=== PATIENT | female | born 1950 | race Two or more races ===

== ENCOUNTER 2021-09-10 22:10 | Inpatient (IN) | payer OTHER, SELFPAY ==
--- NOTE | ~2021-09-10 | US_ITS ---
EXAMINATION: ULTRASOUND EXTREMITY NONVASCULAR CLINICAL INFORMATION: Left upper extremity palpable lesion. COMPARISON: None TECHNIQUE: Limited ultrasound imaging through the antecubital fossa was performed. FINDINGS: Limited ultrasound imaging through antecubital fossa there is isoechoic lesion within the intramuscular compartment surrounding by capsule suggestive of intramuscular lipoma. It has similar appearance to the subcutaneous fatty tissue. US/US extremity nonvascular IMPRESSION: Findings suggestive of isoechoic fatty lesion/lipoma within the intramuscular compartment.
[2021-09-10 22:43] VITALS: PULSE 130; RESP 17; O2SAT 97; BMI 24.3
--- NOTE | 2021-09-11 00:42 | PC.NURSE ---
This RN calling pt into the main ED. Pt refusing to leave WR. Daughter with pt explains that she was recently discharged from [facility] on 09/04 due to mental health reasons but has been declining at home. Per daughter, pt has been refusing her medications for 1 week now, pt has also not been sleeping. Per daughter, pt has become very aggressive with her daughters . Daughter does not feel safe caring for pt @ home and is concerned for pts well being. MD evaluating pt in the WR. Pt ambulating into room 17.
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
--- NOTE | 2021-09-11 01:51 | PC.NURSE ---
pt refusing to allow this EDT to draw blood work at this time.
--- NOTE | 2021-09-11 01:55 | PC.NURSE ---
Pt moved into room 10 to be monitored by sitter.
[2021-09-11 03:33] LABS: Appearance Urine HAZY; Color Urine YELLOW; Glucose Urine UA NEG (NEG); Leukocyte Esterase Urine 2+ (NEG); Nitrite Urine NEG (NEG); Specific Gravity - Urine 1.015 (1.005-1.025); UACC Culture Trigger YES; Urine Blood TRACE (NEG); Urine Ketones NEG (NEG); Urine Protein NEG (NEG-TRACE)
[2021-09-11 03:39] LABS: Bacteria Urine 1+ /LPF; Hyaline Casts Urine 0-2 /LPF; Mucus Urine 1+ /LPF; RBC Urine 0-2 /HPF (0); Squamous Epithelial Cell Urine 2+ /LPF; WBC Urine 30-49 /HPF (0-4)
[2021-09-11 03:48] LABS: Amphetamine Screen Urine Not Detected (Not Detect); Barbiturates, Urine Not Detected (Not Detect); Benzodiazepines Screen Urine Not Detected (Not Detect); COVID-19 Test Negative (Negative); Cannabinoid Screen Urine Not Detected (Not Detect); Cocaine Screen Urine Not Detected (Not Detect); Fentanyl, urine Not Detected (Not Detect); Opiate Screen Urine Not Detected (Not Detect); Phencyclidine Screen Urine Not Detected (Not Detect)
[2021-09-11 04:00] VITALS: RESP 15; O2SAT 97
--- NOTE | 2021-09-11 04:06 | PC.NURSE ---
Patient refusing to have vital signs taken. She also has refused to have blood draws taken as well, provider and charge nurse aware.
--- NOTE | 2021-09-11 04:07 | PC.NURSE ---
Patient was recently hospitalized at [facility] [place] Psych bed from July of this year until 09/04/2021. Plan to get medical records from that hospitalization. Patient is refusing vitals and blood draws
--- NOTE | 2021-09-11 05:00 | PC.NURSE ---
PATIENT CONTINUE TO REFUSED LABS ,RN AND MD AWARE .
--- NOTE | 2021-09-11 06:00 | PC.NURSE ---
RN AND MD AWARE PATIENT REFUSED VITALS SIGNS ,LAB DRAW AND TO SUPER[employer] INTO HOSPITAL ATTIRE .
[2021-09-11 06:04] VITALS: RESP 16
--- NOTE | 2021-09-11 08:00 | PC.NURSE ---
pt continues to refuse to allow staff to complete vitals on her, RR 20. NAD. pt wanted breakfast and is currently sitting up to eat. continues to refuse lab values
--- NOTE | 2021-09-11 08:53 | PHA.MEDREC ---
Pharmacy Consult ? Medication Reconciliation Pharmacy has completed the medication reconciliation. confirmed list of meds from claim history with pt's daughter
[2021-09-11 10:30] LABS: Ethanol < 10 mg/dL
[2021-09-11 10:35] LABS: Acetaminophen LAB < 1 mcg/mL (<30); Alanine Aminotransferase 11 U/L (0-31); Albumin Level 3.6 g/dL (3.5-5.0); Alkaline Phosphatase 131 U/L (39-117); Anion Gap 13 (12-20); Aspartate Amino Transferase 11 U/L (5-31); Bilirubin Total 0.6 mg/dL (0.0-1.0); Blood Urea Nitrogen 13 mg/dL (9-16); Calcium 9.7 mg/dL (8.4-10.2); Carbon Dioxide 24 mmol/L (22-29); Chloride 105 mmol/L (96-108); Estimated Glomerular Filt Rate > 60; Glucose Random 153 mg/dL (60-115); Lipase 21 U/L (8-78); Potassium 3.9 mmol/L (3.3-5.1); Sodium 138 mmol/L (135-145); Total Protein 7.2 g/dL (6.5-8.0)
[2021-09-11 10:37] LABS: Influenza A Negative (Negative); Influenza B2 Negative (Negative)
[2021-09-11 11:04] VITALS: BP 184/85; PULSE 101; RESP 18; O2SAT 97
--- NOTE | 2021-09-11 11:23 | PC.NURSE ---
pt reports everyone in her family is a doctor, including her. she allowed t/w to do vitals on her but when informed her BP was elevated she stated No, my BP is good, its 73 and 80 and 83 . 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 pt refused all her medications, stated she does not need them and does not take medications .
[2021-09-11 18:37] VITALS: RESP 20
--- NOTE | 2021-09-11 18:38 | PC.NURSE ---
entered pts room, she said get out . asked if pt had pain, she said no now get out
[2021-09-11 19:40] VITALS: PULSE 96; TEMP 37.1; O2SAT 96
[2021-09-11] MEDS: Doxepin HCl 25 MG CAPSULE 50 MG PO (21:00)
[2021-09-11] MEDS: OLANZapine 10 MG TABLET 20 MG PO (21:00)
--- NOTE | 2021-09-11 23:05 | PC.NURSE ---
pt given water, resting in bed
[2021-09-12] VITALS (7 sets, daily range): BP systolic 141–175; BP diastolic 62–75; PULSE 80–108; RESP 14–18; TEMP 36.3–37.1; O2SAT 95–98
--- NOTE | 2021-09-12 01:02 | PC.NURSE ---
pt requesting pain medication, this RN brought medication in to pt and pt began screaming I dont want it , pt reassured, althought continued to scream i dont want it
--- NOTE | 2021-09-12 08:30 | PC.NURSE ---
Patient refused her 9:00 am medications screaming I don't' want them . This telegraphic typewriter mechanic explained to the patient that her morning medications are for blood pressure and to treat active urinary tract infection-patient continued to refuse her meds.
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
--- NOTE | 2021-09-12 23:27 | PC.ADMIT ---
Pt. admitted to S1 from [facility] ED on 09/12/2021 at 2158 with a diagnosis of schizophrenia. She came to the ED due to medication noncompliance. Pt. was transported to the unit by wheelchair. Pt. signed a CV in the ED. Pt. was able to correctly report her date of . When asked her name, pt. reported she goes by Shelley Andersen. Pt. reported she is near home and was able to state that she is at [facility] when looking at the white board in the ER. Pt. is unaware of time, date and situation. Speech is clear but disorganized, confused and delusional at times. Pt. is being treated for a UTI with cefuroxime axetil 250mg BID. Pt. refused HS medications. Pt. presented with an angry, agitated mood and affect. She became more angry when she was told she could not have her cell phone. Pt. refused medications. Speech is clear but disorganized, confused and delusional at times. Pt. refuses to put name band on. Pt. refused to sign legals. Pt. refused to complete admission assessment and safety tool. Medications verified with [facility]. Pt. ambulates independently without DME. Gait is steady. Pt. offered no c/o SI, HI, AH and VH. She did not report pain. Pt. is in her room resting quietly.
--- NOTE | 2021-09-13 04:31 | PC.NURSE ---
Transfer orders included order for medication restraint and order to physically hold pt for medication restraint. TO from Dr. Enrique to discontinue orders.
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
[2021-09-14 06:00] VITALS: BP 146/70; PULSE 97; RESP 17; TEMP 36.7; O2SAT 96
[2021-09-14 07:00] VITALS: BMI 25.5
--- NOTE | 2021-09-14 08:25 | P.PNPSI_ITS ---
Subjective Subjective Date of Service: 09/14/21 Reason For Visit: Psychosis Subjective Notes: Conditional Voluntary Interim History: The nursing staff reported the patient has been very social in the evening, delusional, nonsensical. She also refused all her medications. She slept very late. On interview the patient was tangential reported that she was doing fine but she looks internally preoccupied and responding to internal stimuli, she stated that she only will take the little white pill Mental Status Exam Mental Status Exam Patient Appearance: Appropriate Patient Orientation: Person and Situation Level of Consciousness: Awake Patient Behavior: Guarded, Passive and Suspicious Mood Description: Suspicious Affect Description: Blunted Patient Cognition Impaired: Yes Ability to Follow Directions: Good Speech Pattern: Monotone Hallucinations: Auditory Delusions: Paranoid Ideation and Grandiose Thought Process: Racing, Illogical and Evasive Judgement: Poor Diagnostics Vital Signs (24Hr): Vital Signs - 24 hr 09/14/21 06:00 Temperature 98.0 F Pulse Rate 97 Respiratory Rate 17 Blood Pressure 146/70 H Pulse Oximetry 96 BMI result Body Mass Index 24.3 Labs Results: 09/11/21 10:13 09/11/21 10:13 Medications Medications Current Medications Acetaminophen (Acetaminophen 325 Mg Tablet) 650 mg PO Q6H PRN PRN Reason: Headache/Pain Mild Scale (1-3) Al Hydroxide/Mg Hydroxide (Magnesium Hydrox/Alum Hydrox 30 Ml Oral.Susp) 30 ml PO Q6H PRN PRN Reason: Heartburn/Nausea Amlodipine Besylate (Amlodipine Besylate 10 Mg Tablet) 10 mg PO DAILY [facility]; Protocol Last Admin: 09/13/21 07:51 Dose: Not Given Documented by: Cefuroxime Axetil (Cefuroxime Axetil 250 Mg Tablet) 250 mg PO BID [facility] Stop: 09/15/21 21:01 Last Admin: 09/13/21 22:13 Dose: Not Given Documented by: Divalproex Sodium (Divalproex Sodium Er 500 Mg Tab.Er.24h) 500 mg PO BID [facility] Last Admin: 09/13/21 22:13 Dose: Not Given Documented by: Doxepin HCl (Doxepin Hcl 25 Mg Capsule) 50 mg PO BEDTIME [facility] Last Admin: 09/13/21 22:13 Dose: Not Given Documented by: Famotidine (Famotidine 20 Mg Tablet) 20 mg PO BID PRN PRN Reason: heartburn Hydroxyzine HCl (Hydroxyzine Hcl 25 Mg Tablet) 25 mg PO BEDTIME PRN PRN Reason: Anxiety Lisinopril (Lisinopril 40 Mg Tablet) 40 mg PO DAILY [facility]; Protocol Last Admin: 09/13/21 07:53 Dose: Not Given Documented by: Lorazepam (Lorazepam 1 Mg Tablet) 2 mg PO BID PRN PRN Reason: anxiety Magnesium Hydroxide (Milk Of Magnesia 30 Ml Oral.Susp) 30 ml PO DAILY PRN PRN Reason: Constipation Olanzapine (Olanzapine 10 Mg Tablet) 20 mg PO BEDTIME [facility] Last Admin: 09/13/21 22:13 Dose: Not Given Documented by: Trazodone HCl (Trazodone Hcl 50 Mg Tablet) 50 mg PO BEDTIME PRN PRN Reason: Insomnia Allergies Allergies Allergy/AdvReac Type Severity Reaction Status Date / Time aspirin Allergy Unknown Verified 09/12/21 23:15 Assessment & Plan Assessment & Plan (1) Schizophrenia: Status: Acute Code(s): F20.9 - Schizophrenia, unspecified Plan the patient is an elderly [place] female with a long history of schizophrenia admitted for exacerbation of psychotic symptoms in the context of noncompliance. Plan 1. Gather collateral information. 2. Continue medications as medication reconciliation. 3. Family meeting with the social services analyst. I spent __20____ minutes with the patient and/or on the patient floor today, greater than?50% of which was spent counseling/coordinating care. Reason for contiued inpatient stay Substantial Risk for: inability to function, rapid decompensation and med/psych decompensation
[2021-09-14 17:21] LABS: Appearance Urine HAZY; Color Urine YELLOW; Glucose Urine UA NEG (NEG); Leukocyte Esterase Urine TRACE (NEG); Nitrite Urine NEG (NEG); PH 5.5 (5.0-8.0); Specific Gravity - Urine >= 1.030 (1.005-1.025); Urine Blood NEG (NEG); Urine Ketones NEG (NEG); Urine Protein NEG (NEG-TRACE)
[2021-09-14 17:44] LABS: Bacteria Urine TRACE /LPF; Mucus Urine 2+ /LPF; Renal Epithelial Cells Urine TRACE /LPF; Squamous Epithelial Cell Urine 2+ /LPF
[2021-09-14 17:45] LABS: Amorphous Sediment Urine TRACE /LPF
[2021-09-14 18:00] VITALS: BP 160/77; PULSE 102; RESP 16; TEMP 36.7; O2SAT 97
[2021-09-15 06:00] VITALS: BP 177/77; PULSE 92; TEMP 36.2; O2SAT 99
--- NOTE | 2021-09-15 12:11 | P.PNPSI_ITS ---
Subjective Subjective Date of Service: 09/15/21 Reason For Visit: Psychosis Subjective Notes: Conditional Voluntary Interim History: The nursing staff reported the patient has refused all her medications including her antibiotic. The administrator social welfare reported that her daughter came and brought the healthcare proxy and we will affirm aid in court. Today we have a family meeting at 14:00. On interview the patient looks confused, disoriented and delusional. Mental Status Exam Mental Status Exam Patient Appearance: Well Grooomed Patient Orientation: Person and Situation Level of Consciousness: Awake Patient Behavior: Cooperative Mood Description: Withdrawn Affect Description: Calm Patient Cognition Impaired: Yes Ability to Follow Directions: Good Speech Pattern: Clear Hallucinations: Auditory Delusions: Paranoid Ideation and Grandiose Thought Process: Racing and Distracted Thought Content: positive for [place], positive for Poverty of Content and positive for Thought Blocking Judgement: Fair Diagnostics Vital Signs (24Hr): Vital Signs - 24 hr 09/14/21 18:00 09/15/21 06:00 Temperature 98.1 F 97.1 F Pulse Rate 102 H 92 Respiratory Rate 16 Blood Pressure 160/77 H 177/77 H Pulse Oximetry 97 99 BMI result Body Mass Index 25.5 Labs Results: 09/11/21 10:13 09/11/21 10:13 Labs: Laboratory Results - last 48 hr 09/14/21 17:10 Urine Color YELLOW Urine Appearance HAZY Urine pH 5.5 Ur Specific [place] >= 1.030 H Urine Protein NEG Urine Glucose (UA) NEG Urine Ketones NEG Urine Blood NEG Urine Nitrite NEG Ur Leukocyte Esterase TRACE H Urine RBC 1-4 Urine WBC 1-4 Ur Squamous Epith Cells 2+ Ur Renal Epithelial Cell TRACE Amorphous Sediment TRACE Urine Bacteria TRACE Urine Mucus 2+ Medications Medications Current Medications Acetaminophen (Acetaminophen 325 Mg Tablet) 650 mg PO Q6H PRN PRN Reason: Headache/Pain Mild Scale (1-3) Al Hydroxide/Mg Hydroxide (Magnesium Hydrox/Alum Hydrox 30 Ml Oral.Susp) 30 ml PO Q6H PRN PRN Reason: Heartburn/Nausea Amlodipine Besylate (Amlodipine Besylate 10 Mg Tablet) 10 mg PO DAILY [facility]; Protocol Last Admin: 09/15/21 10:22 Dose: Not Given Documented by: Cefuroxime Axetil (Cefuroxime Axetil 250 Mg Tablet) 250 mg PO BID [facility] Stop: 09/15/21 21:01 Last Admin: 09/15/21 10:22 Dose: Not Given Documented by: Divalproex Sodium (Divalproex Sodium Er 500 Mg Tab.Er.24h) 500 mg PO BID [facility] Last Admin: 09/15/21 10:23 Dose: Not Given Documented by: Doxepin HCl (Doxepin Hcl 25 Mg Capsule) 50 mg PO BEDTIME [facility] Last Admin: 09/14/21 23:01 Dose: Not Given Documented by: Famotidine (Famotidine 20 Mg Tablet) 20 mg PO BID PRN PRN Reason: heartburn Hydroxyzine HCl (Hydroxyzine Hcl 25 Mg Tablet) 25 mg PO BEDTIME PRN PRN Reason: Anxiety Lisinopril (Lisinopril 40 Mg Tablet) 40 mg PO DAILY [facility]; Protocol Last Admin: 09/15/21 10:23 Dose: Not Given Documented by: Lorazepam (Lorazepam 1 Mg Tablet) 2 mg PO BID PRN PRN Reason: anxiety Magnesium Hydroxide (Milk Of Magnesia 30 Ml Oral.Susp) 30 ml PO DAILY PRN PRN Reason: Constipation Olanzapine (Olanzapine 10 Mg Tablet) 20 mg PO BEDTIME [facility] Last Admin: 09/14/21 23:01 Dose: Not Given Documented by: Trazodone HCl (Trazodone Hcl 50 Mg Tablet) 50 mg PO BEDTIME PRN PRN Reason: Insomnia Allergies Allergies Allergy/AdvReac Type Severity Reaction Status Date / Time aspirin Allergy Unknown Verified 09/12/21 23:15 Assessment & Plan Assessment & Plan (1) Schizophrenia: Status: Acute Code(s): F20.9 - Schizophrenia, unspecified Plan the patient is an elderly Ecuadorean female with a long history of schizophrenia admitted for exacerbation of psychotic symptoms in the context of noncompliance. Plan 1. Gather collateral information. 2. Continue medications as medication reconciliation. 3. Family meeting with the administrator social welfare. I spent ___20___ minutes with the patient and/or on the patient floor today, greater than?50% of which was spent counseling/coordinating care. Reason for contiued inpatient stay Substantial Risk for: inability to function, rapid decompensation and med/psych decompensation
[2021-09-15 18:00] VITALS: BP 162/82; PULSE 108; RESP 18; TEMP 36.4; O2SAT 97
[2021-09-16 06:00] VITALS: BP 190/102; PULSE 94; TEMP 36; O2SAT 95
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
[2021-09-16 18:00] VITALS: PULSE 88; RESP 16; TEMP 36.5; O2SAT 96
--- NOTE | 2021-09-17 12:18 | P.PNPSI_ITS ---
Subjective Subjective Date of Service: 09/17/21 Reason For Visit: Psychosis Subjective Notes: Conditional Voluntary Interim History: Patient with overly detailed explanation of something that happened why she was brought to the hospital has not been taking any medication psychiatric nor for hypertension and has not responded to any Education regarding her condition and elevated blood pressure Mental Status Exam Mental Status Exam Patient Appearance: Well Grooomed Patient Orientation: Person and Situation Level of Consciousness: Awake Patient Behavior: Cooperative Mood Description: Withdrawn Affect Description: Calm Patient Cognition Impaired: Yes Ability to Follow Directions: Good Speech Pattern: Clear Hallucinations: Auditory Delusions: Paranoid Ideation and Grandiose Thought Process: Racing and Distracted Thought Content: positive for [place], positive for Poverty of Content and positive for Thought Blocking Judgement: Fair Diagnostics Vital Signs (24Hr): Vital Signs - 24 hr 09/16/21 18:00 Temperature 97.7 F Pulse Rate 88 Respiratory Rate 16 Pulse Oximetry 96 BMI result Body Mass Index 25.5 Labs Results: 09/11/21 10:13 09/11/21 10:13 Medications Medications Current Medications Acetaminophen (Acetaminophen 325 Mg Tablet) 650 mg PO Q6H PRN PRN Reason: Headache/Pain Mild Scale (1-3) Al Hydroxide/Mg Hydroxide (Magnesium Hydrox/Alum Hydrox 30 Ml Oral.Susp) 30 ml PO Q6H PRN PRN Reason: Heartburn/Nausea Amlodipine Besylate (Amlodipine Besylate 10 Mg Tablet) 10 mg PO DAILY [facility]; Protocol Last Admin: 09/17/21 08:22 Dose: Not Given Documented by: Divalproex Sodium (Divalproex Sodium Er 500 Mg Tab.Er.24h) 500 mg PO BID [facility] Last Admin: 09/17/21 08:22 Dose: Not Given Documented by: Doxepin HCl (Doxepin Hcl 25 Mg Capsule) 50 mg PO BEDTIME [facility] Last Admin: 09/16/21 20:32 Dose: Not Given Documented by: Famotidine (Famotidine 20 Mg Tablet) 20 mg PO BID PRN PRN Reason: heartburn Hydroxyzine HCl (Hydroxyzine Hcl 25 Mg Tablet) 25 mg PO BEDTIME PRN PRN Reason: Anxiety Lisinopril (Lisinopril 40 Mg Tablet) 40 mg PO DAILY [facility]; Protocol Last Admin: 09/17/21 08:22 Dose: Not Given Documented by: Magnesium Hydroxide (Milk Of Magnesia 30 Ml Oral.Susp) 30 ml PO DAILY PRN PRN Reason: Constipation Olanzapine (Olanzapine 10 Mg Tablet) 20 mg PO BEDTIME [facility] Last Admin: 09/16/21 20:32 Dose: Not Given Documented by: Trazodone HCl (Trazodone Hcl 50 Mg Tablet) 50 mg PO BEDTIME PRN PRN Reason: Insomnia Allergies Allergies Allergy/AdvReac Type Severity Reaction Status Date / Time aspirin Allergy Unknown Verified 09/12/21 23:15 Assessment & Plan Assessment & Plan (1) Schizophrenia: Status: Acute Code(s): F20.9 - Schizophrenia, unspecified Plan the patient is an elderly Tajik female with a long history of schizoph stefan admitted for exacerbation of psychotic symptoms in the context of noncompliance. Plan 1. Gather collateral information. 2. Continue medications as medication reconciliation. 3. Family meeting with the oncology social work. 09/16/2021 Gather additional information encourage treatment compliance 09/17/2021 Patient seen case reviewed with staff. Patient somewhat hyper intensive. Has overlap for reasons for why she will not take medication either for her psychiatric condition or her medical condition difficulty taking in information if has healthcare proxy will need to be invoked monitor blood pressure get psychiatric records from a recent hospitalization was likely will need involuntary treatment plan would benefit from [place] I I spent minutes with the patient and/or on the patient floor today, greater than?50% of which was spent counseling/coordinating care. Reason for contiued inpatient stay Substantial Risk for: inability to function, rapid decompensation and med/psych decompensation
[2021-09-17 14:58] VITALS: BP 148/71
[2021-09-17 18:00] VITALS: RESP 16
[2021-09-18 06:00] VITALS: BP 195/95; PULSE 88; TEMP 36.3; O2SAT 97
--- NOTE | 2021-09-18 14:51 | HO.PSYCHPN ---
Subjective Subjective Date of Service: 09/18/21 Reason For Visit: Psychosis Subjective Notes: Conditional Voluntary (HCP invoked) Interim History: The nursing staff reported the patient has refused all her medications. She was seen on the unit responding to internal stimuli, psychotic but easily redirectable. Today we had a family meeting with her daughter and explained her legal circumstances and since she is the healthcare proxy, we invoked that and she signed her into the hospital. On interview the patient was grossly disorganized, delusional and is stating that that was not her name but she agreed that she is going to take the medications. Mental Status Exam Mental Status Exam Patient Appearance: Appropriate Patient Orientation: Person Level of Consciousness: Appropriate Patient Behavior: Guarded and Suspicious Mood Description: Calm Affect Description: Labile Patient Cognition Impaired: Yes Ability to Follow Directions: Fair Speech Pattern: Impoverished and Rambling Hallucinations: Auditory Delusions: Paranoid Ideation and Grandiose Thought Process: Illogical Thought Content: positive for [place], positive for Poverty of Content, positive for [place] and positive for Tangential Judgement: Poor Diagnostics Vital Signs (24Hr): Vital Signs - 24 hr 09/17/21 14:58 09/17/21 18:00 09/18/21 06:00 Temperature 97.3 F Pulse Rate 88 Respiratory Rate 16 Blood Pressure 148/71 H 195/95 H Pulse Oximetry 97 BMI result Body Mass Index 25.5 Labs Results: 09/11/21 10:13 09/11/21 10:13 Medications Medications Current Medications Acetaminophen (Acetaminophen 325 Mg Tablet) 650 mg PO Q6H PRN PRN Reason: Headache/Pain Mild Scale (1-3) Al Hydroxide/Mg Hydroxide (Magnesium Hydrox/Alum Hydrox 30 Ml Oral.Susp) 30 ml PO Q6H PRN PRN Reason: Heartburn/Nausea Amlodipine Besylate (Amlodipine Besylate 10 Mg Tablet) 10 mg PO DAILY [facility]; Protocol Last Admin: 09/18/21 08:52 Dose: Not Given Documented by: Divalproex Sodium (Divalproex Sodium Er 500 Mg Tab.Er.24h) 500 mg PO BID [facility] Last Admin: 09/18/21 08:52 Dose: Not Given Documented by: Doxepin HCl (Doxepin Hcl 25 Mg Capsule) 50 mg PO BEDTIME [facility] Last Admin: 09/17/21 22:12 Dose: Not Given Documented by: Famotidine (Famotidine 20 Mg Tablet) 20 mg PO BID PRN PRN Reason: heartburn Hydroxyzine HCl (Hydroxyzine Hcl 25 Mg Tablet) 25 mg PO BEDTIME PRN PRN Reason: Anxiety Lisinopril (Lisinopril 40 Mg Tablet) 40 mg PO DAILY [facility]; Protocol Last Admin: 09/18/21 08:53 Dose: Not Given Documented by: Magnesium Hydroxide (Milk Of Magnesia 30 Ml Oral.Susp) 30 ml PO DAILY PRN PRN Reason: Constipation Olanzapine (Olanzapine 10 Mg Tablet) 20 mg PO BEDTIME [facility] Last Admin: 09/17/21 22:12 Dose: Not Given Documented by: Trazodone HCl (Trazodone Hcl 50 Mg Tablet) 50 mg PO BEDTIME PRN PRN Reason: Insomnia Allergies Allergies Allergy/AdvReac Type Severity Reaction Status Date / Time aspirin Allergy Unknown Verified 09/12/21 23:15 Assessment & Plan Assessment & Plan (1) Schizophrenia: Status: Acute Code(s): F20.9 - Schizophrenia, unspecified Plan the patient is an elderly Tongan female with a long history of schizophrenia admitted for exacerbation of psychotic symptoms in the context of noncompliance. Plan 1. Gather collateral information. 2. Continue medications as medication reconciliation. 3.As per family meeting, we will affirmed healthcare proxy. I spent ___20___ minutes with the patient and/or on the patient floor today, greater than?50% of which was spent counseling/coordinating care. Reason for contiued inpatient stay Substantial Risk for: inability to function, rapid decompensation and med/psych decompensation
[2021-09-18 19:55] VITALS: BP 189/86; PULSE 102; RESP 19; TEMP 36.5; O2SAT 97
[2021-09-18] MEDS: lisinopriL 40 MG TABLET PO (20:12)
[2021-09-18] MEDS: amLODIPine Besylate 10 MG TABLET PO (20:13)
--- NOTE | 2021-09-18 22:31 | PC.NURSE ---
BP 189/86, HR 97 at HS. Pt. willing to take BP meds only. notified and reported pt. could take =the amlodipine and lisinopril that she refused in the morning. Pt. refused psych medications.
[2021-09-19 06:00] VITALS: BP 118/58; PULSE 67; RESP 16; TEMP 36.2; O2SAT 96
--- NOTE | 2021-09-19 15:09 | HO.PSYCHPN ---
Subjective Subjective Date of Service: 09/19/21 Reason For Visit: Psychosis Subjective Notes: Conditional Voluntary Interim History: the nursing staff reported that the patient only took last night her blood pressure medications. Yesterday we had a family meeting and her daughter reported that on the last hospitalizations she was referred to [facility] and other ancillary services. We invoke the healthcare proxy and her daughter gave adult recession to contact only other facilities. On interview the patient was delusional, confused, stating that her name we signed helical and not leave the a and she refused to take medications. Mental Status Exam Mental Status Exam Patient Appearance: Appropriate Patient Orientation: Person and Situation Level of Consciousness: Awake Patient Behavior: Guarded and Suspicious Mood Description: Withdrawn Affect Description: Constricted Patient Cognition Impaired: Yes Ability to Follow Directions: Fair Speech Pattern: Clear Hallucinations: Auditory Delusions: Paranoid Ideation and Grandiose Perceptual Disturbances: Hallucinations Thought Process: Illogical and Distracted Thought Content: positive for [place] and positive for Tangential Judgement: Fair Diagnostics Vital Signs (24Hr): Vital Signs - 24 hr 09/18/21 19:55 09/19/21 06:00 Temperature 97.7 F 97.1 F Pulse Rate 102 H 67 Respiratory Rate 19 16 Blood Pressure 189/86 H 118/58 L Pulse Oximetry 97 96 BMI result Body Mass Index 25.5 Labs Results: 09/11/21 10:13 09/11/21 10:13 Medications Medications Current Medications Acetaminophen (Acetaminophen 325 Mg Tablet) 650 mg PO Q6H PRN PRN Reason: Headache/Pain Mild Scale (1-3) Al Hydroxide/Mg Hydroxide (Magnesium Hydrox/Alum Hydrox 30 Ml Oral.Susp) 30 ml PO Q6H PRN PRN Reason: Heartburn/Nausea Amlodipine Besylate (Amlodipine Besylate 10 Mg Tablet) 10 mg PO DAILY [facility]; Protocol Last Admin: 09/19/21 08:58 Dose: Not Given Documented by: Divalproex Sodium (Divalproex Sodium Er 500 Mg Tab.Er.24h) 500 mg PO BID [facility] Last Admin: 09/19/21 08:59 Dose: Not Given Documented by: Doxepin HCl (Doxepin Hcl 25 Mg Capsule) 50 mg PO BEDTIME [facility] Last Admin: 09/18/21 20:13 Dose: Not Given Documented by: Famotidine (Famotidine 20 Mg Tablet) 20 mg PO BID PRN PRN Reason: heartburn Hydroxyzine HCl (Hydroxyzine Hcl 25 Mg Tablet) 25 mg PO BEDTIME PRN PRN Reason: Anxiety Lisinopril (Lisinopril 40 Mg Tablet) 40 mg PO DAILY [facility]; Protocol Last Admin: 09/19/21 08:59 Dose: Not Given Documented by: Magnesium Hydroxide (Milk Of Magnesia 30 Ml Oral.Susp) 30 ml PO DAILY PRN PRN Reason: Constipation Olanzapine (Olanzapine 10 Mg Tablet) 20 mg PO BEDTIME [facility] Last Admin: 09/18/21 20:13 Dose: Not Given Documented by: Trazodone HCl (Trazodone Hcl 50 Mg Tablet) 50 mg PO BEDTIME PRN PRN Reason: Insomnia Allergies Allergies Allergy/AdvReac Type Severity Reaction Status Date / Time aspirin Allergy Unknown Verified 09/12/21 23:15 Assessment & Plan Assessment & Plan (1) Schizophrenia: Status: Acute Code(s): F20.9 - Schizophrenia, unspecified Plan the patient is an elderly Grenadian female with a long history of schizophrenia admitted for exacerbation of psychotic symptoms in the context of noncompliance. Plan 1. Gather collateral information. 2. Continue medications as medication reconciliation. 3.As per family meeting, we will affirmed healthcare proxy. I spent __20____ minutes with the patient and/or on the patient floor today, greater than?50% of which was spent counseling/coordinating care. Reason for contiued inpatient stay Substantial Risk for: inability to function, rapid decompensation and med/psych decompensation
[2021-09-19] MEDS: lisinopriL 40 MG TABLET PO (15:17)
[2021-09-19 15:21] VITALS: BP 143/68; PULSE 93; RESP 16; TEMP 36.1; O2SAT 98
[2021-09-19 22:39] VITALS: BP 167/78; PULSE 104; RESP 18; TEMP 36.8; O2SAT 97
[2021-09-20 08:00] VITALS: BP 127/59; PULSE 78; RESP 17; TEMP 36.4; O2SAT 96
[2021-09-20] MEDS: lisinopriL 40 MG TABLET PO (09:13)
--- NOTE | 2021-09-20 15:42 | HO.PSYCHPN ---
Subjective Subjective Date of Service: 09/20/21 Reason For Visit: Psychosis Subjective Notes: Conditional Voluntary Interim History: the nursing staff reported the patient had been delusional, self dialogue in and isolative at times. She has refused all her medications. On interview the patient remains delusional with disorganized thought process. Mental Status Exam Mental Status Exam Patient Appearance: Well Grooomed Patient Orientation: Person and Situation Level of Consciousness: Awake Patient Behavior: Guarded Mood Description: Withdrawn Affect Description: Constricted Patient Cognition Impaired: Yes Ability to Follow Directions: Good Speech Pattern: Clear Hallucinations: Auditory Delusions: Paranoid Ideation and Grandiose Thought Process: Linear Thought Content: positive for [place] and positive for Poverty of Content Judgement: Fair Diagnostics Vital Signs (24Hr): Vital Signs - 24 hr 09/19/21 22:39 09/20/21 08:00 Temperature 98.2 F 97.5 F Pulse Rate 104 H 78 Respiratory Rate 18 17 Blood Pressure 167/78 H 127/59 L Pulse Oximetry 97 96 BMI result Body Mass Index 25.5 Labs Results: 09/11/21 10:13 09/11/21 10:13 Medications Medications Current Medications Acetaminophen (Acetaminophen 325 Mg Tablet) 650 mg PO Q6H PRN PRN Reason: Headache/Pain Mild Scale (1-3) Al Hydroxide/Mg Hydroxide (Magnesium Hydrox/Alum Hydrox 30 Ml Oral.Susp) 30 ml PO Q6H PRN PRN Reason: Heartburn/Nausea Amlodipine Besylate (Amlodipine Besylate 10 Mg Tablet) 10 mg PO DAILY [facility]; Protocol Last Admin: 09/20/21 09:14 Dose: Not Given Documented by: Divalproex Sodium (Divalproex Sodium Er 500 Mg Tab.Er.24h) 500 mg PO BID [facility] Last Admin: 09/20/21 09:14 Dose: Not Given Documented by: Doxepin HCl (Doxepin Hcl 25 Mg Capsule) 50 mg PO BEDTIME [facility] Last Admin: 09/19/21 20:57 Dose: Not Given Documented by: Famotidine (Famotidine 20 Mg Tablet) 20 mg PO BID PRN PRN Reason: heartburn Hydroxyzine HCl (Hydroxyzine Hcl 25 Mg Tablet) 25 mg PO BEDTIME PRN PRN Reason: Anxiety Lisinopril (Lisinopril 40 Mg Tablet) 40 mg PO DAILY [facility]; Protocol Last Admin: 09/20/21 09:13 Dose: 40 mg Documented by: Magnesium Hydroxide (Milk Of Magnesia 30 Ml Oral.Susp) 30 ml PO DAILY PRN PRN Reason: Constipation Olanzapine (Olanzapine 10 Mg Tablet) 20 mg PO BEDTIME [facility] Last Admin: 09/19/21 20:58 Dose: Not Given Documented by: Trazodone HCl (Trazodone Hcl 50 Mg Tablet) 50 mg PO BEDTIME PRN PRN Reason: Insomnia Allergies Allergies Allergy/AdvReac Type Severity Reaction Status Date / Time aspirin Allergy Unknown Verified 09/12/21 23:15 Assessment & Plan Assessment & Plan (1) Schizophrenia: Status: Acute Code(s): F20.9 - Schizophrenia, unspecified Plan the patient is an elderly [place] Islander female with a long history of schizophrenia admitted for exacerbation of psychotic symptoms in the context of noncompliance. Plan 1. Gather collateral information. 2. Continue medications as medication reconciliation. 3. As per family meeting, we will affirmed healthcare proxy. I spent ___20___ minutes with the patient and/or on the patient floor today, greater than?50% of which was spent counseling/coordinating care. Reason for contiued inpatient stay Substantial Risk for: inability to function, rapid decompensation and med/psych decompensation
[2021-09-21 07:00] VITALS: BMI 25.1
[2021-09-21 07:20] VITALS: BP 156/74; PULSE 116; RESP 16; TEMP 36.3; O2SAT 95
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
--- NOTE | 2021-09-21 15:31 | HO.PSYCHPN ---
Subjective Subjective Date of Service: 09/21/21 Reason For Visit: Psychosis Subjective Notes: Conditional Voluntary Interim History: the nursing staff reports the patient has been noncompliant with medications she stated that she had diarrhea. Today, her daughter called us and stated that the 's patient has yesterday. Her I explained to the patient's daughter that she should informed that to the patient and will be prepared if she gets agitated. On interview the patient reports the incoherent statements, disorganized and psychotic Mental Status Exam Mental Status Exam Patient Appearance: Well Grooomed Patient Orientation: Person and Situation Level of Consciousness: Restless Patient Behavior: Guarded and Suspicious Mood Description: Blunted Affect Description: Constricted Patient Cognition Impaired: Yes Ability to Follow Directions: Fair Speech Pattern: Clear Hallucinations: Auditory Delusions: Paranoid Ideation and Grandiose Thought Process: Illogical and Evasive Thought Content: positive for Perseveration and positive for Poverty of Content Judgement: Poor Diagnostics Vital Signs (24Hr): Vital Signs - 24 hr 09/21/21 07:20 Temperature 97.3 F Pulse Rate 116 H Respiratory Rate 16 Blood Pressure 156/74 H Pulse Oximetry 95 BMI result Body Mass Index 25.1 Labs Results: 09/11/21 10:13 09/11/21 10:13 Medications Medications Current Medications Acetaminophen (Acetaminophen 325 Mg Tablet) 650 mg PO Q6H PRN PRN Reason: Headache/Pain Mild Scale (1-3) Al Hydroxide/Mg Hydroxide (Magnesium Hydrox/Alum Hydrox 30 Ml Oral.Susp) 30 ml PO Q6H PRN PRN Reason: Heartburn/Nausea Amlodipine Besylate (Amlodipine Besylate 10 Mg Tablet) 10 mg PO DAILY [facility]; Protocol Last Admin: 09/21/21 08:54 Dose: Not Given Documented by: Divalproex Sodium (Divalproex Sodium Er 500 Mg Tab.Er.24h) 500 mg PO BID [facility] Last Admin: 09/21/21 08:54 Dose: Not Given Documented by: Doxepin HCl (Doxepin Hcl 25 Mg Capsule) 50 mg PO BEDTIME [facility] Last Admin: 09/20/21 20:36 Dose: Not Given Documented by: Famotidine (Famotidine 20 Mg Tablet) 20 mg PO BID PRN PRN Reason: heartburn Hydroxyzine HCl (Hydroxyzine Hcl 25 Mg Tablet) 25 mg PO BEDTIME PRN PRN Reason: Anxiety Lisinopril (Lisinopril 40 Mg Tablet) 40 mg PO DAILY [facility]; Protocol Last Admin: 09/21/21 08:54 Dose: Not Given Documented by: Loperamide HCl (Loperamide Hcl 2 Mg Capsule) 2 mg PO Q6H PRN PRN Reason: Diarrhea Magnesium Hydroxide (Milk Of Magnesia 30 Ml Oral.Susp) 30 ml PO DAILY PRN PRN Reason: Constipation Olanzapine (Olanzapine 10 Mg Tablet) 20 mg PO BEDTIME [facility] Last Admin: 09/20/21 20:35 Dose: Not Given Documented by: Trazodone HCl (Trazodone Hcl 50 Mg Tablet) 50 mg PO BEDTIME PRN PRN Reason: Insomnia Allergies Allergies Allergy/AdvReac Type Severity Reaction Status Date / Time aspirin Allergy Unknown Verified 09/12/21 23:15 Assessment & Plan Assessment & Plan (1) Schizophrenia: Status: Acute Code(s): F20.9 - Schizophrenia, unspecified Plan the patient is an elderly Maldivian female with a long history of schizophrenia admitted for exacerbation of psychotic symptoms in the context of noncompliance. Plan 1. Gather collateral information. 2. Continue medications as medication reconciliation. 3. As per family meeting, we will affirmed healthcare proxy. I spent __20____ minutes with the patient and/or on the patient floor today, greater than?50% of which was spent counseling/coordinating care. Reason for contiued inpatient stay Substantial Risk for: inability to function, rapid decompensation and med/psych decompensation
[2021-09-21 18:00] VITALS: RESP 18
[2021-09-22 06:00] VITALS: BP 146/75; PULSE 94; RESP 18; TEMP 36.3; O2SAT 99
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
[2021-09-22 22:05] VITALS: BP 155/71; PULSE 86; RESP 20; TEMP 36.4; O2SAT 97
[2021-09-23 06:00] VITALS: BP 139/64; PULSE 92; RESP 17; TEMP 36.7; O2SAT 98
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
[2021-09-23 18:00] VITALS: PULSE 85; RESP 17; TEMP 36.4; O2SAT 98
[2021-09-24 06:00] VITALS: BP 139/65; PULSE 99; RESP 17; TEMP 36.9; O2SAT 99
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
--- NOTE | 2021-09-24 15:57 | PC.NURSE ---
Pt reports she is very upset this afternoon. Pt stated I ask Kelsea for a shower this morning, but she said no . Kelsea (COPY CENTER OPERATOR) stated that she offered the pt a shower numerous times this morning, pt refused. Pt continues to demand a shower at this time, unable to provide a shower as we do not have the staff to safely provide at this time. The pt has had numerous yelling outbursts today, when pt was told no for something, the pt stated The Dr said I can have anything I want, you are going to get fired .
--- NOTE | 2021-09-24 22:29 | PC.NURSE ---
Pt refused all meds and VS.
[2021-09-25 07:50] VITALS: BP 140/72; PULSE 73; RESP 16; TEMP 36.8; O2SAT 96
--- NOTE | 2021-09-25 15:23 | HO.PSYCHPN ---
Subjective Subjective Date of Service: 09/25/21 Reason For Visit: Psychosis Subjective Notes: Conditional Voluntary Interim History: The nursing staff reports the patient has refused vital signs and medications since admission. She is redirectable but she is very disorganized and psychotic. On interview, the patient reports that she is doing fine and she is planning to get and moved to [place]. Mental Status Exam Mental Status Exam Patient Appearance: Appropriate Patient Orientation: Person Level of Consciousness: Restless and Inappropriate Patient Behavior: Guarded and Talkative Mood Description: Labile Affect Description: Withdrawn Patient Cognition Impaired: Yes Ability to Follow Directions: Fair Speech Pattern: Impoverished and Monotone Hallucinations: Auditory Delusions: Paranoid Ideation and Grandiose Thought Process: Illogical Thought Content: positive for Disorganized Judgement: Poor Diagnostics Vital Signs (24Hr): Vital Signs - 24 hr 09/25/21 07:50 Temperature 98.2 F Pulse Rate 73 Respiratory Rate 16 Blood Pressure 140/72 H Pulse Oximetry 96 BMI result Body Mass Index 25.1 Labs Results: 09/11/21 10:13 09/11/21 10:13 Medications Medications Current Medications Acetaminophen (Acetaminophen 325 Mg Tablet) 650 mg PO Q6H PRN PRN Reason: Headache/Pain Mild Scale (1-3) Al Hydroxide/Mg Hydroxide (Magnesium Hydrox/Alum Hydrox 30 Ml Oral.Susp) 30 ml PO Q6H PRN PRN Reason: Heartburn/Nausea Amlodipine Besylate (Amlodipine Besylate 10 Mg Tablet) 10 mg PO DAILY [facility]; Protocol Last Admin: 09/25/21 11:06 Dose: Not Given Documented by: Divalproex Sodium (Divalproex Sodium Er 500 Mg Tab.Er.24h) 500 mg PO BID [facility] Last Admin: 09/25/21 11:06 Dose: Not Given Documented by: Doxepin HCl (Doxepin Hcl 25 Mg Capsule) 50 mg PO BEDTIME [facility] Last Admin: 09/24/21 22:28 Dose: Not Given Documented by: Famotidine (Famotidine 20 Mg Tablet) 20 mg PO BID PRN PRN Reason: heartburn Hydroxyzine HCl (Hydroxyzine Hcl 25 Mg Tablet) 25 mg PO BEDTIME PRN PRN Reason: Anxiety Lisinopril (Lisinopril 40 Mg Tablet) 40 mg PO DAILY [facility]; Protocol Last Admin: 09/25/21 11:06 Dose: Not Given Documented by: Loperamide HCl (Loperamide Hcl 2 Mg Capsule) 2 mg PO Q6H PRN PRN Reason: Diarrhea Magnesium Hydroxide (Milk Of Magnesia 30 Ml Oral.Susp) 30 ml PO DAILY PRN PRN Reason: Constipation Olanzapine (Olanzapine 10 Mg Tablet) 20 mg PO BEDTIME [facility] Last Admin: 09/24/21 22:28 Dose: Not Given Documented by: Trazodone HCl (Trazodone Hcl 50 Mg Tablet) 50 mg PO BEDTIME PRN PRN Reason: Insomnia Allergies Allergies Allergy/AdvReac Type Severity Reaction Status Date / Time aspirin Allergy Unknown Verified 09/12/21 23:15 Assessment & Plan Assessment & Plan (1) Schizophrenia: Status: Acute Code(s): F20.9 - Schizophrenia, unspecified Plan the patient is an elderly [place] female with a long history of schizophrenia admitted for exacerbation of psychotic symptoms in the context of noncompliance. Plan 1. Gather collateral information. 2. Continue medications as medication reconciliation. 3. As per family meeting, we will affirmed healthcare proxy. I spent __20____ minutes with the patient and/or on the patient floor today, greater than?50% of which was spent counseling/coordinating care. Reason for contiued inpatient stay Substantial Risk for: inability to function, rapid decompensation and med/psych decompensation
[2021-09-26 06:00] VITALS: BP 143/87; PULSE 95; RESP 16; TEMP 36.6; O2SAT 97
--- NOTE | 2021-09-26 08:26 | HO.PSYCHPN ---
Subjective Subjective Date of Service: 09/26/21 Reason For Visit: Psychosis Subjective Notes: Conditional Voluntary Interim History: The nursing staff reported the patient has been isolative, self talking to herself and she has refused all her medications. She has been irritable and angry at times. She slept for 8 hours. On interview, the patient was disorganized, but redirectable. Mental Status Exam Mental Status Exam Patient Appearance: Appropriate Patient Orientation: Person and Situation Level of Consciousness: Awake Patient Behavior: Guarded and Suspicious Mood Description: Suspicious Affect Description: Labile Patient Cognition Impaired: Yes Ability to Follow Directions: Fair Speech Pattern: Clear Hallucinations: Auditory Delusions: Paranoid Ideation and Grandiose Thought Process: Distracted and Evasive Thought Content: positive for [place] and positive for Poverty of Content Judgement: Fair Diagnostics Vital Signs (24Hr): BMI result Body Mass Index 25.1 Labs Results: 09/11/21 10:13 09/11/21 10:13 Medications Medications Current Medications Acetaminophen (Acetaminophen 325 Mg Tablet) 650 mg PO Q6H PRN PRN Reason: Headache/Pain Mild Scale (1-3) Al Hydroxide/Mg Hydroxide (Magnesium Hydrox/Alum Hydrox 30 Ml Oral.Susp) 30 ml PO Q6H PRN PRN Reason: Heartburn/Nausea Amlodipine Besylate (Amlodipine Besylate 10 Mg Tablet) 10 mg PO DAILY [facility]; Protocol Last Admin: 09/25/21 11:06 Dose: Not Given Documented by: Divalproex Sodium (Divalproex Sodium Er 500 Mg Tab.Er.24h) 500 mg PO BID [facility] Last Admin: 09/25/21 20:25 Dose: Not Given Documented by: Doxepin HCl (Doxepin Hcl 25 Mg Capsule) 50 mg PO BEDTIME [facility] Last Admin: 09/25/21 20:25 Dose: Not Given Documented by: Famotidine (Famotidine 20 Mg Tablet) 20 mg PO BID PRN PRN Reason: heartburn Hydroxyzine HCl (Hydroxyzine Hcl 25 Mg Tablet) 25 mg PO BEDTIME PRN PRN Reason: Anxiety Lisinopril (Lisinopril 40 Mg Tablet) 40 mg PO DAILY [facility]; Protocol Last Admin: 09/25/21 11:06 Dose: Not Given Documented by: Loperamide HCl (Loperamide Hcl 2 Mg Capsule) 2 mg PO Q6H PRN PRN Reason: Diarrhea Magnesium Hydroxide (Milk Of Magnesia 30 Ml Oral.Susp) 30 ml PO DAILY PRN PRN Reason: Constipation Olanzapine (Olanzapine 10 Mg Tablet) 20 mg PO BEDTIME [facility] Last Admin: 09/25/21 20:25 Dose: Not Given Documented by: Trazodone HCl (Trazodone Hcl 50 Mg Tablet) 50 mg PO BEDTIME PRN PRN Reason: Insomnia Allergies Allergies Allergy/AdvReac Type Severity Reaction Status Date / Time aspirin Allergy Unknown Verified 09/12/21 23:15 Assessment & Plan Assessment & Plan (1) Schizophrenia: Status: Acute Code(s): F20.9 - Schizophrenia, unspecified Plan the patient is an elderly Bulgarian female with a long history of schizophrenia admitted for exacerbation of psychotic symptoms in the context of noncompliance. Plan 1. Gather collateral information. 2. Continue medications as medication reconciliation. 3. As per family meeting, we will affirmed healthcare proxy. I spent ___20___ minutes with the patient and/or on the patient floor today, greater than?50% of which was spent counseling/coordinating care. Reason for contiued inpatient stay Substantial Risk for: inability to function, rapid decompensation and med/psych decompensation
[2021-09-26] MEDS: Loperamide HCl 2 MG CAPSULE PO (12:07)
[2021-09-26 21:40] VITALS: BP 150/80; RESP 18; TEMP 36.1
[2021-09-27 07:25] VITALS: BP 136/72; PULSE 90; RESP 16; TEMP 36.1; O2SAT 98
--- NOTE | 2021-09-27 11:43 | HO.PSYCHPN ---
Subjective Subjective Date of Service: 09/27/21 Reason For Visit: Psychosis Subjective Notes: Conditional Voluntary Interim History: The nursing staff reported the patient has refused all her medications since she states that the medications are a headache diff. she was seen responding to internal stimuli talking to herself and isolative but no evidence of agitation or anger. On interview the patient looks psychotic, stating that she wants to be discharged. Mental Status Exam Mental Status Exam Patient Appearance: Appropriate Patient Orientation: Person and Situation Level of Consciousness: Awake Patient Behavior: Guarded, Talkative, Posturing and Suspicious Mood Description: Suspicious and Withdrawn Affect Description: Labile Ability to Follow Directions: Good Speech Pattern: Pressured Hallucinations: Auditory Delusions: Paranoid Ideation and Grandiose Thought Process: Distracted and Evasive Judgement: Fair Diagnostics Vital Signs (24Hr): Vital Signs - 24 hr 09/26/21 21:40 09/27/21 07:25 Temperature 96.9 F 97.0 F Pulse Rate 90 Respiratory Rate 18 16 Blood Pressure 150/80 H 136/72 Pulse Oximetry 98 BMI result Body Mass Index 25.1 Labs Results: 09/11/21 10:13 09/11/21 10:13 Medications Medications Current Medications Acetaminophen (Acetaminophen 325 Mg Tablet) 650 mg PO Q6H PRN PRN Reason: Headache/Pain Mild Scale (1-3) Al Hydroxide/Mg Hydroxide (Magnesium Hydrox/Alum Hydrox 30 Ml Oral.Susp) 30 ml PO Q6H PRN PRN Reason: Heartburn/Nausea Amlodipine Besylate (Amlodipine Besylate 10 Mg Tablet) 10 mg PO DAILY [facility]; Protocol Last Admin: 09/27/21 11:03 Dose: Not Given Documented by: Divalproex Sodium (Divalproex Sodium Er 500 Mg Tab.Er.24h) 500 mg PO BID [facility] Last Admin: 09/27/21 11:03 Dose: Not Given Documented by: Doxepin HCl (Doxepin Hcl 25 Mg Capsule) 50 mg PO BEDTIME [facility] Last Admin: 09/26/21 21:15 Dose: Not Given Documented by: Famotidine (Famotidine 20 Mg Tablet) 20 mg PO BID PRN PRN Reason: heartburn Hydroxyzine HCl (Hydroxyzine Hcl 25 Mg Tablet) 25 mg PO BEDTIME PRN PRN Reason: Anxiety Lisinopril (Lisinopril 40 Mg Tablet) 40 mg PO DAILY [facility]; Protocol Last Admin: 09/27/21 11:03 Dose: Not Given Documented by: Loperamide HCl (Loperamide Hcl 2 Mg Capsule) 2 mg PO Q6H PRN PRN Reason: Diarrhea Last Admin: 09/26/21 12:07 Dose: 2 mg Documented by: Magnesium Hydroxide (Milk Of Magnesia 30 Ml Oral.Susp) 30 ml PO DAILY PRN PRN Reason: Constipation Olanzapine (Olanzapine 10 Mg Tablet) 20 mg PO BEDTIME [facility] Last Admin: 09/26/21 21:16 Dose: Not Given Documented by: Trazodone HCl (Trazodone Hcl 50 Mg Tablet) 50 mg PO BEDTIME PRN PRN Reason: Insomnia Allergies Allergies Allergy/AdvReac Type Severity Reaction Status Date / Time aspirin Allergy Unknown Verified 09/12/21 23:15 Assessment & Plan Assessment & Plan (1) Schizophrenia: Status: Acute Code(s): F20.9 - Schizophrenia, unspecified Plan the patient is an elderly [place] female with a long history of schizophrenia admitted for exacerbation of psychotic symptoms in the context of noncompliance. Plan 1. Gather collateral information. 2. Continue medications as medication reconciliation. 3. As per family meeting, we will affirmed healthcare proxy. We will have a hearing on Saturday I spent ___20___ minutes with the patient and/or on the patient floor today, greater than?50% of which was spent counseling/coordinating care. Reason for contiued inpatient stay Substantial Risk for: inability to function, rapid decompensation and med/psych decompensation
[2021-09-27 18:00] VITALS: BP 187/78; PULSE 78; RESP 17; TEMP 36.6
[2021-09-27] MEDS: amLODIPine Besylate 10 MG TABLET PO (21:08)
[2021-09-27] MEDS: lisinopriL 40 MG TABLET PO (21:08)
[2021-09-28 06:00] VITALS: BP 131/62; PULSE 85; RESP 14; TEMP 37; O2SAT 95
[2021-09-28 07:00] VITALS: BMI 25.0
--- NOTE | 2021-09-28 08:13 | P.PNPSI_ITS ---
Subjective Subjective Date of Service: 09/28/21 Reason For Visit: Psychosis Subjective Notes: Conditional Voluntary Interim History: The nursing staff reported the patient has been noncompliant with her antipsychotics, she took only a few medications for her blood pressure. She was seen in the unit mcke[place] and irritable but easily redirectable. On interview the patient wants to be discharged but she is confused, grossly psychotic. Mental Status Exam Mental Status Exam Patient Appearance: Unkempt Patient Orientation: Person and Situation Level of Consciousness: Restless Patient Behavior: Guarded, Suspicious and Belligerent Mood Description: Withdrawn Affect Description: Labile Ability to Follow Directions: Good Speech Pattern: Clear Hallucinations: Auditory Delusions: Paranoid Ideation and Grandiose Thought Process: Illogical Thought Content: positive for Poverty of Content, positive for Tangential and positive for Disorganized Judgement: Fair Diagnostics Vital Signs (24Hr): Vital Signs - 24 hr 09/27/21 18:00 Temperature 97.9 F Pulse Rate 78 Respiratory Rate 17 Blood Pressure 187/78 H BMI result Body Mass Index 25.1 Labs Results: 09/11/21 10:13 09/11/21 10:13 Medications Medications Current Medications Acetaminophen (Acetaminophen 325 Mg Tablet) 650 mg PO Q6H PRN PRN Reason: Headache/Pain Mild Scale (1-3) Al Hydroxide/Mg Hydroxide (Magnesium Hydrox/Alum Hydrox 30 Ml Oral.Susp) 30 ml PO Q6H PRN PRN Reason: Heartburn/Nausea Amlodipine Besylate (Amlodipine Besylate 10 Mg Tablet) 10 mg PO DAILY [facility]; Protocol Last Admin: 09/27/21 21:08 Dose: 10 mg Documented by: Divalproex Sodium (Divalproex Sodium Er 500 Mg Tab.Er.24h) 500 mg PO BID [facility] Last Admin: 09/27/21 20:29 Dose: Not Given Documented by: Doxepin HCl (Doxepin Hcl 25 Mg Capsule) 50 mg PO BEDTIME [facility] Last Admin: 09/27/21 20:30 Dose: Not Given Documented by: Famotidine (Famotidine 20 Mg Tablet) 20 mg PO BID PRN PRN Reason: heartburn Hydroxyzine HCl (Hydroxyzine Hcl 25 Mg Tablet) 25 mg PO BEDTIME PRN PRN Reason: Anxiety Lisinopril (Lisinopril 40 Mg Tablet) 40 mg PO DAILY [facility]; Protocol Last Admin: 09/27/21 21:08 Dose: 40 mg Documented by: Loperamide HCl (Loperamide Hcl 2 Mg Capsule) 2 mg PO Q6H PRN PRN Reason: Diarrhea Last Admin: 09/26/21 12:07 Dose: 2 mg Documented by: Magnesium Hydroxide (Milk Of Magnesia 30 Ml Oral.Susp) 30 ml PO DAILY PRN PRN Reason: Constipation Olanzapine (Olanzapine 10 Mg Tablet) 20 mg PO BEDTIME [facility] Last Admin: 09/27/21 20:30 Dose: Not Given Documented by: Trazodone HCl (Trazodone Hcl 50 Mg Tablet) 50 mg PO BEDTIME PRN PRN Reason: Insomnia Allergies Allergies Allergy/AdvReac Type Severity Reaction Status Date / Time aspirin Allergy Unknown Verified 09/12/21 23:15 Assessment & Plan Assessment & Plan (1) Schizophrenia: Status: Acute Code(s): F20.9 - Schizophrenia, unspecified Plan the patient is an elderly [place] female with a long history of schizophrenia admitted for exacerbation of psychotic symptoms in the context of noncompliance. Plan 1. Gather collateral information. 2. Continue medications as medication reconciliation. 3. As per family meeting, we will affirmed healthcare proxy. We will have a hearing on Saturday I spent __20____ minutes with the patient and/or on the patient floor today, greater than?50% of which was spent counseling/coordinating care. Reason for contiued inpatient stay Substantial Risk for: inability to function, rapid decompensation and med/psych decompensation
[2021-09-28 18:00] VITALS: BP 173/77; PULSE 80; RESP 17; TEMP 36.2; O2SAT 98
[2021-09-29 06:00] VITALS: BP 138/68; PULSE 85; RESP 17; TEMP 36.4
[2021-09-29] MEDS: amLODIPine Besylate 10 MG TABLET PO (08:18)
[2021-09-29] MEDS: lisinopriL 40 MG TABLET PO (08:18)
--- NOTE | 2021-09-29 14:44 | HO.PSYCHPN ---
Subjective Subjective Date of Service: 09/29/21 Reason For Visit: Psychosis Subjective Notes: Conditional Voluntary Interim History: the nursing staff reported the patient has been delusional, not taking medications only his blood pressure meds. Today she is going to have her fill margin of healthy healthcare proxy 330. On interview the patient is delusional and able to provide a clear statement. Mental Status Exam Mental Status Exam Patient Appearance: Well Grooomed Patient Orientation: Person and Situation Level of Consciousness: Awake Patient Behavior: Guarded, Talkative and Suspicious Mood Description: Suspicious and Hostile Affect Description: Labile Patient Cognition Impaired: Yes Ability to Follow Directions: Fair Speech Pattern: Impoverished and Difficulty Finding Words Hallucinations: Auditory Delusions: Paranoid Ideation and Grandiose Thought Process: Illogical Thought Content: positive for Poverty of Content and positive for Loose Associations Judgement: Fair Diagnostics Vital Signs (24Hr): Vital Signs - 24 hr 09/28/21 18:00 09/29/21 06:00 Temperature 97.1 F 97.6 F Pulse Rate 80 85 Respiratory Rate 17 17 Blood Pressure 173/77 H 138/68 Pulse Oximetry 98 BMI result Body Mass Index 25.0 Labs Results: 09/11/21 10:13 09/11/21 10:13 Medications Medications Current Medications Acetaminophen (Acetaminophen 325 Mg Tablet) 650 mg PO Q6H PRN PRN Reason: Headache/Pain Mild Scale (1-3) Al Hydroxide/Mg Hydroxide (Magnesium Hydrox/Alum Hydrox 30 Ml Oral.Susp) 30 ml PO Q6H PRN PRN Reason: Heartburn/Nausea Amlodipine Besylate (Amlodipine Besylate 10 Mg Tablet) 10 mg PO DAILY [facility]; Protocol Last Admin: 09/29/21 08:18 Dose: 10 mg Documented by: Divalproex Sodium (Divalproex Sodium Er 500 Mg Tab.Er.24h) 500 mg PO BID [facility] Last Admin: 09/29/21 08:20 Dose: Not Given Documented by: Doxepin HCl (Doxepin Hcl 25 Mg Capsule) 50 mg PO BEDTIME [facility] Last Admin: 09/28/21 21:02 Dose: Not Given Documented by: Famotidine (Famotidine 20 Mg Tablet) 20 mg PO BID PRN PRN Reason: heartburn Hydroxyzine HCl (Hydroxyzine Hcl 25 Mg Tablet) 25 mg PO BEDTIME PRN PRN Reason: Anxiety Lisinopril (Lisinopril 40 Mg Tablet) 40 mg PO DAILY [facility]; Protocol Last Admin: 09/29/21 08:18 Dose: 40 mg Documented by: Loperamide HCl (Loperamide Hcl 2 Mg Capsule) 2 mg PO Q6H PRN PRN Reason: Diarrhea Last Admin: 09/26/21 12:07 Dose: 2 mg Documented by: Magnesium Hydroxide (Milk Of Magnesia 30 Ml Oral.Susp) 30 ml PO DAILY PRN PRN Reason: Constipation Olanzapine (Olanzapine 10 Mg Tablet) 20 mg PO BEDTIME [facility] Last Admin: 09/28/21 21:02 Dose: Not Given Documented by: Trazodone HCl (Trazodone Hcl 50 Mg Tablet) 50 mg PO BEDTIME PRN PRN Reason: Insomnia Allergies Allergies Allergy/AdvReac Type Severity Reaction Status Date / Time aspirin Allergy Unknown Verified 09/12/21 23:15 Assessment & Plan Assessment & Plan (1) Schizophrenia: Status: Acute Code(s): F20.9 - Schizophrenia, unspecified Plan the patient is an elderly [place] female with a long history of schizophrenia admitted for exacerbation of psychotic symptoms in the context of noncompliance. Plan 1. Gather collateral information. 2. Continue medications as medication reconciliation. 3. As per family meeting, we will affirmed healthcare proxy. We will have a hearing on Saturday I spent ___20___ minutes with the patient and/or on the patient floor today, greater than?50% of which was spent counseling/coordinating care. Reason for contiued inpatient stay Substantial Risk for: inability to function, rapid decompensation and med/psych decompensation
[2021-09-29 18:00] VITALS: BP 158/65; PULSE 72; RESP 20; TEMP 36.8; O2SAT 99
[2021-09-30] MEDS: traZODone HCL 50 MG TABLET PO (01:38)
[2021-09-30 06:00] VITALS: BP 141/69; PULSE 112; RESP 18; TEMP 36.6; O2SAT 95
--- NOTE | 2021-09-30 22:03 | HO.PSYCHPN ---
Subjective Subjective Date of Service: 09/30/21 Reason For Visit: Psychosis Interim History: the nursing staff reported the patient has been delusional, not taking medications only his blood pressure meds. 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 She denies SI. Denies HI. Review of Systems Review of Systems Yes Unobtainable due to mental status Mental Status Exam Mental Status Exam Narrative: Patient Appearance:?Appropriate Patient Orientation:?Person and Situation Level of Consciousness:?Awake Patient Behavior:?Guarded and Suspicious Mood Description:?Withdrawn Affect Description:?Constricted Patient Cognition Impaired:?Yes Ability to Follow Directions:?Good Speech Pattern:?Appropriate Hallucinations:?Auditory Delusions:?Paranoid Ideation. Grandiose Thought Process:?Distracted and Evasive Judgement:?Fair Patient Appearance: Well Grooomed Patient Orientation: Person and Situation Level of Consciousness: Awake Patient Behavior: Guarded, Talkative and Suspicious Mood Description: Suspicious and Hostile Affect Description: Labile Patient Cognition Impaired: Yes Ability to Follow Directions: Fair Speech Pattern: Impoverished and Difficulty Finding Words Diagnostics Vital Signs (24Hr): Vital Signs - 24 hr 09/30/21 06:00 Temperature 97.9 F Pulse Rate 112 H Respiratory Rate 18 Blood Pressure 141/69 H Pulse Oximetry 95 BMI result Body Mass Index 25.0 Labs Results: 09/11/21 10:13 09/11/21 10:13 Medications Medications Current Medications Acetaminophen (Acetaminophen 325 Mg Tablet) 650 mg PO Q6H PRN PRN Reason: Headache/Pain Mild Scale (1-3) Al Hydroxide/Mg Hydroxide (Magnesium Hydrox/Alum Hydrox 30 Ml Oral.Susp) 30 ml PO Q6H PRN PRN Reason: Heartburn/Nausea Amlodipine Besylate (Amlodipine Besylate 10 Mg Tablet) 10 mg PO DAILY [facility]; Protocol Last Admin: 09/30/21 10:09 Dose: Not Given Documented by: Divalproex Sodium (Divalproex Sodium Er 500 Mg Tab.Er.24h) 500 mg PO BID [facility] Last Admin: 09/30/21 21:09 Dose: Not Given Documented by: Doxepin HCl (Doxepin Hcl 25 Mg Capsule) 50 mg PO BEDTIME [facility] Last Admin: 09/30/21 21:09 Dose: Not Given Documented by: Famotidine (Famotidine 20 Mg Tablet) 20 mg PO BID PRN PRN Reason: heartburn Hydroxyzine HCl (Hydroxyzine Hcl 25 Mg Tablet) 25 mg PO BEDTIME PRN PRN Reason: Anxiety Lisinopril (Lisinopril 40 Mg Tablet) 40 mg PO DAILY [facility]; Protocol Last Admin: 09/30/21 10:09 Dose: Not Given Documented by: Loperamide HCl (Loperamide Hcl 2 Mg Capsule) 2 mg PO Q6H PRN PRN Reason: Diarrhea Last Admin: 09/26/21 12:07 Dose: 2 mg Documented by: Magnesium Hydroxide (Milk Of Magnesia 30 Ml Oral.Susp) 30 ml PO DAILY PRN PRN Reason: Constipation Olanzapine (Olanzapine 10 Mg Tablet) 20 mg PO BEDTIME [facility] Last Admin: 09/30/21 21:09 Dose: Not Given Documented by: Trazodone HCl (Trazodone Hcl 50 Mg Tablet) 50 mg PO BEDTIME PRN PRN Reason: Insomnia Last Admin: 09/30/21 01:38 Dose: 50 mg Documented by: Allergies Allergies Allergy/AdvReac Type Severity Reaction Status Date / Time aspirin Allergy Unknown Verified 09/12/21 23:15 Assessment & Plan Assessment & Plan (1) Schizophrenia: Status: Acute Code(s): F20.9 - Schizophrenia, unspecified Plan the patient is an elderly Mac[place] female with a long history of schizophrenia admitted for exacerbation of psychotic symptoms in the context of noncompliance. Plan 1. Gather collateral information. 2. Continue medications as medication reconciliation. 3. As per family meeting, we will affirmed healthcare proxy. We will have a hearing on Saturday 09/30 Continue treatment plan I spent minutes with the patient and/or on the patient floor today, greater than?50% of which was spent counseling/coordinating care. Reason for contiued inpatient stay Substantial Risk for: inability to function and rapid decompensation
[2021-10-01 09:17] VITALS: BP 135/60; PULSE 76; RESP 16; TEMP 36.7; O2SAT 96
--- NOTE | 2021-10-01 17:35 | P.PNPSI_ITS ---
Subjective Subjective Date of Service: 10/01/21 Reason For Visit: Psychosis Interim History: Patient continues to refuse medications and making delusional statements. She was watching a movie on TV. She started pointing at the actors and actresses and saying this is my son, this is my mom, this is my mom... 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 She was frustrated with limited diet choices. Switched to low sodium from cardiac diet. She denies SI. Denies HI. Review of Systems Review of Systems Yes Unobtainable due to mental status Mental Status Exam Mental Status Exam Narrative: Patient Appearance:?Appropriate Patient Orientation:?Person and Situation Level of Consciousness:?Awake Patient Behavior:?Guarded and Suspicious Mood Description:?Withdrawn Affect Description:?Constricted Patient Cognition Impaired:?Yes Ability to Follow Directions:?Good Speech Pattern:?Appropriate Hallucinations:?Auditory Delusions:?Paranoid Ideation. Grandiose Thought Process:?Distracted and Evasive Judgement:?Fair Patient Appearance: Well Grooomed Patient Orientation: Person and Situation Level of Consciousness: Awake Patient Behavior: Guarded, Talkative and Suspicious Mood Description: Suspicious and Hostile Affect Description: Labile Patient Cognition Impaired: Yes Ability to Follow Directions: Fair Speech Pattern: Impoverished and Difficulty Finding Words Diagnostics Vital Signs (24Hr): Vital Signs - 24 hr 10/01/21 09:17 Temperature 98.0 F Pulse Rate 76 Respiratory Rate 16 Blood Pressure 135/60 Pulse Oximetry 96 BMI result Body Mass Index 25.0 Labs Results: 09/11/21 10:13 09/11/21 10:13 Medications Medications Current Medications Acetaminophen (Acetaminophen 325 Mg Tablet) 650 mg PO Q6H PRN PRN Reason: Headache/Pain Mild Scale (1-3) Al Hydroxide/Mg Hydroxide (Magnesium Hydrox/Alum Hydrox 30 Ml Oral.Susp) 30 ml PO Q6H PRN PRN Reason: Heartburn/Nausea Amlodipine Besylate (Amlodipine Besylate 10 Mg Tablet) 10 mg PO DAILY [facility]; Protocol Last Admin: 10/01/21 09:24 Dose: Not Given Documented by: Divalproex Sodium (Divalproex Sodium Er 500 Mg Tab.Er.24h) 500 mg PO BID [facility] Last Admin: 10/01/21 09:24 Dose: Not Given Documented by: Doxepin HCl (Doxepin Hcl 25 Mg Capsule) 50 mg PO BEDTIME [facility] Last Admin: 09/30/21 21:09 Dose: Not Given Documented by: Famotidine (Famotidine 20 Mg Tablet) 20 mg PO BID PRN PRN Reason: heartburn Hydroxyzine HCl (Hydroxyzine Hcl 25 Mg Tablet) 25 mg PO BEDTIME PRN PRN Reason: Anxiety Lisinopril (Lisinopril 40 Mg Tablet) 40 mg PO DAILY [facility]; Protocol Last Admin: 10/01/21 09:25 Dose: Not Given Documented by: Loperamide HCl (Loperamide Hcl 2 Mg Capsule) 2 mg PO Q6H PRN PRN Reason: Diarrhea Last Admin: 09/26/21 12:07 Dose: 2 mg Documented by: Magnesium Hydroxide (Milk Of Magnesia 30 Ml Oral.Susp) 30 ml PO DAILY PRN PRN Reason: Constipation Olanzapine (Olanzapine 10 Mg Tablet) 20 mg PO BEDTIME [facility] Last Admin: 09/30/21 21:09 Dose: Not Given Documented by: Trazodone HCl (Trazodone Hcl 50 Mg Tablet) 50 mg PO BEDTIME PRN PRN Reason: Insomnia Last Admin: 09/30/21 01:38 Dose: 50 mg Documented by: Allergies Allergies Allergy/AdvReac Type Severity Reaction Status Date / Time aspirin Allergy Unknown Verified 09/12/21 23:15 Assessment & Plan Assessment & Plan (1) Schizophrenia: Status: Acute Code(s): F20.9 - Schizophrenia, unspecified Plan the patient is an elderly [place] female with a long history of schizophrenia admitted for exacerbation of psychotic symptoms in the context of noncompliance. Plan 1. Gather collateral information. 2. Continue medications as medication reconciliation. 3. As per family meeting, we will affirmed healthcare proxy. We will have a hearing on Saturday 09/30 Continue treatment plan 10/01 Continue treatment plan I spent minutes with the patient and/or on the patient floor today, greater than?50% of which was spent counseling/coordinating care. Reason for contiued inpatient stay Substantial Risk for: inability to function and rapid decompensation
[2021-10-01 19:36] VITALS: BP 179/77; PULSE 77; TEMP 36.6; O2SAT 98
--- NOTE | 2021-10-02 13:47 | P.PNPSI_ITS ---
Subjective Subjective Date of Service: 10/02/21 Reason For Visit: Psychosis Subjective Notes: Conditional Voluntary Interim History: The nursing staff reported that the patient remains delusionsal, disorganized, responding to internal stimuli. She has refused all her medications. On interview, she denies new sympotoms. Her affirmation of HCP was done on Saturday and we couldn't get the court papers. Mental Status Exam Mental Status Exam Patient Appearance: Disheveled and Inappropriate Patient Orientation: Person Level of Consciousness: Disoriented and Inappropriate Patient Behavior: Posturing Mood Description: Withdrawn and Apprehensive Affect Description: Labile Patient Cognition Impaired: Yes Ability to Follow Directions: Poor Speech Pattern: Clear and Pressured Hallucinations: Auditory Delusions: Paranoid Ideation, Grandiose and Bizarre Thought Process: Incoherent and Illogical Thought Content: positive for Racing and positive for [place] Judgement: Poor Diagnostics Vital Signs (24Hr): Vital Signs - 24 hr 10/01/21 19:36 Temperature 97.9 F Pulse Rate 77 Blood Pressure 179/77 H Pulse Oximetry 98 BMI result Body Mass Index 25.0 Labs Results: 09/11/21 10:13 09/11/21 10:13 Medications Medications Current Medications Acetaminophen (Acetaminophen 325 Mg Tablet) 650 mg PO Q6H PRN PRN Reason: Headache/Pain Mild Scale (1-3) Al Hydroxide/Mg Hydroxide (Magnesium Hydrox/Alum Hydrox 30 Ml Oral.Susp) 30 ml PO Q6H PRN PRN Reason: Heartburn/Nausea Amlodipine Besylate (Amlodipine Besylate 10 Mg Tablet) 10 mg PO DAILY [facility]; Protocol Last Admin: 10/02/21 10:05 Dose: Not Given Documented by: Divalproex Sodium (Divalproex Sodium Er 500 Mg Tab.Er.24h) 500 mg PO BID [facility] Last Admin: 10/02/21 10:05 Dose: Not Given Documented by: Doxepin HCl (Doxepin Hcl 25 Mg Capsule) 50 mg PO BEDTIME [facility] Last Admin: 10/01/21 21:06 Dose: Not Given Documented by: Famotidine (Famotidine 20 Mg Tablet) 20 mg PO BID PRN PRN Reason: heartburn Hydroxyzine HCl (Hydroxyzine Hcl 25 Mg Tablet) 25 mg PO BEDTIME PRN PRN Reason: Anxiety Lisinopril (Lisinopril 40 Mg Tablet) 40 mg PO DAILY [facility]; Protocol Last Admin: 10/02/21 10:05 Dose: Not Given Documented by: Loperamide HCl (Loperamide Hcl 2 Mg Capsule) 2 mg PO Q6H PRN PRN Reason: Diarrhea Last Admin: 09/26/21 12:07 Dose: 2 mg Documented by: Magnesium Hydroxide (Milk Of Magnesia 30 Ml Oral.Susp) 30 ml PO DAILY PRN PRN Reason: Constipation Olanzapine (Olanzapine 10 Mg Tablet) 20 mg PO BEDTIME [facility] Last Admin: 10/01/21 21:06 Dose: Not Given Documented by: Trazodone HCl (Trazodone Hcl 50 Mg Tablet) 50 mg PO BEDTIME PRN PRN Reason: Insomnia Last Admin: 09/30/21 01:38 Dose: 50 mg Documented by: Allergies Allergies Allergy/AdvReac Type Severity Reaction Status Date / Time aspirin Allergy Unknown Verified 09/12/21 23:15 Assessment & Plan Assessment & Plan (1) Schizophrenia: Status: Acute Code(s): F20.9 - Schizophrenia, unspecified Plan the patient is an elderly Iranian female with a long history of schizophrenia admitted for exacerbation of psychotic symptoms in the context of noncompliance. Plan 1. Gather collateral information. 2. Continue medications as medication reconciliation. 3. As per family meeting, we will affirmed healthcare proxy. As soon as we get the court papers, we will start [facility] IM I spent ___20___ minutes with the patient and/or on the patient floor today, greater than?50% of which was spent counseling/coordinating care. Reason for contiued inpatient stay Substantial Risk for: inability to function, rapid decompensation and med/psych decompensation
[2021-10-02 18:00] VITALS: RESP 16
[2021-10-03] MEDS: Loperamide HCl 2 MG CAPSULE PO (05:24)
[2021-10-03 06:00] VITALS: BP 170/77; PULSE 84; RESP 16; TEMP 36.2; O2SAT 97
--- NOTE | 2021-10-03 15:07 | HO.PSYCHPN ---
Subjective Subjective Date of Service: 10/03/21 Reason For Visit: Psychosis Interim History: the nursing staff reported the patient remains noncompliant with treatment, isolative grossly psychotic. On interview the patient was still psychotic confused. Mental Status Exam Mental Status Exam Patient Appearance: Well Grooomed Patient Orientation: Person and Situation Level of Consciousness: Awake Patient Behavior: Guarded and Suspicious Mood Description: Suspicious and Withdrawn Affect Description: Labile Patient Cognition Impaired: Yes Ability to Follow Directions: Good Speech Pattern: Rapid Hallucinations: Auditory Delusions: Paranoid Ideation Thought Process: Illogical Thought Content: positive for [place] and positive for Poverty of Content Judgement: Fair Diagnostics Vital Signs (24Hr): Vital Signs - 24 hr 10/02/21 18:00 10/03/21 06:00 Temperature 97.2 F Pulse Rate 84 Respiratory Rate 16 16 Blood Pressure 170/77 H Pulse Oximetry 97 BMI result Body Mass Index 25.0 Labs Results: 09/11/21 10:13 09/11/21 10:13 Medications Medications Current Medications Acetaminophen (Acetaminophen 325 Mg Tablet) 650 mg PO Q6H PRN PRN Reason: Headache/Pain Mild Scale (1-3) Al Hydroxide/Mg Hydroxide (Magnesium Hydrox/Alum Hydrox 30 Ml Oral.Susp) 30 ml PO Q6H PRN PRN Reason: Heartburn/Nausea Amlodipine Besylate (Amlodipine Besylate 10 Mg Tablet) 10 mg PO DAILY [facility]; Protocol Last Admin: 10/03/21 08:53 Dose: Not Given Documented by: Divalproex Sodium (Divalproex Sodium Er 500 Mg Tab.Er.24h) 500 mg PO BID [facility] Last Admin: 10/03/21 08:53 Dose: Not Given Documented by: Doxepin HCl (Doxepin Hcl 25 Mg Capsule) 50 mg PO BEDTIME [facility] Last Admin: 10/02/21 21:02 Dose: Not Given Documented by: Famotidine (Famotidine 20 Mg Tablet) 20 mg PO BID PRN PRN Reason: heartburn Hydroxyzine HCl (Hydroxyzine Hcl 25 Mg Tablet) 25 mg PO BEDTIME PRN PRN Reason: Anxiety Lisinopril (Lisinopril 40 Mg Tablet) 40 mg PO DAILY [facility]; Protocol Last Admin: 10/03/21 08:53 Dose: Not Given Documented by: Loperamide HCl (Loperamide Hcl 2 Mg Capsule) 2 mg PO Q6H PRN PRN Reason: Diarrhea Last Admin: 10/03/21 05:24 Dose: 2 mg Documented by: Magnesium Hydroxide (Milk Of Magnesia 30 Ml Oral.Susp) 30 ml PO DAILY PRN PRN Reason: Constipation Olanzapine (Olanzapine 10 Mg Tablet) 20 mg PO BEDTIME [facility] Last Admin: 10/02/21 21:02 Dose: Not Given Documented by: Trazodone HCl (Trazodone Hcl 50 Mg Tablet) 50 mg PO BEDTIME PRN PRN Reason: Insomnia Last Admin: 09/30/21 01:38 Dose: 50 mg Documented by: Allergies Allergies Allergy/AdvReac Type Severity Reaction Status Date / Time aspirin Allergy Unknown Verified 09/12/21 23:15 Assessment & Plan Assessment & Plan (1) Schizophrenia: Status: Acute Code(s): F20.9 - Schizophrenia, unspecified Plan the patient is an elderly Citizen Of [place] female with a long history of schizophrenia admitted for exacerbation of psychotic symptoms in the context of noncompliance. Plan 1. Gather collateral information. 2. Continue medications as medication reconciliation. 3. As per family meeting, we will affirmed healthcare proxy. As soon as we get the court papers, we will start Invegta Sustenna IM I spent ___20___ minutes with the patient and/or on the patient floor today, greater than?50% of which was spent counseling/coordinating care. Reason for contiued inpatient stay Substantial Risk for: inability to function, rapid decompensation and med/psych decompensation
[2021-10-03 19:04] VITALS: BP 177/73; PULSE 80; RESP 18; TEMP 36.3; O2SAT 98
[2021-10-04] MEDS: Paliperidone Palmitate 234 MG/1.5 ML SYRINGE IM (10:38)
--- NOTE | 2021-10-04 11:09 | PC.NURSE ---
Received Invega Sustena 234mg IM in right gluteus max at 1038 with security present, but not needed. Pt pulled pants down independently for administration site. Refused deltoid placement. Stated that it was fornication. Stated injections were for addicts. Stated, You are going to regret this, you're going to burn in hell. This medicine is habit forming. Stated she was not going to go into eternal life and observed crossing self. Stated, It is a taboo to give a shot to someone who believes in God. Stated she received injection in [facility] when she was young and her father told her not to get injections, because it was for addicts.
--- NOTE | 2021-10-04 13:45 | P.PNPSI_ITS ---
Subjective Subjective Date of Service: 10/04/21 Reason For Visit: Psychosis Subjective Notes: Conditional Voluntary Interim History: the nursing staff reported the patient has been isolative, responding to internal stimuli, noncompliant with medications. Today we had a copy of the admission of the healthcare proxy so we will start Invega Sustenna 234 mg IM today Mental Status Exam Mental Status Exam Patient Appearance: Appropriate Patient Orientation: Person Level of Consciousness: Awake Patient Behavior: Guarded and Passive Mood Description: Suspicious Affect Description: Labile Patient Cognition Impaired: Yes Ability to Follow Directions: Good Speech Pattern: Clear Hallucinations: Auditory Delusions: Paranoid Ideation Thought Process: Illogical Thought Content: positive for [place], positive for [place] and positive for Thought Blocking Judgement: Fair Diagnostics Vital Signs (24Hr): Vital Signs - 24 hr 10/03/21 19:04 Temperature 97.3 F Pulse Rate 80 Respiratory Rate 18 Blood Pressure 177/73 H Pulse Oximetry 98 BMI result Body Mass Index 25.0 Labs Results: 09/11/21 10:13 09/11/21 10:13 Medications Medications Current Medications Acetaminophen (Acetaminophen 325 Mg Tablet) 650 mg PO Q6H PRN PRN Reason: Headache/Pain Mild Scale (1-3) Al Hydroxide/Mg Hydroxide (Magnesium Hydrox/Alum Hydrox 30 Ml Oral.Susp) 30 ml PO Q6H PRN PRN Reason: Heartburn/Nausea Amlodipine Besylate (Amlodipine Besylate 10 Mg Tablet) 10 mg PO DAILY [facility]; Protocol Last Admin: 10/04/21 09:16 Dose: Not Given Documented by: Divalproex Sodium (Divalproex Sodium Er 500 Mg Tab.Er.24h) 500 mg PO BID [facility] Last Admin: 10/04/21 09:17 Dose: Not Given Documented by: Doxepin HCl (Doxepin Hcl 25 Mg Capsule) 50 mg PO BEDTIME [facility] Last Admin: 10/03/21 20:39 Dose: Not Given Documented by: Famotidine (Famotidine 20 Mg Tablet) 20 mg PO BID PRN PRN Reason: heartburn Hydroxyzine HCl (Hydroxyzine Hcl 25 Mg Tablet) 25 mg PO BEDTIME PRN PRN Reason: Anxiety Lisinopril (Lisinopril 40 Mg Tablet) 40 mg PO DAILY [facility]; Protocol Last Admin: 10/04/21 09:17 Dose: Not Given Documented by: Loperamide HCl (Loperamide Hcl 2 Mg Capsule) 2 mg PO Q6H PRN PRN Reason: Diarrhea Last Admin: 10/03/21 05:24 Dose: 2 mg Documented by: Magnesium Hydroxide (Milk Of Magnesia 30 Ml Oral.Susp) 30 ml PO DAILY PRN PRN Reason: Constipation Olanzapine (Olanzapine 10 Mg Tablet) 20 mg PO BEDTIME [facility] Last Admin: 10/03/21 20:39 Dose: Not Given Documented by: Trazodone HCl (Trazodone Hcl 50 Mg Tablet) 50 mg PO BEDTIME PRN PRN Reason: Insomnia Last Admin: 09/30/21 01:38 Dose: 50 mg Documented by: Allergies Allergies Allergy/AdvReac Type Severity Reaction Status Date / Time aspirin Allergy Unknown Verified 09/12/21 23:15 Assessment & Plan Assessment & Plan (1) Schizophrenia: Status: Acute Code(s): F20.9 - Schizophrenia, unspecified Plan the patient is an elderly [place] female with a long history of schizophrenia admitted for exacerbation of psychotic symptoms in the context of noncompliance. Plan 1. Gather collateral information. 2. Continue medications as medication reconciliation. 3. As per family meeting, we will affirmed healthcare proxy. As soon as we get the court papers, we will start Invegta Susttangela IM I spent ___20___ minutes with the patient and/or on the patient floor today, greater than?50% of which was spent counseling/coordinating care. Reason for contiued inpatient stay Substantial Risk for: inability to function, rapid decompensation and med/psych decompensation
[2021-10-04 18:00] VITALS: BP 136/62; PULSE 93; RESP 17; TEMP 36.4; O2SAT 97
[2021-10-05 07:00] VITALS: BMI 25.4
[2021-10-05 07:54] VITALS: BP 146/80; PULSE 91; RESP 14; TEMP 36.3; O2SAT 99
--- NOTE | 2021-10-05 14:55 | HO.PSYCHPN ---
Subjective Subjective Date of Service: 10/05/21 Reason For Visit: Psychosis Subjective Notes: Conditional Voluntary Interim History: the nursing staff reported that yesterday she had her injection. Today she was is inhibited sexually inappropriate but easily redirected. On interview, the patient reported that staff has been stealing in her property and she was paranoid Mental Status Exam Mental Status Exam Patient Appearance: Inappropriate Patient Orientation: Person Level of Consciousness: Awake Patient Behavior: Guarded and Suspicious Mood Description: Calm Affect Description: Constricted Patient Cognition Impaired: Yes Ability to Follow Directions: Good Speech Pattern: Clear Hallucinations: Auditory Delusions: Paranoid Ideation and Grandiose Thought Process: Illogical Thought Content: positive for [place] and positive for Poverty of Content Judgement: Fair Diagnostics Vital Signs (24Hr): Vital Signs - 24 hr 10/04/21 18:00 10/05/21 07:54 Temperature 97.6 F 97.4 F Pulse Rate 93 91 Respiratory Rate 17 14 Blood Pressure 136/62 146/80 H Pulse Oximetry 97 99 BMI result Body Mass Index 25.4 Labs Results: 09/11/21 10:13 09/11/21 10:13 Medications Medications Current Medications Acetaminophen (Acetaminophen 325 Mg Tablet) 650 mg PO Q6H PRN PRN Reason: Headache/Pain Mild Scale (1-3) Al Hydroxide/Mg Hydroxide (Magnesium Hydrox/Alum Hydrox 30 Ml Oral.Susp) 30 ml PO Q6H PRN PRN Reason: Heartburn/Nausea Amlodipine Besylate (Amlodipine Besylate 10 Mg Tablet) 10 mg PO DAILY [facility]; Protocol Last Admin: 10/05/21 09:27 Dose: Not Given Documented by: Divalproex Sodium (Divalproex Sodium Er 500 Mg Tab.Er.24h) 500 mg PO BID [facility] Last Admin: 10/05/21 09:27 Dose: Not Given Documented by: Doxepin HCl (Doxepin Hcl 25 Mg Capsule) 50 mg PO BEDTIME [facility] Last Admin: 10/04/21 21:31 Dose: Not Given Documented by: Famotidine (Famotidine 20 Mg Tablet) 20 mg PO BID PRN PRN Reason: heartburn Hydroxyzine HCl (Hydroxyzine Hcl 25 Mg Tablet) 25 mg PO BEDTIME PRN PRN Reason: Anxiety Lisinopril (Lisinopril 40 Mg Tablet) 40 mg PO DAILY [facility]; Protocol Last Admin: 10/05/21 09:27 Dose: Not Given Documented by: Loperamide HCl (Loperamide Hcl 2 Mg Capsule) 2 mg PO Q6H PRN PRN Reason: Diarrhea Last Admin: 10/03/21 05:24 Dose: 2 mg Documented by: Magnesium Hydroxide (Milk Of Magnesia 30 Ml Oral.Susp) 30 ml PO DAILY PRN PRN Reason: Constipation Olanzapine (Olanzapine 10 Mg Tablet) 20 mg PO BEDTIME [facility] Last Admin: 10/04/21 21:31 Dose: Not Given Documented by: Trazodone HCl (Trazodone Hcl 50 Mg Tablet) 50 mg PO BEDTIME PRN PRN Reason: Insomnia Last Admin: 09/30/21 01:38 Dose: 50 mg Documented by: Allergies Allergies Allergy/AdvReac Type Severity Reaction Status Date / Time aspirin Allergy Unknown Verified 09/12/21 23:15 Assessment & Plan Assessment & Plan (1) Schizophrenia: Status: Acute Code(s): F20.9 - Schizophrenia, unspecified Plan the patient is an elderly [place] Citizen female with a long history of schizophrenia admitted for exacerbation of psychotic symptoms in the context of noncompliance. Plan 1. Gather collateral information. 2. Continue medications as medication reconciliation. 3. healthcare proxy was a firm by court. 4. Invega sustained a 2nd dose for next week I spent __20____ minutes with the patient and/or on the patient floor today, greater than?50% of which was spent counseling/coordinating care. Reason for contiued inpatient stay Substantial Risk for: inability to function, rapid decompensation and med/psych decompensation
[2021-10-05 18:00] VITALS: BP 161/70; PULSE 93; RESP 17; TEMP 36.3; O2SAT 99
--- NOTE | 2021-10-06 12:40 | P.PNPSI_ITS ---
Subjective Subjective Date of Service: 10/06/21 Reason For Visit: Psychosis Subjective Notes: Conditional Voluntary Interim History: The patient has been grossly psychotic, screaming and accusing of being stolen. She has refused her medications. She received her Invega Sustenna yesterday and we are waiting for next week to get her 2nd shot. On interview the patient remains elusive, grossly disorganized. Mental Status Exam Mental Status Exam Patient Appearance: Well Grooomed Patient Orientation: Person Level of Consciousness: Awake Patient Behavior: Cooperative Mood Description: Constricted Affect Description: Calm Patient Cognition Impaired: Yes Ability to Follow Directions: Good Speech Pattern: Clear Hallucinations: Auditory Delusions: Paranoid Ideation and Grandiose Thought Process: Illogical Thought Content: positive for Poverty of Content and positive for Loose Associat ions Judgement: Poor Diagnostics Vital Signs (24Hr): Vital Signs - 24 hr 10/05/21 18:00 Temperature 97.3 F Pulse Rate 93 Respiratory Rate 17 Blood Pressure 161/70 H Pulse Oximetry 99 BMI result Body Mass Index 25.4 Labs Results: 09/11/21 10:13 09/11/21 10:13 Medications Medications Current Medications Acetaminophen (Acetaminophen 325 Mg Tablet) 650 mg PO Q6H PRN PRN Reason: Headache/Pain Mild Scale (1-3) Al Hydroxide/Mg Hydroxide (Magnesium Hydrox/Alum Hydrox 30 Ml Oral.Susp) 30 ml PO Q6H PRN PRN Reason: Heartburn/Nausea Amlodipine Besylate (Amlodipine Besylate 10 Mg Tablet) 10 mg PO DAILY [facility]; Protocol Last Admin: 10/06/21 10:24 Dose: Not Given Documented by: Divalproex Sodium (Divalproex Sodium Er 500 Mg Tab.Er.24h) 500 mg PO BID [facility] Last Admin: 10/06/21 10:24 Dose: Not Given Documented by: Doxepin HCl (Doxepin Hcl 25 Mg Capsule) 50 mg PO BEDTIME [facility] Last Admin: 10/05/21 21:24 Dose: Not Given Documented by: Famotidine (Famotidine 20 Mg Tablet) 20 mg PO BID PRN PRN Reason: heartburn Hydroxyzine HCl (Hydroxyzine Hcl 25 Mg Tablet) 25 mg PO BEDTIME PRN PRN Reason: Anxiety Lisinopril (Lisinopril 40 Mg Tablet) 40 mg PO DAILY [facility]; Protocol Last Admin: 10/06/21 10:24 Dose: Not Given Documented by: Loperamide HCl (Loperamide Hcl 2 Mg Capsule) 2 mg PO Q6H PRN PRN Reason: Diarrhea Last Admin: 10/03/21 05:24 Dose: 2 mg Documented by: Magnesium Hydroxide (Milk Of Magnesia 30 Ml Oral.Susp) 30 ml PO DAILY PRN PRN Reason: Constipation Olanzapine (Olanzapine 10 Mg Tablet) 20 mg PO BEDTIME [facility] Last Admin: 10/05/21 21:24 Dose: Not Given Documented by: Trazodone HCl (Trazodone Hcl 50 Mg Tablet) 50 mg PO BEDTIME PRN PRN Reason: Insomnia Last Admin: 09/30/21 01:38 Dose: 50 mg Documented by: Allergies Allergies Allergy/AdvReac Type Severity Reaction Status Date / Time aspirin Allergy Unknown Verified 09/12/21 23:15 Assessment & Plan Assessment & Plan (1) Schizophrenia: Status: Acute Code(s): F20.9 - Schizophrenia, unspecified Plan the patient is an elderly Citizen Of [place] female with a long history of sc hizophrenia admitted for exacerbation of psychotic symptoms in the context of noncompliance. Plan 1. Gather collateral information. 2. Continue medications as medication reconciliation. 3. healthcare proxy was a firm by court. 4. Invega sustained a 2nd dose for next week I spent ___20___ minutes with the patient and/or on the patient floor today, greater than?50% of which was spent counseling/coordinating care. Reason for contiued inpatient stay Substantial Risk for: inability to function, rapid decompensation and med/psych decompensation
[2021-10-06] MEDS: Loperamide HCl 2 MG CAPSULE PO (22:04)
[2021-10-06 23:06] LABS: CDiff Gene PCR NEGATIVE (Negative)
--- NOTE | 2021-10-07 11:53 | HO.PSYCHPN ---
Subjective Subjective Date of Service: 10/07/21 Reason For Visit: Psychosis Interim History: pt seen in her room, lying in bed under covers but apparently without any clothing on. she seems to be tangential, in response to MD's introducing himself her pointing to her cabinet and saying that the things there are hers. c/o diarrhea yesterday, states she wants to go to her home in [place], lists off the names of her doctors in [place] declines medication to help with diarrhea. per staff, refusing medications. napped yesterday. had diarrhea x3 last night. calling imodium heroin and declining to take it. Mental Status Exam Mental Status Exam Patient Appearance: Well Grooomed Patient Orientation: Person Level of Consciousness: Awake Patient Behavior: Cooperative Mood Description: Constricted Affect Description: Calm Patient Cognition Impaired: Yes Ability to Follow Directions: Good Speech Pattern: Clear Hallucinations: Auditory Delusions: Paranoid Ideation and Grandiose Thought Process: Illogical Thought Content: positive for Poverty of Content and positive for Loose Associations Judgement: Poor Diagnostics Vital Signs (24Hr): BMI result Body Mass Index 25.4 Labs Results: 09/11/21 10:13 09/11/21 10:13 Labs: Laboratory Results - last 48 hr 10/06/21 21:15 C. difficile Tox B Gene NEGATIVE Medications Medications Current Medications Acetaminophen (Acetaminophen 325 Mg Tablet) 650 mg PO Q6H PRN PRN Reason: Headache/Pain Mild Scale (1-3) Al Hydroxide/Mg Hydroxide (Magnesium Hydrox/Alum Hydrox 30 Ml Oral.Susp) 30 ml PO Q6H PRN PRN Reason: Heartburn/Nausea Amlodipine Besylate (Amlodipine Besylate 10 Mg Tablet) 10 mg PO DAILY [facility]; Protocol Last Admin: 10/07/21 08:49 Dose: Not Given Documented by: Divalproex Sodium (Divalproex Sodium Er 500 Mg Tab.Er.24h) 500 mg PO BID [facility] Last Admin: 10/07/21 08:49 Dose: Not Given Documented by: Doxepin HCl (Doxepin Hcl 25 Mg Capsule) 50 mg PO BEDTIME [facility] Last Admin: 10/06/21 21:03 Dose: Not Given Documented by: Famotidine (Famotidine 20 Mg Tablet) 20 mg PO BID PRN PRN Reason: heartburn Hydroxyzine HCl (Hydroxyzine Hcl 25 Mg Tablet) 25 mg PO BEDTIME PRN PRN Reason: Anxiety Lisinopril (Lisinopril 40 Mg Tablet) 40 mg PO DAILY [facility]; Protocol Last Admin: 10/07/21 08:49 Dose: Not Given Documented by: Loperamide HCl (Loperamide Hcl 2 Mg Capsule) 2 mg PO Q4H PRN PRN Reason: Diarrhea Last Admin: 10/06/21 22:04 Dose: 2 mg Documented by: Magnesium Hydroxide (Milk Of Magnesia 30 Ml Oral.Susp) 30 ml PO DAILY PRN PRN Reason: Constipation Olanzapine (Olanzapine 10 Mg Tablet) 20 mg PO BEDTIME [facility] Last Admin: 10/06/21 21:03 Dose: Not Given Documented by: Trazodone HCl (Trazodone Hcl 50 Mg Tablet) 50 mg PO BEDTIME PRN PRN Reason: Insomnia Last Admin: 09/30/21 01:38 Dose: 50 mg Documented by: Allergies Allergies Allergy/AdvReac Type Severity Reaction Status Date / Time aspirin Allergy Unknown Verified 09/12/21 23:15 Assessment & Plan Assessment & Plan (1) Schizophrenia: Status: Acute Code(s): F20.9 - Schizophrenia, unspecified Plan the patient is an elderly Citizen Of [place] female with a long history of schizophrenia admitted for exacerbation of psychotic symptoms in the context of noncompliance. Plan 1. Gather collateral information. 2. Continue medications as medication reconciliation. 3. healthcare proxy was a firm by court. 4. Invega sustenna 2nd dose for next week I spent __15____ minutes with the patient and/or on the patient floor today, greater than?50% of which was spent counseling/coordinating care. Reason for contiued inpatient stay Substantial Risk for: inability to function and rapid decompensation
[2021-10-07] MEDS: Loperamide HCl 2 MG CAPSULE PO (23:35)
[2021-10-08 06:00] VITALS: BP 163/84; PULSE 87; RESP 17; TEMP 36.7; O2SAT 98
--- NOTE | 2021-10-08 11:10 | P.PNPSI_ITS ---
Subjective Subjective Date of Service: 10/08/21 Reason For Visit: Psychosis Interim History: found watching mass late morning. pt c/o some diarrhea and being helped by imodium. requesting her bed be done and a shower; referred to staff for those concerns. no other complaints or requests. per staff, refusing VS and meds. slept well. withdrawn. Mental Status Exam Mental Status Exam Patient Appearance: Well Grooomed Patient Orientation: Person Level of Consciousness: Awake Patient Behavior: Cooperative Mood Description: Constricted Affect Description: Calm Patient Cognition Impaired: Yes Ability to Follow Directions: Good Speech Pattern: Clear Thought Process: Goal Oriented Thought Content: positive for Poverty of Content and positive for Loose As sociations Judgement: Poor Diagnostics Vital Signs (24Hr): Vital Signs - 24 hr 10/08/21 06:00 Temperature 98.0 F Pulse Rate 87 Respiratory Rate 17 Blood Pressure 163/84 H Pulse Oximetry 98 BMI result Body Mass Index 25.4 Labs Results: 09/11/21 10:13 09/11/21 10:13 Labs: Laboratory Results - last 48 hr 10/06/21 21:15 C. difficile Tox B Gene NEGATIVE Medications Medications Current Medications Acetaminophen (Acetaminophen 325 Mg Tablet) 650 mg PO Q6H PRN PRN Reason: Headache/Pain Mild Scale (1-3) Al Hydroxide/Mg Hydroxide (Magnesium Hydrox/Alum Hydrox 30 Ml Oral.Susp) 30 ml PO Q6H PRN PRN Reason: Heartburn/Nausea Amlodipine Besylate (Amlodipine Besylate 10 Mg Tablet) 10 mg PO DAILY [facility]; Protocol Last Admin: 10/08/21 09:03 Dose: Not Given Documented by: Divalproex Sodium (Divalproex Sodium Er 500 Mg Tab.Er.24h) 500 mg PO BID [facility] Last Admin: 10/08/21 09:03 Dose: Not Given Documented by: Doxepin HCl (Doxepin Hcl 25 Mg Capsule) 50 mg PO BEDTIME [facility] Last Admin: 10/07/21 21:36 Dose: Not Given Documented by: Famotidine (Famotidine 20 Mg Tablet) 20 mg PO BID PRN PRN Reason: heartburn Hydroxyzine HCl (Hydroxyzine Hcl 25 Mg Tablet) 25 mg PO BEDTIME PRN PRN Reason: Anxiety Lisinopril (Lisinopril 40 Mg Tablet) 40 mg PO DAILY [facility]; Protocol Last Admin: 10/08/21 09:03 Dose: Not Given Documented by: Loperamide HCl (Loperamide Hcl 2 Mg Capsule) 2 mg PO Q4H PRN PRN Reason: Diarrhea Last Admin: 10/07/21 23:35 Dose: 2 mg Documented by: Magnesium Hydroxide (Milk Of Magnesia 30 Ml Oral.Susp) 30 ml PO DAILY PRN PRN Reason: Constipation Olanzapine (Olanzapine 10 Mg Tablet) 20 mg PO BEDTIME [facility] Last Admin: 10/07/21 21:36 Dose: Not Given Documented by: Trazodone HCl (Trazodone Hcl 50 Mg Tablet) 50 mg PO BEDTIME PRN PRN Reason: Insomnia Last Admin: 09/30/21 01:38 Dose: 50 mg Documented by: Allergies Allergies Allergy/AdvReac Type Severity Reaction Status Date / Time aspirin Allergy Unknown Verified 09/12/21 23:15 Assessment & Plan Assessment & Plan (1) Schizophrenia: Status: Acute Code(s): F20.9 - Schizophrenia, unspecified Plan the patient is an elderly [place] female with a long history of schizophrenia admitted for exacerbation of psychotic symptoms in the context of noncompliance. Plan 1. Gather collateral information. 2. Continue medications as medication reconciliation. 3. healthcare proxy was a firm by court. 4. Invega sustenna 2nd dose for next week I spent ___15___ minutes with the patient and/or on the patient floor today, greater than?50% of which was spent counseling/coordinating care. Reason for contiued inpatient stay Substantial Risk for: inability to function and rapid decompensation
[2021-10-08 18:00] VITALS: BP 168/77; PULSE 93; RESP 18; TEMP 36; O2SAT 97
[2021-10-09 06:00] VITALS: BP 179/83; PULSE 100; RESP 20; TEMP 36.3; O2SAT 96
--- NOTE | 2021-10-09 12:27 | HO.PSYCHPN ---
Subjective Subjective Date of Service: 10/09/21 Reason For Visit: Psychosis Subjective Notes: Conditional Voluntary Interim History: The nursing staff reported the patient has refused all her medications stating that other addictive trucks. She was confused and delusional and apparently she was very upset since yesterday her daughter brought her a dress but the belt needed to be removed and she was very angry with that. The patient remains grossly psychotic, we will start the 2nd dose of Invega Sustenna today with 234 mg IM Mental Status Exam Mental Status Exam Patient Appearance: Disheveled and Inappropriate Patient Orientation: Person Level of Consciousness: Awake Patient Behavior: Guarded and Suspicious Mood Description: Withdrawn and Apprehensive Affect Description: Labile Patient Cognition Impaired: Yes Ability to Follow Directions: Good Speech Pattern: Impoverished, Monotone and Rambling Hallucinations: Auditory Delusions: Paranoid Ideation and Grandiose Thought Process: Illogical, Distracted and Slowed Thinking Thought Content: positive for Poverty of Content and positive for Loose Associations Judgement: Fair Diagnostics Vital Signs (24Hr): Vital Signs - 24 hr 10/08/21 18:00 Temperature 96.8 F Pulse Rate 93 Respiratory Rate 18 Blood Pressure 168/77 H Pulse Oximetry 97 BMI result Body Mass Index 25.4 Labs Results: 09/11/21 10:13 09/11/21 10:13 Medications Medications Current Medications Acetaminophen (Acetaminophen 325 Mg Tablet) 650 mg PO Q6H PRN PRN Reason: Headache/Pain Mild Scale (1-3) Al Hydroxide/Mg Hydroxide (Magnesium Hydrox/Alum Hydrox 30 Ml Oral.Susp) 30 ml PO Q6H PRN PRN Reason: Heartburn/Nausea Amlodipine Besylate (Amlodipine Besylate 10 Mg Tablet) 10 mg PO DAILY [facility]; Protocol Last Admin: 10/09/21 08:28 Dose: Not Given Documented by: Divalproex Sodium (Divalproex Sodium Er 500 Mg Tab.Er.24h) 500 mg PO BID [facility] Last Admin: 10/09/21 08:28 Dose: Not Given Documented by: Doxepin HCl (Doxepin Hcl 25 Mg Capsule) 50 mg PO BEDTIME [facility] Last Admin: 10/08/21 20:28 Dose: Not Given Documented by: Famotidine (Famotidine 20 Mg Tablet) 20 mg PO BID PRN PRN Reason: heartburn Hydroxyzine HCl (Hydroxyzine Hcl 25 Mg Tablet) 25 mg PO BEDTIME PRN PRN Reason: Anxiety Lisinopril (Lisinopril 40 Mg Tablet) 40 mg PO DAILY [facility]; Protocol Last Admin: 10/09/21 08:29 Dose: Not Given Documented by: Loperamide HCl (Loperamide Hcl 2 Mg Capsule) 2 mg PO Q4H PRN PRN Reason: Diarrhea Last Admin: 10/07/21 23:35 Dose: 2 mg Documented by: Magnesium Hydroxide (Milk Of Magnesia 30 Ml Oral.Susp) 30 ml PO DAILY PRN PRN Reason: Constipation Olanzapine (Olanzapine 10 Mg Tablet) 20 mg PO BEDTIME [facility] Last Admin: 10/08/21 20:28 Dose: Not Given Documented by: Trazodone HCl (Trazodone Hcl 50 Mg Tablet) 50 mg PO BEDTIME PRN PRN Reason: Insomnia Last Admin: 09/30/21 01:38 Dose: 50 mg Documented by: Allergies Allergies Allergy/AdvReac Type Severity Reaction Status Date / Time aspirin Allergy Unknown Verified 09/12/21 23:15 Assessment & Plan Assessment & Plan (1) Schizophrenia: Status: Acute Code(s): F20.9 - Schizophrenia, unspecified Plan the patient is an elderly Congolese female with a long history of schizophrenia admitted for exacerbation of psychotic symptoms in the context of noncompliance. Plan 1. Invega Sustenna 234 mg IM today. 2. Encourage compliance I spent ___20___ minutes with the patient and/or on the patient floor today, greater than?50% of which was spent counseling/coordinating care. Reason for contiued inpatient stay Substantial Risk for: inability to function, rapid decompensation and med/psych decompensation
--- NOTE | 2021-10-09 12:40 | HE.PHANOTE ---
Contacted Dr. العلي regarding second dose of Invega Sustenna, suggested 156mg IM per guidelines but prescriber requested a second dose of 234mg.
[2021-10-09] MEDS: Paliperidone Palmitate 234 MG/1.5 ML SYRINGE IM (14:18)
[2021-10-10 06:00] VITALS: BP 137/64; PULSE 100; RESP 16; TEMP 36.1; O2SAT 98
[2021-10-10] MEDS: Divalproex Sodium ER 500 MG TAB.ER.24H PO (08:34)
[2021-10-10] MEDS: amLODIPine Besylate 10 MG TABLET PO (08:35)
[2021-10-10] MEDS: lisinopriL 40 MG TABLET PO (08:35)
--- NOTE | 2021-10-10 13:56 | HO.PSYCHPN ---
Subjective Subjective Date of Service: 10/10/21 Reason For Visit: Psychosis Subjective Notes: Conditional Voluntary Interim History: The nursing staff reported that the patient has been compliant with medications for the 1st time since her admission. She received IM Invega Sustenna yesterday 2nd dose and now she is more pleasant and cooperative confused but less intrusive. On interview, the patient denies new symptoms she was pleasant and cooperative Review of Systems Review of Systems Yes all other systems are reviewed and are negative Mental Status Exam Mental Status Exam Patient Appearance: Appropriate Patient Orientation: Person Level of Consciousness: Awake and Disoriented Patient Behavior: Guarded and Cooperative Mood Description: Withdrawn Affect Description: Constricted Patient Cognition Impaired: Yes Ability to Follow Directions: Good Speech Pattern: Impoverished Hallucinations: Auditory Delusions: Paranoid Ideation Thought Process: Distracted Thought Content: positive for [place] Judgement: Fair Diagnostics Vital Signs (24Hr): Vital Signs - 24 hr 10/10/21 06:00 Temperature 97.0 F Pulse Rate 100 Respiratory Rate 16 Blood Pressure 137/64 Pulse Oximetry 98 BMI result Body Mass Index 25.4 Labs Results: 09/11/21 10:13 09/11/21 10:13 Medications Medications Current Medications Acetaminophen (Acetaminophen 325 Mg Tablet) 650 mg PO Q6H PRN PRN Reason: Headache/Pain Mild Scale (1-3) Al Hydroxide/Mg Hydroxide (Magnesium Hydrox/Alum Hydrox 30 Ml Oral.Susp) 30 ml PO Q6H PRN PRN Reason: Heartburn/Nausea Amlodipine Besylate (Amlodipine Besylate 10 Mg Tablet) 10 mg PO DAILY [facility]; Protocol Last Admin: 10/10/21 08:35 Dose: 10 mg Documented by: Divalproex Sodium (Divalproex Sodium Er 500 Mg Tab.Er.24h) 500 mg PO BID [facility] Last Admin: 10/10/21 08:34 Dose: 500 mg Documented by: Doxepin HCl (Doxepin Hcl 25 Mg Capsule) 50 mg PO BEDTIME [facility] Last Admin: 10/09/21 20:47 Dose: Not Given Documented by: Famotidine (Famotidine 20 Mg Tablet) 20 mg PO BID PRN PRN Reason: heartburn Hydroxyzine HCl (Hydroxyzine Hcl 25 Mg Tablet) 25 mg PO BEDTIME PRN PRN Reason: Anxiety Lisinopril (Lisinopril 40 Mg Tablet) 40 mg PO DAILY [facility]; Protocol Last Admin: 10/10/21 08:35 Dose: 40 mg Documented by: Loperamide HCl (Loperamide Hcl 2 Mg Capsule) 2 mg PO Q4H PRN PRN Reason: Diarrhea Last Admin: 10/07/21 23:35 Dose: 2 mg Documented by: Magnesium Hydroxide (Milk Of Magnesia 30 Ml Oral.Susp) 30 ml PO DAILY PRN PRN Reason: Constipation Trazodone HCl (Trazodone Hcl 50 Mg Tablet) 50 mg PO BEDTIME PRN PRN Reason: Insomnia Last Admin: 09/30/21 01:38 Dose: 50 mg Documented by: Allergies Allergies Allergy/AdvReac Type Severity Reaction Status Date / Time aspirin Allergy Unknown Verified 09/12/21 23:15 Assessment & Plan Assessment & Plan (1) Schizophrenia: Status: Acute Code(s): F20.9 - Schizophrenia, unspecified Plan the patient is an elderly [place]awian female with a long history of schizophrenia admitted for exacerbation of psychotic symptoms in the context of noncompliance. Plan 1. Invega Sustenna 234 mg IM yesterday. We will discontinue Zyprexa 20 mg at bedtime. 2. Encourage compliance I spent __20____ minutes with the patient and/or on the patient floor today, greater than?50% of which was spent counseling/coordinating care. Reason for contiued inpatient stay Substantial Risk for: inability to function, rapid decompensation and med/psych decompensation
[2021-10-11 07:20] VITALS: BP 117/59; PULSE 67; RESP 17; TEMP 36.4; O2SAT 97
[2021-10-11] MEDS: lisinopriL 40 MG TABLET PO (09:03)
[2021-10-11] MEDS: Loperamide HCl 2 MG CAPSULE PO (09:03)
[2021-10-11] MEDS: Divalproex Sodium ER 500 MG TAB.ER.24H PO (09:04)
[2021-10-11] MEDS: amLODIPine Besylate 10 MG TABLET PO (09:04)
--- NOTE | 2021-10-11 15:24 | HO.PSYCHPN ---
Subjective Subjective Date of Service: 10/11/21 Reason For Visit: Psychosis Subjective Notes: Conditional Voluntary Interim History: the nursing staff reported the patient slept all night and she has been compliant with her medications in the morning. She looked less internally preoccupied. Today we had a family meeting with her daughter and the patient become very angry and a little home we explained her that she cannot go back to her home in [place]. Her family cannot take care of her and we will need to work on placement. Mental Status Exam Mental Status Exam Patient Appearance: Well Grooomed Patient Orientation: Person and Situation Level of Consciousness: Awake Patient Behavior: Guarded Mood Description: Fearful and Hostile Affect Description: Labile Patient Cognition Impaired: Yes Ability to Follow Directions: Good Speech Pattern: Clear Hallucinations: Auditory Delusions: Paranoid Ideation and Grandiose Thought Process: Racing, Illogical and Evasive Thought Content: positive for [place], positive for Perseveration, positive for Poverty of Content, positive for Loose Associations and positive for Tangential Judgement: Fair Diagnostics Vital Signs (24Hr): Vital Signs - 24 hr 10/11/21 07:20 Temperature 97.5 F Pulse Rate 67 Respiratory Rate 17 Blood Pressure 117/59 L Pulse Oximetry 97 BMI result Body Mass Index 25.4 Labs Results: 09/11/21 10:13 09/11/21 10:13 Medications Medications Current Medications Acetaminophen (Acetaminophen 325 Mg Tablet) 650 mg PO Q6H PRN PRN Reason: Headache/Pain Mild Scale (1-3) Al Hydroxide/Mg Hydroxide (Magnesium Hydrox/Alum Hydrox 30 Ml Oral.Susp) 30 ml PO Q6H PRN PRN Reason: Heartburn/Nausea Amlodipine Besylate (Amlodipine Besylate 10 Mg Tablet) 10 mg PO DAILY [facility]; Protocol Last Admin: 10/11/21 09:04 Dose: 10 mg Documented by: Divalproex Sodium (Divalproex Sodium Er 500 Mg Tab.Er.24h) 500 mg PO BID [facility] Last Admin: 10/11/21 09:04 Dose: 500 mg Documented by: Doxepin HCl (Doxepin Hcl 25 Mg Capsule) 50 mg PO BEDTIME [facility] Last Admin: 10/10/21 22:57 Dose: Not Given Documented by: Famotidine (Famotidine 20 Mg Tablet) 20 mg PO BID PRN PRN Reason: heartburn Hydroxyzine HCl (Hydroxyzine Hcl 25 Mg Tablet) 25 mg PO BEDTIME PRN PRN Reason: Anxiety Lisinopril (Lisinopril 40 Mg Tablet) 40 mg PO DAILY [facility]; Protocol Last Admin: 10/11/21 09:03 Dose: 40 mg Documented by: Loperamide HCl (Loperamide Hcl 2 Mg Capsule) 2 mg PO Q4H PRN PRN Reason: Diarrhea Last Admin: 10/11/21 09:03 Dose: 2 mg Documented by: Magnesium Hydroxide (Milk Of Magnesia 30 Ml Oral.Susp) 30 ml PO DAILY PRN PRN Reason: Constipation Trazodone HCl (Trazodone Hcl 50 Mg Tablet) 50 mg PO BEDTIME PRN PRN Reason: Insomnia Last Admin: 09/30/21 01:38 Dose: 50 mg Documented by: Allergies Allergies Allergy/AdvReac Type Severity Reaction Status Date / Time aspirin Allergy Unknown Verified 09/12/21 23:15 Assessment & Plan Assessment & Plan (1) Schizophrenia: Status: Acute Code(s): F20.9 - Schizophrenia, unspecified Plan the patient is an elderly [place]ian female with a long history of schizophrenia admitted for exacerbation of psychotic symptoms in the context of noncompliance. Plan 1. Invega Sustenna 234 mg IM Last Saturday. We will discontinue Zyprexa 20 mg at bedtime. 2. Encourage compliance I spent ___20___ minutes with the patient and/or on the patient floor today, greater than?50% of which was spent counseling/coordinating care. Reason for contiued inpatient stay Substantial Risk for: inability to function, rapid decompensation and med/psych decompensation
[2021-10-11 19:53] VITALS: BP 134/93; PULSE 90; RESP 18; TEMP 36.4; O2SAT 98
[2021-10-11] MEDS: Acetaminophen 325 MG TABLET 650 MG PO (23:07)
[2021-10-12 07:00] VITALS: BMI 25.4
[2021-10-12 08:00] VITALS: BP 131/62; PULSE 75; RESP 17; TEMP 36.2; O2SAT 99
[2021-10-12] MEDS: amLODIPine Besylate 10 MG TABLET PO (11:35)
[2021-10-12] MEDS: Divalproex Sodium ER 500 MG TAB.ER.24H PO (11:36)
[2021-10-12] MEDS: lisinopriL 40 MG TABLET PO (11:36)
--- NOTE | 2021-10-12 16:22 | P.PNPSI_ITS ---
Subjective Subjective Date of Service: 10/12/21 Reason For Visit: Psychosis Subjective Notes: Conditional Voluntary Interim History: The nursing staff reported the patient was agitated yesterday after the family meeting but she did not need any p.r.n.. She has been compliant with some medications. On interview the patient looks pleasantly confused and still psychotic Mental Status Exam Mental Status Exam Patient Appearance: Well Grooomed Patient Orientation: Person and Situation Level of Consciousness: Awake Patient Behavior: Cooperative Mood Description: Withdrawn Affect Description: Constricted Patient Cognition Impaired: Yes Ability to Follow Directions: Good Speech Pattern: Clear Hallucinations: Auditory Delusions: Paranoid Ideation and Grandiose Thought Process: Distracted and Evasive Thought Content: positive for [place] and positive for Poverty of Content Judgement: Fair Diagnostics Vital Signs (24Hr): Vital Signs - 24 hr 10/11/21 19:53 10/12/21 08:00 Temperature 97.6 F 97.1 F Pulse Rate 90 75 Respiratory Rate 18 17 Blood Pressure 134/93 H 131/62 Pulse Oximetry 98 99 BMI result Body Mass Index 25.4 Labs Results: 09/11/21 10:13 09/11/21 10:13 Medications Medications Current Medications Acetaminophen (Acetaminophen 325 Mg Tablet) 650 mg PO Q6H PRN PRN Reason: Headache/Pain Mild Scale (1-3) Last Admin: 10/11/21 23:07 Dose: 650 mg Documented by: Al Hydroxide/Mg Hydroxide (Magnesium Hydrox/Alum Hydrox 30 Ml Oral.Susp) 30 ml PO Q6H PRN PRN Reason: Heartburn/Nausea Amlodipine Besylate (Amlodipine Besylate 10 Mg Tablet) 10 mg PO DAILY [facility]; Protocol Last Admin: 10/12/21 11:35 Dose: 10 mg Documented by: Divalproex Sodium (Divalproex Sodium Er 500 Mg Tab.Er.24h) 500 mg PO BID [facility] Last Admin: 10/12/21 11:36 Dose: 500 mg Documented by: Doxepin HCl (Doxepin Hcl 25 Mg Capsule) 50 mg PO BEDTIME [facility] Last Admin: 10/11/21 21:27 Dose: Not Given Documented by: Famotidine (Famotidine 20 Mg Tablet) 20 mg PO BID PRN PRN Reason: heartburn Hydroxyzine HCl (Hydroxyzine Hcl 25 Mg Tablet) 25 mg PO BEDTIME PRN PRN Reason: Anxiety Lisinopril (Lisinopril 40 Mg Tablet) 40 mg PO DAILY [facility]; Protocol Last Admin: 10/12/21 11:36 Dose: 40 mg Documented by: Loperamide HCl (Loperamide Hcl 2 Mg Capsule) 2 mg PO Q4H PRN PRN Reason: Diarrhea Last Admin: 10/11/21 09:03 Dose: 2 mg Documented by: Magnesium Hydroxide (Milk Of Magnesia 30 Ml Oral.Susp) 30 ml PO DAILY PRN PRN Reason: Constipation Trazodone HCl (Trazodone Hcl 50 Mg Tablet) 50 mg PO BEDTIME PRN PRN Reason: Insomnia Last Admin: 09/30/21 01:38 Dose: 50 mg Documented by: Allergies Allergies Allergy/AdvReac Type Severity Reaction Status Date / Time aspirin Allergy Unknown Verified 09/12/21 23:15 Assessment & Plan Assessment & Plan (1) Schizophrenia: Status: Acute Code(s): F20.9 - Schizophrenia, unspecified Plan the patient is an elderly [place] female with a long history of schizophrenia admitted for exacerbation of psychotic symptoms in the context of noncompliance. Plan 1. Invega Sustenna 234 mg IM Last Saturday. We will discontinue Zyprexa 20 mg at bedtime. 2. Encourage compliance I spent __20____ minutes with the patient and/or on the patient floor today, greater than?50% of which was spent counseling/coordinating care. Reason for contiued inpatient stay Substantial Risk for: inability to function, rapid decompensation and med/psych decompensation
[2021-10-12 20:02] VITALS: BP 112/55; PULSE 82; RESP 16; TEMP 36.6; O2SAT 100
[2021-10-12] MEDS: traZODone HCL 50 MG TABLET PO (20:50)
[2021-10-13 08:00] VITALS: BP 138/61; PULSE 91; RESP 17; TEMP 36.5; O2SAT 100
--- NOTE | 2021-10-13 16:22 | HO.PSYCHPN ---
Subjective Subjective Date of Service: 10/13/21 Reason For Visit: Psychosis Subjective Notes: Conditional Voluntary Interim History: the nursing staff reported the patient has been agitated at times but easily redirectable. She remains delusional talking to herself and confused. On interview the patient reported that I should contact his orders daughter so she can go to live with her. The patient is not aware that showed daughter's cannot take care of her and place her and her family. Mental Status Exam Mental Status Exam Patient Appearance: Well Grooomed Patient Orientation: Person and Situation Level of Consciousness: Awake Patient Behavior: Cooperative Mood Description: Withdrawn Affect Description: Labile Patient Cognition Impaired: Yes Ability to Follow Directions: Good Speech Pattern: Clear and Rapid Hallucinations: Auditory Delusions: Paranoid Ideation Thought Process: Distracted and Evasive Thought Content: positive for [place] and positive for Poverty of Content Judgement: Fair Diagnostics Vital Signs (24Hr): Vital Signs - 24 hr 10/12/21 20:02 10/13/21 08:00 Temperature 97.9 F 97.7 F Pulse Rate 82 91 Respiratory Rate 16 17 Blood Pressure 112/55 L 138/61 Pulse Oximetry 100 100 BMI result Body Mass Index 25.4 Labs Results: 09/11/21 10:13 09/11/21 10:13 Medications Medications Current Medications Acetaminophen (Acetaminophen 325 Mg Tablet) 650 mg PO Q6H PRN PRN Reason: Headache/Pain Mild Scale (1-3) Last Admin: 10/11/21 23:07 Dose: 650 mg Documented by: Al Hydroxide/Mg Hydroxide (Magnesium Hydrox/Alum Hydrox 30 Ml Oral.Susp) 30 ml PO Q6H PRN PRN Reason: Heartburn/Nausea Amlodipine Besylate (Amlodipine Besylate 10 Mg Tablet) 10 mg PO DAILY [facility]; Protocol Last Admin: 10/13/21 08:07 Dose: Not Given Documented by: Divalproex Sodium (Divalproex Sodium Er 500 Mg Tab.Er.24h) 500 mg PO BID [facility] Last Admin: 10/13/21 08:07 Dose: Not Given Documented by: Doxepin HCl (Doxepin Hcl 25 Mg Capsule) 50 mg PO BEDTIME [facility] Last Admin: 10/12/21 22:26 Dose: Not Given Documented by: Famotidine (Famotidine 20 Mg Tablet) 20 mg PO BID PRN PRN Reason: heartburn Hydroxyzine HCl (Hydroxyzine Hcl 25 Mg Tablet) 25 mg PO BEDTIME PRN PRN Reason: Anxiety Lisinopril (Lisinopril 40 Mg Tablet) 40 mg PO DAILY [facility]; Protocol Last Admin: 10/13/21 08:07 Dose: Not Given Documented by: Loperamide HCl (Loperamide Hcl 2 Mg Capsule) 2 mg PO Q4H PRN PRN Reason: Diarrhea Last Admin: 10/11/21 09:03 Dose: 2 mg Documented by: Magnesium Hydroxide (Milk Of Magnesia 30 Ml Oral.Susp) 30 ml PO DAILY PRN PRN Reason: Constipation Trazodone HCl (Trazodone Hcl 50 Mg Tablet) 50 mg PO BEDTIME PRN PRN Reason: Insomnia Last Admin: 10/12/21 20:50 Dose: 50 mg Documented by: Allergies Allergies Allergy/AdvReac Type Severity Reaction Status Date / Time aspirin Allergy Unknown Verified 09/12/21 23:15 Assessment & Plan Assessment & Plan (1) Schizophrenia: Status: Acute Code(s): F20.9 - Schizophrenia, unspecified Plan the patient is an elderly [place]ian female with a long history of schizophrenia admitted for exacerbation of psychotic symptoms in the context of noncompliance. Plan 1. Invega Sustenna 234 mg IM Last Saturday. We will discontinue Zyprexa 20 mg at bedtime. 2. Encourage compliance I spent ___20___ minutes with the patient and/or on the patient floor today, greater than?50% of which was spent counseling/coordinating care. Reason for contiued inpatient stay Substantial Risk for: inability to function, rapid decompensation and med/psych decompensation
[2021-10-14 06:00] VITALS: BP 144/71; PULSE 77; RESP 16; TEMP 36.3; O2SAT 97
[2021-10-14] MEDS: amLODIPine Besylate 10 MG TABLET PO (08:43)
[2021-10-14] MEDS: lisinopriL 40 MG TABLET PO (08:44)
[2021-10-14] MEDS: Divalproex Sodium ER 500 MG TAB.ER.24H PO (08:44)
--- NOTE | 2021-10-14 14:59 | P.PNPSI_ITS ---
Subjective Subjective Date of Service: 10/14/21 Reason For Visit: Psychosis Subjective Notes: Conditional Voluntary Interim History: partial medication adherent- Recently switched to Invega Sustenna. Overall no acute management issues. Disposition planning challenging. Patient reports that her daughter denies that the patient is her mother. Reports other people have stolen her children. 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 Denied depression, sleep disturbance physical concerns or medication concerns. Side effects from medications: No Attending Groups: Intermittent Review of Systems Acute medical concerns: No Review of Systems Review of Systems Unremarkable Mental Status Exam Mental Status Exam Narrative: pleasant. Engaged. Tangential. Difficulty with recent time lines and events. Grandiose and delusional. No SI or HI or agitation. Insight and judgment limited Diagnostics Vital Signs (24Hr): Vital Signs - 24 hr 10/14/21 06:00 Temperature 97.3 F Pulse Rate 77 Respiratory Rate 16 Blood Pressure 144/71 H Pulse Oximetry 97 BMI result Body Mass Index 25.4 Labs Results: 09/11/21 10:13 09/11/21 10:13 Medications Medications Current Medications Acetaminophen (Acetaminophen 325 Mg Tablet) 650 mg PO Q6H PRN PRN Reason: Headache/Pain Mild Scale (1-3) Last Admin: 10/11/21 23:07 Dose: 650 mg Documented by: Al Hydroxide/Mg Hydroxide (Magnesium Hydrox/Alum Hydrox 30 Ml Oral.Susp) 30 ml PO Q6H PRN PRN Reason: Heartburn/Nausea Amlodipine Besylate (Amlodipine Besylate 10 Mg Tablet) 10 mg PO DAILY [facility]; Protocol Last Admin: 10/14/21 08:43 Dose: 10 mg Documented by: Divalproex Sodium (Divalproex Sodium Er 500 Mg Tab.Er.24h) 500 mg PO BID [facility] Last Admin: 10/14/21 08:44 Dose: 500 mg Documented by: Doxepin HCl (Doxepin Hcl 25 Mg Capsule) 50 mg PO BEDTIME [facility] Last Admin: 10/13/21 22:06 Dose: Not Given Documented by: Famotidine (Famotidine 20 Mg Tablet) 20 mg PO BID PRN PRN Reason: heartburn Hydroxyzine HCl (Hydroxyzine Hcl 25 Mg Tablet) 25 mg PO BEDTIME PRN PRN Reason: Anxiety Lisinopril (Lisinopril 40 Mg Tablet) 40 mg PO DAILY [facility]; Protocol Last Admin: 10/14/21 08:44 Dose: 40 mg Documented by: Loperamide HCl (Loperamide Hcl 2 Mg Capsule) 2 mg PO Q4H PRN PRN Reason: Diarrhea Last Admin: 10/11/21 09:03 Dose: 2 mg Documented by: Magnesium Hydroxide (Milk Of Magnesia 30 Ml Oral.Susp) 30 ml PO DAILY PRN PRN Reason: Constipation Trazodone HCl (Trazodone Hcl 50 Mg Tablet) 50 mg PO BEDTIME PRN PRN Reason: Insomnia Last Admin: 10/12/21 20:50 Dose: 50 mg Documented by: Allergies Allergies Allergy/AdvReac Type Severity Reaction Status Date / Time aspirin Allergy Unknown Verified 09/12/21 23:15 Assessment & Plan Assessment & Plan (1) Schizophrenia: Status: Acute Code(s): F20.9 - Schizophrenia, unspecified Plan the patient is an elderly [place] female with a long history of schizophrenia admitted for exacerbation of psychotic symptoms in the context of noncompliance. Plan 1. Invega Sustenna 234 mg IM Last Saturday. We will discontinue Zyprexa 20 mg at bedtime. 2. Encourage compliance 10/14/2021: No changes to team's primary treatment plan. I spent minutes with the patient and/or on the patient floor today, greater than?50% of which was spent counseling/coordinating care. Reason for contiued inpatient stay Substantial Risk for: rapid decompensation
[2021-10-14 18:00] VITALS: BP 137/63; PULSE 84; RESP 18; TEMP 36.6; O2SAT 97
[2021-10-15] MEDS: Loperamide HCl 2 MG CAPSULE PO (09:30)
--- NOTE | 2021-10-15 14:46 | HO.PSYCHPN ---
Subjective Subjective Date of Service: 10/15/21 Reason For Visit: Psychosis Interim History: Overall no acute management issues. Disposition planning challenging. Ongoing delusions- less intense around babies, degress/jobs. Denied depression, sleep disturbance physical concerns or medication concerns. Medication Compliance: Intermittent Side effects from medications: No Attending Groups: Intermittent Review of Systems Acute medical concerns: No Review of Systems Review of Systems Unremarkable Mental Status Exam Mental Status Exam Narrative: pleasant. Engaged. Tangential. Difficulty with recent time lines and events. Grandiose and delusional. No SI or HI or agitation. Insight and judgment limited Diagnostics Vital Signs (24Hr): Vital Signs - 24 hr 10/14/21 18:00 Temperature 97.9 F Pulse Rate 84 Respiratory Rate 18 Blood Pressure 137/63 Pulse Oximetry 97 BMI result Body Mass Index 25.4 Labs Results: 09/11/21 10:13 09/11/21 10:13 Medications Medications Current Medications Acetaminophen (Acetaminophen 325 Mg Tablet) 650 mg PO Q6H PRN PRN Reason: Headache/Pain Mild Scale (1-3) Last Admin: 10/11/21 23:07 Dose: 650 mg Documented by: Al Hydroxide/Mg Hydroxide (Magnesium Hydrox/Alum Hydrox 30 Ml Oral.Susp) 30 ml PO Q6H PRN PRN Reason: Heartburn/Nausea Amlodipine Besylate (Amlodipine Besylate 10 Mg Tablet) 10 mg PO DAILY [facility]; Protocol Last Admin: 10/15/21 09:31 Dose: Not Given Documented by: Divalproex Sodium (Divalproex Sodium Er 500 Mg Tab.Er.24h) 500 mg PO BID [facility] Last Admin: 10/15/21 09:31 Dose: Not Given Documented by: Doxepin HCl (Doxepin Hcl 25 Mg Capsule) 50 mg PO BEDTIME [facility] Last Admin: 10/14/21 20:38 Dose: Not Given Documented by: Famotidine (Famotidine 20 Mg Tablet) 20 mg PO BID PRN PRN Reason: heartburn Hydroxyzine HCl (Hydroxyzine Hcl 25 Mg Tablet) 25 mg PO BEDTIME PRN PRN Reason: Anxiety Lisinopril (Lisinopril 40 Mg Tablet) 40 mg PO DAILY [facility]; Protocol Last Admin: 10/15/21 09:32 Dose: Not Given Documented by: Loperamide HCl (Loperamide Hcl 2 Mg Capsule) 2 mg PO Q4H PRN PRN Reason: Diarrhea Last Admin: 10/15/21 09:30 Dose: 2 mg Documented by: Magnesium Hydroxide (Milk Of Magnesia 30 Ml Oral.Susp) 30 ml PO DAILY PRN PRN Reason: Constipation Trazodone HCl (Trazodone Hcl 50 Mg Tablet) 50 mg PO BEDTIME PRN PRN Reason: Insomnia Last Admin: 10/12/21 20:50 Dose: 50 mg Documented by: Allergies Allergies Allergy/AdvReac Type Severity Reaction Status Date / Time aspirin Allergy Unknown Verified 09/12/21 23:15 Assessment & Plan Assessment & Plan (1) Schizophrenia: Status: Acute Code(s): F20.9 - Schizophrenia, unspecified Plan the patient is an elderly [place] female with a long history of schizophrenia admitted for exacerbation of psychotic symptoms in the context of noncompliance. Plan 1. Invega Sustenna 234 mg IM Last Saturday. We will discontinue Zyprexa 20 mg at bedtime. 2. Encourage compliance 10/15/2021: No changes to team's primary treatment plan. I spent minutes with the patient and/or on the patient floor today, greater than?50% of which was spent counseling/coordinating care. Reason for contiued inpatient stay Substantial Risk for: rapid decompensation
[2021-10-15 18:00] VITALS: RESP 16
[2021-10-16 08:00] VITALS: BP 152/82; PULSE 100; RESP 16; TEMP 35.7; O2SAT 97
[2021-10-16] MEDS: Acetaminophen 325 MG TABLET 650 MG PO (21:44)
--- NOTE | 2021-10-16 23:20 | HO.PSYCHPN ---
Subjective Subjective Date of Service: 10/16/21 Reason For Visit: Psychosis Subjective Notes: Conditional Voluntary Interim History: pt intermittantly delusional difficulty with d/c planning Diagnostics Vital Signs (24Hr): Vital Signs - 24 hr 10/16/21 08:00 Temperature 96.3 F L Pulse Rate 100 Respiratory Rate 16 Blood Pressure 152/82 H Pulse Oximetry 97 BMI result Body Mass Index 25.4 Labs Results: 09/11/21 10:13 09/11/21 10:13 Medications Medications Current Medications Acetaminophen (Acetaminophen 325 Mg Tablet) 650 mg PO Q6H PRN PRN Reason: Headache/Pain Mild Scale (1-3) Last Admin: 10/16/21 21:44 Dose: 650 mg Documented by: Al Hydroxide/Mg Hydroxide (Magnesium Hydrox/Alum Hydrox 30 Ml Oral.Susp) 30 ml PO Q6H PRN PRN Reason: Heartburn/Nausea Amlodipine Besylate (Amlodipine Besylate 10 Mg Tablet) 10 mg PO DAILY [facility]; Protocol Last Admin: 10/16/21 08:27 Dose: Not Given Documented by: Divalproex Sodium (Divalproex Sodium Er 500 Mg Tab.Er.24h) 500 mg PO BID [facility] Last Admin: 10/16/21 22:20 Dose: Not Given Documented by: Doxepin HCl (Doxepin Hcl 25 Mg Capsule) 50 mg PO BEDTIME [facility] Last Admin: 10/16/21 22:20 Dose: Not Given Documented by: Famotidine (Famotidine 20 Mg Tablet) 20 mg PO BID PRN PRN Reason: heartburn Hydroxyzine HCl (Hydroxyzine Hcl 25 Mg Tablet) 25 mg PO BEDTIME PRN PRN Reason: Anxiety Lisinopril (Lisinopril 40 Mg Tablet) 40 mg PO DAILY [facility]; Protocol Last Admin: 10/16/21 08:27 Dose: Not Given Documented by: Loperamide HCl (Loperamide Hcl 2 Mg Capsule) 2 mg PO Q4H PRN PRN Reason: Diarrhea Last Admin: 10/15/21 09:30 Dose: 2 mg Documented by: Magnesium Hydroxide (Milk Of Magnesia 30 Ml Oral.Susp) 30 ml PO DAILY PRN PRN Reason: Constipation Trazodone HCl (Trazodone Hcl 50 Mg Tablet) 50 mg PO BEDTIME PRN PRN Reason: Insomnia Last Admin: 10/12/21 20:50 Dose: 50 mg Documented by: Allergies Allergies Allergy/AdvReac Type Severity Reaction Status Date / Time aspirin Allergy Unknown Verified 09/12/21 23:15 Assessment & Plan Assessment & Plan (1) Schizophrenia: Status: Acute Code(s): F20.9 - Schizophrenia, unspecified Plan the patient is an elderly Micronesian female with a long history of schizophrenia admitted for exacerbation of psychotic symptoms in the context of noncompliance. Plan 1. Invega Sustenna 234 mg IM Last Saturday. We will discontinue Zyprexa 20 mg at bedtime. 2. Encourage compliance 10/15/2021: No changes to team's primary treatment plan. 10/16/21 Continue plan of care viridiana I spent minutes with the patient and/or on the patient floor today, greater than?50% of which was spent counseling/coordinating care. Reason for contiued inpatient stay Substantial Risk for: rapid decompensation and med/psych decompensation
--- NOTE | 2021-10-17 14:51 | PC.NURSE ---
Pt participated in [facility] screen (bengali version) on this date, score 16/30, indicating cognition is below normal limits. Nurse and SW aware of results
--- NOTE | 2021-10-17 17:14 | HO.PSYCHPN ---
Subjective Subjective Date of Service: 10/17/21 Reason For Visit: Psychosis Subjective Notes: Conditional Voluntary Interim History: the nursing staff reported the patient has been isolative in her room, she has refused medications. She was seen self dialogue in. Later in the afternoon, she was loud and stated that they were giving her tracking stent of medications. On interview she looks agitated and I explained her that she cannot be discharged to her daughter's because they do not want her back. She is waiting for placement Mental Status Exam Mental Status Exam Patient Appearance: Appropriate Patient Orientation: Person and Situation Level of Consciousness: Awake Patient Behavior: Cooperative Mood Description: Withdrawn Affect Description: Labile Patient Cognition Impaired: Yes Ability to Follow Directions: Fair Speech Pattern: Impoverished Hallucinations: Auditory Delusions: Paranoid Ideation and Grandiose Thought Process: Evasive Thought Content: positive for Persever[place] and positive for Poverty of Content Diagnostics Vital Signs (24Hr): BMI result Body Mass Index 25.4 Labs Results: 09/11/21 10:13 09/11/21 10:13 Medications Medications Current Medications Acetaminophen (Acetaminophen 325 Mg Tablet) 650 mg PO Q6H PRN PRN Reason: Headache/Pain Mild Scale (1-3) Last Admin: 10/16/21 21:44 Dose: 650 mg Documented by: Al Hydroxide/Mg Hydroxide (Magnesium Hydrox/Alum Hydrox 30 Ml Oral.Susp) 30 ml PO Q6H PRN PRN Reason: Heartburn/Nausea Amlodipine Besylate (Amlodipine Besylate 10 Mg Tablet) 10 mg PO DAILY [facility]; Protocol Last Admin: 10/17/21 10:20 Dose: Not Given Documented by: Divalproex Sodium (Divalproex Sodium Er 500 Mg Tab.Er.24h) 500 mg PO BID [facility] Last Admin: 10/17/21 10:21 Dose: Not Given Documented by: Doxepin HCl (Doxepin Hcl 25 Mg Capsule) 50 mg PO BEDTIME [facility] Last Admin: 10/16/21 22:20 Dose: Not Given Documented by: Famotidine (Famotidine 20 Mg Tablet) 20 mg PO BID PRN PRN Reason: heartburn Hydroxyzine HCl (Hydroxyzine Hcl 25 Mg Tablet) 25 mg PO BEDTIME PRN PRN Reason: Anxiety Lisinopril (Lisinopril 40 Mg Tablet) 40 mg PO DAILY [facility]; Protocol Last Admin: 10/17/21 10:21 Dose: Not Given Documented by: Loperamide HCl (Loperamide Hcl 2 Mg Capsule) 2 mg PO Q4H PRN PRN Reason: Diarrhea Last Admin: 10/15/21 09:30 Dose: 2 mg Documented by: Magnesium Hydroxide (Milk Of Magnesia 30 Ml Oral.Susp) 30 ml PO DAILY PRN PRN Reason: Constipation Trazodone HCl (Trazodone Hcl 50 Mg Tablet) 50 mg PO BEDTIME PRN PRN Reason: Insomnia Last Admin: 10/12/21 20:50 Dose: 50 mg Documented by: Allergies Allergies Allergy/AdvReac Type Severity Reaction Status Date / Time aspirin Allergy Unknown Verified 09/12/21 23:15 Assessment & Plan Assessment & Plan (1) Schizophrenia: Status: Acute Code(s): F20.9 - Schizophrenia, unspecified Plan the patient is an elderly Yemeni female with a long history of schizophrenia admitted for exacerbation of psychotic symptoms in the context of noncompliance. Plan 1. Invega Sustenna 234 mg IM Last Saturday. We will discontinue Zyprexa 20 mg at bedtime. 2. Encourage compliance I spent ___20___ minutes with the patient and/or on the patient floor today, greater than?50% of which was spent counseling/coordinating care. Reason for contiued inpatient stay Substantial Risk for: inability to function, rapid decompensation and med/psych decompensation
[2021-10-17 18:00] VITALS: BP 112/57; PULSE 87; RESP 19; TEMP 36.8; O2SAT 96
[2021-10-18 06:00] VITALS: BP 172/74; PULSE 93; RESP 17; TEMP 36; O2SAT 98
--- NOTE | 2021-10-18 15:30 | P.PNPSI_ITS ---
Subjective Subjective Date of Service: 10/18/21 Reason For Visit: Psychosis Subjective Notes: Conditional Voluntary Interim History: the nursing staff reported the patient refused medications in the morning and she was angry but later she was more cooperative. She remains isolative at times and she is internally preoccupied, self dialogue in and psychotic. On interview the patient is repetitive but easily redirectable. Mental Status Exam Mental Status Exam Patient Appearance: Appropriate Patient Orientation: Person and Situation Level of Consciousness: Awake Patient Behavior: Guarded and Suspicious Mood Description: Withdrawn Affect Description: Labile Patient Cognition Impaired: Yes Ability to Follow Directions: Good Speech Pattern: Appropriate Hallucinations: Auditory Delusions: Paranoid Ideation Thought Process: Illogical and Distracted Thought Content: positive for [place], positive for Circumstantial and positive for Poverty of Content Judgement: Poor Diagnostics Vital Signs (24Hr): Vital Signs - 24 hr 10/17/21 18:00 10/18/21 06:00 Temperature 98.3 F 96.8 F Pulse Rate 87 93 Respiratory Rate 19 17 Blood Pressure 112/57 L 172/74 H Pulse Oximetry 96 98 BMI result Body Mass Index 25.4 Labs Results: 09/11/21 10:13 09/11/21 10:13 Medications Medications Current Medications Acetaminophen (Acetaminophen 325 Mg Tablet) 650 mg PO Q6H PRN PRN Reason: Headache/Pain Mild Scale (1-3) Last Admin: 10/16/21 21:44 Dose: 650 mg Documented by: Al Hydroxide/Mg Hydroxide (Magnesium Hydrox/Alum Hydrox 30 Ml Oral.Susp) 30 ml PO Q6H PRN PRN Reason: Heartburn/Nausea Amlodipine Besylate (Amlodipine Besylate 10 Mg Tablet) 10 mg PO DAILY [facility]; Protocol Last Admin: 10/18/21 10:01 Dose: Not Given Documented by: Divalproex Sodium (Divalproex Sodium Er 500 Mg Tab.Er.24h) 500 mg PO BID [facility] Last Admin: 10/18/21 10:01 Dose: Not Given Documented by: Doxepin HCl (Doxepin Hcl 25 Mg Capsule) 50 mg PO BEDTIME [facility] Last Admin: 10/17/21 20:41 Dose: Not Given Documented by: Famotidine (Famotidine 20 Mg Tablet) 20 mg PO BID PRN PRN Reason: heartburn Hydroxyzine HCl (Hydroxyzine Hcl 25 Mg Tablet) 25 mg PO BEDTIME PRN PRN Reason: Anxiety Lisinopril (Lisinopril 40 Mg Tablet) 40 mg PO DAILY [facility]; Protocol Last Admin: 10/18/21 10:01 Dose: Not Given Documented by: Loperamide HCl (Loperamide Hcl 2 Mg Capsule) 2 mg PO Q4H PRN PRN Reason: Diarrhea Last Admin: 10/15/21 09:30 Dose: 2 mg Documented by: Magnesium Hydroxide (Milk Of Magnesia 30 Ml Oral.Susp) 30 ml PO DAILY PRN PRN Reason: Constipation Trazodone HCl (Trazodone Hcl 50 Mg Tablet) 50 mg PO BEDTIME PRN PRN Reason: Insomnia Last Admin: 10/12/21 20:50 Dose: 50 mg Documented by: Allergies Allergies Allergy/AdvReac Type Severity Reaction Status Date / Time aspirin Allergy Unknown Verified 09/12/21 23:15 Assessment & Plan Assessment & Plan (1) Schizophrenia: Status: Acute Code(s): F20.9 - Schizophrenia, unspecified Plan the patient is an elderly [place]i female with a long history of schizophrenia admitted for exacerbation of psychotic symptoms in the context of noncompliance. Plan 1. Invega Sustenna 234 mg IM monthly 2. Encourage compliance I spent ____20__ minutes with the patient and/or on the patient floor today, g reater than?50% of which was spent counseling/coordinating care. Reason for contiued inpatient stay Substantial Risk for: inability to function, rapid decompensation and med/psych decompensation
[2021-10-19 07:00] VITALS: BMI 26.3
[2021-10-19 07:15] VITALS: BP 177/85; PULSE 87; RESP 16; TEMP 36.3; O2SAT 97
--- NOTE | 2021-10-19 16:35 | HO.PSYCHPN ---
Subjective Subjective Date of Service: 10/19/21 Reason For Visit: Psychosis Subjective Notes: Conditional Voluntary Interim History: The nursing staff reported that the patient refused all her mediations. We reviewed her medications and she has refused consistently Depakote and Doxepin. On interview, she was pleasant and delusional but easily redirectable. Mental Status Exam Mental Status Exam Patient Appearance: Appropriate Patient Orientation: Person and Situation Level of Consciousness: Awake Patient Behavior: Guarded and Suspicious Mood Description: Withdrawn Affect Description: Constricted and Labile Patient Cognition Impaired: Yes Ability to Follow Directions: Fair Speech Pattern: Clear Hallucinations: Auditory Delusions: Paranoid Ideation and Grandiose Thought Process: Evasive Judgement: Fair Diagnostics Vital Signs (24Hr): Vital Signs - 24 hr 10/19/21 07:15 Temperature 97.4 F Pulse Rate 87 Respiratory Rate 16 Blood Pressure 177/85 H Pulse Oximetry 97 BMI result Body Mass Index 25.4 Labs Results: 09/11/21 10:13 09/11/21 10:13 Medications Medications Current Medications Acetaminophen (Acetaminophen 325 Mg Tablet) 650 mg PO Q6H PRN PRN Reason: Headache/Pain Mild Scale (1-3) Last Admin: 10/16/21 21:44 Dose: 650 mg Documented by: Al Hydroxide/Mg Hydroxide (Magnesium Hydrox/Alum Hydrox 30 Ml Oral.Susp) 30 ml PO Q6H PRN PRN Reason: Heartburn/Nausea Amlodipine Besylate (Amlodipine Besylate 10 Mg Tablet) 10 mg PO DAILY [facility]; Protocol Last Admin: 10/19/21 09:09 Dose: Not Given Documented by: Divalproex Sodium (Divalproex Sodium Er 500 Mg Tab.Er.24h) 500 mg PO BID [facility] Last Admin: 10/19/21 09:09 Dose: Not Given Documented by: Doxepin HCl (Doxepin Hcl 25 Mg Capsule) 50 mg PO BEDTIME [facility] Last Admin: 10/18/21 20:05 Dose: Not Given Documented by: Famotidine (Famotidine 20 Mg Tablet) 20 mg PO BID PRN PRN Reason: heartburn Hydroxyzine HCl (Hydroxyzine Hcl 25 Mg Tablet) 25 mg PO BEDTIME PRN PRN Reason: Anxiety Lisinopril (Lisinopril 40 Mg Tablet) 40 mg PO DAILY [facility]; Protocol Last Admin: 10/19/21 09:09 Dose: Not Given Documented by: Loperamide HCl (Loperamide Hcl 2 Mg Capsule) 2 mg PO Q4H PRN PRN Reason: Diarrhea Last Admin: 10/15/21 09:30 Dose: 2 mg Documented by: Magnesium Hydroxide (Milk Of Magnesia 30 Ml Oral.Susp) 30 ml PO DAILY PRN PRN Reason: Constipation Trazodone HCl (Trazodone Hcl 50 Mg Tablet) 50 mg PO BEDTIME PRN PRN Reason: Insomnia Last Admin: 10/12/21 20:50 Dose: 50 mg Documented by: Allergies Allergies Allergy/AdvReac Type Severity Reaction Status Date / Time aspirin Allergy Unknown Verified 09/12/21 23:15 Assessment & Plan Assessment & Plan (1) Schizophrenia: Status: Acute Code(s): F20.9 - Schizophrenia, unspecified Plan the patient is an elderly Spanish female with a long history of schizophrenia admitted for exacerbation of psychotic symptoms in the context of noncompliance. Plan 1. Invega Sustenna 234 mg IM monthly 2. Encourage compliance. 3. Family meeting tomorrow. I spent ___20___ minutes with the patient and/or on the patient floor today, greater than?50% of which was spent counseling/coordinating care. Reason for contiued inpatient stay Substantial Risk for: inability to function, rapid decompensation and med/psych decompensation
[2021-10-20 06:00] VITALS: BP 177/74; PULSE 91; RESP 18; TEMP 35.7; O2SAT 98
--- NOTE | 2021-10-20 15:51 | HO.PSYCHPN ---
Subjective Subjective Date of Service: 10/20/21 Reason For Visit: Psychosis Subjective Notes: Conditional Voluntary Interim History: The nursing staff reported the patient has been noncompliant with treatment, even though she is pleasant and cooperative. She is current on her [place] . Yesterday the patient was angry after the family meeting sings her daughters refused to take her back home. On interview the patient is pleasantly psychotic Mental Status Exam Mental Status Exam Patient Appearance: Appropriate Patient Orientation: Person and Situation Level of Consciousness: Awake Patient Behavior: Cooperative Mood Description: Withdrawn Affect Description: Labile Patient Cognition Impaired: Yes Ability to Follow Directions: Fair Speech Pattern: Clear Hallucinations: Auditory Delusions: Paranoid Ideation Thought Process: Distracted Thought Content: positive for [place], positive for Poverty of Content and positive for Loose Associations Judgement: Poor Diagnostics Vital Signs (24Hr): Vital Signs - 24 hr 10/20/21 06:00 Temperature 96.3 F L Pulse Rate 91 Respiratory Rate 18 Blood Pressure 177/74 H Pulse Oximetry 98 BMI result Body Mass Index 26.3 Labs Results: 09/11/21 10:13 09/11/21 10:13 Medications Medications Current Medications Acetaminophen (Acetaminophen 325 Mg Tablet) 650 mg PO Q6H PRN PRN Reason: Headache/Pain Mild Scale (1-3) Last Admin: 10/16/21 21:44 Dose: 650 mg Documented by: Al Hydroxide/Mg Hydroxide (Magnesium Hydrox/Alum Hydrox 30 Ml Oral.Susp) 30 ml PO Q6H PRN PRN Reason: Heartburn/Nausea Amlodipine Besylate (Amlodipine Besylate 10 Mg Tablet) 10 mg PO DAILY [facility]; Protocol Last Admin: 10/20/21 14:15 Dose: Not Given Documented by: Famotidine (Famotidine 20 Mg Tablet) 20 mg PO BID PRN PRN Reason: heartburn Hydroxyzine HCl (Hydroxyzine Hcl 25 Mg Tablet) 25 mg PO BEDTIME PRN PRN Reason: Anxiety Lisinopril (Lisinopril 40 Mg Tablet) 40 mg PO DAILY [facility]; Protocol Last Admin: 10/20/21 14:16 Dose: Not Given Documented by: Loperamide HCl (Loperamide Hcl 2 Mg Capsule) 2 mg PO Q4H PRN PRN Reason: Diarrhea Last Admin: 10/15/21 09:30 Dose: 2 mg Documented by: Magnesium Hydroxide (Milk Of Magnesia 30 Ml Oral.Susp) 30 ml PO DAILY PRN PRN Reason: Constipation Trazodone HCl (Trazodone Hcl 50 Mg Tablet) 50 mg PO BEDTIME PRN PRN Reason: Insomnia Last Admin: 10/12/21 20:50 Dose: 50 mg Documented by: Allergies Allergies Allergy/AdvReac Type Severity Reaction Status Date / Time aspirin Allergy Unknown Verified 09/12/21 23:15 Assessment & Plan Assessment & Plan (1) Schizophrenia: Status: Acute Code(s): F20.9 - Schizophrenia, unspecified Plan the patient is an elderly [place]vian female with a long history of schizophrenia admitted for exacerbation of psychotic symptoms in the context of noncompliance. Plan 1. Invega Sustenna 234 mg IM monthly 2. Encourage compliance. 3. Family meeting tomorrow. I spent ___20___ minutes with the patient and/or on the patient floor today, greater than?50% of which was spent counseling/coordinating care. Reason for contiued inpatient stay Substantial Risk for: inability to function, rapid decompensation and med/psych decompensation
[2021-10-21 06:00] VITALS: BP 170/77; PULSE 96; RESP 17; TEMP 36.7; O2SAT 98
--- NOTE | 2021-10-21 08:29 | HO.PSYCHPN ---
Subjective Subjective Date of Service: 10/21/21 Reason For Visit: Psychosis Subjective Notes: Conditional Voluntary Interim History: The nursing staff reported the patient refused vital signs today in the morning, she has refused also her medications. She was awake up to 02:00 o'clock in the morning. On interview, the patient remains psychotic but easily redirectable. She showed me her work on art therapy and gave one of her drawings as a gift. Mental Status Exam Mental Status Exam Patient Appearance: Appropriate Patient Orientation: Person and Situation Level of Consciousness: Awake Patient Behavior: Cooperative and Suspicious Mood Description: Suspicious and Withdrawn Affect Description: Labile Patient Cognition Impaired: Yes Ability to Follow Directions: Good Speech Pattern: Clear Hallucinations: Auditory Delusions: Paranoid Ideation and Grandiose Thought Process: Illogical Thought Content: positive for [place], positive for Poverty of Content and positive for Loose Associations Judgement: Fair Diagnostics Vital Signs (24Hr): BMI result Body Mass Index 26.3 Labs Results: 09/11/21 10:13 09/11/21 10:13 Medications Medications Current Medications Acetaminophen (Acetaminophen 325 Mg Tablet) 650 mg PO Q6H PRN PRN Reason: Headache/Pain Mild Scale (1-3) Last Admin: 10/16/21 21:44 Dose: 650 mg Documented by: Al Hydroxide/Mg Hydroxide (Magnesium Hydrox/Alum Hydrox 30 Ml Oral.Susp) 30 ml PO Q6H PRN PRN Reason: Heartburn/Nausea Amlodipine Besylate (Amlodipine Besylate 10 Mg Tablet) 10 mg PO DAILY [facility]; Protocol Last Admin: 10/20/21 14:15 Dose: Not Given Documented by: Famotidine (Famotidine 20 Mg Tablet) 20 mg PO BID PRN PRN Reason: heartburn Hydroxyzine HCl (Hydroxyzine Hcl 25 Mg Tablet) 25 mg PO BEDTIME PRN PRN Reason: Anxiety Lisinopril (Lisinopril 40 Mg Tablet) 40 mg PO DAILY [facility]; Protocol Last Admin: 10/20/21 14:16 Dose: Not Given Documented by: Loperamide HCl (Loperamide Hcl 2 Mg Capsule) 2 mg PO Q4H PRN PRN Reason: Diarrhea Last Admin: 10/15/21 09:30 Dose: 2 mg Documented by: Magnesium Hydroxide (Milk Of Magnesia 30 Ml Oral.Susp) 30 ml PO DAILY PRN PRN Reason: Constipation Trazodone HCl (Trazodone Hcl 50 Mg Tablet) 50 mg PO BEDTIME PRN PRN Reason: Insomnia Last Admin: 10/12/21 20:50 Dose: 50 mg Documented by: Allergies Allergies Allergy/AdvReac Type Severity Reaction Status Date / Time aspirin Allergy Unknown Verified 09/12/21 23:15 Assessment & Plan Assessment & Plan (1) Schizophrenia: Status: Acute Code(s): F20.9 - Schizophrenia, unspecified Plan the patient is an elderly Martiniquais female with a long history of schizophrenia admitted for exacerbation of psychotic symptoms in the context of noncompliance. Plan 1. Invega Sustenna 234 mg IM monthly 2. Encourage compliance. I spent __20____ minutes with the patient and/or on the patient floor today, greater than?50% of which was spent counseling/coordinating care. Reason for contiued inpatient stay Substantial Risk for: inability to function, rapid decompensation and med/psych decompensation
[2021-10-21 19:31] VITALS: BP 160/68; PULSE 89; RESP 16; TEMP 36.6; O2SAT 96
[2021-10-22 06:00] VITALS: BP 156/70; PULSE 82; RESP 17; TEMP 36.2; O2SAT 95
--- NOTE | 2021-10-22 10:39 | P.PNPSI_ITS ---
Subjective Subjective Date of Service: 10/22/21 Reason For Visit: Psychosis Subjective Notes: Conditional Voluntary Interim History: The patient allowed to have vital signs today she was up all night long. On interview the patient was a usual, pleasantly psychotic but redirectable. Mental Status Exam Mental Status Exam Patient Appearance: Well Grooomed Patient Orientation: Person and Situation Level of Consciousness: Awake Patient Behavior: Guarded Mood Description: Constricted Affect Description: Labile Patient Cognition Impaired: Yes Ability to Follow Directions: Good Speech Pattern: Clear Hallucinations: Auditory Delusions: Paranoid Ideation Thought Process: Distracted Thought Content: positive for Circumstantial Judgement: Fair Diagnostics Vital Signs (24Hr): Vital Signs - 24 hr 10/21/21 19:31 10/22/21 06:00 Temperature 97.9 F 97.1 F Pulse Rate 89 82 Respiratory Rate 16 17 Blood Pressure 160/68 H 156/70 H Pulse Oximetry 96 95 BMI result Body Mass Index 26.3 Labs Results: 09/11/21 10:13 09/11/21 10:13 Medications Medications Current Medications Acetaminophen (Acetaminophen 325 Mg Tablet) 650 mg PO Q6H PRN PRN Reason: Headache/Pain Mild Scale (1-3) Last Admin: 10/16/21 21:44 Dose: 650 mg Documented by: Al Hydroxide/Mg Hydroxide (Magnesium Hydrox/Alum Hydrox 30 Ml Oral.Susp) 30 ml PO Q6H PRN PRN Reason: Heartburn/Nausea Amlodipine Besylate (Amlodipine Besylate 10 Mg Tablet) 10 mg PO DAILY [facility]; Protocol Last Admin: 10/22/21 09:09 Dose: Not Given Documented by: Famotidine (Famotidine 20 Mg Tablet) 20 mg PO BID PRN PRN Reason: heartburn Hydroxyzine HCl (Hydroxyzine Hcl 25 Mg Tablet) 25 mg PO BEDTIME PRN PRN Reason: Anxiety Lisinopril (Lisinopril 40 Mg Tablet) 40 mg PO DAILY [facility]; Protocol Last Admin: 10/22/21 09:09 Dose: Not Given Documented by: Loperamide HCl (Loperamide Hcl 2 Mg Capsule) 2 mg PO Q4H PRN PRN Reason: Diarrhea Last Admin: 10/15/21 09:30 Dose: 2 mg Documented by: Magnesium Hydroxide (Milk Of Magnesia 30 Ml Oral.Susp) 30 ml PO DAILY PRN PRN Reason: Constipation Trazodone HCl (Trazodone Hcl 50 Mg Tablet) 50 mg PO BEDTIME PRN PRN Reason: Insomnia Last Admin: 10/12/21 20:50 Dose: 50 mg Documented by: Allergies Allergies Allergy/AdvReac Type Severity Reaction Status Date / Time aspirin Allergy Unknown Verified 09/12/21 23:15 Assessment & Plan Assessment & Plan (1) Schizophrenia: Status: Acute Code(s): F20.9 - Schizophrenia, unspecified Plan the patient is an elderly [place] female with a long history of schizophrenia admitted for exacerbation of psychotic symptoms in the context of noncompliance. Plan 1. Invega Sustenna 234 mg IM monthly 2. Encourage compliance. I spent __20____ minutes with the patient and/or on the patient floor today, greater than?50% of which was spent counseling/coordinating care. Reason for contiued inpatient stay Substantial Risk for: inability to function, rapid decompensation and med/psych decompensation
[2021-10-22 19:32] VITALS: BP 188/83; PULSE 82; RESP 16; TEMP 36.1; O2SAT 99
--- NOTE | 2021-10-23 08:18 | HO.PSYCHPN ---
Subjective Subjective Date of Service: 10/23/21 Reason For Visit: Psychosis Subjective Notes: Conditional Voluntary Interim History: The nursing staff reported the patient has been refusing medications last night at 23:00 she woke up very agitated and angry. She was delusional stating that her daughter him to meet her and brought some staff for her. At this moment the unit is on lock-down due to COVID so her daughter could not have come. She was redirected but she refused to take any meds. On interview the patient looked delusional as usual but redirectable in the morning. She was perseverative regarding been a [employer]. Mental Status Exam Mental Status Exam Patient Appearance: Well Grooomed Patient Orientation: Person and Situation Level of Consciousness: Awake Patient Behavior: Guarded Mood Description: Withdrawn Affect Description: Labile Patient Cognition Impaired: Yes Ability to Follow Directions: Fair Speech Pattern: Clear Hallucinations: Auditory Delusions: Paranoid Ideation and Grandiose Perceptual Disturbances: Hallucinations Thought Process: Racing and Illogical Thought Content: positive for [place] Judgement: Poor Diagnostics Vital Signs (24Hr): Vital Signs - 24 hr 10/22/21 19:32 Temperature 97.0 F Pulse Rate 82 Respiratory Rate 16 Blood Pressure 188/83 H Pulse Oximetry 99 BMI result Body Mass Index 26.3 Labs Results: 09/11/21 10:13 09/11/21 10:13 Medications Medications Current Medications Acetaminophen (Acetaminophen 325 Mg Tablet) 650 mg PO Q6H PRN PRN Reason: Headache/Pain Mild Scale (1-3) Last Admin: 10/16/21 21:44 Dose: 650 mg Documented by: Al Hydroxide/Mg Hydroxide (Magnesium Hydrox/Alum Hydrox 30 Ml Oral.Susp) 30 ml PO Q6H PRN PRN Reason: Heartburn/Nausea Amlodipine Besylate (Amlodipine Besylate 10 Mg Tablet) 10 mg PO DAILY [facility]SES; Protocol Last Admin: 10/22/21 09:09 Dose: Not Given Documented by: Famotidine (Famotidine 20 Mg Tablet) 20 mg PO BID PRN PRN Reason: heartburn Hydroxyzine HCl (Hydroxyzine Hcl 25 Mg Tablet) 25 mg PO BEDTIME PRN PRN Reason: Anxiety Lisinopril (Lisinopril 40 Mg Tablet) 40 mg PO DAILY [facility]; Protocol Last Admin: 10/22/21 09:09 Dose: Not Given Documented by: Loperamide HCl (Loperamide Hcl 2 Mg Capsule) 2 mg PO Q4H PRN PRN Reason: Diarrhea Last Admin: 10/15/21 09:30 Dose: 2 mg Documented by: Magnesium Hydroxide (Milk Of Magnesia 30 Ml Oral.Susp) 30 ml PO DAILY PRN PRN Reason: Constipation Trazodone HCl (Trazodone Hcl 50 Mg Tablet) 50 mg PO BEDTIME PRN PRN Reason: Insomnia Last Admin: 10/12/21 20:50 Dose: 50 mg Documented by: Allergies Allergies Allergy/AdvReac Type Severity Reaction Status Date / Time aspirin Allergy Unknown Verified 09/12/21 23:15 Assessment & Plan Assessment & Plan (1) Schizophrenia: Status: Acute Code(s): F20.9 - Schizophrenia, unspecified Plan the patient is an elderly Citizen Of [place] female with a long history of schizophrenia admitted for exacerbation of psychotic symptoms in the context of noncompliance. Plan 1. Invega Sustenna 234 mg IM monthly 2. Encourage compliance. I spent ___20___ minutes with the patient and/or on the patient floor today, greater than?50% of which was spent counseling/coordinating care. Reason for contiued inpatient stay Substantial Risk for: inability to function, rapid decompensation and med/psych decompensation
[2021-10-23 08:20] VITALS: BP 178/81; PULSE 88; RESP 16; TEMP 36.8; O2SAT 98
[2021-10-24 11:04] LABS: COVID-19 Test Positive (Negative); IDNOW Serial# 08D9AD1C
[2021-10-24 12:33] VITALS: BP 170/79; PULSE 98; RESP 18; TEMP 36.6; O2SAT 97
--- NOTE | 2021-10-24 15:40 | HO.PSYCHPN ---
Subjective Subjective Date of Service: 10/24/21 Reason For Visit: Psychosis Subjective Notes: Conditional Voluntary Interim History: The nursing staff reported the patient has been religiously preoccupied. She tested positive to covered with some mild upper respiratory symptoms. On interview the patient is delusional but easily redirectable. Her last Invega Sustenna was on October 09. Mental Status Exam Mental Status Exam Patient Appearance: Well Grooomed Patient Orientation: Person and Situation Level of Consciousness: Awake Patient Behavior: Guarded Mood Description: Withdrawn Affect Description: Labile Patient Cognition Impaired: Yes Ability to Follow Directions: Fair Speech Pattern: Rapid Hallucinations: Auditory Delusions: Paranoid Ideation Judgement: Fair Diagnostics Vital Signs (24Hr): Vital Signs - 24 hr 10/24/21 12:33 Temperature 97.8 F Pulse Rate 98 Respiratory Rate 18 Blood Pressure 170/79 H Pulse Oximetry 97 BMI result Body Mass Index 26.3 Labs Results: 09/11/21 10:13 09/11/21 10:13 Labs: Laboratory Results - last 48 hr 10/24/21 10:35 COVID-19 ([facility]) Positive A COVID-19 Clin Com See Note Medications Medications Current Medications Acetaminophen (Acetaminophen 325 Mg Tablet) 650 mg PO Q6H PRN PRN Reason: Headache/Pain Mild Scale (1-3) Last Admin: 10/16/21 21:44 Dose: 650 mg Documented by: Al Hydroxide/Mg Hydroxide (Magnesium Hydrox/Alum Hydrox 30 Ml Oral.Susp) 30 ml PO Q6H PRN PRN Reason: Heartburn/Nausea Amlodipine Besylate (Amlodipine Besylate 10 Mg Tablet) 10 mg PO DAILY [facility]; Protocol Last Admin: 10/24/21 11:04 Dose: Not Given Documented by: Famotidine (Famotidine 20 Mg Tablet) 20 mg PO BID PRN PRN Reason: heartburn Hydroxyzine HCl (Hydroxyzine Hcl 25 Mg Tablet) 25 mg PO BEDTIME PRN PRN Reason: Anxiety Lisinopril (Lisinopril 40 Mg Tablet) 40 mg PO DAILY [facility]; Protocol Last Admin: 10/24/21 11:04 Dose: Not Given Documented by: Loperamide HCl (Loperamide Hcl 2 Mg Capsule) 2 mg PO Q4H PRN PRN Reason: Diarrhea Last Admin: 10/15/21 09:30 Dose: 2 mg Documented by: Magnesium Hydroxide (Milk Of Magnesia 30 Ml Oral.Susp) 30 ml PO DAILY PRN PRN Reason: Constipation Trazodone HCl (Trazodone Hcl 50 Mg Tablet) 50 mg PO BEDTIME PRN PRN Reason: Insomnia Last Admin: 10/12/21 20:50 Dose: 50 mg Documented by: Allergies Allergies Allergy/AdvReac Type Severity Reaction Status Date / Time aspirin Allergy Unknown Verified 09/12/21 23:15 Assessment & Plan Assessment & Plan (1) Schizophrenia: Status: Acute Code(s): F20.9 - Schizophrenia, unspecified Plan the patient is an elderly [place] female with a long history of schizophrenia admitted for exacerbation of psychotic symptoms in the context of noncompliance. Plan 1. Invega Sustenna 234 mg IM monthly 2. Encourage compliance. 3. COVID-19 protocol I spent __20____ minutes with the patient and/or on the patient floor today, greater than?50% of which was spent counseling/coordinating care. Reason for contiued inpatient stay Substantial Risk for: inability to function, rapid decompensation and med/psych decompensation
[2021-10-25] MEDS: Throat Lozenge, Medicated LOZENGE 1 LOZENGE MUCOUS MEM ×5 (02:28→22:51)
[2021-10-25] MEDS: Acetaminophen 325 MG TABLET 650 MG PO ×3 (05:12→22:51)
--- NOTE | 2021-10-25 12:16 | PC.NURSE ---
Pt seen this date for individual OT tx in compliance with CDC COVID guidelines as pt is COVID + at this time. Upon approach pt found to be extremely agitated, angry, and irritable. Pt offered various pre-printed activities however pt takes them out of this writers hand and rips papers to shreds. Pt promptly dismisses this proposal writer from her room stating GET OUT! , YOU'RE GOING BLIND AND YOU LL NEVER SEE AGAIN! . Pt returns to bed following behavioral outburst. Will attempt re-approach pt later this day.
--- NOTE | 2021-10-25 13:41 | P.PNPSI_ITS ---
Subjective Subjective Date of Service: 10/25/21 Reason For Visit: Psychosis Subjective Notes: Conditional Voluntary Interim History: The nursing staff reports the patient has been delusional, she does not believe that she has COVID. The licensed social worker referred her to several facilities but so far with to not have an answer yet. On interview the patient was in her bed, resting, stating that she does not have COVID because she believes in God and she was religiously preoccupied, baseline Mental Status Exam Mental Status Exam Patient Appearance: Appropriate Patient Orientation: Person and Situation Level of Consciousness: Appropriate Patient Behavior: Suspicious Mood Description: Withdrawn Affect Description: Labile Patient Cognition Impaired: Yes Ability to Follow Directions: Fair Speech Pattern: Clear and Cofabulation Hallucinations: Auditory Delusions: Paranoid Ideation Thought Process: Distracted Thought Content: positive for Poverty of Content and positive for Loose Ass ociations Judgement: Fair Diagnostics Vital Signs (24Hr): BMI result Body Mass Index 26.3 Labs Results: 09/11/21 10:13 09/11/21 10:13 Labs: Laboratory Results - last 48 hr 10/24/21 10:35 COVID-19 ([facility]) Positive A COVID-19 Clin Com See Note Medications Medications Current Medications Acetaminophen (Acetaminophen 325 Mg Tablet) 650 mg PO Q6H PRN PRN Reason: Headache/Pain Mild Scale (1-3) Last Admin: 10/25/21 05:12 Dose: 650 mg Documented by: Al Hydroxide/Mg Hydroxide (Magnesium Hydrox/Alum Hydrox 30 Ml Oral.Susp) 30 ml PO Q6H PRN PRN Reason: Heartburn/Nausea Amlodipine Besylate (Amlodipine Besylate 10 Mg Tablet) 10 mg PO DAILY [facility]; Protocol Last Admin: 10/25/21 09:30 Dose: Not Given Documented by: Benzocaine (Throat Lozenge, Medicated Lozenge) 1 lozenge MUCOUS MEM Q2H PRN PRN Reason: Sore Throat Last Admin: 10/25/21 09:27 Dose: 1 lozenge Documented by: Famotidine (Famotidine 20 Mg Tablet) 20 mg PO BID PRN PRN Reason: heartburn Hydroxyzine HCl (Hydroxyzine Hcl 25 Mg Tablet) 25 mg PO BEDTIME PRN PRN Reason: Anxiety Lisinopril (Lisinopril 40 Mg Tablet) 40 mg PO DAILY [facility]; Protocol Last Admin: 10/25/21 09:31 Dose: Not Given Documented by: Loperamide HCl (Loperamide Hcl 2 Mg Capsule) 2 mg PO Q4H PRN PRN Reason: Diarrhea Last Admin: 10/15/21 09:30 Dose: 2 mg Documented by: Magnesium Hydroxide (Milk Of Magnesia 30 Ml Oral.Susp) 30 ml PO DAILY PRN PRN Reason: Constipation Trazodone HCl (Trazodone Hcl 50 Mg Tablet) 50 mg PO BEDTIME PRN PRN Reason: Insomnia Last Admin: 10/12/21 20:50 Dose: 50 mg Documented by: Allergies Allergies Allergy/AdvReac Type Severity Reaction Status Date / Time aspirin Allergy Unknown Verified 09/12/21 23:15 Assessment & Plan Assessment & Plan (1) Schizophrenia: Status: Acute Code(s): F20.9 - Schizophrenia, unspecified Plan the patient is an elderly [place] female with a long history of schizophrenia admitted for exacerbation of psychotic symptoms in the context of noncompliance. Plan 1. Invega Sustenna 234 mg IM monthly 2. Encourage compliance. 3. COVID-19 protocol I spent __20____ minutes with the patient and/or on the patient floor today, greater than?50% of which was spent counseling/coordinating care. Reason for contiued inpatient stay Substantial Risk for: inability to function, rapid decompensation and med/psych decompensation
[2021-10-25 16:00] VITALS: BP 177/73; PULSE 104; RESP 16; TEMP 39.4; O2SAT 95
[2021-10-25 18:49] VITALS: BP 146/67; PULSE 89; RESP 16; TEMP 37.6; O2SAT 94
[2021-10-25 21:38] VITALS: BP 164/74; PULSE 101; RESP 16; TEMP 36; O2SAT 96
[2021-10-26] MEDS: Acetaminophen 325 MG TABLET 650 MG PO ×2 (08:14→21:07)
[2021-10-26] MEDS: Throat Lozenge, Medicated LOZENGE 1 LOZENGE MUCOUS MEM ×2 (08:14→21:08)
[2021-10-26 09:00] VITALS: BP 137/64; PULSE 97; RESP 17; TEMP 37; O2SAT 97
[2021-10-26 13:00] VITALS: PULSE 96; RESP 18; TEMP 36.2; O2SAT 97
--- NOTE | 2021-10-26 18:09 | HO.PSYCHPN ---
Subjective Subjective Date of Service: 10/26/21 Reason For Visit: Psychosis Interim History: Patient seen and discussed with team. Afebrile, Covid positive. Appetite low. Patient evaluated today and upon interview she reports Im well but I still have to take the medicine. Denies that meds are helping. Pt denies that she has covid, says I was well two days ago, then I took a shower with hot and cold water and that gave me a cold. Slept a little bit yesterday. Mood is good. Misses her daughters. Pt says she hasnt seen her SW in 2 weeks and hasn't seen her doctor in 2 days despite seeing them daily, says she wants her track laying machine operator.? Says he feels safe. Mental Status Exam Mental Status Exam Narrative: Patient Appearance:?Appropriate Patient Orientation:?Person and Situation Level of Consciousness:?Appropriate Patient Behavior:?Suspicious Mood Description:?Withdrawn Affect Description:?Labile Patient Cognition Impaired:?Yes Ability to Follow Directions:?Fair Speech Pattern:?Clear and Cofabulation Hallucinations:?Auditory Delusions:?Paranoid Ideation Thought Process:?Distracted Thought Content:?positive for Poverty of Content and positive for Loose Associations Judgment:?Fair Diagnostics Vital Signs (24Hr): Vital Signs - 24 hr 10/25/21 18:49 10/25/21 21:38 10/26/21 09:00 Temperature 99.7 F 96.8 F 98.6 F Pulse Rate 89 101 H 97 Respiratory Rate 16 16 17 Blood Pressure 146/67 H 164/74 H 137/64 Pulse Oximetry 94 96 97 10/26/21 13:00 Temperature 97.2 F Pulse Rate 96 Respiratory Rate 18 Blood Pressure Pulse Oximetry 97 BMI result Body Mass Index 26.3 Labs Results: 09/11/21 10:13 09/11/21 10:13 Medications Medications Current Medications Acetaminophen (Acetaminophen 325 Mg Tablet) 650 mg PO Q6H PRN PRN Reason: Headache/Pain Mild Scale (1-3) Last Admin: 10/26/21 08:14 Dose: 650 mg Documented by: Al Hydroxide/Mg Hydroxide (Magnesium Hydrox/Alum Hydrox 30 Ml Oral.Susp) 30 ml PO Q6H PRN PRN Reason: Heartburn/Nausea Amlodipine Besylate (Amlodipine Besylate 10 Mg Tablet) 10 mg PO DAILY [facility]SES; Protocol Last Admin: 10/26/21 10:14 Dose: Not Given Documented by: Benzocaine (Throat Lozenge, Medicated Lozenge) 1 lozenge MUCOUS MEM Q2H PRN PRN Reason: Sore Throat Last Admin: 10/26/21 08:14 Dose: 1 lozenge Documented by: Famotidine (Famotidine 20 Mg Tablet) 20 mg PO BID PRN PRN Reason: heartburn Hydroxyzine HCl (Hydroxyzine Hcl 25 Mg Tablet) 25 mg PO BEDTIME PRN PRN Reason: Anxiety Lisinopril (Lisinopril 40 Mg Tablet) 40 mg PO DAILY [facility]; Protocol Last Admin: 10/26/21 10:14 Dose: Not Given Documented by: Loperamide HCl (Loperamide Hcl 2 Mg Capsule) 2 mg PO Q4H PRN PRN Reason: Diarrhea Last Admin: 10/15/21 09:30 Dose: 2 mg Documented by: Magnesium Hydroxide (Milk Of Magnesia 30 Ml Oral.Susp) 30 ml PO DAILY PRN PRN Reason: Constipation Trazodone HCl (Trazodone Hcl 50 Mg Tablet) 50 mg PO BEDTIME PRN PRN Reason: Insomnia Last Admin: 10/12/21 20:50 Dose: 50 mg Documented by: Allergies Allergies Allergy/AdvReac Type Severity Reaction Status Date / Time aspirin Allergy Unknown Verified 09/12/21 23:15 Assessment & Plan Assessment & Plan (1) Schizophrenia: Status: Acute Code(s): F20.9 - Schizophrenia, unspecified Plan the patient is an elderly [place] female with a long history of schizophrenia admitted for exacerbation of psychotic symptoms in the context of noncompliance. Plan 1. Invega Sustenna 234 mg IM monthly 2. Encourage compliance. 3. COVID-19 protocol I spent minutes with the patient and/or on the patient floor today, greater than?50% of which was spent counseling/coordinating care. Patient educated on: other Reason for contiued inpatient stay Substantial Risk for: inability to function, rapid decompensation and med/psych decompensation
[2021-10-26 21:00] VITALS: BP 160/67; PULSE 100; RESP 17; TEMP 37.5; O2SAT 97
[2021-10-27] MEDS: Throat Lozenge, Medicated LOZENGE 1 LOZENGE MUCOUS MEM (08:11)
[2021-10-27] MEDS: Acetaminophen 325 MG TABLET 650 MG PO (08:12)
[2021-10-27 09:00] VITALS: BP 136/62; PULSE 96; RESP 17; TEMP 36.6; O2SAT 98
--- NOTE | 2021-10-27 10:25 | HO.PSYCHPN ---
Subjective Subjective Date of Service: 10/27/21 Reason For Visit: Psychosis Subjective Notes: Conditional Voluntary Interim History: the nursing staff reported the patient has mild cough with symptoms such as cough and congestive. She has refused her medications as usual. Yesterday she refused her supper but she remains inappropriate with sexual content. On interview the patient remains delusional but easily redirectable. Mental Status Exam Mental Status Exam Patient Appearance: Well Grooomed Patient Orientation: Person and Situation Level of Consciousness: Awake Patient Behavior: Appropriate Mood Description: Withdrawn Affect Description: Labile Patient Cognition Impaired: Yes Ability to Follow Directions: Good Speech Pattern: Clear Hallucinations: Auditory Delusions: Paranoid Ideation Thought Process: Illogical Thought Content: positive for [place] and positive for Poverty of Content Judgement: Fair Diagnostics Vital Signs (24Hr): Vital Signs - 24 hr 10/26/21 13:00 10/26/21 21:00 10/27/21 09:00 Temperature 97.2 F 99.5 F 97.9 F Pulse Rate 96 100 96 Respiratory Rate 18 17 17 Blood Pressure 160/67 H 136/62 Pulse Oximetry 97 97 98 BMI result Body Mass Index 26.3 Labs Results: 09/11/21 10:13 09/11/21 10:13 Medications Medications Current Medications Acetaminophen (Acetaminophen 325 Mg Tablet) 650 mg PO Q6H PRN PRN Reason: Headache/Pain Mild Scale (1-3) Last Admin: 10/27/21 08:12 Dose: 650 mg Documented by: Al Hydroxide/Mg Hydroxide (Magnesium Hydrox/Alum Hydrox 30 Ml Oral.Susp) 30 ml PO Q6H PRN PRN Reason: Heartburn/Nausea Amlodipine Besylate (Amlodipine Besylate 10 Mg Tablet) 10 mg PO DAILY [facility]; Protocol Last Admin: 10/27/21 08:14 Dose: Not Given Documented by: Benzocaine (Throat Lozenge, Medicated Lozenge) 1 lozenge MUCOUS MEM Q2H PRN PRN Reason: Sore Throat Last Admin: 10/27/21 08:11 Dose: 1 lozenge Documented by: Famotidine (Famotidine 20 Mg Tablet) 20 mg PO BID PRN PRN Reason: heartburn Hydroxyzine HCl (Hydroxyzine Hcl 25 Mg Tablet) 25 mg PO BEDTIME PRN PRN Reason: Anxiety Lisinopril (Lisinopril 40 Mg Tablet) 40 mg PO DAILY [facility]; Protocol Last Admin: 10/27/21 08:15 Dose: Not Given Documented by: Loperamide HCl (Loperamide Hcl 2 Mg Capsule) 2 mg PO Q4H PRN PRN Reason: Diarrhea Last Admin: 10/15/21 09:30 Dose: 2 mg Documented by: Magnesium Hydroxide (Milk Of Magnesia 30 Ml Oral.Susp) 30 ml PO DAILY PRN PRN Reason: Constipation Trazodone HCl (Trazodone Hcl 50 Mg Tablet) 50 mg PO BEDTIME PRN PRN Reason: Insomnia Last Admin: 10/12/21 20:50 Dose: 50 mg Documented by: Allergies Allergies Allergy/AdvReac Type Severity Reaction Status Date / Time aspirin Allergy Unknown Verified 09/12/21 23:15 Assessment & Plan Assessment & Plan (1) Schizophrenia: Status: Acute Code(s): F20.9 - Schizophrenia, unspecified Plan the patient is an elderly [place]ag[place] female with a long history of schizophrenia admitted for exacerbation of psychotic symptoms in the context of noncompliance. Plan 1. Invega Sustenna 234 mg IM monthly 2. Encourage compliance. 3. COVID-19 protocol I spent __20____ minutes with the patient and/or on the patient floor today, greater than?50% of which was spent counseling/coordinating care. Reason for contiued inpatient stay Substantial Risk for: inability to function, rapid decompensation and med/psych decompensation
[2021-10-27 13:31] VITALS: BP 175/81; PULSE 89; RESP 16; TEMP 35.9; O2SAT 97
[2021-10-27 17:00] VITALS: BP 159/70; PULSE 91; RESP 16; TEMP 36.7; O2SAT 98
--- NOTE | 2021-10-28 11:02 | HO.PSYCHPN ---
Subjective Subjective Date of Service: 10/28/21 Reason For Visit: Psychosis Subjective Notes: Conditional Voluntary Healthcare Proxy: No Guardianship: No Medical Problems Affecting Mental Status: Yes (COVID positive) Interim History: Patient was seen and discussed in rounds today. She continues to refuse her medications. Stating that she has no problems. She has been labile. Her blood pressure is somewhat elevated but she refuses medications. Mostly eating adequately and sleeping adequately. No changes were made Review of Systems Review of Systems Cough Yes all other systems are reviewed and are negative Mental Status Exam Mental Status Exam Patient Appearance: Well Grooomed Patient Orientation: Person and Situation Level of Consciousness: Awake Patient Behavior: Appropriate Mood Description: Withdrawn Affect Description: Labile Patient Cognition Impaired: Yes Ability to Follow Directions: Good Speech Pattern: Clear Hallucinations: Auditory Delusions: Paranoid Ideation Thought Process: Illogical Thought Content: positive for [place] and positive for Poverty of Content Judgement: Fair Diagnostics Vital Signs (24Hr): Vital Signs - 24 hr 10/27/21 13:31 10/27/21 17:00 Temperature 96.6 F L 98.1 F Pulse Rate 89 91 Respiratory Rate 16 16 Blood Pressure 175/81 H 159/70 H Pulse Oximetry 97 98 BMI result Body Mass Index 26.3 Labs Results: 09/11/21 10:13 09/11/21 10:13 Medications Medications Current Medications Acetaminophen (Acetaminophen 325 Mg Tablet) 650 mg PO Q6H PRN PRN Reason: Headache/Pain Mild Scale (1-3) Last Admin: 10/27/21 08:12 Dose: 650 mg Documented by: Al Hydroxide/Mg Hydroxide (Magnesium Hydrox/Alum Hydrox 30 Ml Oral.Susp) 30 ml PO Q6H PRN PRN Reason: Heartburn/Nausea Amlodipine Besylate (Amlodipine Besylate 10 Mg Tablet) 10 mg PO DAILY [facility]; Protocol Last Admin: 10/28/21 09:39 Dose: Not Given Documented by: Benzocaine (Throat Lozenge, Medicated Lozenge) 1 lozenge MUCOUS MEM Q2H PRN PRN Reason: Sore Throat Last Admin: 10/27/21 08:11 Dose: 1 lozenge Documented by: Famotidine (Famotidine 20 Mg Tablet) 20 mg PO BID PRN PRN Reason: heartburn Guaifenesin (Guaifenesin 200 Mg/10 Ml 10 Ml Liquid) 10 ml PO Q4H PRN PRN Reason: Cough Hydroxyzine HCl (Hydroxyzine Hcl 25 Mg Tablet) 25 mg PO BEDTIME PRN PRN Reason: Anxiety Lisinopril (Lisinopril 40 Mg Tablet) 40 mg PO DAILY [facility]; Protocol Last Admin: 10/28/21 09:41 Dose: Not Given Documented by: Loperamide HCl (Loperamide Hcl 2 Mg Capsule) 2 mg PO Q4H PRN PRN Reason: Diarrhea Last Admin: 10/15/21 09:30 Dose: 2 mg Documented by: Magnesium Hydroxide (Milk Of Magnesia 30 Ml Oral.Susp) 30 ml PO DAILY PRN PRN Reason: Constipation Trazodone HCl (Trazodone Hcl 50 Mg Tablet) 50 mg PO BEDTIME PRN PRN Reason: Insomnia Last Admin: 10/12/21 20:50 Dose: 50 mg Documented by: Allergies Allergies Allergy/AdvReac Type Severity Reaction Status Date / Time aspirin Allergy Unknown Verified 09/12/21 23:15 Assessment & Plan Assessment & Plan (1) Schizophrenia: Status: Acute Code(s): F20.9 - Schizophrenia, unspecified Plan the patient is an elderly [place]i female with a long history of schizophrenia admitted for exacerbation of psychotic symptoms in the context of noncompliance. Plan 1. Invega Sustenna 234 mg IM monthly 2. Encourage compliance. 3. COVID-19 protocol 10/28: Continue current regimen and plans I spent minutes with the patient and/or on the patient floor today, greater than?50% of which was spent counseling/coordinating care. Reason for contiued inpatient stay Substantial Risk for: inability to function
[2021-10-29] MEDS: Throat Lozenge, Medicated LOZENGE 1 LOZENGE MUCOUS MEM (06:48)
[2021-10-29 09:00] VITALS: BP 147/78; PULSE 81; RESP 17; TEMP 36.5; O2SAT 18
--- NOTE | 2021-10-29 09:05 | P.PNPSI_ITS ---
Subjective Subjective Date of Service: 10/29/21 Reason For Visit: Psychosis Subjective Notes: Conditional Voluntary Interim History: Patient was seen and discussed in rounds today. Records and plans were reviewed. She continues to be noncompliant with her medications. She is redirectable. At times she is sexually preoccupied and makes comments of that nature. No complaints. Eating and sleeping adequately. side effects. No changes were made Review of Systems Review of Systems Yes all other systems are reviewed and are negative Mental Status Exam Mental Status Exam Patient Appearance: Well Grooomed Patient Orientation: Person and Situation Level of Consciousness: Awake Patient Behavior: Appropriate Mood Description: Withdrawn Affect Description: Labile Patient Cognition Impaired: Yes Ability to Follow Directions: Good Speech Pattern: Clear Hallucinations: Auditory Delusions: Paranoid Ideation Thought Process: Illogical Thought Content: positive for [place] and positive for Poverty of Content Judgement: Fair Diagnostics Vital Signs (24Hr): BMI result Body Mass Index 26.3 Labs Results: 09/11/21 10:13 09/11/21 10:13 Medications Medications Current Medications Acetaminophen (Acetaminophen 325 Mg Tablet) 650 mg PO Q6H PRN PRN Reason: Headache/Pain Mild Scale (1-3) Last Admin: 10/27/21 08:12 Dose: 650 mg Documented by: Al Hydroxide/Mg Hydroxide (Magnesium Hydrox/Alum Hydrox 30 Ml Oral.Susp) 30 ml PO Q6H PRN PRN Reason: Heartburn/Nausea Amlodipine Besylate (Amlodipine Besylate 10 Mg Tablet) 10 mg PO DAILY [facility]; Protocol Last Admin: 10/28/21 09:39 Dose: Not Given Documented by: Benzocaine (Throat Lozenge, Medicated Lozenge) 1 lozenge MUCOUS MEM Q2H PRN PRN Reason: Sore Throat Last Admin: 10/29/21 06:48 Dose: 1 lozenge Documented by: Famotidine (Famotidine 20 Mg Tablet) 20 mg PO BID PRN PRN Reason: heartburn Guaifenesin (Guaifenesin 200 Mg/10 Ml 10 Ml Liquid) 10 ml PO Q4H PRN PRN Reason: Cough Hydroxyzine HCl (Hydroxyzine Hcl 25 Mg Tablet) 25 mg PO BEDTIME PRN PRN Reason: Anxiety Lisinopril (Lisinopril 40 Mg Tablet) 40 mg PO DAILY [facility]; Protocol Last Admin: 10/28/21 09:41 Dose: Not Given Documented by: Loperamide HCl (Loperamide Hcl 2 Mg Capsule) 2 mg PO Q4H PRN PRN Reason: Diarrhea Last Admin: 10/15/21 09:30 Dose: 2 mg Documented by: Magnesium Hydroxide (Milk Of Magnesia 30 Ml Oral.Susp) 30 ml PO DAILY PRN PRN Reason: Constipation Trazodone HCl (Trazodone Hcl 50 Mg Tablet) 50 mg PO BEDTIME PRN PRN Reason: Insomnia Last Admin: 10/12/21 20:50 Dose: 50 mg Documented by: Allergies Allergies Allergy/AdvReac Type Severity Reaction Status Date / Time aspirin Allergy Unknown Verified 09/12/21 23:15 Assessment & Plan Assessment & Plan (1) Schizophrenia: Status: Acute Code(s): F20.9 - Schizophrenia, unspecified Plan the patient is an elderly [place] female with a long history of schizophrenia admitted for exacerbation of psychotic symptoms in the context of noncompliance. Plan 1. Invega Sustenna 234 mg IM monthly 2. Encourage compliance. 3. COVID-19 protocol 6/4: Continue current regimen and plans 6/5: Continue current plans and regimen and encouraged to be medication compliant I spent minutes with the patient and/or on the patient floor today, greater than?50% of which was spent counseling/coordinating care. Reason for contiued inpatient stay Substantial Risk for: inability to function
[2021-10-29 17:00] VITALS: PULSE 84; RESP 16; TEMP 37.1; O2SAT 97
[2021-10-29 21:00] VITALS: RESP 18
[2021-10-30 01:52] VITALS: PULSE 93; RESP 16; O2SAT 98
[2021-10-30 09:00] VITALS: BP 156/70; PULSE 89; RESP 17; TEMP 36.5; O2SAT 96
--- NOTE | 2021-10-30 11:05 | PC.NURSE ---
Pt participates in sensory group activities incorporating, visual, olfactory, and auditory senses as well as heavy work (sweeping the porch; wiping down chairs; pushing/pulling chairs with assist; and gardening task) with focus on improving proprioceptive stimulation, self regulation, communication, socialization, decreasing depression/anxiety, and promoting appropriate interaction among peer group. Pt sustained witnessed fall with no apparent injury noted wile reaching to far out of [place], nursing notified and assessment completed, VS WNLs pts nurse monitoring closely.
[2021-10-30 13:00] VITALS: BP 181/77; PULSE 94; RESP 16; TEMP 36.8; O2SAT 99
--- NOTE | 2021-10-30 13:26 | P.PNPSI_ITS ---
Subjective Subjective Date of Service: 10/30/21 Reason For Visit: Psychosis Subjective Notes: Conditional Voluntary Interim History: The nursing staff reported the patient has been isolative, she has been refusing medications. Her vital signs have been stable, no evidence of active COVID at this moment. On interview the patient is confused, delusional but easily redirectable. She wants to go back to [place] but she is not aware [place] Mental Status Exam Mental Status Exam Patient Appearance: Well Grooomed Patient Orientation: Person Level of Consciousness: Restless Patient Behavior: Guarded and Suspicious Mood Description: Withdrawn Affect Description: Labile Patient Cognition Impaired: Yes Ability to Follow Directions: Fair Speech Pattern: Clear Hallucinations: Auditory Delusions: Paranoid Ideation and Grandiose Thought Process: Illogical Thought Content: positive for [place] and positive for Poverty of Content Judgement: Poor Diagnostics Vital Signs (24Hr): Vital Signs - 24 hr 10/29/21 17:00 10/29/21 21:00 10/30/21 01:52 Temperature 98.8 F Pulse Rate 84 93 Respiratory Rate 16 18 16 Pulse Oximetry 97 98 BMI result Body Mass Index 26.3 Labs Results: 09/11/21 10:13 09/11/21 10:13 Medications Medications Current Medications Acetaminophen (Acetaminophen 325 Mg Tablet) 650 mg PO Q6H PRN PRN Reason: Headache/Pain Mild Scale (1-3) Last Admin: 10/27/21 08:12 Dose: 650 mg Documented by: Al Hydroxide/Mg Hydroxide (Magnesium Hydrox/Alum Hydrox 30 Ml Oral.Susp) 30 ml PO Q6H PRN PRN Reason: Heartburn/Nausea Amlodipine Besylate (Amlodipine Besylate 10 Mg Tablet) 10 mg PO DAILY [facility]; Protocol Last Admin: 10/30/21 08:13 Dose: Not Given Documented by: Benzocaine (Throat Lozenge, Medicated Lozenge) 1 lozenge MUCOUS MEM Q2H PRN PRN Reason: Sore Throat Last Admin: 10/29/21 06:48 Dose: 1 lozenge Documented by: Famotidine (Famotidine 20 Mg Tablet) 20 mg PO BID PRN PRN Reason: heartburn Guaifenesin (Guaifenesin 200 Mg/10 Ml 10 Ml Liquid) 10 ml PO Q4H PRN PRN Reason: Cough Hydroxyzine HCl (Hydroxyzine Hcl 25 Mg Tablet) 25 mg PO BEDTIME PRN PRN Reason: Anxiety Lisinopril (Lisinopril 40 Mg Tablet) 40 mg PO DAILY [facility]; Protocol Last Admin: 10/30/21 08:13 Dose: Not Given Documented by: Loperamide HCl (Loperamide Hcl 2 Mg Capsule) 2 mg PO Q4H PRN PRN Reason: Diarrhea Last Admin: 10/15/21 09:30 Dose: 2 mg Documented by: Magnesium Hydroxide (Milk Of Magnesia 30 Ml Oral.Susp) 30 ml PO DAILY PRN PRN Reason: Constipation Trazodone HCl (Trazodone Hcl 50 Mg Tablet) 50 mg PO BEDTIME PRN PRN Reason: Insomnia Last Admin: 10/12/21 20:50 Dose: 50 mg Documented by: Allergies Allergies Allergy/AdvReac Type Severity Reaction Status Date / Time aspirin Allergy Unknown Verified 09/12/21 23:15 Assessment & Plan Assessment & Plan (1) Schizophrenia: Status: Acute Code(s): F20.9 - Schizophrenia, unspecified Plan the patient is an elderly [place] female with a long history of schizophrenia admitted for exacerbation of psychotic symptoms in the context of noncompliance. Plan 1. Invega Sustenna 234 mg IM monthly 2. Encourage compliance. 3. COVID-19 protocol 4. Invega Sustenna 156 mg for next Saturday after she comes out of COVID protocol I spent ___20___ minutes with the patient and/or on the patient floor today, greater than?50% of which was spent counseling/coordinating care. Reason for contiued inpatient stay Substantial Risk for: inability to function, rapid decompensation and med/psych decompensation
[2021-10-30 21:00] VITALS: RESP 16
[2021-10-31 09:00] VITALS: BP 173/74; PULSE 86; RESP 17; TEMP 36.8; O2SAT 96
--- NOTE | 2021-10-31 15:42 | P.PNPSI_ITS ---
Subjective Subjective Date of Service: 10/31/21 Reason For Visit: Psychosis Subjective Notes: Conditional Voluntary Interim History: The nursing staff reported the patient was irritable and she refused vital signs yesterday. She fell on the patio but there were no injuries. She was very attention seeking sings another patient had her birthday. On interview the patient remains the delusive but easily redirectable. Mental Status Exam Mental Status Exam Patient Appearance: Appropriate Patient Orientation: Person Level of Consciousness: Awake Patient Behavior: Cooperative Mood Description: Labile Affect Description: Constricted Patient Cognition Impaired: Yes Ability to Follow Directions: Fair Speech Pattern: Clear Memory Description: Intact Hallucinations: Auditory Delusions: Paranoid Ideation and Grandiose Thought Process: Illogical Thought Content: positive for [place] and positive for Loose Associations Judgement: Poor Diagnostics Vital Signs (24Hr): Vital Signs - 24 hr 10/30/21 21:00 10/31/21 09:00 Temperature 98.2 F Pulse Rate 86 Respiratory Rate 16 17 Blood Pressure 173/74 H Pulse Oximetry 96 BMI result Body Mass Index 26.3 Labs Results: 09/11/21 10:13 09/11/21 10:13 Medications Medications Current Medications Acetaminophen (Acetaminophen 325 Mg Tablet) 650 mg PO Q6H PRN PRN Reason: Headache/Pain Mild Scale (1-3) Last Admin: 10/27/21 08:12 Dose: 650 mg Documented by: Al Hydroxide/Mg Hydroxide (Magnesium Hydrox/Alum Hydrox 30 Ml Oral.Susp) 30 ml PO Q6H PRN PRN Reason: Heartburn/Nausea Amlodipine Besylate (Amlodipine Besylate 10 Mg Tablet) 10 mg PO DAILY [facility]; Protocol Last Admin: 10/31/21 08:36 Dose: Not Given Documented by: Benzocaine (Throat Lozenge, Medicated Lozenge) 1 lozenge MUCOUS MEM Q2H PRN PRN Reason: Sore Throat Last Admin: 10/29/21 06:48 Dose: 1 lozenge Documented by: Famotidine (Famotidine 20 Mg Tablet) 20 mg PO BID PRN PRN Reason: heartburn Guaifenesin (Guaifenesin 200 Mg/10 Ml 10 Ml Liquid) 10 ml PO Q4H PRN PRN Reason: Cough Hydroxyzine HCl (Hydroxyzine Hcl 25 Mg Tablet) 25 mg PO BEDTIME PRN PRN Reason: Anxiety Lisinopril (Lisinopril 40 Mg Tablet) 40 mg PO DAILY [facility]; Protocol Last Admin: 10/31/21 08:36 Dose: Not Given Documented by: Loperamide HCl (Loperamide Hcl 2 Mg Capsule) 2 mg PO Q4H PRN PRN Reason: Diarrhea Last Admin: 10/15/21 09:30 Dose: 2 mg Documented by: Magnesium Hydroxide (Milk Of Magnesia 30 Ml Oral.Susp) 30 ml PO DAILY PRN PRN Reason: Constipation Trazodone HCl (Trazodone Hcl 50 Mg Tablet) 50 mg PO BEDTIME PRN PRN Reason: Insomnia Last Admin: 10/12/21 20:50 Dose: 50 mg Documented by: Allergies Allergies Allergy/AdvReac Type Severity Reaction Status Date / Time aspirin Allergy Unknown Verified 09/12/21 23:15 Assessment & Plan Assessment & Plan (1) Schizophrenia: Status: Acute Code(s): F20.9 - Schizophrenia, unspecified Plan the patient is an elderly [place] female with a long history of schi zophrenia admitted for exacerbation of psychotic symptoms in the context of noncompliance. Plan 1. Invega Sustenna 234 mg IM monthly 2. Encourage compliance. 3. COVID-19 protocol 4. Invega Sustenna 156 mg for next Saturday after she comes out of COVID protocol I spent _20 minutes with the patient and/or on the patient floor today, greater than?50% of which was spent counseling/coordinating care. Reason for contiued inpatient stay Substantial Risk for: inability to function, rapid decompensation and med/psych decompensation
--- NOTE | 2021-11-01 13:54 | HO.PSYCHPN ---
Subjective Subjective Date of Service: 11/01/21 Reason For Visit: Psychosis Subjective Notes: Conditional Voluntary Interim History: The nursing staff reported the patient has refused her medications as usual. He stated that she is and she became is delusional as usual. The social studies teacher reported that they have applied to several [place] [facility] [place] facilities but so far she has been rejected. On interview the patient denies new symptoms, delusional, disorganized at times Mental Status Exam Mental Status Exam Patient Appearance: Appropriate Patient Orientation: Person and Situation Level of Consciousness: Awake Patient Behavior: Guarded Mood Description: Withdrawn Affect Description: Labile Patient Cognition Impaired: Yes Ability to Follow Directions: Good Speech Pattern: Clear Hallucinations: Auditory Delusions: Paranoid Ideation and Grandiose Thought Process: Illogical Thought Content: positive for [place] and positive for Poverty of Content Judgement: Fair Diagnostics Vital Signs (24Hr): BMI result Body Mass Index 26.3 Labs Results: 09/11/21 10:13 09/11/21 10:13 Medications Medications Current Medications Acetaminophen (Acetaminophen 325 Mg Tablet) 650 mg PO Q6H PRN PRN Reason: Headache/Pain Mild Scale (1-3) Last Admin: 10/27/21 08:12 Dose: 650 mg Al Hydroxide/Mg Hydroxide (Magnesium Hydrox/Alum Hydrox 30 Ml Oral.Susp) 30 ml PO Q6H PRN PRN Reason: Heartburn/Nausea Amlodipine Besylate (Amlodipine Besylate 10 Mg Tablet) 10 mg PO DAILY [facility]; Protocol Last Admin: 11/01/21 08:16 Dose: Not Given Benzocaine (Throat Lozenge, Medicated Lozenge) 1 lozenge MUCOUS MEM Q2H PRN PRN Reason: Sore Throat Last Admin: 10/29/21 06:48 Dose: 1 lozenge Famotidine (Famotidine 20 Mg Tablet) 20 mg PO BID PRN PRN Reason: heartburn Guaifenesin (Guaifenesin 200 Mg/10 Ml 10 Ml Liquid) 10 ml PO Q4H PRN PRN Reason: Cough Hydroxyzine HCl (Hydroxyzine Hcl 25 Mg Tablet) 25 mg PO BEDTIME PRN PRN Reason: Anxiety Lisinopril (Lisinopril 40 Mg Tablet) 40 mg PO DAILY [facility]; Protocol Last Admin: 11/01/21 08:16 Dose: Not Given Loperamide HCl (Loperamide Hcl 2 Mg Capsule) 2 mg PO Q4H PRN PRN Reason: Diarrhea Last Admin: 10/15/21 09:30 Dose: 2 mg Magnesium Hydroxide (Milk Of Magnesia 30 Ml Oral.Susp) 30 ml PO DAILY PRN PRN Reason: Constipation Paliperidone Palmitate (Paliperidone Palmitate 156 Mg/Ml Syringe) 156 mg IM ONCE ONE Stop: 11/01/21 15:45 Trazodone HCl (Trazodone Hcl 50 Mg Tablet) 50 mg PO BEDTIME PRN PRN Reason: Insomnia Last Admin: 10/12/21 20:50 Dose: 50 mg Allergies Allergies Allergy/AdvReac Type Severity Reaction Status Date / Time aspirin Allergy Unknown Verified 09/12/21 23:15 Assessment & Plan Assessment & Plan (1) Schizophrenia: Status: Acute Code(s): F20.9 - Schizophrenia, unspecified Plan the patient is an elderly [place] female with a long history of schizophrenia admitted for exacerbation of psychotic symptoms in the context of noncompliance. Plan 1. Invega Sustenna 234 mg IM monthly 2. Encourage compliance. 3. COVID-19 protocol 4. Invega Sustenna 156 mg for next Saturday after she comes out of COVID protocol I spent __20____ minutes with the patient and/or on the patient floor today, greater than?50% of which was spent counseling/coordinating care. Reason for contiued inpatient stay Substantial Risk for: inability to function, rapid decompensation and med/psych decompensation
[2021-11-01] MEDS: Paliperidone Palmitate 156 MG/ML SYRINGE IM (15:37)
--- NOTE | 2021-11-01 17:25 | PC.NURSE ---
Isolative to room until 1330, refused all meds, vs, meals, fluids offered. Agitated towards staff, telling everyone to leave her room. Stating that staff had stolen her underwear for their families. Visible in community area at 1330, requested grape juice, irritability continued. Sat in community area briefly and returned to room. Pt approached at 1430 to inform of Invega Sustena ordered for today. Pt stated, You will go to hell if you give me that injection. Ask the last person who gave it to me. If you give an addictive medication you will go to hell. Pt informed Invega Sustenna would be given today and it would be appreciated if she were not resistive. Pt approached at 1537 by this keno writer alone with injection and pt rolled up the sleeve of her shirt and stated, You can give it here and you are going to hell. Invega Sustenna 156 mg IM administered in right deltoid without pt resistance. Pt up for supper and ate 90% supper and all fluids. Approached confidential secretary after supper and requested dress that is being held in belonging closet due to unsafe straps. Informed by confidential secretary that she could not have it due to straps and pt requested to see it. Informed she could see it when staff able to retrieve it. Approached confidential secretary again to have dress and again informed she could not have but could see when staff able. Pt approached desk again and informed confidential secretary she was going to of cancer and walked away. No longer wants to see dress at present time. Requests to see dress were made within minutes of prior request, not allowing for availability of staff at time of request. Pt not receptive to information provided by staff.
[2021-11-02 08:28] VITALS: BP 172/74; PULSE 88; RESP 16; TEMP 36.8; O2SAT 97
--- NOTE | 2021-11-02 15:16 | HO.PSYCHPN ---
Subjective Subjective Date of Service: 11/02/21 Reason For Visit: Psychosis Subjective Notes: Conditional Voluntary Interim History: the nursing staff reported the patient was uncooperative, she refused to have vital signs but she was not watching TV anti tree o'clock in the morning. She was incontinent in the morning. Yesterday she received Invega Sustenna and she reports some over-sedation. On interview the patient was angry since she received her injection and she stated that she does not want to have it. Mental Status Exam Mental Status Exam Patient Appearance: Appropriate Patient Orientation: Person and Situation Level of Consciousness: Awake Patient Behavior: Guarded and Suspicious Mood Description: Suspicious and Withdrawn Affect Description: Constricted Patient Cognition Impaired: No Ability to Follow Directions: Good Speech Pattern: Clear Hallucinations: None Delusions: Paranoid Ideation and Grandiose Thought Process: Distracted and Evasive Thought Content: positive for [place] and positive for Poverty of Content Judgement: Fair Diagnostics Vital Signs (24Hr): Vital Signs - 24 hr 11/02/21 08:28 Temperature 98.3 F Pulse Rate 88 Respiratory Rate 16 Blood Pressure 172/74 H Pulse Oximetry 97 Oxygen Delivery Method Room Air BMI result Body Mass Index 26.3 Labs Results: 09/11/21 10:13 09/11/21 10:13 Medications Medications Current Medications Acetaminophen (Acetaminophen 325 Mg Tablet) 650 mg PO Q6H PRN PRN Reason: Headache/Pain Mild Scale (1-3) Last Admin: 10/27/21 08:12 Dose: 650 mg Al Hydroxide/Mg Hydroxide (Magnesium Hydrox/Alum Hydrox 30 Ml Oral.Susp) 30 ml PO Q6H PRN PRN Reason: Heartburn/Nausea Amlodipine Besylate (Amlodipine Besylate 10 Mg Tablet) 10 mg PO DAILY [facility]; Protocol Last Admin: 11/02/21 08:41 Dose: Not Given Benzocaine (Throat Lozenge, Medicated Lozenge) 1 lozenge MUCOUS MEM Q2H PRN PRN Reason: Sore Throat Last Admin: 10/29/21 06:48 Dose: 1 lozenge Famotidine (Famotidine 20 Mg Tablet) 20 mg PO BID PRN PRN Reason: heartburn Guaifenesin (Guaifenesin 200 Mg/10 Ml 10 Ml Liquid) 10 ml PO Q4H PRN PRN Reason: Cough Hydroxyzine HCl (Hydroxyzine Hcl 25 Mg Tablet) 25 mg PO BEDTIME PRN PRN Reason: Anxiety Lisinopril (Lisinopril 40 Mg Tablet) 40 mg PO DAILY [facility]; Protocol Last Admin: 11/02/21 08:41 Dose: Not Given Loperamide HCl (Loperamide Hcl 2 Mg Capsule) 2 mg PO Q4H PRN PRN Reason: Diarrhea Last Admin: 10/15/21 09:30 Dose: 2 mg Magnesium Hydroxide (Milk Of Magnesia 30 Ml Oral.Susp) 30 ml PO DAILY PRN PRN Reason: Constipation Trazodone HCl (Trazodone Hcl 50 Mg Tablet) 50 mg PO BEDTIME PRN PRN Reason: Insomnia Last Admin: 10/12/21 20:50 Dose: 50 mg Allergies Allergies Allergy/AdvReac Type Severity Reaction Status Date / Time aspirin Allergy Unknown Verified 09/12/21 23:15 Assessment & Plan Assessment & Plan (1) Schizophrenia: Status: Acute Code(s): F20.9 - Schizophrenia, unspecified Plan the patient is an elderly Indian female with a long history of schizophrenia admitted for exacerbation of psychotic symptoms in the context of noncompliance. Plan 1. Invega Sustenna 156 mg IM monthly 2. Encourage compliance. 3. COVID-19 protocol I spent __20____ minutes with the patient and/or on the patient floor today, greater than?50% of which was spent counseling/coordinating care. Reason for contiued inpatient stay Substantial Risk for: inability to function, rapid decompensation and med/psych decompensation
--- NOTE | 2021-11-03 11:44 | HO.PSYCHPN ---
Subjective Subjective Date of Service: 11/03/21 Reason For Visit: Psychosis Subjective Notes: Conditional Voluntary Interim History: The nursing staff reported that as usual, she refused her medications and vital signs. He she refused to come out of 2 meals sings she was angry. She recently got her Invega Sustenna and she was very mad about it. On interview she was delusional at baseline but easily redirectable. Mental Status Exam Mental Status Exam Patient Appearance: Well Grooomed Patient Orientation: Person and Situation Level of Consciousness: Awake Patient Behavior: Guarded Mood Description: Withdrawn Affect Description: Labile Patient Cognition Impaired: Yes Ability to Follow Directions: Good Speech Pattern: Clear Hallucinations: Auditory Delusions: Paranoid Ideation and Grandiose Thought Process: Distracted Thought Content: positive for [place] and positive for Poverty of Content Judgement: Fair Diagnostics Vital Signs (24Hr): BMI result Body Mass Index 26.3 Labs Results: 09/11/21 10:13 09/11/21 10:13 Medications Medications Current Medications Acetaminophen (Acetaminophen 325 Mg Tablet) 650 mg PO Q6H PRN PRN Reason: Headache/Pain Mild Scale (1-3) Last Admin: 10/27/21 08:12 Dose: 650 mg Al Hydroxide/Mg Hydroxide (Magnesium Hydrox/Alum Hydrox 30 Ml Oral.Susp) 30 ml PO Q6H PRN PRN Reason: Heartburn/Nausea Amlodipine Besylate (Amlodipine Besylate 10 Mg Tablet) 10 mg PO DAILY [facility]; Protocol Last Admin: 11/03/21 07:59 Dose: Not Given Benzocaine (Throat Lozenge, Medicated Lozenge) 1 lozenge MUCOUS MEM Q2H PRN PRN Reason: Sore Throat Last Admin: 10/29/21 06:48 Dose: 1 lozenge Famotidine (Famotidine 20 Mg Tablet) 20 mg PO BID PRN PRN Reason: heartburn Guaifenesin (Guaifenesin 200 Mg/10 Ml 10 Ml Liquid) 10 ml PO Q4H PRN PRN Reason: Cough Hydroxyzine HCl (Hydroxyzine Hcl 25 Mg Tablet) 25 mg PO BEDTIME PRN PRN Reason: Anxiety Lisinopril (Lisinopril 40 Mg Tablet) 40 mg PO DAILY [facility]; Protocol Last Admin: 11/03/21 07:59 Dose: Not Given Loperamide HCl (Loperamide Hcl 2 Mg Capsule) 2 mg PO Q4H PRN PRN Reason: Diarrhea Last Admin: 10/15/21 09:30 Dose: 2 mg Magnesium Hydroxide (Milk Of Magnesia 30 Ml Oral.Susp) 30 ml PO DAILY PRN PRN Reason: Constipation Trazodone HCl (Trazodone Hcl 50 Mg Tablet) 50 mg PO BEDTIME PRN PRN Reason: Insomnia Last Admin: 10/12/21 20:50 Dose: 50 mg Allergies Allergies Allergy/AdvReac Type Severity Reaction Status Date / Time aspirin Allergy Unknown Verified 09/12/21 23:15 Assessment & Plan Assessment & Plan (1) Schizophrenia: Status: Acute Code(s): F20.9 - Schizophrenia, unspecified Plan the patient is an elderly Salvadorean female with a long history of schizophrenia admitted for exacerbation of psychotic symptoms in the context of noncompliance. Plan 1. Invega Sustenna 156 mg IM monthly 2. Encourage compliance. 3. COVID-19 protocol I spent __20____ minutes with the patient and/or on the patient floor today, greater than?50% of which was spent counseling/coordinating care. Reason for contiued inpatient stay Substantial Risk for: inability to function, rapid decompensation and med/psych decompensation
[2021-11-04 06:00] VITALS: BP 159/70; PULSE 95; RESP 17; TEMP 36.8; O2SAT 97
--- NOTE | 2021-11-04 10:17 | HO.PSYCHPN ---
Subjective Subjective Date of Service: 11/04/21 Reason For Visit: Psychosis Interim History: Pt reports that she was brought here without any cause. She reports my panties were missing and my sister called the police. Pt reports she thinks staff here are also trying to hurt her. She denies SI/HI. She asks that she is discharge today and states she has urgent things to do in [place]. No behavioral concerns. not taking medications. Medication Compliance: Intermittent Side effects from medications: No Review of Systems Review of Systems Cough Yes all other systems are reviewed and are negative and Unobtainable due to mental status Mental Status Exam Mental Status Exam Narrative: Patient Appearance:?Appropriate Patient Orientation:?Person and Situation Level of Consciousness:?Appropriate Patient Behavior:?Suspicious Mood Description:?Withdrawn Affect Description:?Labile Patient Cognition Impaired:?Yes Ability to Follow Directions:?Fair Speech Pattern:?Clear and Cofabulation Hallucinations:?Auditory Delusions:?Paranoid Ideation Thought Process:?Distracted Thought Content:?positive for Poverty of Content and positive for Loose Associations Judgment:?Fair Patient Appearance: Well Grooomed Patient Orientation: Person and Situation Level of Consciousness: Awake Patient Behavior: Guarded Mood Description: Withdrawn Affect Description: Labile Patient Cognition Impaired: Yes Ability to Follow Directions: Good Speech Pattern: Clear Memory Description: Intact Diagnostics Vital Signs (24Hr): BMI result Body Mass Index 26.3 Labs Results: 09/11/21 10:13 09/11/21 10:13 Medications Medications Current Medications Acetaminophen (Acetaminophen 325 Mg Tablet) 650 mg PO Q6H PRN PRN Reason: Headache/Pain Mild Scale (1-3) Last Admin: 10/27/21 08:12 Dose: 650 mg Al Hydroxide/Mg Hydroxide (Magnesium Hydrox/Alum Hydrox 30 Ml Oral.Susp) 30 ml PO Q6H PRN PRN Reason: Heartburn/Nausea Amlodipine Besylate (Amlodipine Besylate 10 Mg Tablet) 10 mg PO DAILY [facility]; Protocol Last Admin: 11/05/21 12:34 Dose: Not Given Benzocaine (Throat Lozenge, Medicated Lozenge) 1 lozenge MUCOUS MEM Q2H PRN PRN Reason: Sore Throat Last Admin: 10/29/21 06:48 Dose: 1 lozenge Famotidine (Famotidine 20 Mg Tablet) 20 mg PO BID PRN PRN Reason: heartburn Guaifenesin (Guaifenesin 200 Mg/10 Ml 10 Ml Liquid) 10 ml PO Q4H PRN PRN Reason: Cough Hydroxyzine HCl (Hydroxyzine Hcl 25 Mg Tablet) 25 mg PO BEDTIME PRN PRN Reason: Anxiety Lisinopril (Lisinopril 40 Mg Tablet) 40 mg PO DAILY [facility]; Protocol Last Admin: 11/05/21 12:34 Dose: Not Given Loperamide HCl (Loperamide Hcl 2 Mg Capsule) 2 mg PO Q4H PRN PRN Reason: Diarrhea Last Admin: 10/15/21 09:30 Dose: 2 mg Magnesium Hydroxide (Milk Of Magnesia 30 Ml Oral.Susp) 30 ml PO DAILY PRN PRN Reason: Constipation Trazodone HCl (Trazodone Hcl 50 Mg Tablet) 50 mg PO BEDTIME PRN PRN Reason: Insomnia Last Admin: 10/12/21 20:50 Dose: 50 mg Allergies Allergies Allergy/AdvReac Type Severity Reaction Status Date / Time aspirin Allergy Unknown Verified 09/12/21 23:15 Assessment & Plan Assessment & Plan (1) Schizophrenia: Status: Acute Code(s): F20.9 - Schizophrenia, unspecified Plan the patient is an elderly [place]ralt[place] female with a long history of schizophrenia admitted for exacerbation of psychotic symptoms in the context of noncompliance. Plan 1. Invega Sustenna 156 mg IM monthly 2. Encourage compliance. 3. COVID-19 protocol 11/04 continue current medications I spent minutes with the patient and/or on the patient floor today, greater than?50% of which was spent counseling/coordinating care. Reason for contiued inpatient stay Substantial Risk for: inability to function
[2021-11-04 19:35] VITALS: BP 133/78; PULSE 94; RESP 17; TEMP 38.1; O2SAT 97
[2021-11-05 06:00] VITALS: BP 158/72; PULSE 17; RESP 17; TEMP 36.6; O2SAT 95
--- NOTE | 2021-11-05 10:19 | HO.PSYCHPN ---
Subjective Subjective Date of Service: 11/05/21 Reason For Visit: Psychosis Subjective Notes: Conditional Voluntary Interim History: Pt verys suspicious and guarded towards this health underwriter. She states I am not talking to you today, leave alone! Pt visible in unit, paranoid towards some staff. No behavioral concerns. Medication Compliance: Intermittent Review of Systems Review of Systems Cough Yes all other systems are reviewed and are negative and Unobtainable due to mental status Mental Status Exam Mental Status Exam Narrative: Patient Appearance:?Appropriate Patient Orientation:?Person and Situation Level of Consciousness:?Appropriate Patient Behavior:?Suspicious Mood Description:?Withdrawn Affect Description:?Labile Patient Cognition Impaired:?Yes Ability to Follow Directions:?Fair Speech Pattern:?Clear and Cofabulation Hallucinations:?Auditory Delusions:?Paranoid Ideation Thought Process:?Distracted Thought Content:?positive for Poverty of Content and positive for Loose Associations Judgment:?Fair Patient Appearance: Well Grooomed Patient Orientation: Person and Situation Level of Consciousness: Awake Patient Behavior: Guarded Mood Description: Withdrawn Affect Description: Labile Patient Cognition Impaired: Yes Ability to Follow Directions: Good Speech Pattern: Clear Memory Description: Intact Diagnostics Vital Signs (24Hr): BMI result Body Mass Index 26.3 Labs Results: 09/11/21 10:13 09/11/21 10:13 Medications Medications Current Medications Acetaminophen (Acetaminophen 325 Mg Tablet) 650 mg PO Q6H PRN PRN Reason: Headache/Pain Mild Scale (1-3) Last Admin: 10/27/21 08:12 Dose: 650 mg Al Hydroxide/Mg Hydroxide (Magnesium Hydrox/Alum Hydrox 30 Ml Oral.Susp) 30 ml PO Q6H PRN PRN Reason: Heartburn/Nausea Amlodipine Besylate (Amlodipine Besylate 10 Mg Tablet) 10 mg PO DAILY [facility]; Protocol Last Admin: 11/05/21 12:34 Dose: Not Given Benzocaine (Throat Lozenge, Medicated Lozenge) 1 lozenge MUCOUS MEM Q2H PRN PRN Reason: Sore Throat Last Admin: 10/29/21 06:48 Dose: 1 lozenge Famotidine (Famotidine 20 Mg Tablet) 20 mg PO BID PRN PRN Reason: heartburn Guaifenesin (Guaifenesin 200 Mg/10 Ml 10 Ml Liquid) 10 ml PO Q4H PRN PRN Reason: Cough Hydroxyzine HCl (Hydroxyzine Hcl 25 Mg Tablet) 25 mg PO BEDTIME PRN PRN Reason: Anxiety Lisinopril (Lisinopril 40 Mg Tablet) 40 mg PO DAILY [facility]; Protocol Last Admin: 11/05/21 12:34 Dose: Not Given Loperamide HCl (Loperamide Hcl 2 Mg Capsule) 2 mg PO Q4H PRN PRN Reason: Diarrhea Last Admin: 10/15/21 09:30 Dose: 2 mg Magnesium Hydroxide (Milk Of Magnesia 30 Ml Oral.Susp) 30 ml PO DAILY PRN PRN Reason: Constipation Trazodone HCl (Trazodone Hcl 50 Mg Tablet) 50 mg PO BEDTIME PRN PRN Reason: Insomnia Last Admin: 10/12/21 20:50 Dose: 50 mg Allergies Allergies Allergy/AdvReac Type Severity Reaction Status Date / Time aspirin Allergy Unknown Verified 09/12/21 23:15 Assessment & Plan Assessment & Plan (1) Schizophrenia: Status: Acute Code(s): F20.9 - Schizophrenia, unspecified Plan the patient is an elderly [place]raini female with a long history of schizophrenia admitted for exacerbation of psychotic symptoms in the context of noncompliance. Plan 1. Invega Sustenna 156 mg IM monthly 2. Encourage compliance. 3. COVID-19 protocol 11/04 continue current medications 11/05 continue current medications I spent ___25___ minutes with the patient and/or on the patient floor today, greater than?50% of which was spent counseling/coordinating care. Reason for contiued inpatient stay Substantial Risk for: inability to function
[2021-11-06] MEDS: Acetaminophen 325 MG TABLET 650 MG PO (06:47)
[2021-11-06 08:00] VITALS: BP 135/64; PULSE 95; RESP 17; TEMP 36.3; O2SAT 96
--- NOTE | 2021-11-06 15:00 | HO.PSYCHPN ---
Subjective Subjective Date of Service: 11/06/21 Reason For Visit: Psychosis Interim History: the nursing staff reported the patient has been uncooperative on her vital signs and she refused her medication as usual. On interview the patient denies new symptoms she looks confused and psychotic but redirectable Mental Status Exam Mental Status Exam Patient Appearance: Well Grooomed Patient Orientation: Person and Situation Level of Consciousness: Awake Patient Behavior: Guarded and Passive Mood Description: Withdrawn Affect Description: Constricted and Labile Patient Cognition Impaired: Yes Ability to Follow Directions: Good Speech Pattern: Clear Hallucinations: Auditory Delusions: Paranoid Ideation Thought Process: Illogical Thought Content: positive for [employer] and positive for Poverty of Content Judgement: Fair Diagnostics Vital Signs (24Hr): Vital Signs - 24 hr 11/06/21 08:00 Temperature 97.3 F Pulse Rate 95 Respiratory Rate 17 Blood Pressure 135/64 Pulse Oximetry 96 Oxygen Delivery Method Room Air BMI result Body Mass Index 26.3 Labs Results: 09/11/21 10:13 09/11/21 10:13 Medications Medications Current Medications Acetaminophen (Acetaminophen 325 Mg Tablet) 650 mg PO Q6H PRN PRN Reason: Headache/Pain Mild Scale (1-3) Last Admin: 11/06/21 06:47 Dose: 650 mg Al Hydroxide/Mg Hydroxide (Magnesium Hydrox/Alum Hydrox 30 Ml Oral.Susp) 30 ml PO Q6H PRN PRN Reason: Heartburn/Nausea Amlodipine Besylate (Amlodipine Besylate 10 Mg Tablet) 10 mg PO DAILY [facility]; Protocol Last Admin: 11/06/21 08:36 Dose: Not Given Benzocaine (Throat Lozenge, Medicated Lozenge) 1 lozenge MUCOUS MEM Q2H PRN PRN Reason: Sore Throat Last Admin: 10/29/21 06:48 Dose: 1 lozenge Famotidine (Famotidine 20 Mg Tablet) 20 mg PO BID PRN PRN Reason: heartburn Guaifenesin (Guaifenesin 200 Mg/10 Ml 10 Ml Liquid) 10 ml PO Q4H PRN PRN Reason: Cough Hydroxyzine HCl (Hydroxyzine Hcl 25 Mg Tablet) 25 mg PO BEDTIME PRN PRN Reason: Anxiety Lisinopril (Lisinopril 40 Mg Tablet) 40 mg PO DAILY [facility]; Protocol Last Admin: 11/06/21 08:36 Dose: Not Given Loperamide HCl (Loperamide Hcl 2 Mg Capsule) 2 mg PO Q4H PRN PRN Reason: Diarrhea Last Admin: 10/15/21 09:30 Dose: 2 mg Magnesium Hydroxide (Milk Of Magnesia 30 Ml Oral.Susp) 30 ml PO DAILY PRN PRN Reason: Constipation Trazodone HCl (Trazodone Hcl 50 Mg Tablet) 50 mg PO BEDTIME PRN PRN Reason: Insomnia Last Admin: 10/12/21 20:50 Dose: 50 mg Allergies Allergies Allergy/AdvReac Type Severity Reaction Status Date / Time aspirin Allergy Unknown Verified 09/12/21 23:15 Assessment & Plan Assessment & Plan (1) Schizophrenia: Status: Acute Code(s): F20.9 - Schizophrenia, unspecified Plan the patient is an elderly Croatian female with a long history of schizophrenia admitted for exacerbation of psychotic symptoms in the context of noncompliance. Plan 1. Invega Sustenna 156 mg IM monthly 2. Encourage compliance. 3. COVID-19 protocol I spent ___20___ minutes with the patient and/or on the patient floor today, greater than?50% of which was spent counseling/coordinating care. Reason for contiued inpatient stay Substantial Risk for: inability to function, rapid decompensation and med/psych decompensation
--- NOTE | 2021-11-07 16:02 | HO.PSYCHPN ---
Subjective Subjective Date of Service: 11/07/21 Reason For Visit: Psychosis Subjective Notes: Conditional Voluntary Interim History: the nursing staff reports no changes in her mental status, she continues to refuse vitals and his and medications. On interview, the patient is disorganized and delusional but easily redirectable. Mental Status Exam Mental Status Exam Patient Appearance: Disheveled Patient Orientation: Person Level of Consciousness: Disoriented and Restless Patient Behavior: Guarded Mood Description: Withdrawn Affect Description: Labile Patient Cognition Impaired: Yes Ability to Follow Directions: Fair Speech Pattern: Clear Hallucinations: Auditory Delusions: Paranoid Ideation Thought Process: Distracted Thought Content: positive for Poverty of Content Judgement: Poor Diagnostics Vital Signs (24Hr): BMI result Body Mass Index 26.3 Labs Results: 09/11/21 10:13 09/11/21 10:13 Medications Medications Current Medications Acetaminophen (Acetaminophen 325 Mg Tablet) 650 mg PO Q6H PRN PRN Reason: Headache/Pain Mild Scale (1-3) Last Admin: 11/06/21 06:47 Dose: 650 mg Al Hydroxide/Mg Hydroxide (Magnesium Hydrox/Alum Hydrox 30 Ml Oral.Susp) 30 ml PO Q6H PRN PRN Reason: Heartburn/Nausea Amlodipine Besylate (Amlodipine Besylate 10 Mg Tablet) 10 mg PO DAILY [facility]; Protocol Last Admin: 11/07/21 08:33 Dose: Not Given Benzocaine (Throat Lozenge, Medicated Lozenge) 1 lozenge MUCOUS MEM Q2H PRN PRN Reason: Sore Throat Last Admin: 10/29/21 06:48 Dose: 1 lozenge Famotidine (Famotidine 20 Mg Tablet) 20 mg PO BID PRN PRN Reason: heartburn Guaifenesin (Guaifenesin 200 Mg/10 Ml 10 Ml Liquid) 10 ml PO Q4H PRN PRN Reason: Cough Hydroxyzine HCl (Hydroxyzine Hcl 25 Mg Tablet) 25 mg PO BEDTIME PRN PRN Reason: Anxiety Lisinopril (Lisinopril 40 Mg Tablet) 40 mg PO DAILY [facility]; Protocol Last Admin: 11/07/21 08:33 Dose: Not Given Loperamide HCl (Loperamide Hcl 2 Mg Capsule) 2 mg PO Q4H PRN PRN Reason: Diarrhea Last Admin: 10/15/21 09:30 Dose: 2 mg Magnesium Hydroxide (Milk Of Magnesia 30 Ml Oral.Susp) 30 ml PO DAILY PRN PRN Reason: Constipation Trazodone HCl (Trazodone Hcl 50 Mg Tablet) 50 mg PO BEDTIME PRN PRN Reason: Insomnia Last Admin: 10/12/21 20:50 Dose: 50 mg Allergies Allergies Allergy/AdvReac Type Severity Reaction Status Date / Time aspirin Allergy Unknown Verified 09/12/21 23:15 Assessment & Plan Assessment & Plan (1) Schizophrenia: Status: Acute Code(s): F20.9 - Schizophrenia, unspecified Plan the patient is an elderly Greek female with a long history of schizophrenia admitted for exacerbation of psychotic symptoms in the context of noncompliance. Plan 1. Invega Sustenna 156 mg IM monthly 2. Encourage compliance. 3. COVID-19 protocol I spent ___20___ minutes with the patient and/or on the patient floor today, greater than?50% of which was spent counseling/coordinating care. Reason for contiued inpatient stay Substantial Risk for: inability to function, rapid decompensation and med/psych decompensation
--- NOTE | 2021-11-08 16:47 | HO.PSYCHPN ---
Subjective Subjective Date of Service: 11/08/21 Reason For Visit: Psychosis Subjective Notes: Conditional Voluntary Interim History: the nursing staff reported that the patient again has refused vital signs and medications. On interview she remains delusional but easily redirectable, waiting for placement. Mental Status Exam Mental Status Exam Patient Appearance: Appropriate Patient Orientation: Person Level of Consciousness: Awake Patient Behavior: Guarded and Passive Mood Description: Withdrawn Affect Description: Labile Patient Cognition Impaired: Yes Ability to Follow Directions: Fair Speech Pattern: Clear Hallucinations: Auditory Delusions: Paranoid Ideation and Grandiose Thought Process: Distracted Thought Content: positive for [place] and positive for Loose Associations Judgement: Poor Diagnostics Vital Signs (24Hr): BMI result Body Mass Index 26.3 Labs Results: 09/11/21 10:13 09/11/21 10:13 Medications Medications Current Medications Acetaminophen (Acetaminophen 325 Mg Tablet) 650 mg PO Q6H PRN PRN Reason: Headache/Pain Mild Scale (1-3) Last Admin: 11/06/21 06:47 Dose: 650 mg Al Hydroxide/Mg Hydroxide (Magnesium Hydrox/Alum Hydrox 30 Ml Oral.Susp) 30 ml PO Q6H PRN PRN Reason: Heartburn/Nausea Amlodipine Besylate (Amlodipine Besylate 10 Mg Tablet) 10 mg PO DAILY [facility]; Protocol Last Admin: 11/08/21 08:59 Dose: Not Given Benzocaine (Throat Lozenge, Medicated Lozenge) 1 lozenge MUCOUS MEM Q2H PRN PRN Reason: Sore Throat Last Admin: 10/29/21 06:48 Dose: 1 lozenge Famotidine (Famotidine 20 Mg Tablet) 20 mg PO BID PRN PRN Reason: heartburn Guaifenesin (Guaifenesin 200 Mg/10 Ml 10 Ml Liquid) 10 ml PO Q4H PRN PRN Reason: Cough Hydroxyzine HCl (Hydroxyzine Hcl 25 Mg Tablet) 25 mg PO BEDTIME PRN PRN Reason: Anxiety Lisinopril (Lisinopril 40 Mg Tablet) 40 mg PO DAILY [facility]; Protocol Last Admin: 11/08/21 08:59 Dose: Not Given Loperamide HCl (Loperamide Hcl 2 Mg Capsule) 2 mg PO Q4H PRN PRN Reason: Diarrhea Last Admin: 10/15/21 09:30 Dose: 2 mg Magnesium Hydroxide (Milk Of Magnesia 30 Ml Oral.Susp) 30 ml PO DAILY PRN PRN Reason: Constipation Trazodone HCl (Trazodone Hcl 50 Mg Tablet) 50 mg PO BEDTIME PRN PRN Reason: Insomnia Last Admin: 10/12/21 20:50 Dose: 50 mg Allergies Allergies Allergy/AdvReac Type Severity Reaction Status Date / Time aspirin Allergy Unknown Verified 09/12/21 23:15 Assessment & Plan Assessment & Plan (1) Schizophrenia: Status: Acute Code(s): F20.9 - Schizophrenia, unspecified Plan the patient is an elderly Norwegian female with a long history of schizophrenia admitted for exacerbation of psychotic symptoms in the context of noncompliance. Plan 1. Invega Sustenna 156 mg IM monthly 2. Encourage compliance. 3. Waiting for placement I spent __20____ minutes with the patient and/or on the patient floor today, greater than?50% of which was spent counseling/coordinating care. Reason for contiued inpatient stay Substantial Risk for: inability to function, rapid decompensation and med/psych decompensation
[2021-11-08 20:12] VITALS: PULSE 91; RESP 18; TEMP 36.9; O2SAT 94
[2021-11-09] MEDS: Acetaminophen 325 MG TABLET 650 MG PO (03:38)
[2021-11-09 07:00] VITALS: BMI 26.1
[2021-11-09 07:30] VITALS: BP 187/81; PULSE 83; RESP 18; TEMP 36; O2SAT 98
--- NOTE | 2021-11-09 15:24 | HO.PSYCHPN ---
Subjective Subjective Date of Service: 11/09/21 Reason For Visit: Psychosis Subjective Notes: Conditional Voluntary Interim History: The nursing staff reported the patient has refused vital signs and medications. Today in the morning she was participating in some groups she was visible in the unit, psychotic but easily redirectable. The social science professor reported some continue to try to look for proper placement for her. On interview the patient denies new symptoms she remains pleasantly psychotic Mental Status Exam Mental Status Exam Patient Appearance: Well Grooomed Patient Orientation: Person and Situation Level of Consciousness: Awake Patient Behavior: Cooperative Mood Description: Labile Affect Description: Constricted Patient Cognition Impaired: Yes Ability to Follow Directions: Good Speech Pattern: Clear Hallucinations: Auditory Delusions: Paranoid Ideation Thought Process: Illogical Thought Content: positive for Circumstantial Judgement: Poor Diagnostics Vital Signs (24Hr): Vital Signs - 24 hr 11/08/21 20:12 11/09/21 07:30 Temperature 98.5 F 96.8 F Pulse Rate 91 83 Respiratory Rate 18 18 Blood Pressure 187/81 H Pulse Oximetry 94 98 Oxygen Delivery Method Room Air BMI result Body Mass Index 26.1 Labs Results: 09/11/21 10:13 09/11/21 10:13 Medications Medications Current Medications Acetaminophen (Acetaminophen 325 Mg Tablet) 650 mg PO Q6H PRN PRN Reason: Headache/Pain Mild Scale (1-3) Last Admin: 11/09/21 03:38 Dose: 650 mg Al Hydroxide/Mg Hydroxide (Magnesium Hydrox/Alum Hydrox 30 Ml Oral.Susp) 30 ml PO Q6H PRN PRN Reason: Heartburn/Nausea Amlodipine Besylate (Amlodipine Besylate 10 Mg Tablet) 10 mg PO DAILY [facility]; Protocol Last Admin: 11/09/21 09:47 Dose: Not Given Benzocaine (Throat Lozenge, Medicated Lozenge) 1 lozenge MUCOUS MEM Q2H PRN PRN Reason: Sore Throat Last Admin: 10/29/21 06:48 Dose: 1 lozenge Famotidine (Famotidine 20 Mg Tablet) 20 mg PO BID PRN PRN Reason: heartburn Guaifenesin (Guaifenesin 200 Mg/10 Ml 10 Ml Liquid) 10 ml PO Q4H PRN PRN Reason: Cough Hydroxyzine HCl (Hydroxyzine Hcl 25 Mg Tablet) 25 mg PO BEDTIME PRN PRN Reason: Anxiety Lisinopril (Lisinopril 40 Mg Tablet) 40 mg PO DAILY [facility]; Protocol Last Admin: 11/09/21 09:47 Dose: Not Given Loperamide HCl (Loperamide Hcl 2 Mg Capsule) 2 mg PO Q4H PRN PRN Reason: Diarrhea Last Admin: 10/15/21 09:30 Dose: 2 mg Magnesium Hydroxide (Milk Of Magnesia 30 Ml Oral.Susp) 30 ml PO DAILY PRN PRN Reason: Constipation Trazodone HCl (Trazodone Hcl 50 Mg Tablet) 50 mg PO BEDTIME PRN PRN Reason: Insomnia Last Admin: 10/12/21 20:50 Dose: 50 mg Allergies Allergies Allergy/AdvReac Type Severity Reaction Status Date / Time aspirin Allergy Unknown Verified 09/12/21 23:15 Assessment & Plan Assessment & Plan (1) Schizophrenia: Status: Acute Code(s): F20.9 - Schizophrenia, unspecified Plan the patient is an elderly [place]ym[place] female with a long history of schizophrenia admitted for exacerbation of psychotic symptoms in the context of noncompliance. Plan 1. Invega Sustenna 156 mg IM monthly 2. Encourage compliance. 3. Waiting for placement I spent __20____ minutes with the patient and/or on the patient floor today, greater than?50% of which was spent counseling/coordinating care. Reason for contiued inpatient stay Substantial Risk for: inability to function, rapid decompensation and med/psych decompensation
[2021-11-10 06:00] VITALS: BP 130/69; PULSE 93; TEMP 37.2; O2SAT 95
--- NOTE | 2021-11-10 13:05 | P.PNPSI_ITS ---
Subjective Subjective Date of Service: 11/10/21 Reason For Visit: Psychosis Subjective Notes: Conditional Voluntary Interim History: the nursing staff reported the patient has been pleasant, cooperative, laughing and she has attended a few groups but later she was yelling at the staff. Very irritable. She slept 6 hours. Today the nursing staff reported that the patient was in the patio eating leaves from the plans and needed to be redirected and escorted out of the patio. Mental Status Exam Mental Status Exam Patient Appearance: Well Grooomed Patient Orientation: Person and Situation Level of Consciousness: Awake Patient Behavior: Guarded and Suspicious Mood Description: Suspicious and Withdrawn Affect Description: Labile Patient Cognition Impaired: Yes Ability to Follow Directions: Good Speech Pattern: Clear Hallucinations: Auditory Delusions: Paranoid Ideation Thought Process: Illogical and Evasive Thought Content: positive for Poverty of Content and positive for Loose Associations Judgement: Fair Diagnostics Vital Signs (24Hr): Vital Signs - 24 hr 11/10/21 06:00 Temperature 98.9 F Pulse Rate 93 Blood Pressure 130/69 Pulse Oximetry 95 Oxygen Delivery Method Room Air BMI result Body Mass Index 26.1 Labs Results: 09/11/21 10:13 09/11/21 10:13 Medications Medications Current Medications Acetaminophen (Acetaminophen 325 Mg Tablet) 650 mg PO Q6H PRN PRN Reason: Headache/Pain Mild Scale (1-3) Last Admin: 11/09/21 03:38 Dose: 650 mg Al Hydroxide/Mg Hydroxide (Magnesium Hydrox/Alum Hydrox 30 Ml Oral.Susp) 30 ml PO Q6H PRN PRN Reason: Heartburn/Nausea Amlodipine Besylate (Amlodipine Besylate 10 Mg Tablet) 10 mg PO DAILY RAMSES; Protocol Last Admin: 11/10/21 08:52 Dose: Not Given Benzocaine (Throat Lozenge, Medicated Lozenge) 1 lozenge MUCOUS MEM Q2H PRN PRN Reason: Sore Throat Last Admin: 10/29/21 06:48 Dose: 1 lozenge Famotidine (Famotidine 20 Mg Tablet) 20 mg PO BID PRN PRN Reason: heartburn Guaifenesin (Guaifenesin 200 Mg/10 Ml 10 Ml Liquid) 10 ml PO Q4H PRN PRN Reason: Cough Hydroxyzine HCl (Hydroxyzine Hcl 25 Mg Tablet) 25 mg PO BEDTIME PRN PRN Reason: Anxiety Lisinopril (Lisinopril 40 Mg Tablet) 40 mg PO DAILY RAMSES; Protocol Last Admin: 11/10/21 08:52 Dose: Not Given Loperamide HCl (Loperamide Hcl 2 Mg Capsule) 2 mg PO Q4H PRN PRN Reason: Diarrhea Last Admin: 10/15/21 09:30 Dose: 2 mg Magnesium Hydroxide (Milk Of Magnesia 30 Ml Oral.Susp) 30 ml PO DAILY PRN PRN Reason: Constipation Trazodone HCl (Trazodone Hcl 50 Mg Tablet) 50 mg PO BEDTIME PRN PRN Reason: Insomnia Last Admin: 10/12/21 20:50 Dose: 50 mg Allergies Allergies Allergy/AdvReac Type Severity Reaction Status Date / Time aspirin Allergy Unknown Verified 09/12/21 23:15 Assessment & Plan Assessment & Plan (1) Schizophrenia: Status: Acute Code(s): F20.9 - Schizophrenia, unspecified Plan the patient is an elderly Algerian female with a long history of schizophrenia admitted for exacerbation of psychotic symptoms in the context of noncompliance. Plan 1. Invega Sustenna 156 mg IM monthly 2. Encourage compliance. 3. Waiting for placement I spent ___20___ minutes with the patient and/or on the patient floor today, greater than?50% of which was spent counseling/coordinating care. Reason for contiued inpatient stay Substantial Risk for: inability to function, rapid decompensation and med/psych decompensation
--- NOTE | 2021-11-10 17:46 | P.EN_ITS ---
Event Note Date of Service: 11/10/21 Event Note: Head Of Mathematics on-call. Contacted since patient has become aggressive, threw her tray at peer and is threatening peers and staff, unable to be redirected. No EKG available to assess QTC. Head Of Mathematics ordered Zyprexa 2.5mg IM since this has lower risk of prolonging QTC than Haldol and she has been on Zyprexa in the past. Of note she has also been on Depakote in the past. Head Of Mathematics ordered labs, UA as well to see if there is an organic cause to sudden dysregulation.
[2021-11-10] MEDS: OLANZapine 10 MG VIAL 2.5 MG IM (18:12)
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
--- NOTE | 2021-11-10 18:50 | PC.NURSE ---
Message left for HCP, Shani, to call back unit so we can notify regarding IM.
--- NOTE | 2021-11-11 | ECG_ITS ---
Test Reason : qtc monitor Blood Pressure : / mmHG Vent. Rate : 086 BPM Atrial Rate : 086 BPM P-R Int : 182 ms QRS Dur : 084 ms QT Int : 362 ms P-R-T Axes : 068 046 043 degrees QTc Int : 433 ms Sinus rhythm with marked sinus arrhythmia Otherwise normal ECG No previous ECGs available Referred By: Vikash Callaway Electronically Signed By:Aidan Cross
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
[2021-11-11 18:29] LABS: MANUAL DIFF FLAG NO
[2021-11-11 18:38] LABS: Ammonia 27 umol/L (13-55)
[2021-11-11 18:46] LABS: Alanine Aminotransferase 14 U/L (0-31); Albumin Level 4.1 g/dL (3.5-5.0); Alkaline Phosphatase 140 U/L (39-117); Anion Gap 14 (12-20); Aspartate Amino Transferase 12 U/L (5-31); Bilirubin Direct < 0.2 mg/dL (0.0-0.5); Bilirubin Total 0.3 mg/dL (0.0-1.0); Blood Urea Nitrogen 16 mg/dL (9-16); Carbon Dioxide 26 mmol/L (22-29); Chloride 103 mmol/L (96-108); Creatinine Clr Calc Pharmacy 65.5; Estimated Glomerular Filt Rate > 60; Potassium 4.2 mmol/L (3.3-5.1); Sodium 139 mmol/L (135-145); Total Protein 8.7 g/dL (6.5-8.0)
[2021-11-11 18:57] LABS: Basophils Absolute Auto 0.1 X10*3/uL (0.0-0.2); Basophils Percent Auto 0.8 % (0-2); Eosinophils Absolute Auto 0.3 X10*3/uL (0.0-0.4); Eosinophils Percent Auto 3.3 % (0-4); Hematocrit 37.1 % (37.0-47.0); Hemoglobin 11.8 g/dl (12.0-16.0); Imm Gran Abs Auto 0.04 X10*3/uL (0.00-0.03); Imm Gran Pct Auto 0.4 % (0.0-0.4); Lymphocytes Absolute Auto 3.1 X10*3/uL (1.2-4.9); Lymphocytes Percent Auto 32.4 % (20-40); Mean Corpuscular HGB Conc 31.8 g/dl (31.0-35.0); Mean Corpuscular Hemoglobin 27.6 pg (27.0-33.0); Mean Corpuscular Volume 86.7 fL (80.0-98.0); Monocytes Absolute Auto 0.8 X10*3/uL (0.1-1.2); Monocytes Percent Auto 8.2 % (2-11); Neutrophils Absolute Auto 5.2 x10*3/uL (2.0-8.3); Neutrophils Percent Auto 54.9 % (45-73); Platelet Count 369 X10*3/uL (160-400); Red Blood Count 4.28 X10*6/uL (4.20-5.50); Red Cell Distribution Width 13.7 % (11.0-16.0); White Blood Count 9.5 X10*3/uL (4.8-10.8)
[2021-11-12 08:00] VITALS: BP 167/74; PULSE 92; RESP 16; TEMP 35.8; O2SAT 97
[2021-11-12] MEDS: lisinopriL 40 MG TABLET PO (08:58)
[2021-11-12 08:59] LABS: Appearance Urine CLEAR; Color Urine YELLOW; Glucose Urine UA NEG (NEG); Leukocyte Esterase Urine 2+ (NEG); Nitrite Urine NEG (NEG); PH 5.5 (5.0-8.0); Specific Gravity - Urine >= 1.030 (1.005-1.025); UACC Culture Trigger YES; Urine Blood NEG (NEG); Urine Ketones NEG (NEG); Urine Protein NEG (NEG-TRACE)
[2021-11-12 09:13] LABS: Bacteria Urine TRACE /LPF; RBC Urine 0-2 /HPF (0); Squamous Epithelial Cell Urine 4+ /LPF; UACC CULT YES
--- NOTE | 2021-11-12 11:10 | HO.PSYCHPN ---
Subjective Subjective Date of Service: 11/12/21 Reason For Visit: Psychosis Interim History: Patient seen and discussed with team. Pt is supposed to have an EKG. Patient evaluated today and upon interview she is found naked in bed. Pt says her stomach hurts because im having a baby. Pt reports diarrhea, which she attributes to invega sustenna, and multiple somatic complaints, i.e. says I had a tumor in my head and a clot in her arm. 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 She talks about her invega sustenna injection, says she does not want it again because it hurts a lot. Also says I dont want drugs because her son from drug addiction.?Pt presents as delusional disorganized. Medication Compliance: Yes Side effects from medications: No Attending Groups: No Review of Systems Acute medical concerns: No Medical Review of Systems: unchanged Mental Status Exam Mental Status Exam Narrative: Patient Appearance: Well Grooomed Patient Orientation: Person and Situation Level of Consciousness: Awake Patient Behavior: Guarded and Suspicious Mood Description: Suspicious and Withdrawn Affect Description: Labile Patient Cognition Impaired: Yes Ability to Follow Directions: Good Speech Pattern: Clear Hallucinations: Auditory Delusions: Paranoid Ideation Thought Process: Illogical and Evasive Thought Content: positive for Poverty of Content and positive for Loose Associations Judgment: Fair Diagnostics Vital Signs (24Hr): Vital Signs - 24 hr 11/12/21 08:00 Temperature 96.4 F L Pulse Rate 92 Respiratory Rate 16 Blood Pressure 167/74 H Pulse Oximetry 97 Oxygen Delivery Method Room Air BMI result Body Mass Index 26.1 Labs Results: 11/11/21 18:22 11/11/21 18:22 Labs: Laboratory Results - last 48 hr 11/11/21 11/11/21 11/11/21 18:22 18:22 18:22 WBC 9.5 RBC 4.28 Hgb 11.8 L Hct 37.1 MCV 86.7 MCH 27.6 MCHC 31.8 RDW 13.7 Plt Count 369 MPV 10.0 Immature Gran % (Auto) 0.4 Neut % (Auto) 54.9 Lymph % (Auto) 32.4 [place] % (Auto) 8.2 Eos % (Auto) 3.3 Baso % (Auto) 0.8 Lymph # (Auto) 3.1 [place] # (Auto) 0.8 Eos # (Auto) 0.3 Baso # (Auto) 0.1 Abs Immat Gran (auto) 0.04 H Absolute Neuts (auto) 5.2 Absolute Nucleated RBC 0.000 Nucleated RBC % (auto) 0.0 Sodium 139 Potassium 4.2 Chloride 103 Carbon Dioxide 26 Anion Gap 14 BUN 16 Creatinine 0.73 Estim Creat Clear Calc 65.5 Estimated GFR > 60 Total Bilirubin 0.3 Direct Bilirubin < 0.2 AST 12 ALT 14 Alkaline Phosphatase 140 H Ammonia 27 Total Protein 8.7 H D Albumin 4.1 Urine Color Urine Appearance Urine pH Ur Specific [place] Urine Protein Urine Glucose (UA) Urine Ketones Urine Blood Urine Nitrite Ur Leukocyte Esterase Urine RBC Urine WBC Ur Squamous Epith Cells Urine Bacteria 11/12/21 08:45 WBC RBC Hgb Hct MCV MCH MCHC RDW Plt Count MPV Immature Gran % (Auto) Neut % (Auto) Lymph % (Auto) [place] % (Auto) Eos % (Auto) Baso % (Auto) Lymph # (Auto) [place] # (Auto) Eos # (Auto) Baso # (Auto) Abs Immat Gran (auto) Absolute Neuts (auto) Absolute Nucleated RBC Nucleated RBC % (auto) Sodium Potassium Chloride Carbon Dioxide Anion Gap BUN Creatinine Estim Creat Clear Calc Estimated GFR Total Bilirubin Direct Bilirubin AST ALT Alkaline Phosphatase Ammonia Total Protein Albumin Urine Color YELLOW Urine Appearance CLEAR Urine pH 5.5 Ur Specific [place] >= 1.030 H Urine Protein NEG Urine Glucose (UA) NEG Urine Ketones NEG Urine Blood NEG Urine Nitrite NEG Ur Leukocyte Esterase 2+ H Urine RBC 0-2 Urine WBC 10-14 H Ur Squamous Epith Cells 4+ Urine Bacteria TRACE Medications Medications Current Medications Acetaminophen (Acetaminophen 325 Mg Tablet) 650 mg PO Q6H PRN PRN Reason: Headache/Pain Mild Scale (1-3) Last Admin: 11/09/21 03:38 Dose: 650 mg Al Hydroxide/Mg Hydroxide (Magnesium Hydrox/Alum Hydrox 30 Ml Oral.Susp) 30 ml PO Q6H PRN PRN Reason: Heartburn/Nausea Amlodipine Besylate (Amlodipine Besylate 10 Mg Tablet) 10 mg PO DAILY RAMSES; Protocol Last Admin: 11/12/21 08:59 Dose: Not Given Benzocaine (Throat Lozenge, Medicated Lozenge) 1 lozenge MUCOUS MEM Q2H PRN PRN Reason: Sore Throat Last Admin: 10/29/21 06:48 Dose: 1 lozenge Famotidine (Famotidine 20 Mg Tablet) 20 mg PO BID PRN PRN Reason: heartburn Guaifenesin (Guaifenesin 200 Mg/10 Ml 10 Ml Liquid) 10 ml PO Q4H PRN PRN Reason: Cough Hydroxyzine HCl (Hydroxyzine Hcl 25 Mg Tablet) 25 mg PO BEDTIME PRN PRN Reason: Anxiety Lisinopril (Lisinopril 40 Mg Tablet) 40 mg PO DAILY RAMSES; Protocol Last Admin: 11/12/21 08:58 Dose: 40 mg Loperamide HCl (Loperamide Hcl 2 Mg Capsule) 2 mg PO Q4H PRN PRN Reason: Diarrhea Last Admin: 10/15/21 09:30 Dose: 2 mg Magnesium Hydroxide (Milk Of Magnesia 30 Ml Oral.Susp) 30 ml PO DAILY PRN PRN Reason: Constipation Trazodone HCl (Trazodone Hcl 50 Mg Tablet) 50 mg PO BEDTIME PRN PRN Reason: Insomnia Last Admin: 10/12/21 20:50 Dose: 50 mg Allergies Allergies Allergy/AdvReac Type Severity Reaction Status Date / Time aspirin Allergy Unknown Verified 09/12/21 23:15 Assessment & Plan Assessment & Plan (1) Schizophrenia: Status: Acute Code(s): F20.9 - Schizophrenia, unspecified Plan the patient is an elderly Martiniquais female with a long history of schizophrenia admitted for exacerbation of psychotic symptoms in the context of noncompliance. Plan 1. Invega Sustenna 156 mg IM monthly 2. Encourage compliance. 3. Waiting for placement 11/11/2021: No changes ie placement pending 11/12/2021: No changes I spent minutes with the patient and/or on the patient floor today, greater than?50% of which was spent counseling/coordinating care. Patient educated on: therapeutic strategies Reason for contiued inpatient stay Substantial Risk for: inability to function, rapid decompensation and med/psych decompensation
[2021-11-13 06:00] VITALS: BP 132/63; PULSE 111; RESP 17; TEMP 36.3; O2SAT 98
--- NOTE | 2021-11-13 16:27 | HO.PSYCHPN ---
Subjective Subjective Date of Service: 11/13/21 Reason For Visit: Psychosis Subjective Notes: Conditional Voluntary Interim History: the patient remains delusional, uncooperative with vital signs but easily redirectable. The nursing staff reports that she has refused her regular medications but overall she is easily redirectable. On interview the patient denies new symptoms she wants to go home back to [place]. Mental Status Exam Mental Status Exam Patient Appearance: Appropriate Patient Orientation: Person and Situation Level of Consciousness: Restless Patient Behavior: Guarded and Suspicious Mood Description: Withdrawn Affect Description: Labile Patient Cognition Impaired: Yes Ability to Follow Directions: Fair Speech Pattern: Clear Hallucinations: Auditory Delusions: Paranoid Ideation and Grandiose Thought Process: Illogical Thought Content: positive for [place] and positive for Obsessional Thoughts Judgement: Fair Diagnostics Vital Signs (24Hr): Vital Signs - 24 hr 11/13/21 06:00 Temperature 97.3 F Pulse Rate 111 H Respiratory Rate 17 Blood Pressure 132/63 Pulse Oximetry 98 Oxygen Delivery Method Room Air BMI result Body Mass Index 26.1 Labs Results: 11/11/21 18:22 11/11/21 18:22 Labs: Laboratory Results - last 48 hr 11/11/21 11/11/21 11/11/21 18:22 18:22 18:22 WBC 9.5 RBC 4.28 Hgb 11.8 L Hct 37.1 MCV 86.7 MCH 27.6 MCHC 31.8 RDW 13.7 Plt Count 369 MPV 10.0 Immature Gran % (Auto) 0.4 Neut % (Auto) 54.9 Lymph % (Auto) 32.4 [place] % (Auto) 8.2 Eos % (Auto) 3.3 Baso % (Auto) 0.8 Lymph # (Auto) 3.1 [place] # (Auto) 0.8 Eos # (Auto) 0.3 Baso # (Auto) 0.1 Abs Immat Gran (auto) 0.04 H Absolute Neuts (auto) 5.2 Absolute Nucleated RBC 0.000 Nucleated RBC % (auto) 0.0 Sodium 139 Potassium 4.2 Chloride 103 Carbon Dioxide 26 Anion Gap 14 BUN 16 Creatinine 0.73 Estim Creat Clear Calc 65.5 Estimated GFR > 60 Total Bilirubin 0.3 Direct Bilirubin < 0.2 AST 12 ALT 14 Alkaline Phosphatase 140 H Ammonia 27 Total Protein 8.7 H D Albumin 4.1 Urine Color Urine Appearance Urine pH Ur Specific [place] Urine Protein Urine Glucose (UA) Urine Ketones Urine Blood Urine Nitrite Ur Leukocyte Esterase Urine RBC Urine WBC Ur Squamous Epith Cells Urine Bacteria 11/12/21 08:45 WBC RBC Hgb Hct MCV MCH MCHC RDW Plt Count MPV Immature Gran % (Auto) Neut % (Auto) Lymph % (Auto) [place] % (Auto) Eos % (Auto) Baso % (Auto) Lymph # (Auto) [place] # (Auto) Eos # (Auto) Baso # (Auto) Abs Immat Gran (auto) Absolute Neuts (auto) Absolute Nucleated RBC Nucleated RBC % (auto) Sodium Potassium Chloride Carbon Dioxide Anion Gap BUN Creatinine Estim Creat Clear Calc Estimated GFR Total Bilirubin Direct Bilirubin AST ALT Alkaline Phosphatase Ammonia Total Protein Albumin Urine Color YELLOW Urine Appearance CLEAR Urine pH 5.5 Ur Specific [place] >= 1.030 H Urine Protein NEG Urine Glucose (UA) NEG Urine Ketones NEG Urine Blood NEG Urine Nitrite NEG Ur Leukocyte Esterase 2+ H Urine RBC 0-2 Urine WBC 10-14 H Ur Squamous Epith Cells 4+ Urine Bacteria TRACE Medications Medications Current Medications Acetaminophen (Acetaminophen 325 Mg Tablet) 650 mg PO Q6H PRN PRN Reason: Headache/Pain Mild Scale (1-3) Last Admin: 11/09/21 03:38 Dose: 650 mg Al Hydroxide/Mg Hydroxide (Magnesium Hydrox/Alum Hydrox 30 Ml Oral.Susp) 30 ml PO Q6H PRN PRN Reason: Heartburn/Nausea Amlodipine Besylate (Amlodipine Besylate 10 Mg Tablet) 10 mg PO DAILY RAMSES; Protocol Last Admin: 11/13/21 09:09 Dose: Not Given Benzocaine (Throat Lozenge, Medicated Lozenge) 1 lozenge MUCOUS MEM Q2H PRN PRN Reason: Sore Throat Last Admin: 10/29/21 06:48 Dose: 1 lozenge Famotidine (Famotidine 20 Mg Tablet) 20 mg PO BID PRN PRN Reason: heartburn Guaifenesin (Guaifenesin 200 Mg/10 Ml 10 Ml Liquid) 10 ml PO Q4H PRN PRN Reason: Cough Hydroxyzine HCl (Hydroxyzine Hcl 25 Mg Tablet) 25 mg PO BEDTIME PRN PRN Reason: Anxiety Lisinopril (Lisinopril 40 Mg Tablet) 40 mg PO DAILY RAMSES; Protocol Last Admin: 11/13/21 09:09 Dose: Not Given Loperamide HCl (Loperamide Hcl 2 Mg Capsule) 2 mg PO Q4H PRN PRN Reason: Diarrhea Last Admin: 10/15/21 09:30 Dose: 2 mg Magnesium Hydroxide (Milk Of Magnesia 30 Ml Oral.Susp) 30 ml PO DAILY PRN PRN Reason: Constipation Trazodone HCl (Trazodone Hcl 50 Mg Tablet) 50 mg PO BEDTIME PRN PRN Reason: Insomnia Last Admin: 10/12/21 20:50 Dose: 50 mg Allergies Allergies Allergy/AdvReac Type Severity Reaction Status Date / Time aspirin Allergy Unknown Verified 09/12/21 23:15 Assessment & Plan Assessment & Plan (1) Schizophrenia: Status: Acute Code(s): F20.9 - Schizophrenia, unspecified Plan the patient is an elderly Greenlandic female with a long history of schizophrenia admitted for exacerbation of psychotic symptoms in the context of noncompliance. Plan 1. Invega Sustenna 156 mg IM monthly 2. Encourage compliance. 3. Waiting for placement I spent ___20___ minutes with the patient and/or on the patient floor today, greater than?50% of which was spent counseling/coordinating care. Reason for contiued inpatient stay Substantial Risk for: inability to function, rapid decompensation and med/psych decompensation
--- NOTE | 2021-11-14 17:06 | P.PNPSI_ITS ---
Subjective Subjective Date of Service: 11/14/21 Reason For Visit: Psychosis Subjective Notes: Conditional Voluntary Interim History: the nursing staff reported the patient has refused her vital signs and her medications as usual. She is easily redirectable. On interview the patient remains delusional stating that she wants to go back to [place] and she wants to leave but later she is unable to articulate how she is going to go to [place] under is no family over there. Still psychotic. The social worker clinical will try to contact the referrals to other in retirement facilities since her daughters not want to take her back at home. Mental Status Exam Mental Status Exam Patient Appearance: Appropriate Patient Orientation: Person Level of Consciousness: Awake Patient Behavior: Guarded Mood Description: Suspicious Affect Description: Withdrawn Patient Cognition Impaired: Yes Ability to Follow Directions: Good Speech Pattern: Clear Hallucinations: Auditory Delusions: Paranoid Ideation and Grandiose Thought Process: Illogical Thought Content: positive for Incoherent Judgement: Fair Diagnostics Vital Signs (24Hr): BMI result Body Mass Index 26.1 Labs Results: 11/11/21 18:22 11/11/21 18:22 Medications Medications Current Medications Acetaminophen (Acetaminophen 325 Mg Tablet) 650 mg PO Q6H PRN PRN Reason: Headache/Pain Mild Scale (1-3) Last Admin: 11/09/21 03:38 Dose: 650 mg Al Hydroxide/Mg Hydroxide (Magnesium Hydrox/Alum Hydrox 30 Ml Oral.Susp) 30 ml PO Q6H PRN PRN Reason: Heartburn/Nausea Amlodipine Besylate (Amlodipine Besylate 10 Mg Tablet) 10 mg PO DAILY RAMSES; Protocol Last Admin: 11/14/21 09:02 Dose: Not Given Benzocaine (Throat Lozenge, Medicated Lozenge) 1 lozenge MUCOUS MEM Q2H PRN PRN Reason: Sore Throat Last Admin: 10/29/21 06:48 Dose: 1 lozenge Famotidine (Famotidine 20 Mg Tablet) 20 mg PO BID PRN PRN Reason: heartburn Guaifenesin (Guaifenesin 200 Mg/10 Ml 10 Ml Liquid) 10 ml PO Q4H PRN PRN Reason: Cough Hydroxyzine HCl (Hydroxyzine Hcl 25 Mg Tablet) 25 mg PO BEDTIME PRN PRN Reason: Anxiety Lisinopril (Lisinopril 40 Mg Tablet) 40 mg PO DAILY RAMSES; Protocol Last Admin: 11/14/21 09:02 Dose: Not Given Loperamide HCl (Loperamide Hcl 2 Mg Capsule) 2 mg PO Q4H PRN PRN Reason: Diarrhea Last Admin: 10/15/21 09:30 Dose: 2 mg Magnesium Hydroxide (Milk Of Magnesia 30 Ml Oral.Susp) 30 ml PO DAILY PRN PRN Reason: Constipation Trazodone HCl (Trazodone Hcl 50 Mg Tablet) 50 mg PO BEDTIME PRN PRN Reason: Insomnia Last Admin: 10/12/21 20:50 Dose: 50 mg Allergies Allergies Allergy/AdvReac Type Severity Reaction Status Date / Time aspirin Allergy Unknown Verified 09/12/21 23:15 Assessment & Plan Assessment & Plan (1) Schizophrenia: Status: Acute Code(s): F20.9 - Schizophrenia, unspecified Plan the patient is an elderly [place]arag[place] female with a long history of schizophrenia admitted for exacerbation of psychotic symptoms in the context of noncompliance. Plan 1. Invega Sustenna 156 mg IM monthly 2. Encourage compliance. 3. Waiting for placement I spent __20____ minutes with the patient and/or on the patient floor today, greater than?50% of which was spent counseling/coordinating care. Informed Consent: further education needed Reason for contiued inpatient stay Substantial Risk for: inability to function, rapid decompensation and med/psych decompensation
[2021-11-14 20:45] VITALS: RESP 16
[2021-11-15 07:30] VITALS: BP 169/78; PULSE 90; RESP 16; TEMP 36.3; O2SAT 98
--- NOTE | 2021-11-15 15:10 | P.PNPSI_ITS ---
Subjective Subjective Date of Service: 11/15/21 Reason For Visit: Psychosis Subjective Notes: Conditional Voluntary Interim History: The nursing staff reported that the patient, was as usual, and cooperative with vital signs and medications. She has been easily redirectable and she was seen participating insert in groups. She stated that she wants to go back to [place] Mental Status Exam Mental Status Exam Patient Appearance: Well Grooomed Patient Orientation: Person Level of Consciousness: Awake Patient Behavior: Cooperative Mood Description: Calm Affect Description: Constricted Patient Cognition Impaired: Yes Ability to Follow Directions: Good Speech Pattern: Clear Hallucinations: Auditory Delusions: Paranoid Ideation and Grandiose Thought Process: Distracted Thought Content: positive for [place] and positive for Poverty of Content Judgement: Fair Diagnostics Vital Signs (24Hr): Vital Signs - 24 hr 11/14/21 20:45 11/15/21 07:30 Temperature 97.3 F Pulse Rate 90 Respiratory Rate 16 16 Blood Pressure 169/78 H Pulse Oximetry 98 Oxygen Delivery Method Room Air BMI result Body Mass Index 26.1 Labs Results: 11/11/21 18:22 11/11/21 18:22 Medications Medications Current Medications Acetaminophen (Acetaminophen 325 Mg Tablet) 650 mg PO Q6H PRN PRN Reason: Headache/Pain Mild Scale (1-3) Last Admin: 11/09/21 03:38 Dose: 650 mg Al Hydroxide/Mg Hydroxide (Magnesium Hydrox/Alum Hydrox 30 Ml Oral.Susp) 30 ml PO Q6H PRN PRN Reason: Heartburn/Nausea Amlodipine Besylate (Amlodipine Besylate 10 Mg Tablet) 10 mg PO DAILY [facility]; Protocol Last Admin: 11/15/21 08:56 Dose: Not Given Benzocaine (Throat Lozenge, Medicated Lozenge) 1 lozenge MUCOUS MEM Q2H PRN PRN Reason: Sore Throat Last Admin: 10/29/21 06:48 Dose: 1 lozenge Famotidine (Famotidine 20 Mg Tablet) 20 mg PO BID PRN PRN Reason: heartburn Guaifenesin (Guaifenesin 200 Mg/10 Ml 10 Ml Liquid) 10 ml PO Q4H PRN PRN Reason: Cough Hydroxyzine HCl (Hydroxyzine Hcl 25 Mg Tablet) 25 mg PO BEDTIME PRN PRN Reason: Anxiety Lisinopril (Lisinopril 40 Mg Tablet) 40 mg PO DAILY [facility]; Protocol Last Admin: 11/15/21 08:56 Dose: Not Given Loperamide HCl (Loperamide Hcl 2 Mg Capsule) 2 mg PO Q4H PRN PRN Reason: Diarrhea Last Admin: 10/15/21 09:30 Dose: 2 mg Magnesium Hydroxide (Milk Of Magnesia 30 Ml Oral.Susp) 30 ml PO DAILY PRN PRN Reason: Constipation Trazodone HCl (Trazodone Hcl 50 Mg Tablet) 50 mg PO BEDTIME PRN PRN Reason: Insomnia Last Admin: 10/12/21 20:50 Dose: 50 mg Allergies Allergies Allergy/AdvReac Type Severity Reaction Status Date / Time aspirin Allergy Unknown Verified 09/12/21 23:15 Assessment & Plan Assessment & Plan (1) Schizophrenia: Status: Acute Code(s): F20.9 - Schizophrenia, unspecified Plan the patient is an elderly [place] female with a long history of schizophrenia admitted for exacerbation of psychotic symptoms in the context of noncompliance. Plan 1. Invega Sustenna 156 mg IM monthly 2. Encourage compliance. 3. Waiting for placement I spent ___20___ minutes with the patient and/or on the patient floor today, greater than?50% of which was spent counseling/coordinating care. Reason for contiued inpatient stay Substantial Risk for: inability to function, rapid decompensation and med/psych decompensation
[2021-11-15 18:00] VITALS: BP 209/98; PULSE 88; RESP 18; TEMP 36.1; O2SAT 98
[2021-11-16 06:00] VITALS: BP 180/83; PULSE 110; RESP 16; TEMP 36.2; O2SAT 99
[2021-11-16] MEDS: lisinopriL 40 MG TABLET PO (11:50)
--- NOTE | 2021-11-16 14:46 | HO.PSYCHPN ---
Subjective Subjective Date of Service: 11/16/21 Reason For Visit: Psychosis Subjective Notes: Conditional Voluntary Interim History: the nursing staff reported that she has refused vital signs and medications. Today I spoke with her and I explained that she needs to take her blood pressure medications. She is pleasant and cooperative chronically psychotic but easily redirectable. She is waiting for placement Mental Status Exam Mental Status Exam Patient Appearance: Well Grooomed Patient Orientation: Person Level of Consciousness: Awake Patient Behavior: Cooperative Mood Description: Withdrawn Affect Description: Labile Patient Cognition Impaired: Yes Speech Pattern: Clear Hallucinations: Auditory Delusions: Paranoid Ideation and Grandiose Thought Process: Distracted Thought Content: positive for Poverty of Content Judgement: Fair Diagnostics Vital Signs (24Hr): Vital Signs - 24 hr 11/15/21 18:00 Temperature 97 F Pulse Rate 88 Respiratory Rate 18 Blood Pressure 209/98 H Pulse Oximetry 98 Oxygen Delivery Method Room Air BMI result Body Mass Index 26.1 Labs Results: 11/11/21 18:22 11/11/21 18:22 Medications Medications Current Medications Acetaminophen (Acetaminophen 325 Mg Tablet) 650 mg PO Q6H PRN PRN Reason: Headache/Pain Mild Scale (1-3) Last Admin: 11/09/21 03:38 Dose: 650 mg Al Hydroxide/Mg Hydroxide (Magnesium Hydrox/Alum Hydrox 30 Ml Oral.Susp) 30 ml PO Q6H PRN PRN Reason: Heartburn/Nausea Amlodipine Besylate (Amlodipine Besylate 10 Mg Tablet) 10 mg PO DAILY [facility]; Protocol Last Admin: 11/16/21 09:56 Dose: Not Given Benzocaine (Throat Lozenge, Medicated Lozenge) 1 lozenge MUCOUS MEM Q2H PRN PRN Reason: Sore Throat Last Admin: 10/29/21 06:48 Dose: 1 lozenge Famotidine (Famotidine 20 Mg Tablet) 20 mg PO BID PRN PRN Reason: heartburn Guaifenesin (Guaifenesin 200 Mg/10 Ml 10 Ml Liquid) 10 ml PO Q4H PRN PRN Reason: Cough Hydroxyzine HCl (Hydroxyzine Hcl 25 Mg Tablet) 25 mg PO BEDTIME PRN PRN Reason: Anxiety Lisinopril (Lisinopril 40 Mg Tablet) 40 mg PO DAILY [facility]; Protocol Last Admin: 11/16/21 11:50 Dose: 40 mg Loperamide HCl (Loperamide Hcl 2 Mg Capsule) 2 mg PO Q4H PRN PRN Reason: Diarrhea Last Admin: 10/15/21 09:30 Dose: 2 mg Magnesium Hydroxide (Milk Of Magnesia 30 Ml Oral.Susp) 30 ml PO DAILY PRN PRN Reason: Constipation Trazodone HCl (Trazodone Hcl 50 Mg Tablet) 50 mg PO BEDTIME PRN PRN Reason: Insomnia Last Admin: 10/12/21 20:50 Dose: 50 mg Allergies Allergies Allergy/AdvReac Type Severity Reaction Status Date / Time aspirin Allergy Unknown Verified 09/12/21 23:15 Assessment & Plan Assessment & Plan (1) Schizophrenia: Status: Acute Code(s): F20.9 - Schizophrenia, unspecified Plan the patient is an elderly [place] female with a long history of schizophrenia admitted for exacerbation of psychotic symptoms in the context of noncompliance. Plan 1. Invega Sustenna 156 mg IM monthly 2. Encourage compliance. 3. Waiting for placement I spent ___20___ minutes with the patient and/or on the patient floor today, greater than?50% of which was spent counseling/coordinating care. Reason for contiued inpatient stay Substantial Risk for: inability to function, rapid decompensation and med/psych decompensation
--- NOTE | 2021-11-17 14:11 | HO.PSYCHPN ---
Subjective Subjective Date of Service: 11/17/21 Reason For Visit: Psychosis Subjective Notes: Conditional Voluntary Interim History: the nursing staff reported the patient has been isolative. She took lisinopril yesterday she stated that she had diarrhea and she does not want to take anymore. The social media executive has contacted [facility] and we are pursuing for transfer as soon as possible. On interview the patient denies new symptoms she is pleasant, cooperative, waiting for placement Mental Status Exam Mental Status Exam Patient Appearance: Well Grooomed Patient Orientation: Person Level of Consciousness: Awake Patient Behavior: Cooperative Mood Description: Constricted Affect Description: Suspicious Patient Cognition Impaired: Yes Ability to Follow Directions: Good Speech Pattern: Clear Hallucinations: None Delusions: Paranoid Ideation Thought Process: Distracted Thought Content: positive for [place] and positive for Poverty of Content Judgement: Poor Diagnostics Vital Signs (24Hr): BMI result Body Mass Index 26.1 Labs Results: 11/11/21 18:22 11/11/21 18:22 Medications Medications Current Medications Acetaminophen (Acetaminophen 325 Mg Tablet) 650 mg PO Q6H PRN PRN Reason: Headache/Pain Mild Scale (1-3) Last Admin: 11/09/21 03:38 Dose: 650 mg Al Hydroxide/Mg Hydroxide (Magnesium Hydrox/Alum Hydrox 30 Ml Oral.Susp) 30 ml PO Q6H PRN PRN Reason: Heartburn/Nausea Amlodipine Besylate (Amlodipine Besylate 10 Mg Tablet) 10 mg PO DAILY [facility]; Protocol Last Admin: 11/17/21 10:00 Dose: Not Given Benzocaine (Throat Lozenge, Medicated Lozenge) 1 lozenge MUCOUS MEM Q2H PRN PRN Reason: Sore Throat Last Admin: 10/29/21 06:48 Dose: 1 lozenge Famotidine (Famotidine 20 Mg Tablet) 20 mg PO BID PRN PRN Reason: heartburn Guaifenesin (Guaifenesin 200 Mg/10 Ml 10 Ml Liquid) 10 ml PO Q4H PRN PRN Reason: Cough Hydroxyzine HCl (Hydroxyzine Hcl 25 Mg Tablet) 25 mg PO BEDTIME PRN PRN Reason: Anxiety Lisinopril (Lisinopril 40 Mg Tablet) 40 mg PO DAILY [facility]; Protocol Last Admin: 11/17/21 10:00 Dose: Not Given Loperamide HCl (Loperamide Hcl 2 Mg Capsule) 2 mg PO Q4H PRN PRN Reason: Diarrhea Last Admin: 10/15/21 09:30 Dose: 2 mg Magnesium Hydroxide (Milk Of Magnesia 30 Ml Oral.Susp) 30 ml PO DAILY PRN PRN Reason: Constipation Trazodone HCl (Trazodone Hcl 50 Mg Tablet) 50 mg PO BEDTIME PRN PRN Reason: Insomnia Last Admin: 10/12/21 20:50 Dose: 50 mg Allergies Allergies Allergy/AdvReac Type Severity Reaction Status Date / Time aspirin Allergy Unknown Verified 09/12/21 23:15 Assessment & Plan Assessment & Plan (1) Schizophrenia: Status: Acute Code(s): F20.9 - Schizophrenia, unspecified Plan the patient is an elderly [place] female with a long history of schizophrenia admitted for exacerbation of psychotic symptoms in the context of noncompliance. Plan 1. Invega Sustenna 156 mg IM monthly 2. Encourage compliance. 3. Waiting for placement I spent minutes with the patient and/or on the patient floor today, greater than?50% of which was spent counseling/coordinating care. Reason for contiued inpatient stay Substantial Risk for: inability to function, rapid decompensation and med/psych decompensation
--- NOTE | 2021-11-18 22:05 | HO.PSYCHPN ---
Subjective Subjective Date of Service: 11/18/21 Reason For Visit: Psychosis Subjective Notes: Conditional Voluntary Interim History: Patient will superficially pleasant and come. Not aggressive or combative as seen in the milieu. Bizarre delusional preoccupations continue but not overly caught up in a way that is causing aggressive behavior or agitation. She does complain of something noted in her left forearm no pain no fever Mental Status Exam Mental Status Exam Patient Appearance: Well Grooomed Patient Orientation: Person and Place Level of Consciousness: Awake Patient Behavior: Cooperative Mood Description: Constricted and Cheerful Affect Description: Cheerful Patient Cognition Impaired: Yes Ability to Follow Directions: Good Speech Pattern: Clear Hallucinations: None Delusions: Paranoid Ideation and Bizarre ( with multiple baby's) Thought Process: Distracted Thought Content: positive for [place], positive for Poverty of Content, negative for Suicidal Ideation or positive for Homicidal Ideation Judgement: Poor Diagnostics Vital Signs (24Hr): BMI result Body Mass Index 26.1 Labs Results: 11/11/21 18:22 11/11/21 18:22 Medications Medications Current Medications Acetaminophen (Acetaminophen 325 Mg Tablet) 650 mg PO Q6H PRN PRN Reason: Headache/Pain Mild Scale (1-3) Last Admin: 11/09/21 03:38 Dose: 650 mg Al Hydroxide/Mg Hydroxide (Magnesium Hydrox/Alum Hydrox 30 Ml Oral.Susp) 30 ml PO Q6H PRN PRN Reason: Heartburn/Nausea Amlodipine Besylate (Amlodipine Besylate 10 Mg Tablet) 10 mg PO DAILY [facility]; Protocol Last Admin: 11/18/21 08:43 Dose: Not Given Benzocaine (Throat Lozenge, Medicated Lozenge) 1 lozenge MUCOUS MEM Q2H PRN PRN Reason: Sore Throat Last Admin: 10/29/21 06:48 Dose: 1 lozenge Famotidine (Famotidine 20 Mg Tablet) 20 mg PO BID PRN PRN Reason: heartburn Guaifenesin (Guaifenesin 200 Mg/10 Ml 10 Ml Liquid) 10 ml PO Q4H PRN PRN Reason: Cough Hydroxyzine HCl (Hydroxyzine Hcl 25 Mg Tablet) 25 mg PO BEDTIME PRN PRN Reason: Anxiety Lisinopril (Lisinopril 40 Mg Tablet) 40 mg PO DAILY [facility]; Protocol Last Admin: 11/18/21 08:43 Dose: Not Given Loperamide HCl (Loperamide Hcl 2 Mg Capsule) 2 mg PO Q4H PRN PRN Reason: Diarrhea Last Admin: 10/15/21 09:30 Dose: 2 mg Magnesium Hydroxide (Milk Of Magnesia 30 Ml Oral.Susp) 30 ml PO DAILY PRN PRN Reason: Constipation Trazodone HCl (Trazodone Hcl 50 Mg Tablet) 50 mg PO BEDTIME PRN PRN Reason: Insomnia Last Admin: 10/12/21 20:50 Dose: 50 mg Allergies Allergies Allergy/AdvReac Type Severity Reaction Status Date / Time aspirin Allergy Unknown Verified 09/12/21 23:15 Assessment & Plan Assessment & Plan (1) Schizophrenia: Status: Acute Code(s): F20.9 - Schizophrenia, unspecified Plan the patient is an elderly [place]ian female with a long history of schizophrenia admitted for exacerbation of psychotic symptoms in the context of noncompliance. Plan 1. Invega Sustenna 156 mg IM monthly 2. Encourage compliance. 3. Waiting for placement Assessment and plan for 11/18/2021 Patient superficially pleasant complained of left arm growth and soft diffuse superficial mass noted no fever no obvious abscess will get med consult Reportedly not noted previously Continue injectable for psychosis patient on referral list for [facility] I spent minutes with the patient and/or on the patient floor today, greater than?50% of which was spent counseling/coordinating care. Reason for contiued inpatient stay Substantial Risk for: inability to function and rapid decompensation
[2021-11-19 06:00] VITALS: BP 147/74; PULSE 89; RESP 17; TEMP 36; O2SAT 97
--- NOTE | 2021-11-19 21:03 | P.PNPSI_ITS ---
Subjective Subjective Date of Service: 11/19/21 Reason For Visit: Psychosis Subjective Notes: Conditional Voluntary Interim History: Patient somewhat isolative at times superficially pleasant can engage in some groups. Ongoing bizarre delusional material at times brought up but not overly agitated generally Medication Compliance: Yes (Mostly) Attending Groups: Intermittent Review of Systems Palpable soft ill-defined forearm mass no fever not hard Mental Status Exam Mental Status Exam Patient Appearance: Well Grooomed Patient Orientation: Person and Place Level of Consciousness: Awake Patient Behavior: Cooperative Mood Description: Constricted and Cheerful Affect Description: Cheerful and Apprehensive Patient Cognition Impaired: Yes Ability to Follow Directions: Good Speech Pattern: Clear Hallucinations: None Delusions: Paranoid Ideation and Bizarre ( with multiple baby's) Thought Process: Distracted Thought Content: positive for [place], positive for Poverty of Content, negative for Suicidal Ideation or negative for Homicidal Ideation Judgement: Poor Judgement and Insight: Improving insight Diagnostics Vital Signs (24Hr): Vital Signs - 24 hr 11/19/21 06:00 Temperature 96.8 F Pulse Rate 89 Respiratory Rate 17 Blood Pressure 147/74 H Pulse Oximetry 97 Oxygen Delivery Method Room Air BMI result Body Mass Index 26.1 Labs Results: 11/11/21 18:22 11/11/21 18:22 Medications Medications Current Medications Acetaminophen (Acetaminophen 325 Mg Tablet) 650 mg PO Q6H PRN PRN Reason: Headache/Pain Mild Scale (1-3) Last Admin: 11/09/21 03:38 Dose: 650 mg Al Hydroxide/Mg Hydroxide (Magnesium Hydrox/Alum Hydrox 30 Ml Oral.Susp) 30 ml PO Q6H PRN PRN Reason: Heartburn/Nausea Amlodipine Besylate (Amlodipine Besylate 10 Mg Tablet) 10 mg PO DAILY [facility]; Protocol Last Admin: 11/19/21 09:00 Dose: Not Given Benzocaine (Throat Lozenge, Medicated Lozenge) 1 lozenge MUCOUS MEM Q2H PRN PRN Reason: Sore Throat Last Admin: 10/29/21 06:48 Dose: 1 lozenge Famotidine (Famotidine 20 Mg Tablet) 20 mg PO BID PRN PRN Reason: heartburn Guaifenesin (Guaifenesin 200 Mg/10 Ml 10 Ml Liquid) 10 ml PO Q4H PRN PRN Reason: Cough Hydroxyzine HCl (Hydroxyzine Hcl 25 Mg Tablet) 25 mg PO BEDTIME PRN PRN Reason: Anxiety Lisinopril (Lisinopril 40 Mg Tablet) 40 mg PO DAILY [facility]; Protocol Last Admin: 11/19/21 09:00 Dose: Not Given Loperamide HCl (Loperamide Hcl 2 Mg Capsule) 2 mg PO Q4H PRN PRN Reason: Diarrhea Last Admin: 10/15/21 09:30 Dose: 2 mg Magnesium Hydroxide (Milk Of Magnesia 30 Ml Oral.Susp) 30 ml PO DAILY PRN PRN Reason: Constipation Trazodone HCl (Trazodone Hcl 50 Mg Tablet) 50 mg PO BEDTIME PRN PRN Reason: Insomnia Last Admin: 10/12/21 20:50 Dose: 50 mg Allergies Allergies Allergy/AdvReac Type Severity Reaction Status Date / Time aspirin Allergy Unknown Verified 09/12/21 23:15 Assessment & Plan Assessment & Plan (1) Schizophrenia: Status: Acute Code(s): F20.9 - Schizophrenia, unspecified Plan the patient is an elderly [place] female with a long history of schizophrenia admitted for exacerbation of psychotic symptoms in the context of noncompliance. Plan 1. Invega Sustenna 156 mg IM monthly 2. Encourage compliance. 3. Waiting for placement Assessment and plan for 11/18/2021 Patient superficially pleasant complained of left arm growth and soft diffuse superficial mass noted no fever no obvious abscess will get med consult Reportedly not noted previously Continue injectable for psychosis patient on referral list for [facility] Assessment and plan for 11/19/2021 Patient with schizophrenia somewhat stabilized on Invega injection. Remains delusional but much less in the way of agitation irritability. Forearm diffuse in [place] noted soft irregular margins hospitalist consult continue discharge planning I spent minutes with the patient and/or on the patient floor today, greater than?50% of which was spent counseling/coordinating care. Reason for contiued inpatient stay Substantial Risk for: inability to function and rapid decompensation
[2021-11-20 06:00] VITALS: BP 184/84; PULSE 99; RESP 16; TEMP 35.8; O2SAT 98
--- NOTE | 2021-11-20 13:50 | P.PNPSI_ITS ---
Subjective Subjective Date of Service: 11/20/21 Reason For Visit: Psychosis Subjective Notes: Conditional Voluntary Interim History: The nursing staff reported that she remains delusional, refusing PO meds and VS but easily redirectable, on Invega Sustenna. On interview, she stated that she is and she wants to go to [place]. Mental Status Exam Mental Status Exam Patient Appearance: Well Grooomed Patient Orientation: Person Level of Consciousness: Awake Patient Behavior: Appropriate Mood Description: Appropriate Affect Description: Labile Patient Cognition Impaired: Yes Ability to Follow Directions: Fair Speech Pattern: Clear Hallucinations: Auditory Delusions: Paranoid Ideation, Grandiose and Ideas of Reference Thought Process: Evasive and Slowed Thinking Thought Content: positive for [place] Judgement: Poor Diagnostics Vital Signs (24Hr): Vital Signs - 24 hr 11/20/21 06:00 Temperature 96.4 F L Pulse Rate 99 Respiratory Rate 16 Blood Pressure 184/84 H Pulse Oximetry 98 Oxygen Delivery Method Room Air BMI result Body Mass Index 26.1 Labs Results: 11/11/21 18:22 11/11/21 18:22 Medications Medications Current Medications Acetaminophen (Acetaminophen 325 Mg Tablet) 650 mg PO Q6H PRN PRN Reason: Headache/Pain Mild Scale (1-3) Last Admin: 11/09/21 03:38 Dose: 650 mg Al Hydroxide/Mg Hydroxide (Magnesium Hydrox/Alum Hydrox 30 Ml Oral.Susp) 30 ml PO Q6H PRN PRN Reason: Heartburn/Nausea Amlodipine Besylate (Amlodipine Besylate 10 Mg Tablet) 10 mg PO DAILY [facility]; Protocol Last Admin: 11/20/21 10:37 Dose: Not Given Benzocaine (Throat Lozenge, Medicated Lozenge) 1 lozenge MUCOUS MEM Q2H PRN PRN Reason: Sore Throat Last Admin: 10/29/21 06:48 Dose: 1 lozenge Famotidine (Famotidine 20 Mg Tablet) 20 mg PO BID PRN PRN Reason: heartburn Guaifenesin (Guaifenesin 200 Mg/10 Ml 10 Ml Liquid) 10 ml PO Q4H PRN PRN Reason: Cough Hydroxyzine HCl (Hydroxyzine Hcl 25 Mg Tablet) 25 mg PO BEDTIME PRN PRN Reason: Anxiety Lisinopril (Lisinopril 40 Mg Tablet) 40 mg PO DAILY [facility]; Protocol Last Admin: 11/20/21 10:37 Dose: Not Given Loperamide HCl (Loperamide Hcl 2 Mg Capsule) 2 mg PO Q4H PRN PRN Reason: Diarrhea Last Admin: 10/15/21 09:30 Dose: 2 mg Magnesium Hydroxide (Milk Of Magnesia 30 Ml Oral.Susp) 30 ml PO DAILY PRN PRN Reason: Constipation Trazodone HCl (Trazodone Hcl 50 Mg Tablet) 50 mg PO BEDTIME PRN PRN Reason: Insomnia Last Admin: 10/12/21 20:50 Dose: 50 mg Allergies Allergies Allergy/AdvReac Type Severity Reaction Status Date / Time aspirin Allergy Unknown Verified 09/12/21 23:15 Assessment & Plan Assessment & Plan (1) Schizophrenia: Status: Acute Code(s): F20.9 - Schizophrenia, unspecified Plan the patient is an elderly [place] female with a long history of jeanie izophrenia admitted for exacerbation of psychotic symptoms in the context of noncompliance. Plan 1. Invega Sustenna 156 mg IM monthly 2. Encourage compliance. 3. Waiting for placement I spent __20____ minutes with the patient and/or on the patient floor today, greater than?50% of which was spent counseling/coordinating care. Reason for contiued inpatient stay Substantial Risk for: inability to function, rapid decompensation and med/psych decompensation
--- NOTE | 2021-11-21 10:08 | PM.EVENT ---
Event Note Date of Service: 11/21/21 Event Note: Asked to see patient for a L forearm mass. Pt seen and examined. RN bedside. No reported changes in the mass since patient has been hospitalization. Pt denies any pain or fevers. No decrease in ROM. She does not know how long it has been present for. Exam LUE -- bicep region appears to swollen compared to L without a definite palapable mass; not warm / tender; ROM at elbow is full A/P 71 yo with LUE swelling of unknown duration but unchanged per RN reports doubt anything worrisome, but will check soft tissue us
--- NOTE | 2021-11-21 16:01 | P.PNPSI_ITS ---
Subjective Subjective Date of Service: 11/21/21 Reason For Visit: Psychosis Subjective Notes: Conditional Voluntary Interim History: The nursing staff reported the patient still noncompliant with medications and vital signs but she is easely redirectable. On interview the patient remains delusional P impregnated no safety concerns Mental Status Exam Mental Status Exam Patient Appearance: Appropriate Patient Orientation: Person Level of Consciousness: Awake Patient Behavior: Guarded and Passive Mood Description: Calm Affect Description: Labile Patient Cognition Impaired: Yes Ability to Follow Directions: Good Speech Pattern: Impoverished Hallucinations: Auditory Delusions: Paranoid Ideation and Grandiose Thought Process: Linear Thought Content: positive for [place] and positive for Loose Associations Judgement: Poor Diagnostics Vital Signs (24Hr): BMI result Body Mass Index 26.1 Labs Results: 11/11/21 18:22 11/11/21 18:22 Medications Medications Current Medications Acetaminophen (Acetaminophen 325 Mg Tablet) 650 mg PO Q6H PRN PRN Reason: Headache/Pain Mild Scale (1-3) Last Admin: 11/09/21 03:38 Dose: 650 mg Al Hydroxide/Mg Hydroxide (Magnesium Hydrox/Alum Hydrox 30 Ml Oral.Susp) 30 ml PO Q6H PRN PRN Reason: Heartburn/Nausea Amlodipine Besylate (Amlodipine Besylate 10 Mg Tablet) 10 mg PO DAILY [facility]SES; P rotocol Last Admin: 11/21/21 08:30 Dose: Not Given Benzocaine (Throat Lozenge, Medicated Lozenge) 1 lozenge MUCOUS MEM Q2H PRN PRN Reason: Sore Throat Last Admin: 10/29/21 06:48 Dose: 1 lozenge Famotidine (Famotidine 20 Mg Tablet) 20 mg PO BID PRN PRN Reason: heartburn Guaifenesin (Guaifenesin 200 Mg/10 Ml 10 Ml Liquid) 10 ml PO Q4H PRN PRN Reason: Cough Hydroxyzine HCl (Hydroxyzine Hcl 25 Mg Tablet) 25 mg PO BEDTIME PRN PRN Reason: Anxiety Lisinopril (Lisinopril 40 Mg Tablet) 40 mg PO DAILY [facility]SES; Protocol Last Admin: 11/21/21 08:30 Dose: Not Given Loperamide HCl (Loperamide Hcl 2 Mg Capsule) 2 mg PO Q4H PRN PRN Reason: Diarrhea Last Admin: 10/15/21 09:30 Dose: 2 mg Magnesium Hydroxide (Milk Of Magnesia 30 Ml Oral.Susp) 30 ml PO DAILY PRN PRN Reason: Constipation Trazodone HCl (Trazodone Hcl 50 Mg Tablet) 50 mg PO BEDTIME PRN PRN Reason: Insomnia Last Admin: 10/12/21 20:50 Dose: 50 mg Allergies Allergies Allergy/AdvReac Type Severity Reaction Status Date / Time aspirin Allergy Unknown Verified 09/12/21 23:15 Assessment & Plan Assessment & Plan (1) Schizophrenia: Status: Acute Code(s): F20.9 - Schizophrenia, unspecified Plan the patient is an elderly Tajik female with a long history of schizo phrenia admitted for exacerbation of psychotic symptoms in the context of noncompliance. Plan 1. Invega Sustenna 156 mg IM monthly 2. Encourage compliance. 3. Waiting for placement I spent ___20___ minutes with the patient and/or on the patient floor today, greater than?50% of which was spent counseling/coordinating care. Reason for contiued inpatient stay Substantial Risk for: inability to function, rapid decompensation and med/psych decompensation
--- NOTE | 2021-11-21 16:18 | HO.PSYCHPN ---
Subjective Subjective Date of Service: 11/21/21 Reason For Visit: Psychosis Diagnostics Vital Signs (24Hr): BMI result Body Mass Index 26.1 Labs Results: 11/11/21 18:22 11/11/21 18:22 Medications Medications Current Medications Acetaminophen (Acetaminophen 325 Mg Tablet) 650 mg PO Q6H PRN PRN Reason: Headache/Pain Mild Scale (1-3) Last Admin: 11/09/21 03:38 Dose: 650 mg Al Hydroxide/Mg Hydroxide (Magnesium Hydrox/Alum Hydrox 30 Ml Oral.Susp) 30 ml PO Q6H PRN PRN Reason: Heartburn/Nausea Amlodipine Besylate (Amlodipine Besylate 10 Mg Tablet) 10 mg PO DAILY [facility]; Protocol Last Admin: 11/21/21 08:30 Dose: Not Given Benzocaine (Throat Lozenge, Medicated Lozenge) 1 lozenge MUCOUS MEM Q2H PRN PRN Reason: Sore Throat Last Admin: 10/29/21 06:48 Dose: 1 lozenge Famotidine (Famotidine 20 Mg Tablet) 20 mg PO BID PRN PRN Reason: heartburn Guaifenesin (Guaifenesin 200 Mg/10 Ml 10 Ml Liquid) 10 ml PO Q4H PRN PRN Reason: Cough Hydroxyzine HCl (Hydroxyzine Hcl 25 Mg Tablet) 25 mg PO BEDTIME PRN PRN Reason: Anxiety Lisinopril (Lisinopril 40 Mg Tablet) 40 mg PO DAILY [facility]; Protocol Last Admin: 11/21/21 08:30 Dose: Not Given Loperamide HCl (Loperamide Hcl 2 Mg Capsule) 2 mg PO Q4H PRN PRN Reason: Diarrhea Last Admin: 10/15/21 09:30 Dose: 2 mg Magnesium Hydroxide (Milk Of Magnesia 30 Ml Oral.Susp) 30 ml PO DAILY PRN PRN Reason: Constipation Trazodone HCl (Trazodone Hcl 50 Mg Tablet) 50 mg PO BEDTIME PRN PRN Reason: Insomnia Last Admin: 10/12/21 20:50 Dose: 50 mg Allergies Allergies Allergy/AdvReac Type Severity Reaction Status Date / Time aspirin Allergy Unknown Verified 09/12/21 23:15 Assessment & Plan Assessment & Plan (1) Schizophrenia: Status: Acute Code(s): F20.9 - Schizophrenia, unspecified Plan the patient is an elderly Nigerian female with a long history of schizophrenia admitted for exacerbation of psychotic symptoms in the context of noncompliance. Plan 1. Invega Sustenna 156 mg IM monthly 2. Encourage compliance. 3. Waiting for placement I spent minutes with the patient and/or on the patient floor today, greater than?50% of which was spent counseling/coordinating care.
[2021-11-21 20:30] VITALS: BP 174/72; PULSE 78; RESP 18; TEMP 36.5; O2SAT 98
[2021-11-21] MEDS: Docusate Sodium 100 MG CAPSULE PO (20:32)
[2021-11-22 07:30] VITALS: BP 145/68; PULSE 88; RESP 17; TEMP 36.4; O2SAT 96
--- NOTE | 2021-11-22 14:37 | HO.PSYCHPN ---
Subjective Subjective Date of Service: 11/22/21 Reason For Visit: Psychosis Subjective Notes: Conditional Voluntary Interim History: The nursing staff reported the patient has refused medications as usual, she is pleasant and easily redirectable. Today we had a family meeting with her family and we explained the challenges of placement. On interview the patient denies new symptoms she is pleasantly psychotic stating that she is . Mental Status Exam Mental Status Exam Patient Appearance: Appropriate Patient Orientation: Person and Situation Level of Consciousness: Awake Patient Behavior: Guarded and Suspicious Mood Description: Labile Affect Description: Constricted Patient Cognition Impaired: Yes Ability to Follow Directions: Good Speech Pattern: Clear Memory Description: Intact Hallucinations: Auditory Delusions: Paranoid Ideation and Grandiose Thought Process: Distracted and Evasive Thought Content: positive for [place] Judgement: Fair Diagnostics Vital Signs (24Hr): Vital Signs - 24 hr 11/21/21 20:30 11/22/21 07:30 Temperature 97.7 F 97.6 F Pulse Rate 78 88 Respiratory Rate 18 17 Blood Pressure 174/72 H 145/68 H Pulse Oximetry 98 96 Oxygen Delivery Method Room Air Room Air BMI result Body Mass Index 26.1 Labs Results: 11/11/21 18:22 11/11/21 18:22 Medications Medications Current Medications Acetaminophen (Acetaminophen 325 Mg Tablet) 650 mg PO Q6H PRN PRN Reason: Headache/Pain Mild Scale (1-3) Last Admin: 11/09/21 03:38 Dose: 650 mg Al Hydroxide/Mg Hydroxide (Magnesium Hydrox/Alum Hydrox 30 Ml Oral.Susp) 30 ml PO Q6H PRN PRN Reason: Heartburn/Nausea Amlodipine Besylate (Amlodipine Besylate 10 Mg Tablet) 10 mg PO DAILY [facility]; Protocol Last Admin: 11/22/21 08:27 Dose: Not Given Benzocaine (Throat Lozenge, Medicated Lozenge) 1 lozenge MUCOUS MEM Q2H PRN PRN Reason: Sore Throat Last Admin: 10/29/21 06:48 Dose: 1 lozenge Docusate Sodium (Docusate Sodium 100 Mg Capsule) 100 mg PO BEDTIME PRN PRN Reason: constipation Last Admin: 11/21/21 20:32 Dose: 100 mg Famotidine (Famotidine 20 Mg Tablet) 20 mg PO BID PRN PRN Reason: heartburn Guaifenesin (Guaifenesin 200 Mg/10 Ml 10 Ml Liquid) 10 ml PO Q4H PRN PRN Reason: Cough Hydroxyzine HCl (Hydroxyzine Hcl 25 Mg Tablet) 25 mg PO BEDTIME PRN PRN Reason: Anxiety Lisinopril (Lisinopril 40 Mg Tablet) 40 mg PO DAILY [facility]; Protocol Last Admin: 11/22/21 08:27 Dose: Not Given Loperamide HCl (Loperamide Hcl 2 Mg Capsule) 2 mg PO Q4H PRN PRN Reason: Diarrhea Last Admin: 10/15/21 09:30 Dose: 2 mg Magnesium Hydroxide (Milk Of Magnesia 30 Ml Oral.Susp) 30 ml PO DAILY PRN PRN Reason: Constipation Trazodone HCl (Trazodone Hcl 50 Mg Tablet) 50 mg PO BEDTIME PRN PRN Reason: Insomnia Last Admin: 10/12/21 20:50 Dose: 50 mg Allergies Allergies Allergy/AdvReac Type Severity Reaction Status Date / Time aspirin Allergy Unknown Verified 09/12/21 23:15 Assessment & Plan Assessment & Plan (1) Schizophrenia: Status: Acute Code(s): F20.9 - Schizophrenia, unspecified Plan Elderly Dominican female, with a were with a history of schizophrenia nearly all his her adult life admitted for exacerbation of psychosis in the context of noncompliance. The patient is on Invega Sustenna and so far she remains pleasantly psychotic and easily redirectable. Plan 1. Waiting for placement. 2. Continue same treatment I spent __20____ minutes with the patient and/or on the patient floor today, greater than?50% of which was spent counseling/coordinating care. Reason for contiued inpatient stay Substantial Risk for: inability to function, rapid decompensation and med/psych decompensation
[2021-11-23 07:00] VITALS: BMI 26.4
--- NOTE | 2021-11-23 16:16 | P.PNPSI_ITS ---
Subjective Subjective Date of Service: 11/23/21 Reason For Visit: Psychosis Subjective Notes: Conditional Voluntary Interim History: the nursing staff reported the patient has refused her p.o. medications but she is easily redirectable. On interview the patient was having acknowledged stated that she was her daughter, she is chronically psychotic but easily redirectable Mental Status Exam Mental Status Exam Patient Appearance: Well Grooomed Patient Orientation: Person and Situation Level of Consciousness: Awake Patient Behavior: Guarded Mood Description: Calm Affect Description: Labile Patient Cognition Impaired: Yes Ability to Follow Directions: Good Speech Pattern: Clear Hallucinations: Auditory Delusions: Paranoid Ideation and Grandiose Thought Process: Distracted and Evasive Thought Content: positive for [place] and positive for Poverty of Content Judgement: Poor Diagnostics Vital Signs (24Hr): BMI result Body Mass Index 26.4 Labs Results: 11/11/21 18:22 11/11/21 18:22 Imaging Radiology Impressions: ITS Impressions Extremity Ultrasound 11/21/21 13:55 IMPRESSION: Findings suggestive of isoechoic fatty lesion/lipoma within the intramuscular compartment. Medications Medications Current Medications Acetaminophen (Acetaminophen 325 Mg Tablet) 650 mg PO Q6H PRN PRN Reason: Headache/Pain Mild Scale (1-3) Last Admin: 11/09/21 03:38 Dose: 650 mg Al Hydroxide/Mg Hydroxide (Magnesium Hydrox/Alum Hydrox 30 Ml Oral.Susp) 30 ml PO Q6H PRN PRN Reason: Heartburn/Nausea Amlodipine Besylate (Amlodipine Besylate 10 Mg Tablet) 10 mg PO DAILY [facility]; Protocol Last Admin: 11/23/21 12:16 Dose: Not Given Benzocaine (Throat Lozenge, Medicated Lozenge) 1 lozenge MUCOUS MEM Q2H PRN PRN Reason: Sore Throat Last Admin: 10/29/21 06:48 Dose: 1 lozenge Docusate Sodium (Docusate Sodium 100 Mg Capsule) 100 mg PO BEDTIME PRN PRN Reason: constipation Last Admin: 11/21/21 20:32 Dose: 100 mg Famotidine (Famotidine 20 Mg Tablet) 20 mg PO BID PRN PRN Reason: heartburn Guaifenesin (Guaifenesin 200 Mg/10 Ml 10 Ml Liquid) 10 ml PO Q4H PRN PRN Reason: Cough Hydroxyzine HCl (Hydroxyzine Hcl 25 Mg Tablet) 25 mg PO BEDTIME PRN PRN Reason: Anxiety Lisinopril (Lisinopril 40 Mg Tablet) 40 mg PO DAILY [facility]; Protocol Last Admin: 11/23/21 12:16 Dose: Not Given Loperamide HCl (Loperamide Hcl 2 Mg Capsule) 2 mg PO Q4H PRN PRN Reason: Diarrhea Last Admin: 10/15/21 09:30 Dose: 2 mg Magnesium Hydroxide (Milk Of Magnesia 30 Ml Oral.Susp) 30 ml PO DAILY PRN PRN Reason: Constipation Trazodone HCl (Trazodone Hcl 50 Mg Tablet) 50 mg PO BEDTIME PRN PRN Reason: Insomnia Last Admin: 10/12/21 20:50 Dose: 50 mg Allergies Allergies Allergy/AdvReac Type Severity Reaction Status Date / Time aspirin Allergy Unknown Verified 09/12/21 23:15 Assessment & Plan Assessment & Plan (1) Schizophrenia: Status: Acute Code(s): F20.9 - Schizophrenia, unspecified Plan Elderly Mauritanian female, with a were with a history of schizophrenia nearly all his her adult life admitted for exacerbation of psychosis in the context of noncompliance. The patient is on Invega Sustenna and so far she remains pleasantly psychotic and easily redirectable. Plan 1. Waiting for placement. 2. Continue same treatment I spent __20____ minutes with the patient and/or on the patient floor today, greater than?50% of which was spent counseling/coordinating care. Reason for contiued inpatient stay Substantial Risk for: inability to function, rapid decompensation and med/psych decompensation
[2021-11-24 07:40] VITALS: BP 149/78; PULSE 99; RESP 15; TEMP 36.4; O2SAT 95
[2021-11-24] MEDS: amLODIPine Besylate 10 MG TABLET PO (08:22)
[2021-11-24] MEDS: lisinopriL 40 MG TABLET PO (08:22)
[2021-11-24] MEDS: Loperamide HCl 2 MG CAPSULE PO (08:23)
--- NOTE | 2021-11-24 13:45 | P.PNPSI_ITS ---
Subjective Subjective Date of Service: 11/24/21 Reason For Visit: Psychosis Subjective Notes: Conditional Voluntary Interim History: The nursing staff reported no changes in her mental status, apparently she had diarrhea in our changing her diet to lactose free. Yesterday [facility] nurse outreach case manager came to visit her and review her case. On interview the patient denies new symptoms Mental Status Exam Mental Status Exam Patient Appearance: Well Grooomed Patient Orientation: Person and Situation Level of Consciousness: Awake Patient Behavior: Cooperative Mood Description: Withdrawn Affect Description: Labile Patient Cognition Impaired: Yes Ability to Follow Directions: Good Speech Pattern: Clear Hallucinations: Auditory Delusions: Paranoid Ideation Thought Process: Linear Thought Content: positive for Circumstantial Judgement: Fair Diagnostics Vital Signs (24Hr): Vital Signs - 24 hr 11/24/21 07:40 Temperature 97.5 F Pulse Rate 99 Respiratory Rate 15 Blood Pressure 149/78 H Pulse Oximetry 95 Oxygen Delivery Method Room Air BMI result Body Mass Index 26.4 Labs Results: 11/11/21 18:22 11/11/21 18:22 Imaging Radiology Impressions: ITS Impressions Extremity Ultrasound 11/21/21 13:55 IMPRESSION: Findings suggestive of isoechoic fatty lesion/lipoma within the intramuscular compartment. Medications Medications Current Medications Acetaminophen (Acetaminophen 325 Mg Tablet) 650 mg PO Q6H PRN PRN Reason: Headache/Pain Mild Scale (1-3) Last Admin: 11/09/21 03:38 Dose: 650 mg Al Hydroxide/Mg Hydroxide (Magnesium Hydrox/Alum Hydrox 30 Ml Oral.Susp) 30 ml PO Q6H PRN PRN Reason: Heartburn/Nausea Amlodipine Besylate (Amlodipine Besylate 10 Mg Tablet) 10 mg PO DAILY [facility]; Protocol Last Admin: 11/24/21 08:22 Dose: 10 mg Benzocaine (Throat Lozenge, Medicated Lozenge) 1 lozenge MUCOUS MEM Q2H PRN PRN Reason: Sore Throat Last Admin: 10/29/21 06:48 Dose: 1 lozenge Docusate Sodium (Docusate Sodium 100 Mg Capsule) 100 mg PO BEDTIME PRN PRN Reason: constipation Last Admin: 11/21/21 20:32 Dose: 100 mg Famotidine (Famotidine 20 Mg Tablet) 20 mg PO BID PRN PRN Reason: heartburn Guaifenesin (Guaifenesin 200 Mg/10 Ml 10 Ml Liquid) 10 ml PO Q4H PRN PRN Reason: Cough Hydroxyzine HCl (Hydroxyzine Hcl 25 Mg Tablet) 25 mg PO BEDTIME PRN PRN Reason: Anxiety Lisinopril (Lisinopril 40 Mg Tablet) 40 mg PO DAILY [facility]; Protocol Last Admin: 11/24/21 08:22 Dose: 40 mg Loperamide HCl (Loperamide Hcl 2 Mg Capsule) 2 mg PO Q4H PRN PRN Reason: Diarrhea Last Admin: 11/24/21 08:23 Dose: 2 mg Magnesium Hydroxide (Milk Of Magnesia 30 Ml Oral.Susp) 30 ml PO DAILY PRN PRN Reason: Constipation Trazodone HCl (Trazodone Hcl 50 Mg Tablet) 50 mg PO BEDTIME PRN PRN Reason: Insomnia Last Admin: 10/12/21 20:50 Dose: 50 mg Allergies Allergies Allergy/AdvReac Type Severity Reaction Status Date / Time aspirin Allergy Unknown Verified 09/12/21 23:15 Assessment & Plan Assessment & Plan (1) Schizophrenia: Status: Acute Code(s): F20.9 - Schizophrenia, unspecified Plan Elderly Maldivian female, with a were with a history of schizophrenia nearly all his her adult life admitted for exacerbation of psychosis in the context of noncompliance. The patient is on Invega Sustenna and so far she remains pleasantly psychotic and easily redirectable. Plan 1. Waiting for placement. 2. Continue same treatment I spent ___20___ minutes with the patient and/or on the patient floor today, greater than?50% of which was spent counseling/coordinating care. Reason for contiued inpatient stay Substantial Risk for: inability to function, rapid decompensation and med/psych decompensation
[2021-11-24 18:00] VITALS: BP 133/64; PULSE 76; RESP 18; TEMP 36.4; O2SAT 98
[2021-11-24] MEDS: Magnesium Hydrox/Alum Hydrox 30 ML ORAL.SUSP PO (23:25)
[2021-11-25 07:30] VITALS: BP 111/54; PULSE 76; RESP 16; TEMP 37.4; O2SAT 94
[2021-11-25] MEDS: amLODIPine Besylate 10 MG TABLET PO (09:26)
[2021-11-25] MEDS: lisinopriL 40 MG TABLET PO (09:26)
[2021-11-25] MEDS: Magnesium Hydrox/Alum Hydrox 30 ML ORAL.SUSP PO (10:48)
[2021-11-25] MEDS: Acetaminophen 325 MG TABLET 650 MG PO (10:50)
[2021-11-25] MEDS: Loperamide HCl 2 MG CAPSULE PO (16:29)
--- NOTE | 2021-11-25 18:31 | PC.NURSE ---
Patient very calm, cooperative and pleasant this shift. Compliant with vitals and meds. Enjoyed visit from her daughter and grandson. Patient in good behavioral control throughout shift.
[2021-11-25 19:50] VITALS: BP 112/48; PULSE 76; RESP 16; TEMP 36.6; O2SAT 97
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
[2021-11-26 07:30] VITALS: BP 111/55; PULSE 84; RESP 14; TEMP 36.6; O2SAT 93
[2021-11-26] MEDS: amLODIPine Besylate 10 MG TABLET PO (08:39)
[2021-11-26] MEDS: lisinopriL 40 MG TABLET PO (08:39)
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
[2021-11-27 07:30] VITALS: BP 132/61; PULSE 97; RESP 17; TEMP 36.4; O2SAT 99
[2021-11-27] MEDS: Acetaminophen 325 MG TABLET 650 MG PO (09:01)
[2021-11-27] MEDS: amLODIPine Besylate 10 MG TABLET PO (09:01)
[2021-11-27] MEDS: lisinopriL 40 MG TABLET PO (09:01)
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
[2021-11-28] MEDS: Acetaminophen 325 MG TABLET 650 MG PO ×2 (00:02→10:45)
--- NOTE | 2021-11-28 15:27 | P.PNPSI_ITS ---
Subjective Subjective Date of Service: 11/28/21 Reason For Visit: Psychosis Subjective Notes: Conditional Voluntary Interim History: the nursing staff reported the patient remains delusional, stating that she has now for babies. On interview the patient remains chronically delusional but easily redirectable, she gifted me her arts and craft project. No improvement of delusions with Invega Sustenna 156 mg monthly we will increase up to 234 this week. Review of Systems Acute medical concerns: No Medical Review of Systems: unchanged Mental Status Exam Mental Status Exam Patient Appearance: Appropriate Patient Orientation: Person and Situation Level of Consciousness: Awake Patient Behavior: Guarded and Cooperative Mood Description: Withdrawn Affect Description: Labile Patient Cognition Impaired: Yes Ability to Follow Directions: Good Speech Pattern: Clear Hallucinations: Auditory Delusions: Paranoid Ideation and Grandiose Thought Process: Illogical Thought Content: positive for Independence and positive for Obsessional Thoughts Judgement: Fair Diagnostics Vital Signs (24Hr): BMI result Body Mass Index 26.4 Labs Results: 11/11/21 18:22 11/11/21 18:22 Imaging Radiology Impressions: ITS Impressions Extremity Ultrasound 11/21/21 13:55 IMPRESSION: Findings suggestive of isoechoic fatty lesion/lipoma within the intramuscular compartment. Medications Medications Current Medications Acetaminophen (Acetaminophen 325 Mg Tablet) 650 mg PO Q6H PRN PRN Reason: Headache/Pain Mild Scale (1-3) Last Admin: 11/28/21 10:45 Dose: 650 mg Al Hydroxide/Mg Hydroxide (Magnesium Hydrox/Alum Hydrox 30 Ml Oral.Susp) 30 ml PO Q6H PRN PRN Reason: Heartburn/Nausea Last Admin: 11/25/21 10:48 Dose: 30 ml Amlodipine Besylate (Amlodipine Besylate 10 Mg Tablet) 10 mg PO DAILY [facility]; Protocol Last Admin: 11/28/21 09:44 Dose: Not Given Benzocaine (Throat Lozenge, Medicated Lozenge) 1 lozenge MUCOUS MEM Q2H PRN PRN Reason: Sore Throat Last Admin: 10/29/21 06:48 Dose: 1 lozenge Docusate Sodium (Docusate Sodium 100 Mg Capsule) 100 mg PO BEDTIME PRN PRN Reason: constipation Last Admin: 11/21/21 20:32 Dose: 100 mg Famotidine (Famotidine 20 Mg Tablet) 20 mg PO BID PRN PRN Reason: heartburn Guaifenesin (Guaifenesin 200 Mg/10 Ml 10 Ml Liquid) 10 ml PO Q4H PRN PRN Reason: Cough Hydroxyzine HCl (Hydroxyzine Hcl 25 Mg Tablet) 25 mg PO BEDTIME PRN PRN Reason: Anxiety Lisinopril (Lisinopril 40 Mg Tablet) 40 mg PO DAILY [facility]; Protocol Last Admin: 11/28/21 09:44 Dose: Not Given Loperamide HCl (Loperamide Hcl 2 Mg Capsule) 2 mg PO Q4H PRN PRN Reason: Diarrhea Last Admin: 11/25/21 16:29 Dose: 2 mg Magnesium Hydroxide (Milk Of Magnesia 30 Ml Oral.Susp) 30 ml PO DAILY PRN PRN Reason: Constipation Trazodone HCl (Trazodone Hcl 50 Mg Tablet) 50 mg PO BEDTIME PRN PRN Reason: Insomnia Last Admin: 10/12/21 20:50 Dose: 50 mg Allergies Allergies Allergy/AdvReac Type Severity Reaction Status Date / Time aspirin Allergy Unknown Verified 09/12/21 23:15 Assessment & Plan Assessment & Plan (1) Schizophrenia: Status: Acute Code(s): F20.9 - Schizophrenia, unspecified Plan Elderly Italian female, with a were with a history of schizophrenia nearly all his her adult life admitted for exacerbation of psychosis in the context of noncompliance. The patient is on Invega Sustenna and so far she remains pleasantly psychotic and easily redirectable. Plan 1. Waiting for placement. 2. increase Invega Sustenna up to 234 mg. I spent ___20___ minutes with the patient and/or on the patient floor today, greater than?50% of which was spent counseling/coordinating care. Reason for contiued inpatient stay Substantial Risk for: inability to function, rapid decompensation and med/psych decompensation
[2021-11-28 18:00] VITALS: BP 166/77; PULSE 82; RESP 18; TEMP 36.4; O2SAT 95
[2021-11-29 07:30] VITALS: BP 132/58; PULSE 73; RESP 17; TEMP 36.3; O2SAT 96
--- NOTE | 2021-11-29 16:06 | P.PNPSI_ITS ---
Subjective Subjective Date of Service: 11/29/21 Reason For Visit: Psychosis Subjective Notes: Conditional Voluntary Interim History: The nursing staff reported the patient as usual refused her p.o. medications. She is easily redirectable and she participates in groups. On interview the patient reported that she wants to get discharged and she stated that she wants to go back to [place] and start a business, she is chronically delusional but very easily redirectable Medication Compliance: No Side effects from medications: No Attending Groups: Intermittent Review of Systems Acute medical concerns: No Medical Review of Systems: unchanged Mental Status Exam Mental Status Exam Patient Appearance: Appropriate Patient Orientation: Person and Situation Level of Consciousness: Awake Patient Behavior: Cooperative Mood Description: Withdrawn Affect Description: Constricted Patient Cognition Impaired: Yes Ability to Follow Directions: Good Speech Pattern: Clear Hallucinations: Auditory Delusions: Paranoid Ideation and Grandiose Perceptual Disturbances: Hallucinations Thought Process: Distracted and Linear Thought Content: positive for [place] and positive for Poverty of Content Judgement: Fair Diagnostics Vital Signs (24Hr): Vital Signs - 24 hr 11/28/21 18:00 11/29/21 07:30 Temperature 97.6 F 97.3 F Pulse Rate 82 73 Respiratory Rate 18 17 Blood Pressure 166/77 H 132/58 L Pulse Oximetry 95 96 Oxygen Delivery Method Room Air Room Air BMI result Body Mass Index 26.4 Labs Results: 11/11/21 18:22 11/11/21 18:22 Imaging Radiology Impressions: ITS Impressions Extremity Ultrasound 11/21/21 13:55 IMPRESSION: Findings suggestive of isoechoic fatty lesion/lipoma within the intramuscular compartment. Medications Medications Current Medications Acetaminophen (Acetaminophen 325 Mg Tablet) 650 mg PO Q6H PRN PRN Reason: Headache/Pain Mild Scale (1-3) Last Admin: 11/28/21 10:45 Dose: 650 mg Al Hydroxide/Mg Hydroxide (Magnesium Hydrox/Alum Hydrox 30 Ml Oral.Susp) 30 ml PO Q6H PRN PRN Reason: Heartburn/Nausea Last Admin: 11/25/21 10:48 Dose: 30 ml Amlodipine Besylate (Amlodipine Besylate 10 Mg Tablet) 10 mg PO DAILY [facility]; Protocol Last Admin: 11/29/21 08:30 Dose: Not Given Benzocaine (Throat Lozenge, Medicated Lozenge) 1 lozenge MUCOUS MEM Q2H PRN PRN Reason: Sore Throat Last Admin: 10/29/21 06:48 Dose: 1 lozenge Docusate Sodium (Docusate Sodium 100 Mg Capsule) 100 mg PO BEDTIME PRN PRN Reason: constipation Last Admin: 11/21/21 20:32 Dose: 100 mg Famotidine (Famotidine 20 Mg Tablet) 20 mg PO BID PRN PRN Reason: heartburn Guaifenesin (Guaifenesin 200 Mg/10 Ml 10 Ml Liquid) 10 ml PO Q4H PRN PRN Reason: Cough Hydroxyzine HCl (Hydroxyzine Hcl 25 Mg Tablet) 25 mg PO BEDTIME PRN PRN Reason: Anxiety Lisinopril (Lisinopril 40 Mg Tablet) 40 mg PO DAILY [facility]; Protocol Last Admin: 11/29/21 08:30 Dose: Not Given Loperamide HCl (Loperamide Hcl 2 Mg Capsule) 2 mg PO Q4H PRN PRN Reason: Diarrhea Last Admin: 11/25/21 16:29 Dose: 2 mg Magnesium Hydroxide (Milk Of Magnesia 30 Ml Oral.Susp) 30 ml PO DAILY PRN PRN Reason: Constipation Trazodone HCl (Trazodone Hcl 50 Mg Tablet) 50 mg PO BEDTIME PRN PRN Reason: Insomnia Last Admin: 10/12/21 20:50 Dose: 50 mg Allergies Allergies Allergy/AdvReac Type Severity Reaction Status Date / Time aspirin Allergy Unknown Verified 09/12/21 23:15 Assessment & Plan Assessment & Plan (1) Schizophrenia: Status: Acute Code(s): F20.9 - Schizophrenia, unspecified Plan Elderly [place]ijani female, with a were with a history of schizophrenia nearly all his her adult life admitted for exacerbation of psychosis in the context of noncompliance. The patient is on Invega Sustenna and so far she remains pleasantly psychotic and easily redirectable. Plan 1. Waiting for placement. 2. Continue same treatment I spent __20____ minutes with the patient and/or on the patient floor today, gre ater than?50% of which was spent counseling/coordinating care. Reason for contiued inpatient stay Substantial Risk for: inability to function, rapid decompensation and med/psych decompensation
[2021-11-29 19:50] VITALS: BP 148/59; PULSE 81; RESP 18; O2SAT 98
[2021-11-30 06:00] VITALS: BP 149/65; PULSE 66; RESP 16; TEMP 36.8; O2SAT 98
[2021-11-30 07:00] VITALS: BMI 26.5
--- NOTE | 2021-11-30 16:37 | P.PNPSI_ITS ---
Subjective Subjective Date of Service: 11/30/21 Reason For Visit: Psychosis Subjective Notes: Conditional Voluntary Interim History: The nursing staff reported the patient has been hyperverbal, delusional but redirectable. 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 She was redirected and pleasant Mental Status Exam Mental Status Exam Patient Appearance: Well Grooomed Patient Orientation: Person and Situation Level of Consciousness: Awake Patient Behavior: Cooperative Mood Description: Withdrawn Affect Description: Constricted Patient Cognition Impaired: Yes Ability to Follow Directions: Good Speech Pattern: Clear Hallucinations: Auditory Delusions: Paranoid Ideation and Grandiose Thought Process: Distracted Thought Content: positive for Circumstantial and positive for Poverty of Content Judgement: Fair Diagnostics Vital Signs (24Hr): Vital Signs - 24 hr 11/29/21 19:50 11/30/21 06:00 Temperature 98.3 F Pulse Rate 81 66 Respiratory Rate 18 16 Blood Pressure 148/59 H 149/65 H Pulse Oximetry 98 98 Oxygen Delivery Method Room Air Room Air BMI result Body Mass Index 26.5 Labs Results: 11/11/21 18:22 11/11/21 18:22 Imaging Radiology Impressions: ITS Impressions Extremity Ultrasound 11/21/21 13:55 IMPRESSION: Findings suggestive of isoechoic fatty lesion/lipoma within the intramuscular compartment. Medications Medications Current Medications Acetaminophen (Acetaminophen 325 Mg Tablet) 650 mg PO Q6H PRN PRN Reason: Headache/Pain Mild Scale (1-3) Last Admin: 11/28/21 10:45 Dose: 650 mg Al Hydroxide/Mg Hydroxide (Magnesium Hydrox/Alum Hydrox 30 Ml Oral.Susp) 30 ml PO Q6H PRN PRN Reason: Heartburn/Nausea Last Admin: 11/25/21 10:48 Dose: 30 ml Amlodipine Besylate (Amlodipine Besylate 10 Mg Tablet) 10 mg PO DAILY [facility]; Protocol Last Admin: 11/30/21 12:09 Dose: Not Given Benzocaine (Throat Lozenge, Medicated Lozenge) 1 lozenge MUCOUS MEM Q2H PRN PRN Reason: Sore Throat Last Admin: 10/29/21 06:48 Dose: 1 lozenge Docusate Sodium (Docusate Sodium 100 Mg Capsule) 100 mg PO BEDTIME PRN PRN Reason: constipation Last Admin: 11/21/21 20:32 Dose: 100 mg Famotidine (Famotidine 20 Mg Tablet) 20 mg PO BID PRN PRN Reason: heartburn Guaifenesin (Guaifenesin 200 Mg/10 Ml 10 Ml Liquid) 10 ml PO Q4H PRN PRN Reason: Cough Hydroxyzine HCl (Hydroxyzine Hcl 25 Mg Tablet) 25 mg PO BEDTIME PRN PRN Reason: Anxiety Lisinopril (Lisinopril 40 Mg Tablet) 40 mg PO DAILY [facility]; Protocol Last Admin: 11/30/21 12:09 Dose: Not Given Loperamide HCl (Loperamide Hcl 2 Mg Capsule) 2 mg PO Q4H PRN PRN Reason: Diarrhea Last Admin: 11/25/21 16:29 Dose: 2 mg Magnesium Hydroxide (Milk Of Magnesia 30 Ml Oral.Susp) 30 ml PO DAILY PRN PRN Reason: Constipation Paliperidone Palmitate (Paliperidone Palmitate 234 Mg/1.5 Ml Syringe) 234 mg IM Q30D [facility] Trazodone HCl (Trazodone Hcl 50 Mg Tablet) 50 mg PO BEDTIME PRN PRN Reason: Insomnia Last Admin: 10/12/21 20:50 Dose: 50 mg Allergies Allergies Allergy/AdvReac Type Severity Reaction Status Date / Time aspirin Allergy Unknown Verified 09/12/21 23:15 Assessment & Plan Assessment & Plan (1) Schizophrenia: Status: Acute Code(s): F20.9 - Schizophrenia, unspecified Plan Elderly [place]er female, with a were with a history of schizophrenia nearly all his her adult life admitted for exacerbation of psychosis in the context of noncompliance. The patient is on Invega Sustenna and so far she remains pleasantly psychotic and easily redirectable. Plan 1. Waiting for placement. 2. Continue same treatment 3. Invega Sustenna 234 mg a monthly I spent __20____ minutes with the patient and/or on the patient floor today, greater than?50% of which was spent counseling/coordinating care. Reason for contiued inpatient stay Substantial Risk for: inability to function, rapid decompensation and med/psych decompensation
[2021-11-30] MEDS: Paliperidone Palmitate 234 MG/1.5 ML SYRINGE IM (18:19)
[2021-12-01 06:00] VITALS: BP 142/65; PULSE 80; RESP 16; TEMP 36.8; O2SAT 96
[2021-12-01] MEDS: Acetaminophen 325 MG TABLET 650 MG PO (06:32)
--- NOTE | 2021-12-01 14:58 | HO.PSYCHPN ---
Subjective Subjective Date of Service: 12/01/21 Reason For Visit: Psychosis Subjective Notes: Conditional Voluntary Interim History: The nursing staff reported the patient had her monthly Invega Sustenna and she stated that she has some pain and the needle got into her bone even that is not true. On interview the patient was upset that she get an injection. She remains chronically delusional but easily redirectable. Mental Status Exam Mental Status Exam Patient Appearance: Appropriate Patient Orientation: Person Level of Consciousness: Awake Patient Behavior: Cooperative Mood Description: Withdrawn Affect Description: Constricted Patient Cognition Impaired: Yes Ability to Follow Directions: Good Speech Pattern: Clear Hallucinations: Auditory Delusions: Paranoid Ideation and Grandiose Thought Process: Distracted Thought Content: positive for Circumstantial Judgement: Fair Diagnostics Vital Signs (24Hr): Vital Signs - 24 hr 12/01/21 06:00 Temperature 98.3 F Pulse Rate 80 Respiratory Rate 16 Blood Pressure 142/65 H Pulse Oximetry 96 Oxygen Delivery Method Room Air BMI result Body Mass Index 26.5 Labs Results: 11/11/21 18:22 11/11/21 18:22 Imaging Radiology Impressions: ITS Impressions Extremity Ultrasound 11/21/21 13:55 IMPRESSION: Findings suggestive of isoechoic fatty lesion/lipoma within the intramuscular compartment. Medications Medications Current Medications Acetaminophen (Acetaminophen 325 Mg Tablet) 650 mg PO Q6H PRN PRN Reason: Headache/Pain Mild Scale (1-3) Last Admin: 12/01/21 06:32 Dose: 650 mg Al Hydroxide/Mg Hydroxide (Magnesium Hydrox/Alum Hydrox 30 Ml Oral.Susp) 30 ml PO Q6H PRN PRN Reason: Heartburn/Nausea Last Admin: 11/25/21 10:48 Dose: 30 ml Amlodipine Besylate (Amlodipine Besylate 10 Mg Tablet) 10 mg PO DAILY [facility]; Protocol Last Admin: 12/01/21 13:33 Dose: Not Given Benzocaine (Throat Lozenge, Medicated Lozenge) 1 lozenge MUCOUS MEM Q2H PRN PRN Reason: Sore Throat Last Admin: 10/29/21 06:48 Dose: 1 lozenge Docusate Sodium (Docusate Sodium 100 Mg Capsule) 100 mg PO BEDTIME PRN PRN Reason: constipation Last Admin: 11/21/21 20:32 Dose: 100 mg Famotidine (Famotidine 20 Mg Tablet) 20 mg PO BID PRN PRN Reason: heartburn Guaifenesin (Guaifenesin 200 Mg/10 Ml 10 Ml Liquid) 10 ml PO Q4H PRN PRN Reason: Cough Hydroxyzine HCl (Hydroxyzine Hcl 25 Mg Tablet) 25 mg PO BEDTIME PRN PRN Reason: Anxiety Lisinopril (Lisinopril 40 Mg Tablet) 40 mg PO DAILY [facility]; Protocol Last Admin: 12/01/21 13:33 Dose: Not Given Loperamide HCl (Loperamide Hcl 2 Mg Capsule) 2 mg PO Q4H PRN PRN Reason: Diarrhea Last Admin: 11/25/21 16:29 Dose: 2 mg Magnesium Hydroxide (Milk Of Magnesia 30 Ml Oral.Susp) 30 ml PO DAILY PRN PRN Reason: Constipation Paliperidone Palmitate (Paliperidone Palmitate 234 Mg/1.5 Ml Syringe) 234 mg IM Q30D [facility]SES Last Admin: 11/30/21 18:19 Dose: 234 mg Trazodone HCl (Trazodone Hcl 50 Mg Tablet) 50 mg PO BEDTIME PRN PRN Reason: Insomnia Last Admin: 10/12/21 20:50 Dose: 50 mg Allergies Allergies Allergy/AdvReac Type Severity Reaction Status Date / Time aspirin Allergy Unknown Verified 09/12/21 23:15 Assessment & Plan Assessment & Plan (1) Schizophrenia: Status: Acute Code(s): F20.9 - Schizophrenia, unspecified Plan Elderly [place] female, with a were with a history of schizophrenia nearly all his her adult life admitted for exacerbation of psychosis in the context of noncompliance. The patient is on Invega Sustenna and so far she remains pleasantly psychotic and easily redirectable. Plan 1. Waiting for placement. 2. Continue same treatment 3. Invega Sustenna 234 mg a monthly I spent ___20___ minutes with the patient and/or on the patient floor today, greater than?50% of which was spent counseling/coordinating care. Reason for contiued inpatient stay Substantial Risk for: inability to function, rapid decompensation and med/psych decompensation
[2021-12-02 09:47] VITALS: BP 138/66; PULSE 88; RESP 18; TEMP 36.5; O2SAT 97
--- NOTE | 2021-12-02 11:50 | HO.PSYCHPN ---
Subjective Subjective Date of Service: 12/02/21 Reason For Visit: Psychosis Interim History: pt seen in [place], appears extremely interested in speaking with MD. tells a tale of having been in jected in the arm yesterday with heroin, which has caused her to have diarrhea for the past 24H. per staff, received invega sustenna injection on and has been c/o diarrhea since. refusing immodium, refusing meds in general. refused dinner last night. Mental Status Exam Mental Status Exam Narrative: calm, cooperative. eager to speak, loquacious. no PMA/PMR. adequately dressed and groomed. speech incr in rate and amount. thoughts paranoid and delusional, linear in brief interaction. affect intense, constricted. mood not assessed. no SI/HI/AVH expressed. Diagnostics Vital Signs (24Hr): Vital Signs - 24 hr 12/02/21 09:47 Temperature 97.7 F Pulse Rate 88 Respiratory Rate 18 Blood Pressure 138/66 Pulse Oximetry 97 Oxygen Delivery Method Room Air BMI result Body Mass Index 26.5 Labs Results: 11/11/21 18:22 11/11/21 18:22 Imaging Radiology Impressions: ITS Impressions Extremity Ultrasound 11/21/21 13:55 IMPRESSION: Findings suggestive of isoechoic fatty lesion/lipoma within the intramuscular compartment. Medications Medications Current Medications Acetaminophen (Acetaminophen 325 Mg Tablet) 650 mg PO Q6H PRN PRN Reason: Headache/Pain Mild Scale (1-3) Last Admin: 12/01/21 06:32 Dose: 650 mg Al Hydroxide/Mg Hydroxide (Magnesium Hydrox/Alum Hydrox 30 Ml Oral.Susp) 30 ml PO Q6H PRN PRN Reason: Heartburn/Nausea Last Admin: 11/25/21 10:48 Dose: 30 ml Amlodipine Besylate (Amlodipine Besylate 10 Mg Tablet) 10 mg PO DAILY [facility]; Protocol Last Admin: 12/02/21 09:16 Dose: Not Given Benzocaine (Throat Lozenge, Medicated Lozenge) 1 lozenge MUCOUS MEM Q2H PRN PRN Reason: Sore Throat Last Admin: 10/29/21 06:48 Dose: 1 lozenge Docusate Sodium (Docusate Sodium 100 Mg Capsule) 100 mg PO BEDTIME PRN PRN Reason: constipation Last Admin: 11/21/21 20:32 Dose: 100 mg Famotidine (Famotidine 20 Mg Tablet) 20 mg PO BID PRN PRN Reason: heartburn Guaifenesin (Guaifenesin 200 Mg/10 Ml 10 Ml Liquid) 10 ml PO Q4H PRN PRN Reason: Cough Hydroxyzine HCl (Hydroxyzine Hcl 25 Mg Tablet) 25 mg PO BEDTIME PRN PRN Reason: Anxiety Lisinopril (Lisinopril 40 Mg Tablet) 40 mg PO DAILY [facility]; Protocol Last Admin: 12/02/21 09:16 Dose: Not Given Loperamide HCl (Loperamide Hcl 2 Mg Capsule) 2 mg PO Q4H PRN PRN Reason: Diarrhea Last Admin: 11/25/21 16:29 Dose: 2 mg Magnesium Hydroxide (Milk Of Magnesia 30 Ml Oral.Susp) 30 ml PO DAILY PRN PRN Reason: Constipation Paliperidone Palmitate (Paliperidone Palmitate 234 Mg/1.5 Ml Syringe) 234 mg IM Q30D [facility] Last Admin: 11/30/21 18:19 Dose: 234 mg Trazodone HCl (Trazodone Hcl 50 Mg Tablet) 50 mg PO BEDTIME PRN PRN Reason: Insomnia Last Admin: 10/12/21 20:50 Dose: 50 mg Allergies Allergies Allergy/AdvReac Type Severity Reaction Status Date / Time aspirin Allergy Unknown Verified 09/12/21 23:15 Assessment & Plan Assessment & Plan (1) Schizophrenia: Status: Acute Code(s): F20.9 - Schizophrenia, unspecified Plan Elderly Egyptian female, with a were with a history of schizophrenia nearly all his her adult life admitted for exacerbation of psychosis in the context of noncompliance. The patient is on Invega Sustenna and so far she remains pleasantly psychotic and easily redirectable. Plan 1. Waiting for placement. 2. Continue same treatment 3. Invega Sustenna 234 mg a monthly 12/02: continue current mgmt. I spent ___10___ minutes with the patient and/or on the patient floor today, greater than?50% of which was spent counseling/coordinating care. Reason for contiued inpatient stay Substantial Risk for: inability to function and rapid decompensation
[2021-12-03 06:00] VITALS: BP 147/67; PULSE 100; RESP 16; TEMP 36.7; O2SAT 96
--- NOTE | 2021-12-03 12:09 | P.PNPSI_ITS ---
Subjective Subjective Date of Service: 12/03/21 Reason For Visit: Psychosis Interim History: pt seeks out MD and animatedly tells him she is being injected with heroin and how her urine smells of heroin, etc, and how she does not want to be injected with heroin any longer. MD informs her he does not believe she is being injected with heroin here and redirects discussion. pt ultimately reports she feels well and ends the interview pleasantly, smiling. per staff, believes she is being injected with heroin, even this morning (she has not received any injections at all today). refusing medications. Mental Status Exam Mental Status Exam Narrative: calm, cooperative. eager to speak, loquacious. no PMA/PMR. adequately dressed and groomed. speech incr in rate and amount. thoughts paranoid and delusional, loose in brief interaction. affect intense, constricted. mood not assessed. no SI/HI/AVH expressed. Diagnostics Vital Signs (24Hr): Vital Signs - 24 hr 12/03/21 06:00 Temperature 98.0 F Pulse Rate 100 Respiratory Rate 16 Blood Pressure 147/67 H Pulse Oximetry 96 Oxygen Delivery Method Room Air BMI result Body Mass Index 26.5 Labs Results: 11/11/21 18:22 11/11/21 18:22 Imaging Radiology Impressions: ITS Impressions Extremity Ultrasound 11/21/21 13:55 IMPRESSION: Findings suggestive of isoechoic fatty lesion/lipoma within the intramuscular compartment. Medications Medications Current Medications Acetaminophen (Acetaminophen 325 Mg Tablet) 650 mg PO Q6H PRN PRN Reason: Headache/Pain Mild Scale (1-3) Last Admin: 12/01/21 06:32 Dose: 650 mg Al Hydroxide/Mg Hydroxide (Magnesium Hydrox/Alum Hydrox 30 Ml Oral.Susp) 30 ml PO Q6H PRN PRN Reason: Heartburn/Nausea Last Admin: 11/25/21 10:48 Dose: 30 ml Amlodipine Besylate (Amlodipine Besylate 10 Mg Tablet) 10 mg PO DAILY [facility]; Protocol Last Admin: 12/03/21 08:07 Dose: Not Given Benzocaine (Throat Lozenge, Medicated Lozenge) 1 lozenge MUCOUS MEM Q2H PRN PRN Reason: Sore Throat Last Admin: 10/29/21 06:48 Dose: 1 lozenge Docusate Sodium (Docusate Sodium 100 Mg Capsule) 100 mg PO BEDTIME PRN PRN Reason: constipation Last Admin: 11/21/21 20:32 Dose: 100 mg Famotidine (Famotidine 20 Mg Tablet) 20 mg PO BID PRN PRN Reason: heartburn Guaifenesin (Guaifenesin 200 Mg/10 Ml 10 Ml Liquid) 10 ml PO Q4H PRN PRN Reason: Cough Hydroxyzine HCl (Hydroxyzine Hcl 25 Mg Tablet) 25 mg PO BEDTIME PRN PRN Reason: Anxiety Lisinopril (Lisinopril 40 Mg Tablet) 40 mg PO DAILY [facility]; Protocol Last Admin: 12/03/21 08:07 Dose: Not Given Loperamide HCl (Loperamide Hcl 2 Mg Capsule) 2 mg PO Q4H PRN PRN Reason: Diarrhea Last Admin: 11/25/21 16:29 Dose: 2 mg Magnesium Hydroxide (Milk Of Magnesia 30 Ml Oral.Susp) 30 ml PO DAILY PRN PRN Reason: Constipation Paliperidone Palmitate (Paliperidone Palmitate 234 Mg/1.5 Ml Syringe) 234 mg IM Q30D [facility] Last Admin: 11/30/21 18:19 Dose: 234 mg Trazodone HCl (Trazodone Hcl 50 Mg Tablet) 50 mg PO BEDTIME PRN PRN Reason: Insomnia Last Admin: 10/12/21 20:50 Dose: 50 mg Allergies Allergies Allergy/AdvReac Type Severity Reaction Status Date / Time aspirin Allergy Unknown Verified 09/12/21 23:15 Assessment & Plan Assessment & Plan (1) Schizophrenia: Status: Acute Code(s): F20.9 - Schizophrenia, unspecified Plan Elderly Wallisian female, with a were with a history of schizophrenia nearly all his her adult life admitted for exacerbation of psychosis in the context of noncompliance. The patient is on Invega Sustenna and so far she remains pleasantly psychotic and easily redirectable. Plan 1. Waiting for placement. 2. Continue same treatment 3. Invega Sustenna 234 mg a monthly 12/02: continue current mgmt. 12/03: continue current mgmt. I spent ___15___ minutes with the patient and/or on the patient floor today, greater than?50% of which was spent counseling/coordinating care. Reason for contiued inpatient stay Substantial Risk for: inability to function and rapid decompensation
[2021-12-03 18:00] VITALS: BP 152/67; PULSE 84; RESP 14; TEMP 37.3; O2SAT 97
[2021-12-04 06:00] VITALS: BP 144/65; PULSE 88; RESP 18; TEMP 36.3; O2SAT 94
--- NOTE | 2021-12-04 15:34 | P.PNPSI_ITS ---
Subjective Subjective Date of Service: 12/04/21 Reason For Visit: Psychosis Subjective Notes: Conditional Voluntary Interim History: the nursing staff reports that she still noncompliant with medications but she is easily redirectable plan On the interview, the patient denies new symptoms no evidence of over- sedation with increase dose of Invega. Mental Status Exam Mental Status Exam Patient Appearance: Appropriate Patient Orientation: Person and Situation Level of Consciousness: Awake Patient Behavior: Cooperative Mood Description: Withdrawn Affect Description: Constricted Patient Cognition Impaired: Yes Ability to Follow Directions: Good Speech Pattern: Clear Hallucinations: Auditory Delusions: Paranoid Ideation Thought Process: Distracted and Linear Thought Content: positive for [place] and positive for Poverty of Content Judgement: Fair Diagnostics Vital Signs (24Hr): Vital Signs - 24 hr 12/03/21 18:00 12/04/21 06:00 Temperature 99.1 F 97.4 F Pulse Rate 84 88 Respiratory Rate 14 18 Blood Pressure 152/67 H 144/65 H Pulse Oximetry 97 94 Oxygen Delivery Method Room Air Room Air BMI result Body Mass Index 26.5 Labs Results: 11/11/21 18:22 11/11/21 18:22 Imaging Radiology Impressions: ITS Impressions Extremity Ultrasound 11/21/21 13:55 IMPRESSION: Findings suggestive of isoechoic fatty lesion/lipoma within the intramuscular compartment. Medications Medications Current Medications Acetaminophen (Acetaminophen 325 Mg Tablet) 650 mg PO Q6H PRN PRN Reason: Headache/Pain Mild Scale (1-3) Last Admin: 12/01/21 06:32 Dose: 650 mg Al Hydroxide/Mg Hydroxide (Magnesium Hydrox/Alum Hydrox 30 Ml Oral.Susp) 30 ml PO Q6H PRN PRN Reason: Heartburn/Nausea Last Admin: 11/25/21 10:48 Dose: 30 ml Amlodipine Besylate (Amlodipine Besylate 10 Mg Tablet) 10 mg PO DAILY [facility]; Protocol Last Admin: 12/04/21 08:33 Dose: Not Given Benzocaine (Throat Lozenge, Medicated Lozenge) 1 lozenge MUCOUS MEM Q2H PRN PRN Reason: Sore Throat Last Admin: 10/29/21 06:48 Dose: 1 lozenge Docusate Sodium (Docusate Sodium 100 Mg Capsule) 100 mg PO BEDTIME PRN PRN Reason: constipation Last Admin: 11/21/21 20:32 Dose: 100 mg Famotidine (Famotidine 20 Mg Tablet) 20 mg PO BID PRN PRN Reason: heartburn Guaifenesin (Guaifenesin 200 Mg/10 Ml 10 Ml Liquid) 10 ml PO Q4H PRN PRN Reason: Cough Hydroxyzine HCl (Hydroxyzine Hcl 25 Mg Tablet) 25 mg PO BEDTIME PRN PRN Reason: Anxiety Lisinopril (Lisinopril 40 Mg Tablet) 40 mg PO DAILY [facility]; Protocol Last Admin: 12/04/21 08:34 Dose: Not Given Loperamide HCl (Loperamide Hcl 2 Mg Capsule) 2 mg PO Q4H PRN PRN Reason: Diarrhea Last Admin: 11/25/21 16:29 Dose: 2 mg Magnesium Hydroxide (Milk Of Magnesia 30 Ml Oral.Susp) 30 ml PO DAILY PRN PRN Reason: Constipation Paliperidone Palmitate (Paliperidone Palmitate 234 Mg/1.5 Ml Syringe) 234 mg IM Q30D [facility] Last Admin: 11/30/21 18:19 Dose: 234 mg Trazodone HCl (Trazodone Hcl 50 Mg Tablet) 50 mg PO BEDTIME PRN PRN Reason: Insomnia Last Admin: 10/12/21 20:50 Dose: 50 mg Allergies Allergies Allergy/AdvReac Type Severity Reaction Status Date / Time aspirin Allergy Unknown Verified 09/12/21 23:15 Assessment & Plan Assessment & Plan (1) Schizophrenia: Status: Acute Code(s): F20.9 - Schizophrenia, unspecified Plan Elderly [place] Island[place] female, with a were with a history of schizophrenia nearly all his her adult life admitted for exacerbation of psychosis in the context of noncompliance. The patient is on Invega Sustenna and so far she remains pleasantly psychotic and easily redirectable. Plan 1. Waiting for placement. 2. Continue same treatment 3. Invega Sustenna 234 mg a monthly I spent ___20___ minutes with the patient and/or on the patient floor today, greater than?50% of which was spent counseling/coordinating care. Reason for contiued inpatient stay Substantial Risk for: inability to function, rapid decompensation and med/psych decompensation
[2021-12-05 10:25] LABS: COVID-19 Test Negative (Negative); IDNOW Serial# 16C4AD1C
--- NOTE | 2021-12-05 13:55 | P.PNPSI_ITS ---
Subjective Subjective Date of Service: 12/05/21 Reason For Visit: Psychosis Subjective Notes: Conditional Voluntary Interim History: The nursing staff reported that yesterday the patient was very agitated and angry, she was verbally abusive towards the staff and she was paranoid. On interview the patient reported the episode of yesterday but she stated that s he was provoked by the staff. No safety concerns at this moment, at baseline Mental Status Exam Mental Status Exam Patient Appearance: Well Grooomed Patient Orientation: Person and Situation Level of Consciousness: Awake Patient Behavior: Cooperative Mood Description: Withdrawn Affect Description: Labile Patient Cognition Impaired: Yes Ability to Follow Directions: Good Speech Pattern: Clear Hallucinations: Auditory Delusions: Paranoid Ideation and Grandiose Thought Process: Illogical and Distracted Thought Content: positive for [place] and positive for Poverty of Content Judgement: Fair Diagnostics Vital Signs (24Hr): BMI result Body Mass Index 26.5 Labs Results: 11/11/21 18:22 11/11/21 18:22 Labs: Laboratory Results - last 48 hr 12/05/21 09:45 COVID-19 ([facility]) Negative COVID-19 Clin Com See Note Imaging Radiology Impressions: ITS Impressions Extremity Ultrasound 11/21/21 13:55 IMPRESSION: Findings suggestive of isoechoic fatty lesion/lipoma within the intramuscular compartment. Medications Medications Current Medications Acetaminophen (Acetaminophen 325 Mg Tablet) 650 mg PO Q6H PRN PRN Reason: Headache/Pain Mild Scale (1-3) Last Admin: 12/01/21 06:32 Dose: 650 mg Al Hydroxide/Mg Hydroxide (Magnesium Hydrox/Alum Hydrox 30 Ml Oral.Susp) 30 ml PO Q6H PRN PRN Reason: Heartburn/Nausea Last Admin: 11/25/21 10:48 Dose: 30 ml Amlodipine Besylate (Amlodipine Besylate 10 Mg Tablet) 10 mg PO DAILY [facility]; Protocol Last Admin: 12/05/21 12:12 Dose: Not Given Benzocaine (Throat Lozenge, Medicated Lozenge) 1 lozenge MUCOUS MEM Q2H PRN PRN Reason: Sore Throat Last Admin: 10/29/21 06:48 Dose: 1 lozenge Docusate Sodium (Docusate Sodium 100 Mg Capsule) 100 mg PO BEDTIME PRN PRN Reason: constipation Last Admin: 11/21/21 20:32 Dose: 100 mg Famotidine (Famotidine 20 Mg Tablet) 20 mg PO BID PRN PRN Reason: heartburn Guaifenesin (Guaifenesin 200 Mg/10 Ml 10 Ml Liquid) 10 ml PO Q4H PRN PRN Reason: Cough Hydroxyzine HCl (Hydroxyzine Hcl 25 Mg Tablet) 25 mg PO BEDTIME PRN PRN Reason: Anxiety Lisinopril (Lisinopril 40 Mg Tablet) 40 mg PO DAILY [facility]; Protocol Last Admin: 12/05/21 12:13 Dose: Not Given Loperamide HCl (Loperamide Hcl 2 Mg Capsule) 2 mg PO Q4H PRN PRN Reason: Diarrhea Last Admin: 11/25/21 16:29 Dose: 2 mg Magnesium Hydroxide (Milk Of Magnesia 30 Ml Oral.Susp) 30 ml PO DAILY PRN PRN Reason: Constipation Paliperidone Palmitate (Paliperidone Palmitate 234 Mg/1.5 Ml Syringe) 234 mg IM Q30D [facility] Last Admin: 11/30/21 18:19 Dose: 234 mg Trazodone HCl (Trazodone Hcl 50 Mg Tablet) 50 mg PO BEDTIME PRN PRN Reason: Insomnia Last Admin: 10/12/21 20:50 Dose: 50 mg Allergies Allergies Allergy/AdvReac Type Severity Reaction Status Date / Time aspirin Allergy Unknown Verified 09/12/21 23:15 Assessment & Plan Assessment & Plan (1) Schizophrenia: Status: Acute Code(s): F20.9 - Schizophrenia, unspecified Plan Elderly Maltese female, with a were with a history of schizophrenia nearly all his her adult life admitted for exacerbation of psychosis in the context of noncompliance. The patient is on Invega Sustenna and so far she remains pleasantly psychotic and easily redirectable. Plan 1. Waiting for placement. 2. Continue same treatment 3. Invega Sustenna 234 mg a monthly I spent ___20___ minutes with the patient and/or on the patient floor today, greater than?50% of which was spent counseling/coordinating care. Reason for contiued inpatient stay Substantial Risk for: inability to function, rapid decompensation and med/psych decompensation
[2021-12-06 07:40] VITALS: BP 149/63; PULSE 85; RESP 16; TEMP 36.9; O2SAT 99
--- NOTE | 2021-12-06 14:57 | HO.PSYCHPN ---
Subjective Subjective Date of Service: 12/06/21 Reason For Visit: Psychosis Subjective Notes: Conditional Voluntary Interim History: The nursing staff reports no changes in her mental status, she still delusional stating that she is . On interview the patient reports that she wants to go back to [place] on she wants to talk with her daughter Shani. Mental Status Exam Mental Status Exam Patient Appearance: Well Grooomed Patient Orientation: Person and Situation Level of Consciousness: Awake Patient Behavior: Cooperative Mood Description: Labile Affect Description: Expansive Patient Cognition Impaired: Yes Ability to Follow Directions: Good Speech Pattern: Clear Hallucinations: Auditory Delusions: Paranoid Ideation and Grandiose Thought Process: Illogical Thought Content: positive for [place] Judgement: Fair Diagnostics Vital Signs (24Hr): Vital Signs - 24 hr 12/06/21 07:40 Temperature 98.5 F Pulse Rate 85 Respiratory Rate 16 Blood Pressure 149/63 H Pulse Oximetry 99 Oxygen Delivery Method Room Air BMI result Body Mass Index 26.5 Labs Results: 11/11/21 18:22 11/11/21 18:22 Labs: Laboratory Results - last 48 hr 12/05/21 09:45 COVID-19 ([facility]) Negative COVID-19 Clin Com See Note Imaging Radiology Impressions: ITS Impressions Extremity Ultrasound 11/21/21 13:55 IMPRESSION: Findings suggestive of isoechoic fatty lesion/lipoma within the intramuscular compartment. Medications Medications Current Medications Acetaminophen (Acetaminophen 325 Mg Tablet) 650 mg PO Q6H PRN PRN Reason: Headache/Pain Mild Scale (1-3) Last Admin: 12/01/21 06:32 Dose: 650 mg Al Hydroxide/Mg Hydroxide (Magnesium Hydrox/Alum Hydrox 30 Ml Oral.Susp) 30 ml PO Q6H PRN PRN Reason: Heartburn/Nausea Last Admin: 11/25/21 10:48 Dose: 30 ml Amlodipine Besylate (Amlodipine Besylate 10 Mg Tablet) 10 mg PO DAILY [facility]; Protocol Last Admin: 12/06/21 08:12 Dose: Not Given Benzocaine (Throat Lozenge, Medicated Lozenge) 1 lozenge MUCOUS MEM Q2H PRN PRN Reason: Sore Throat Last Admin: 10/29/21 06:48 Dose: 1 lozenge Docusate Sodium (Docusate Sodium 100 Mg Capsule) 100 mg PO BEDTIME PRN PRN Reason: constipation Last Admin: 11/21/21 20:32 Dose: 100 mg Famotidine (Famotidine 20 Mg Tablet) 20 mg PO BID PRN PRN Reason: heartburn Guaifenesin (Guaifenesin 200 Mg/10 Ml 10 Ml Liquid) 10 ml PO Q4H PRN PRN Reason: Cough Hydroxyzine HCl (Hydroxyzine Hcl 25 Mg Tablet) 25 mg PO BEDTIME PRN PRN Reason: Anxiety Lisinopril (Lisinopril 40 Mg Tablet) 40 mg PO DAILY [facility]; Protocol Last Admin: 12/06/21 08:13 Dose: Not Given Loperamide HCl (Loperamide Hcl 2 Mg Capsule) 2 mg PO Q4H PRN PRN Reason: Diarrhea Last Admin: 11/25/21 16:29 Dose: 2 mg Magnesium Hydroxide (Milk Of Magnesia 30 Ml Oral.Susp) 30 ml PO DAILY PRN PRN Reason: Constipation Paliperidone Palmitate (Paliperidone Palmitate 234 Mg/1.5 Ml Syringe) 234 mg IM Q30D [facility] Last Admin: 11/30/21 18:19 Dose: 234 mg Trazodone HCl (Trazodone Hcl 50 Mg Tablet) 50 mg PO BEDTIME PRN PRN Reason: Insomnia Last Admin: 10/12/21 20:50 Dose: 50 mg Allergies Allergies Allergy/AdvReac Type Severity Reaction Status Date / Time aspirin Allergy Unknown Verified 09/12/21 23:15 Assessment & Plan Assessment & Plan (1) Schizophrenia: Status: Acute Code(s): F20.9 - Schizophrenia, unspecified Plan Elderly Citizen Of [place] female, with a were with a history of schizophrenia nearly all his her adult life admitted for exacerbation of psychosis in the context of noncompliance. The patient is on Invega Sustenna and so far she remains pleasantly psychotic and easily redirectable. Plan 1. Waiting for placement. 2. Continue same treatment 3. Invega Sustenna 234 mg a monthly I spent ___20___ minutes with the patient and/or on the patient floor today, greater than?50% of which was spent counseling/coordinating care. Reason for contiued inpatient stay Substantial Risk for: inability to function, rapid decompensation and med/psych decompensation
[2021-12-07 07:00] VITALS: BMI 26.3
[2021-12-07 07:30] VITALS: BP 172/78; PULSE 93; RESP 16; TEMP 36.1; O2SAT 97
[2021-12-07] MEDS: lisinopriL 40 MG TABLET PO (08:57)
[2021-12-07] MEDS: amLODIPine Besylate 10 MG TABLET PO (08:57)
[2021-12-07 09:57] LABS: COVID-19 Test Negative (Negative)
--- NOTE | 2021-12-07 11:13 | HO.PSYCHPN ---
Subjective Subjective Date of Service: 12/07/21 Reason For Visit: Psychosis Subjective Notes: Conditional Voluntary Interim History: the nursing staff reported the patient has not changed her mental status, she remains delusional but easily redirectable. COVID-19 negative. On interview the patient reports that she is and she wants to go back to [place]. Yesterday she gave me a page with nonsensical phrases in Turkish and Romansh. Mental Status Exam Mental Status Exam Patient Appearance: Well Grooomed Patient Orientation: Person and Situation Level of Consciousness: Awake Patient Behavior: Guarded and Cooperative Mood Description: Withdrawn Affect Description: Constricted Patient Cognition Impaired: Yes Speech Pattern: Impoverished Hallucinations: Auditory Delusions: Paranoid Ideation and Grandiose Thought Process: Illogical and Distracted Thought Content: positive for [place], positive for Obsessional Thoughts and positive for Poverty of Content Judgement: Fair Diagnostics Vital Signs (24Hr): Vital Signs - 24 hr 12/07/21 07:30 Temperature 97.0 F Pulse Rate 93 Respiratory Rate 16 Blood Pressure 172/78 H Pulse Oximetry 97 Oxygen Delivery Method Room Air BMI result Body Mass Index 26.5 Labs Results: 11/11/21 18:22 11/11/21 18:22 Labs: Laboratory Results - last 48 hr 12/07/21 09:30 COVID-19 ([facility]) Negative COVID-19 Clin Com See Note Imaging Radiology Impressions: ITS Impressions Extremity Ultrasound 11/21/21 13:55 IMPRESSION: Findings suggestive of isoechoic fatty lesion/lipoma within the intramuscular compartment. Medications Medications Current Medications Acetaminophen (Acetaminophen 325 Mg Tablet) 650 mg PO Q6H PRN PRN Reason: Headache/Pain Mild Scale (1-3) Last Admin: 12/01/21 06:32 Dose: 650 mg Al Hydroxide/Mg Hydroxide (Magnesium Hydrox/Alum Hydrox 30 Ml Oral.Susp) 30 ml PO Q6H PRN PRN Reason: Heartburn/Nausea Last Admin: 11/25/21 10:48 Dose: 30 ml Amlodipine Besylate (Amlodipine Besylate 10 Mg Tablet) 10 mg PO DAILY [facility]; Protocol Last Admin: 12/07/21 08:57 Dose: 10 mg Benzocaine (Throat Lozenge, Medicated Lozenge) 1 lozenge MUCOUS MEM Q2H PRN PRN Reason: Sore Throat Last Admin: 10/29/21 06:48 Dose: 1 lozenge Docusate Sodium (Docusate Sodium 100 Mg Capsule) 100 mg PO BEDTIME PRN PRN Reason: constipation Last Admin: 11/21/21 20:32 Dose: 100 mg Famotidine (Famotidine 20 Mg Tablet) 20 mg PO BID PRN PRN Reason: heartburn Guaifenesin (Guaifenesin 200 Mg/10 Ml 10 Ml Liquid) 10 ml PO Q4H PRN PRN Reason: Cough Hydroxyzine HCl (Hydroxyzine Hcl 25 Mg Tablet) 25 mg PO BEDTIME PRN PRN Reason: Anxiety Lisinopril (Lisinopril 40 Mg Tablet) 40 mg PO DAILY [facility]; Protocol Last Admin: 12/07/21 08:57 Dose: 40 mg Loperamide HCl (Loperamide Hcl 2 Mg Capsule) 2 mg PO Q4H PRN PRN Reason: Diarrhea Last Admin: 11/25/21 16:29 Dose: 2 mg Magnesium Hydroxide (Milk Of Magnesia 30 Ml Oral.Susp) 30 ml PO DAILY PRN PRN Reason: Constipation Paliperidone Palmitate (Paliperidone Palmitate 234 Mg/1.5 Ml Syringe) 234 mg IM Q30D [facility] Last Admin: 11/30/21 18:19 Dose: 234 mg Trazodone HCl (Trazodone Hcl 50 Mg Tablet) 50 mg PO BEDTIME PRN PRN Reason: Insomnia Last Admin: 10/12/21 20:50 Dose: 50 mg Allergies Allergies Allergy/AdvReac Type Severity Reaction Status Date / Time aspirin Allergy Unknown Verified 09/12/21 23:15 Assessment & Plan Assessment & Plan (1) Schizophrenia: Status: Acute Code(s): F20.9 - Schizophrenia, unspecified Plan Elderly Latvian female, with a were with a history of schizophrenia nearly all his her adult life admitted for exacerbation of psychosis in the context of noncompliance. The patient is on Invega Sustenna and so far she remains pleasantly psychotic and easily redirectable. Plan 1. Waiting for placement. 2. Continue same treatment 3. Invega Sustenna 234 mg a monthly I spent ___20___ minutes with the patient and/or on the patient floor today, greater than?50% of which was spent counseling/coordinating care. Reason for contiued inpatient stay Substantial Risk for: inability to function, rapid decompensation and med/psych decompensation
[2021-12-07 18:00] VITALS: BP 146/64; PULSE 86; RESP 16; TEMP 37.1; O2SAT 96
[2021-12-08 06:00] VITALS: BP 126/62; PULSE 70; RESP 17; TEMP 36.4; O2SAT 97
--- NOTE | 2021-12-08 10:36 | HO.PSYCHPN ---
Subjective Subjective Date of Service: 12/08/21 Reason For Visit: Psychosis Subjective Notes: Conditional Voluntary Interim History: The nursing staff reported the patient, since on, has refused medications and vital signs. She was seen in the facility in the common areas participating in groups, delusional stating that she is but easily redirectable. On interview the patient stated that she wants to go back to [place], she is aware that her that she stated that she saw him last night. Mental Status Exam Mental Status Exam Patient Appearance: Well Grooomed Patient Orientation: Person and Situation Level of Consciousness: Awake Patient Behavior: Cooperative Mood Description: Withdrawn Affect Description: Constricted Patient Cognition Impaired: Yes Ability to Follow Directions: Good Speech Pattern: Clear Hallucinations: Auditory Delusions: Paranoid Ideation Thought Process: Illogical and Distracted Thought Content: positive for Obsessional Thoughts and positive for Poverty of Content Judgement: Fair Diagnostics Vital Signs (24Hr): Vital Signs - 24 hr 12/07/21 18:00 12/08/21 06:00 Temperature 98.7 F 97.5 F Pulse Rate 86 70 Respiratory Rate 16 17 Blood Pressure 146/64 H 126/62 Pulse Oximetry 96 97 Oxygen Delivery Method Room Air Room Air BMI result Body Mass Index 26.3 Labs Results: 11/11/21 18:22 11/11/21 18:22 Labs: Laboratory Results - last 48 hr 12/07/21 09:30 COVID-19 ([facility]) Negative COVID-19 Clin Com See Note Imaging Radiology Impressions: ITS Impressions Extremity Ultrasound 11/21/21 13:55 IMPRESSION: Findings suggestive of isoechoic fatty lesion/lipoma within the intramuscular compartment. Medications Medications Current Medications Acetaminophen (Acetaminophen 325 Mg Tablet) 650 mg PO Q6H PRN PRN Reason: Headache/Pain Mild Scale (1-3) Last Admin: 12/01/21 06:32 Dose: 650 mg Al Hydroxide/Mg Hydroxide (Magnesium Hydrox/Alum Hydrox 30 Ml Oral.Susp) 30 ml PO Q6H PRN PRN Reason: Heartburn/Nausea Last Admin: 11/25/21 10:48 Dose: 30 ml Amlodipine Besylate (Amlodipine Besylate 10 Mg Tablet) 10 mg PO DAILY [facility]; Protocol Last Admin: 12/08/21 08:24 Dose: Not Given Benzocaine (Throat Lozenge, Medicated Lozenge) 1 lozenge MUCOUS MEM Q2H PRN PRN Reason: Sore Throat Last Admin: 10/29/21 06:48 Dose: 1 lozenge Docusate Sodium (Docusate Sodium 100 Mg Capsule) 100 mg PO BEDTIME PRN PRN Reason: constipation Last Admin: 11/21/21 20:32 Dose: 100 mg Famotidine (Famotidine 20 Mg Tablet) 20 mg PO BID PRN PRN Reason: heartburn Guaifenesin (Guaifenesin 200 Mg/10 Ml 10 Ml Liquid) 10 ml PO Q4H PRN PRN Reason: Cough Hydroxyzine HCl (Hydroxyzine Hcl 25 Mg Tablet) 25 mg PO BEDTIME PRN PRN Reason: Anxiety Lisinopril (Lisinopril 40 Mg Tablet) 40 mg PO DAILY [facility]; Protocol Last Admin: 12/08/21 08:24 Dose: Not Given Loperamide HCl (Loperamide Hcl 2 Mg Capsule) 2 mg PO Q4H PRN PRN Reason: Diarrhea Last Admin: 11/25/21 16:29 Dose: 2 mg Magnesium Hydroxide (Milk Of Magnesia 30 Ml Oral.Susp) 30 ml PO DAILY PRN PRN Reason: Constipation Paliperidone Palmitate (Paliperidone Palmitate 234 Mg/1.5 Ml Syringe) 234 mg IM Q30D [facility] Last Admin: 11/30/21 18:19 Dose: 234 mg Trazodone HCl (Trazodone Hcl 50 Mg Tablet) 50 mg PO BEDTIME PRN PRN Reason: Insomnia Last Admin: 10/12/21 20:50 Dose: 50 mg Allergies Allergies Allergy/AdvReac Type Severity Reaction Status Date / Time aspirin Allergy Unknown Verified 09/12/21 23:15 Assessment & Plan Assessment & Plan (1) Schizophrenia: Status: Acute Code(s): F20.9 - Schizophrenia, unspecified Plan Elderly Samoan female, with a were with a history of schizophrenia nearly all his her adult life admitted for exacerbation of psychosis in the context of noncompliance. The patient is on Invega Sustenna and so far she remains pleasantly psychotic and easily redirectable. Plan 1. Waiting for placement. 2. Continue same treatment 3. Invega Sustenna 234 mg a monthly I spent __20____ minutes with the patient and/or on the patient floor today, greater than?50% of which was spent counseling/coordinating care. Reason for contiued inpatient stay Substantial Risk for: inability to function, rapid decompensation and med/psych decompensation
[2021-12-08 18:00] VITALS: BP 173/78; PULSE 65; RESP 18; TEMP 36.1; O2SAT 100
[2021-12-09 07:00] VITALS: BP 133/58; PULSE 88; RESP 14; TEMP 36.4; O2SAT 97
--- NOTE | 2021-12-09 15:10 | P.PNPSI_ITS ---
Subjective Subjective Date of Service: 12/09/21 Reason For Visit: Psychosis Interim History: Lying in bed under the covers. Friendly on approach. Starts talking about Tawanda and God and other orthodoxy things. Staff reports in behavioral control today. Mental Status Exam Mental Status Exam Patient Appearance: Well Grooomed Patient Orientation: Person and Situation Level of Consciousness: Awake Patient Behavior: Cooperative Mood Description: Withdrawn Affect Description: Constricted Patient Cognition Impaired: Yes Ability to Follow Directions: Good Speech Pattern: Clear Hallucinations: Auditory Delusions: Paranoid Ideation Thought Process: Illogical and Distracted Thought Content: positive for Obsessional Thoughts and positive for Poverty of Content Judgement: Fair Diagnostics Vital Signs (24Hr): Vital Signs - 24 hr 12/08/21 18:00 12/09/21 07:00 Temperature 97 F 97.5 F Pulse Rate 65 88 Respiratory Rate 18 14 Blood Pressure 173/78 H 133/58 L Pulse Oximetry 100 97 Oxygen Delivery Method Room Air Room Air BMI result Body Mass Index 26.3 Labs Results: 11/11/21 18:22 11/11/21 18:22 Imaging Radiology Impressions: ITS Impressions Extremity Ultrasound 11/21/21 13:55 IMPRESSION: Findings suggestive of isoechoic fatty lesion/lipoma within the intramuscular compartment. Medications Medications Current Medications Acetaminophen (Acetaminophen 325 Mg Tablet) 650 mg PO Q6H PRN PRN Reason: Headache/Pain Mild Scale (1-3) Last Admin: 12/01/21 06:32 Dose: 650 mg Al Hydroxide/Mg Hydroxide (Magnesium Hydrox/Alum Hydrox 30 Ml Oral.Susp) 30 ml PO Q6H PRN PRN Reason: Heartburn/Nausea Last Admin: 11/25/21 10:48 Dose: 30 ml Amlodipine Besylate (Amlodipine Besylate 10 Mg Tablet) 10 mg PO DAILY [facility]; Protocol Last Admin: 12/09/21 08:40 Dose: Not Given Benzocaine (Throat Lozenge, Medicated Lozenge) 1 lozenge MUCOUS MEM Q2H PRN PRN Reason: Sore Throat Last Admin: 10/29/21 06:48 Dose: 1 lozenge Docusate Sodium (Docusate Sodium 100 Mg Capsule) 100 mg PO BEDTIME PRN PRN Reason: constipation Last Admin: 11/21/21 20:32 Dose: 100 mg Famotidine (Famotidine 20 Mg Tablet) 20 mg PO BID PRN PRN Reason: heartburn Guaifenesin (Guaifenesin 200 Mg/10 Ml 10 Ml Liquid) 10 ml PO Q4H PRN PRN Reason: Cough Hydroxyzine HCl (Hydroxyzine Hcl 25 Mg Tablet) 25 mg PO BEDTIME PRN PRN Reason: Anxiety Lisinopril (Lisinopril 40 Mg Tablet) 40 mg PO DAILY [facility]; Protocol Last Admin: 12/09/21 08:40 Dose: Not Given Loperamide HCl (Loperamide Hcl 2 Mg Capsule) 2 mg PO Q4H PRN PRN Reason: Diarrhea Last Admin: 11/25/21 16:29 Dose: 2 mg Magnesium Hydroxide (Milk Of Magnesia 30 Ml Oral.Susp) 30 ml PO DAILY PRN PRN Reason: Constipation Paliperidone Palmitate (Paliperidone Palmitate 234 Mg/1.5 Ml Syringe) 234 mg IM Q30D [facility] Last Admin: 11/30/21 18:19 Dose: 234 mg Trazodone HCl (Trazodone Hcl 50 Mg Tablet) 50 mg PO BEDTIME PRN PRN Reason: Insomnia Last Admin: 10/12/21 20:50 Dose: 50 mg Allergies Allergies Allergy/AdvReac Type Severity Reaction Status Date / Time aspirin Allergy Unknown Verified 09/12/21 23:15 Assessment & Plan Assessment & Plan (1) Schizophrenia: Status: Acute Code(s): F20.9 - Schizophrenia, unspecified Plan Elderly [place] female, with a were with a history of schizophrenia nearly all his her adult life admitted for exacerbation of psychosis in the context of noncompliance. The patient is on Invega Sustenna and so far she garry ins pleasantly psychotic and easily redirectable. Plan 1. Waiting for placement. 2. Continue same treatment 3. Invega Sustenna 234 mg a monthly 12/09 continue current treatment plan I spent minutes with the patient and/or on the patient floor today, greater than?50% of which was spent counseling/coordinating care. Reason for contiued inpatient stay Substantial Risk for: inability to function
[2021-12-09 21:15] VITALS: BP 159/70; PULSE 85; RESP 15; TEMP 36.9; O2SAT 96
[2021-12-10 06:00] VITALS: BP 155/73; PULSE 87; RESP 16; TEMP 36.4; O2SAT 98
[2021-12-10 18:00] VITALS: BP 199/77; PULSE 70; RESP 16; TEMP 36.4; O2SAT 98
--- NOTE | 2021-12-10 18:34 | P.PNPSI_ITS ---
Subjective Subjective Date of Service: 12/10/21 Reason For Visit: Psychosis Interim History: In bed, awake and cheerful. 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 for contract technical writer to [place]; referencing God and Tawanda, hyperverbal Mental Status Exam Mental Status Exam Patient Appearance: Well Grooomed Patient Orientation: Person Level of Consciousness: Awake Patient Behavior: Talkative, Cooperative and Good Eye Contact Mood Description: Happy Affect Description: Happy Patient Cognition Impaired: Yes Ability to Follow Directions: Fair Speech Pattern: Clear Hallucinations: Auditory Delusions: Paranoid Ideation Thought Process: Illogical and Goal Oriented Thought Content: positive for Tangential Judgement: Poor Diagnostics Vital Signs (24Hr): Vital Signs - 24 hr 12/09/21 21:15 12/10/21 06:00 Temperature 98.5 F 97.6 F Pulse Rate 85 87 Respiratory Rate 15 16 Blood Pressure 159/70 H 155/73 H Pulse Oximetry 96 98 Oxygen Delivery Method Room Air Room Air BMI result Body Mass Index 26.3 Labs Results: 11/11/21 18:22 11/11/21 18:22 Imaging Radiology Impressions: ITS Impressions Extremity Ultrasound 11/21/21 13:55 IMPRESSION: Findings suggestive of isoechoic fatty lesion/lipoma within the intramuscular compartment. Medications Medications Current Medications Acetaminophen (Acetaminophen 325 Mg Tablet) 650 mg PO Q6H PRN PRN Reason: Headache/Pain Mild Scale (1-3) Last Admin: 12/01/21 06:32 Dose: 650 mg Al Hydroxide/Mg Hydroxide (Magnesium Hydrox/Alum Hydrox 30 Ml Oral.Susp) 30 ml PO Q6H PRN PRN Reason: Heartburn/Nausea Last Admin: 11/25/21 10:48 Dose: 30 ml Amlodipine Besylate (Amlodipine Besylate 10 Mg Tablet) 10 mg PO DAILY [facility]; Protocol Last Admin: 12/10/21 11:24 Dose: Not Given Benzocaine (Throat Lozenge, Medicated Lozenge) 1 lozenge MUCOUS MEM Q2H PRN PRN Reason: Sore Throat Last Admin: 10/29/21 06:48 Dose: 1 lozenge Docusate Sodium (Docusate Sodium 100 Mg Capsule) 100 mg PO BEDTIME PRN PRN Reason: constipation Last Admin: 11/21/21 20:32 Dose: 100 mg Guaifenesin (Guaifenesin 200 Mg/10 Ml 10 Ml Liquid) 10 ml PO Q4H PRN PRN Reason: Cough Hydroxyzine HCl (Hydroxyzine Hcl 25 Mg Tablet) 25 mg PO BEDTIME PRN PRN Reason: Anxiety Loperamide HCl (Loperamide Hcl 2 Mg Capsule) 2 mg PO Q4H PRN PRN Reason: Diarrhea Last Admin: 11/25/21 16:29 Dose: 2 mg Magnesium Hydroxide (Milk Of Magnesia 30 Ml Oral.Susp) 30 ml PO DAILY PRN PRN Reason: Constipation Paliperidone Palmitate (Paliperidone Palmitate 234 Mg/1.5 Ml Syringe) 234 mg IM Q30D [facility] Last Admin: 11/30/21 18:19 Dose: 234 mg Trazodone HCl (Trazodone Hcl 50 Mg Tablet) 50 mg PO BEDTIME PRN PRN Reason: Insomnia Last Admin: 10/12/21 20:50 Dose: 50 mg Allergies Allergies Allergy/AdvReac Type Severity Reaction Status Date / Time aspirin Allergy Unknown Verified 09/12/21 23:15 Assessment & Plan Assessment & Plan (1) Schizophrenia: Status: Acute Code(s): F20.9 - Schizophrenia, unspecified Plan Elderly [place]an female, with a were with a history of schizophrenia nearly all his her adult life admitted for exacerbation of psychosis in the context of noncompliance. The patient is on Invega Sustenna and so far she remains pleasantly psychotic and easily redirectable. Plan 1. Waiting for placement. 2. Continue same treatment 3. Invega Sustenna 234 mg a monthly 12/09 continue current treatment plan 12/10 continue current treatment plan I spent minutes with the patient and/or on the patient floor today, greater than?50% of which was spent counseling/coordinating care. Reason for contiued inpatient stay Substantial Risk for: inability to function
[2021-12-11 06:00] VITALS: BP 155/70; PULSE 81; RESP 16; TEMP 36.4; O2SAT 96
[2021-12-11 12:50] LABS: COVID-19 Test Negative (Negative)
--- NOTE | 2021-12-11 14:21 | HO.PSYCHPN ---
Subjective Subjective Date of Service: 12/11/21 Reason For Visit: Psychosis Subjective Notes: Conditional Voluntary Interim History: the nursing staff reports the patient has being psychotic, delusional but easily redirectable. On interview the patient reports that she does not take blood pressure medications and she stated that she wants to deliver her baby is in [place]. No safety concerns, chronically delusional but easily redirectable. Mental Status Exam Mental Status Exam Patient Appearance: Well Grooomed Patient Orientation: Person and Situation Level of Consciousness: Awake Patient Behavior: Cooperative Mood Description: Withdrawn Affect Description: Constricted Patient Cognition Impaired: Yes Ability to Follow Directions: Good Speech Pattern: Clear Hallucinations: Auditory Delusions: Paranoid Ideation and Bizarre Thought Process: Distracted Judgement: Fair Diagnostics Vital Signs (24Hr): Vital Signs - 24 hr 12/10/21 18:00 12/11/21 06:00 Temperature 97.5 F 97.5 F Pulse Rate 70 81 Respiratory Rate 16 16 Blood Pressure 199/77 H 155/70 H Pulse Oximetry 98 96 Oxygen Delivery Method Room Air Room Air BMI result Body Mass Index 26.3 Labs Results: 11/11/21 18:22 11/11/21 18:22 Labs: Laboratory Results - last 48 hr 12/11/21 12:15 COVID-19 ([facility]) Negative COVID-19 Clin Com See Note Imaging Radiology Impressions: ITS Impressions Extremity Ultrasound 11/21/21 13:55 IMPRESSION: Findings suggestive of isoechoic fatty lesion/lipoma within the intramuscular compartment. Medications Medications Current Medications Acetaminophen (Acetaminophen 325 Mg Tablet) 650 mg PO Q6H PRN PRN Reason: Headache/Pain Mild Scale (1-3) Last Admin: 12/01/21 06:32 Dose: 650 mg Al Hydroxide/Mg Hydroxide (Magnesium Hydrox/Alum Hydrox 30 Ml Oral.Susp) 30 ml PO Q6H PRN PRN Reason: Heartburn/Nausea Last Admin: 11/25/21 10:48 Dose: 30 ml Benzocaine (Throat Lozenge, Medicated Lozenge) 1 lozenge MUCOUS MEM Q2H PRN PRN Reason: Sore Throat Last Admin: 10/29/21 06:48 Dose: 1 lozenge Docusate Sodium (Docusate Sodium 100 Mg Capsule) 100 mg PO BEDTIME PRN PRN Reason: constipation Last Admin: 06/28/22 20:32 Dose: 100 mg Guaifenesin (Guaifenesin 200 Mg/10 Ml 10 Ml Liquid) 10 ml PO Q4H PRN PRN Reason: Cough Hydroxyzine HCl (Hydroxyzine Hcl 25 Mg Tablet) 25 mg PO BEDTIME PRN PRN Reason: Anxiety Loperamide HCl (Loperamide Hcl 2 Mg Capsule) 2 mg PO Q4H PRN PRN Reason: Diarrhea Last Admin: 11/25/21 16:29 Dose: 2 mg Magnesium Hydroxide (Milk Of Magnesia 30 Ml Oral.Susp) 30 ml PO DAILY PRN PRN Reason: Constipation Paliperidone Palmitate (Paliperidone Palmitate 234 Mg/1.5 Ml Syringe) 234 mg IM Q30D [facility] Last Admin: 11/30/21 18:19 Dose: 234 mg Trazodone HCl (Trazodone Hcl 50 Mg Tablet) 50 mg PO BEDTIME PRN PRN Reason: Insomnia Last Admin: 10/12/21 20:50 Dose: 50 mg Allergies Allergies Allergy/AdvReac Type Severity Reaction Status Date / Time aspirin Allergy Unknown Verified 09/12/21 23:15 Assessment & Plan Assessment & Plan (1) Schizophrenia: Status: Acute Code(s): F20.9 - Schizophrenia, unspecified Plan Elderly Moldovan female, with a were with a history of schizophrenia nearly all his her adult life admitted for exacerbation of psychosis in the context of noncompliance. The patient is on Invega Sustenna and so far she remains pleasantly psychotic and easily redirectable. Plan 1. Waiting for placement. 2. Continue same treatment 3. Invega Sustenna 234 mg a monthly I spent ___20___ minutes with the patient and/or on the patient floor today, greater than?50% of which was spent counseling/coordinating care. Reason for contiued inpatient stay Substantial Risk for: inability to function, rapid decompensation and med/psych decompensation
[2021-12-12 06:00] VITALS: BP 157/74; PULSE 76; RESP 18; TEMP 36.7; O2SAT 97
--- NOTE | 2021-12-12 13:45 | HO.PSYCHPN ---
Subjective Subjective Date of Service: 12/12/21 Reason For Visit: Psychosis Subjective Notes: Conditional Voluntary Interim History: the nursing staff reports no changes in her mental status, she remains delusional but easily redirectable. 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 The licensed master social worker reported that we will have an assessment by [facility] tomorrow. Mental Status Exam Mental Status Exam Patient Appearance: Well Grooomed Patient Orientation: Person and Situation Level of Consciousness: Awake Patient Behavior: Cooperative Mood Description: Labile Affect Description: Suspicious Patient Cognition Impaired: Yes Ability to Follow Directions: Good Speech Pattern: Clear Hallucinations: Auditory Delusions: Paranoid Ideation and Grandiose Thought Process: Distracted and Evasive Thought Content: positive for [place] and positive for Circumstantial Judgement: Fair Diagnostics Vital Signs (24Hr): Vital Signs - 24 hr 12/12/21 06:00 Temperature 98.0 F Pulse Rate 76 Respiratory Rate 18 Blood Pressure 157/74 H Pulse Oximetry 97 Oxygen Delivery Method Room Air BMI result Body Mass Index 26.3 Labs Results: 11/11/21 18:22 11/11/21 18:22 Labs: Laboratory Results - last 48 hr 12/11/21 12:15 COVID-19 ([facility]) Negative COVID-19 Clin Com See Note Imaging Radiology Impressions: ITS Impressions Extremity Ultrasound 11/21/21 13:55 IMPRESSION: Findings suggestive of isoechoic fatty lesion/lipoma within the intramuscular compartment. Medications Medications Current Medications Benzocaine (Throat Lozenge, Medicated Lozenge) 1 lozenge MUCOUS MEM Q2H PRN PRN Reason: Sore Throat Last Admin: 10/29/21 06:48 Dose: 1 lozenge Docusate Sodium (Docusate Sodium 100 Mg Capsule) 100 mg PO BEDTIME PRN PRN Reason: constipation Last Admin: 11/21/21 20:32 Dose: 100 mg Guaifenesin (Guaifenesin 200 Mg/10 Ml 10 Ml Liquid) 10 ml PO Q4H PRN PRN Reason: Cough Loperamide HCl (Loperamide Hcl 2 Mg Capsule) 2 mg PO Q4H PRN PRN Reason: Diarrhea Last Admin: 11/25/21 16:29 Dose: 2 mg Paliperidone Palmitate (Paliperidone Palmitate 234 Mg/1.5 Ml Syringe) 234 mg IM Q30D [facility] Last Admin: 11/30/21 18:19 Dose: 234 mg Allergies Allergies Allergy/AdvReac Type Severity Reaction Status Date / Time aspirin Allergy Unknown Verified 09/12/21 23:15 Assessment & Plan Assessment & Plan (1) Schizophrenia: Status: Acute Code(s): F20.9 - Schizophrenia, unspecified Plan Elderly Belizean female, with a were with a history of schizophrenia nearly all his her adult life admitted for exacerbation of psychosis in the context of noncompliance. The patient is on Invega Sustenna and so far she remains pleasantly psychotic and easily redirectable. Plan 1. Waiting for placement. 2. Continue same treatment 3. Invega Sustenna 234 mg a monthly I spent __20____ minutes with the patient and/or on the patient floor today, greater than?50% of which was spent counseling/coordinating care. Reason for contiued inpatient stay Substantial Risk for: inability to function, rapid decompensation and med/psych decompensation
[2021-12-12] MEDS: Loperamide HCl 2 MG CAPSULE PO (18:20)
[2021-12-13 07:30] VITALS: BP 129/61; PULSE 95; RESP 17; TEMP 36.9; O2SAT 94
[2021-12-13] MEDS: Loperamide HCl 2 MG CAPSULE PO (11:33)
--- NOTE | 2021-12-13 16:17 | HO.PSYCHPN ---
Subjective Subjective Date of Service: 12/13/21 Reason For Visit: Psychosis Subjective Notes: Conditional Voluntary Interim History: The patient reported that she has a sporadic diarrhea. She continues to be chronically delusional per but easily redirectable. Today she will be assessed by [facility] for disposition. Mental Status Exam Mental Status Exam Patient Appearance: Well Grooomed Patient Orientation: Person and Situation Level of Consciousness: Awake Patient Behavior: Cooperative Mood Description: Constricted Affect Description: Calm Patient Cognition Impaired: Yes Ability to Follow Directions: Good Speech Pattern: Clear Hallucinations: Auditory Delusions: Paranoid Ideation Thought Process: Illogical Thought Content: positive for Poverty of Content Judgement: Fair Diagnostics Vital Signs (24Hr): Vital Signs - 24 hr 12/13/21 07:30 Temperature 98.5 F Pulse Rate 95 Respiratory Rate 17 Blood Pressure 129/61 Pulse Oximetry 94 Oxygen Delivery Method Room Air BMI result Body Mass Index 26.3 Labs Results: 11/11/21 18:22 11/11/21 18:22 Imaging Radiology Impressions: ITS Impressions Extremity Ultrasound 11/21/21 13:55 IMPRESSION: Findings suggestive of isoechoic fatty lesion/lipoma within the intramuscular compartment. Medications Medications Current Medications Benzocaine (Throat Lozenge, Medicated Lozenge) 1 lozenge MUCOUS MEM Q2H PRN PRN Reason: Sore Throat Last Admin: 10/29/21 06:48 Dose: 1 lozenge Docusate Sodium (Docusate Sodium 100 Mg Capsule) 100 mg PO BEDTIME PRN PRN Reason: constipation Last Admin: 11/21/21 20:32 Dose: 100 mg Guaifenesin (Guaifenesin 200 Mg/10 Ml 10 Ml Liquid) 10 ml PO Q4H PRN PRN Reason: Cough Loperamide HCl (Loperamide Hcl 2 Mg Capsule) 2 mg PO Q4H PRN PRN Reason: Diarrhea Last Admin: 12/13/21 11:33 Dose: 2 mg Paliperidone Palmitate (Paliperidone Palmitate 234 Mg/1.5 Ml Syringe) 234 mg IM Q30D [facility] Last Admin: 11/30/21 18:19 Dose: 234 mg Allergies Allergies Allergy/AdvReac Type Severity Reaction Status Date / Time aspirin Allergy Unknown Verified 09/12/21 23:15 Assessment & Plan Assessment & Plan (1) Schizophrenia: Status: Acute Code(s): F20.9 - Schizophrenia, unspecified Plan Elderly [place] female, with a were with a history of schizophrenia nearly all his her adult life admitted for exacerbation of psychosis in the context of noncompliance. The patient is on Invega Sustenna and so far she remains pleasantly psychotic and easily redirectable. Plan 1. Waiting for placement. 2. Continue same treatment 3. Invega Sustenna 234 mg a monthly I spent __20____ minutes with the patient and/or on the patient floor today, greater than?50% of which was spent counseling/coordinating care. Reason for contiued inpatient stay Substantial Risk for: inability to function, rapid decompensation and med/psych decompensation
[2021-12-13 18:00] VITALS: BP 146/67; PULSE 95; RESP 18; TEMP 37.3; O2SAT 97
[2021-12-13 21:32] VITALS: TEMP 37
[2021-12-14 07:00] VITALS: BMI 25.9
[2021-12-14 08:08] LABS: MANUAL DIFF FLAG NO
[2021-12-14 08:10] LABS: Basophils Percent Auto 0.2 % (0-2); Eosinophils Absolute Auto 0.1 X10*3/uL (0.0-0.4); Hematocrit 33.8 % (37.0-47.0); Hemoglobin 10.6 g/dl (12.0-16.0); Imm Gran Abs Auto 0.03 X10*3/uL (0.00-0.03); Imm Gran Pct Auto 0.3 % (0.0-0.4); Lymphocytes Absolute Auto 2.9 X10*3/uL (1.2-4.9); Lymphocytes Percent Auto 25.7 % (20-40); Mean Corpuscular HGB Conc 31.4 g/dl (31.0-35.0); Mean Corpuscular Hemoglobin 26.8 pg (27.0-33.0); Mean Corpuscular Volume 85.6 fL (80.0-98.0); Mean Platelet Volume 9.9 fL (9.4-12.3); Monocytes Absolute Auto 0.8 X10*3/uL (0.1-1.2); Monocytes Percent Auto 7.1 % (2-11); Neutrophils Absolute Auto 7.4 x10*3/uL (2.0-8.3); Neutrophils Percent Auto 65.7 % (45-73); Platelet Count 267 X10*3/uL (160-400); Red Blood Count 3.95 X10*6/uL (4.20-5.50); Red Cell Distribution Width 15.2 % (11.0-16.0); White Blood Count 11.3 X10*3/uL (4.8-10.8)
[2021-12-14 08:33] LABS: Anion Gap 10 (12-20); Blood Urea Nitrogen 11 mg/dL (9-16); Calcium 9.1 mg/dL (8.4-10.2); Carbon Dioxide 27 mmol/L (22-29); Chloride 106 mmol/L (96-108); Creatinine Clr Calc Pharmacy 66.6; Estimated Glomerular Filt Rate > 60; Glucose Random 151 mg/dL (60-115); Potassium 4.3 mmol/L (3.3-5.1); Sodium 139 mmol/L (135-145)
[2021-12-14 09:12] VITALS: BP 136/66; PULSE 108; TEMP 36.8; O2SAT 95
--- NOTE | 2021-12-14 16:23 | P.PNPSI_ITS ---
Subjective Subjective Date of Service: 12/14/21 Reason For Visit: Psychosis Subjective Notes: Conditional Voluntary Interim History: The nursing staff reported the patient remains delusional but easily redirectable. On interview the patient denies new symptoms she is still psychotic stating that she spent med but no safety concerns. The social worker aide reported the [facility] evaluated her and probably she could be discharged over there. Mental Status Exam Mental Status Exam Patient Appearance: Well Grooomed Patient Orientation: Person and Situation Level of Consciousness: Awake Patient Behavior: Appropriate and Cooperative Mood Description: Withdrawn Affect Description: Labile Patient Cognition Impaired: Yes Ability to Follow Directions: Good Speech Pattern: Clear Hallucinations: Auditory Delusions: Paranoid Ideation and Grandiose Thought Process: Distracted Thought Content: positive for [place] and positive for Poverty of Content Judgement: Fair Diagnostics Vital Signs (24Hr): Vital Signs - 24 hr 12/13/21 18:00 12/13/21 21:32 12/14/21 09:12 Temperature 99.2 F 98.6 F 98.2 F Pulse Rate 95 108 H Respiratory Rate 18 Blood Pressure 146/67 H 136/66 Pulse Oximetry 97 95 Oxygen Delivery Method Room Air Room Air BMI result Body Mass Index 26.3 Labs Results: 12/14/21 08:02 12/14/21 08:02 Labs: Laboratory Results - last 48 hr 12/14/21 12/14/21 08:02 08:02 WBC 11.3 H RBC 3.95 L Hgb 10.6 L Hct 33.8 L MCV 85.6 MCH 26.8 L MCHC 31.4 RDW 15.2 Plt Count 267 D MPV 9.9 Immature Gran % (Auto) 0.3 Neut % (Auto) 65.7 Lymph % (Auto) 25.7 [place] % (Auto) 7.1 Eos % (Auto) 1.0 Baso % (Auto) 0.2 Lymph # (Auto) 2.9 [place] # (Auto) 0.8 Eos # (Auto) 0.1 Baso # (Auto) 0.0 Abs Immat Gran (auto) 0.03 Absolute Neuts (auto) 7.4 Absolute Nucleated RBC 0.000 Nucleated RBC % (auto) 0.0 Sodium 139 Potassium 4.3 Chloride 106 Carbon Dioxide 27 Anion Gap 10 L BUN 11 Creatinine 0.72 Estim Creat Clear Calc 66.6 Estimated GFR > 60 Random Glucose 151 H Calcium 9.1 D Imaging Radiology Impressions: ITS Impressions Extremity Ultrasound 11/21/21 13:55 IMPRESSION: Findings suggestive of isoechoic fatty lesion/lipoma within the intramuscular compartment. Medications Medications Current Medications Benzocaine (Throat Lozenge, Medicated Lozenge) 1 lozenge MUCOUS MEM Q2H PRN PRN Reason: Sore Throat Last Admin: 10/29/21 06:48 Dose: 1 lozenge Docusate Sodium (Docusate Sodium 100 Mg Capsule) 100 mg PO BEDTIME PRN PRN Reason: constipation Last Admin: 11/21/21 20:32 Dose: 100 mg Guaifenesin (Guaifenesin 200 Mg/10 Ml 10 Ml Liquid) 10 ml PO Q4H PRN PRN Reason: Cough Loperamide HCl (Loperamide Hcl 2 Mg Capsule) 2 mg PO Q4H PRN PRN Reason: Diarrhea Last Admin: 12/13/21 11:33 Dose: 2 mg Paliperidone Palmitate (Paliperidone Palmitate 234 Mg/1.5 Ml Syringe) 234 mg IM Q30D [facility]SES Last Admin: 11/30/21 18:19 Dose: 234 mg Allergies Allergies Allergy/AdvReac Type Severity Reaction Status Date / Time aspirin Allergy Unknown Verified 09/12/21 23:15 Assessment & Plan Assessment & Plan (1) Schizophrenia: Status: Acute Code(s): F20.9 - Schizophrenia, unspecified Plan Elderly Ghanaian female, with a were with a history of schizophrenia nearly all his her adult life admitted for exacerbation of psychosis in the context of noncompliance. The patient is on Invega Sustenna and so far she remains pleasantly psychotic and easily redirectable. Plan 1. Waiting for placement. 2. Continue same treatment 3. Invega Sustenna 234 mg a monthly 12/09 continue current treatment plan 12/10 continue current treatment plan I spent ___20___ minutes with the patient and/or on the patient floor today, greater than?50% of which was spent counseling/coordinating care. Reason for contiued inpatient stay Substantial Risk for: inability to function, rapid decompensation and med/psych decompensation
[2021-12-14 18:00] VITALS: BP 173/79; PULSE 96; RESP 16; TEMP 37.5; O2SAT 97
[2021-12-15 06:00] VITALS: BP 160/72; PULSE 104; RESP 16; TEMP 36.6; O2SAT 97
--- NOTE | 2021-12-15 14:24 | P.PNPSI_ITS ---
Subjective Subjective Date of Service: 12/15/21 Reason For Visit: Psychosis Subjective Notes: Conditional Voluntary Interim History: The nursing staff reports the patient has being pleasant and cooperative, chronically delusional but easily redirectable. 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 Mental Status Exam Mental Status Exam Patient Appearance: Well Grooomed Patient Orientation: Person Level of Consciousness: Awake Patient Behavior: Cooperative Mood Description: Withdrawn Affect Description: Constricted Patient Cognition Impaired: Yes Ability to Follow Directions: Good Speech Pattern: Clear Hallucinations: None Delusions: Paranoid Ideation and Grandiose Thought Process: Illogical Thought Content: positive for [place] and positive for Poverty of Content Judgement: Fair Diagnostics Vital Signs (24Hr): Vital Signs - 24 hr 12/14/21 18:00 12/15/21 06:00 Temperature 99.5 F 97.8 F Pulse Rate 96 104 H Respiratory Rate 16 16 Blood Pressure 173/79 H 160/72 H Pulse Oximetry 97 97 Oxygen Delivery Method Room Air Room Air BMI result Body Mass Index 25.9 Labs Results: 12/14/21 08:02 12/14/21 08:02 Labs: Laboratory Results - last 48 hr 12/14/21 12/14/21 08:02 08:02 WBC 11.3 H RBC 3.95 L Hgb 10.6 L Hct 33.8 L MCV 85.6 MCH 26.8 L MCHC 31.4 RDW 15.2 Plt Count 267 D MPV 9.9 Immature Gran % (Auto) 0.3 Neut % (Auto) 65.7 Lymph % (Auto) 25.7 [place] % (Auto) 7.1 Eos % (Auto) 1.0 Baso % (Auto) 0.2 Lymph # (Auto) 2.9 [place] # (Auto) 0.8 Eos # (Auto) 0.1 Baso # (Auto) 0.0 Abs Immat Gran (auto) 0.03 Absolute Neuts (auto) 7.4 Absolute Nucleated RBC 0.000 Nucleated RBC % (auto) 0.0 Sodium 139 Potassium 4.3 Chloride 106 Carbon Dioxide 27 Anion Gap 10 L BUN 11 Creatinine 0.72 Estim Creat Clear Calc 66.6 Estimated GFR > 60 Random Glucose 151 H Calcium 9.1 D Imaging Radiology Impressions: ITS Impressions Extremity Ultrasound 11/21/21 13:55 IMPRESSION: Findings suggestive of isoechoic fatty lesion/lipoma within the intramuscular compartment. Medications Medications Current Medications Benzocaine (Throat Lozenge, Medicated Lozenge) 1 lozenge MUCOUS MEM Q2H PRN PRN Reason: Sore Throat Last Admin: 10/29/21 06:48 Dose: 1 lozenge Docusate Sodium (Docusate Sodium 100 Mg Capsule) 100 mg PO BEDTIME PRN PRN Reason: constipation Last Admin: 11/21/21 20:32 Dose: 100 mg Guaifenesin (Guaifenesin 200 Mg/10 Ml 10 Ml Liquid) 10 ml PO Q4H PRN PRN Reason: Cough Loperamide HCl (Loperamide Hcl 2 Mg Capsule) 2 mg PO Q4H PRN PRN Reason: Diarrhea Last Admin: 12/13/21 11:33 Dose: 2 mg Paliperidone Palmitate (Paliperidone Palmitate 234 Mg/1.5 Ml Syringe) 234 mg IM Q30D [facility]SES Last Admin: 11/30/21 18:19 Dose: 234 mg Allergies Allergies Allergy/AdvReac Type Severity Reaction Status Date / Time aspirin Allergy Unknown Verified 09/12/21 23:15 Assessment & Plan Assessment & Plan (1) Schizophrenia: Status: Acute Code(s): F20.9 - Schizophrenia, unspecified Plan Elderly Nigerien female, with a were with a history of schizophrenia nearly all his her adult life admitted for exacerbation of psychosis in the context of noncompliance. The patient is on Invega Sustenna and so far she remains pleasantly psychotic and easily redirectable. Plan 1. Waiting for placement. 2. Continue same treatment 3. Invega Sustenna 234 mg a monthly I spent ___20___ minutes with the patient and/or on the patient floor today, greater than?50% of which was spent counseling/coordinating care. Reason for contiued inpatient stay Substantial Risk for: inability to function, rapid decompensation and med/psych decompensation
[2021-12-16 06:00] VITALS: BP 147/67; PULSE 78; RESP 17; TEMP 36.2; O2SAT 95
--- NOTE | 2021-12-16 12:39 | P.PNPSI_ITS ---
Subjective Subjective Date of Service: 12/16/21 Reason For Visit: Psychosis Subjective Notes: Conditional Voluntary Interim History: Pt seen outside, enjoying ba day. she reports doing well. She does report staff took a banana home. She also reports some of the gardening instruments have disappeared. Pt denies any other concerns. She denies SI/HI. Pt is eating and sleeping well. Per nursing, no behavioral concerns. Medication Compliance: Yes Side effects from medications: No Review of Systems Review of Systems Yes all other systems are reviewed and are negative and Unobtainable due to mental status Mental Status Exam Mental Status Exam Narrative: calm, cooperative. eager to speak, loquacious. no PMA/PMR. adequately dressed and groomed. speech incr in rate and amount. thoughts paranoid and delusional, loose in brief interaction. affect intense, constricted. mood not assessed. no SI/HI/AVH expressed. Diagnostics Vital Signs (24Hr): Vital Signs - 24 hr 12/17/21 06:00 Temperature 98.7 F Pulse Rate 88 Respiratory Rate 17 Blood Pressure 139/63 Pulse Oximetry 96 Oxygen Delivery Method Room Air BMI result Body Mass Index 25.9 Labs Results: 12/14/21 08:02 12/14/21 08:02 Imaging Radiology Impressions: ITS Impressions Extremity Ultrasound 11/21/21 13:55 IMPRESSION: Findings suggestive of isoechoic fatty lesion/lipoma within the intramuscular compartment. Medications Medications Current Medications Benzocaine (Throat Lozenge, Medicated Lozenge) 1 lozenge MUCOUS MEM Q2H PRN PRN Reason: Sore Throat Last Admin: 10/29/21 06:48 Dose: 1 lozenge Docusate Sodium (Docusate Sodium 100 Mg Capsule) 100 mg PO BEDTIME PRN PRN Reason: constipation Last Admin: 11/21/21 20:32 Dose: 100 mg Guaifenesin (Guaifenesin 200 Mg/10 Ml 10 Ml Liquid) 10 ml PO Q4H PRN PRN Reason: Cough Loperamide HCl (Loperamide Hcl 2 Mg Capsule) 2 mg PO Q4H PRN PRN Reason: Diarrhea Last Admin: 12/13/21 11:33 Dose: 2 mg Paliperidone Palmitate (Paliperidone Palmitate 234 Mg/1.5 Ml Syringe) 234 mg IM Q30D [facility] Last Admin: 11/30/21 18:19 Dose: 234 mg Allergies Allergies Allergy/AdvReac Type Severity Reaction Status Date / Time aspirin Allergy Unknown Verified 09/12/21 23:15 Assessment & Plan Assessment & Plan (1) Schizophrenia: Status: Acute Code(s): F20.9 - Schizophrenia, unspecified Plan Elderly [place]ry[place] female, with a were with a history of schizophrenia nearly all his her adult life admitted for exacerbation of psychosis in the context of noncompliance. The patient is on Invega Sustenna and so far she remains pleasantly psychotic and easily redirectable. Plan 1. Waiting for placement. 2. Continue same treatment 3. Invega Sustenna 234 mg a monthly 12/16 continue current medications and plan. I spent minutes with the patient and/or on the patient floor today, greater than?50% of which was spent counseling/coordinating care. Reason for contiued inpatient stay Substantial Risk for: inability to function
[2021-12-17 06:00] VITALS: BP 139/63; PULSE 88; RESP 17; TEMP 37.1; O2SAT 96
--- NOTE | 2021-12-17 13:34 | P.PNPSI_ITS ---
Subjective Subjective Date of Service: 12/17/21 Reason For Visit: Psychosis Subjective Notes: Conditional Voluntary Interim History: Pt continues to present as fairly cooperative and calm on approach. 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 She denies SI/HI. No behavioral concerns. Per nursing, pt slept through the night. Medication Compliance: Yes Side effects from medications: No Review of Systems Review of Systems Yes all other systems are reviewed and are negative and Unobtainable due to mental status Mental Status Exam Mental Status Exam Narrative: calm, cooperative. eager to speak, loquacious. no PMA/PMR. adequately dressed and groomed. speech incr in rate and amount. thoughts paranoid and delusional, loose in brief interaction. affect intense, constricted. mood not assessed. no SI/HI/AVH expressed. Diagnostics Vital Signs (24Hr): Vital Signs - 24 hr 12/17/21 06:00 Temperature 98.7 F Pulse Rate 88 Respiratory Rate 17 Blood Pressure 139/63 Pulse Oximetry 96 Oxygen Delivery Method Room Air BMI result Body Mass Index 25.9 Labs Results: 12/14/21 08:02 12/14/21 08:02 Imaging Radiology Impressions: ITS Impressions Extremity Ultrasound 11/21/21 13:55 IMPRESSION: Findings suggestive of isoechoic fatty lesion/lipoma within the intramuscular compartment. Medications Medications Current Medications Benzocaine (Throat Lozenge, Medicated Lozenge) 1 lozenge MUCOUS MEM Q2H PRN PRN Reason: Sore Throat Last Admin: 10/29/21 06:48 Dose: 1 lozenge Docusate Sodium (Docusate Sodium 100 Mg Capsule) 100 mg PO BEDTIME PRN PRN Reason: constipation Last Admin: 11/21/21 20:32 Dose: 100 mg Guaifenesin (Guaifenesin 200 Mg/10 Ml 10 Ml Liquid) 10 ml PO Q4H PRN PRN Reason: Cough Loperamide HCl (Loperamide Hcl 2 Mg Capsule) 2 mg PO Q4H PRN PRN Reason: Diarrhea Last Admin: 12/13/21 11:33 Dose: 2 mg Paliperidone Palmitate (Paliperidone Palmitate 234 Mg/1.5 Ml Syringe) 234 mg IM Q30D [facility] Last Admin: 11/30/21 18:19 Dose: 234 mg Allergies Allergies Allergy/AdvReac Type Severity Reaction Status Date / Time aspirin Allergy Unknown Verified 09/12/21 23:15 Assessment & Plan Assessment & Plan (1) Schizophrenia: Status: Acute Code(s): F20.9 - Schizophrenia, unspecified Plan Elderly Guamanian female, with a were with a history of schizophrenia nearly all his her adult life admitted for exacerbation of psychosis in the context of noncompliance. The patient is on Invega Sustenna and so far she remains pleasantly psychotic and easily redirectable. Plan 1. Waiting for placement. 2. Continue same treatment 3. Invega Sustenna 234 mg a monthly 12/16 continue current medications and plan. 12/17 continue cuurrent tx plan. I spent minutes with the patient and/or on the patient floor today, greater than?50% of which was spent counseling/coordinating care. Reason for contiued inpatient stay Substantial Risk for: inability to function
[2021-12-18 06:00] VITALS: BP 193/81; PULSE 80; RESP 15; TEMP 36.3; O2SAT 98
--- NOTE | 2021-12-18 15:43 | HO.PSYCHPN ---
Subjective Subjective Date of Service: 12/18/21 Reason For Visit: Psychosis Subjective Notes: Conditional Voluntary Interim History: The nursing staff reports no changes in her mental status, remains chronically delusional but easily redirectable. On interview she denies new symptoms still stating that she is that she wants to go back to [place]. Mental Status Exam Mental Status Exam Patient Appearance: Well Grooomed Patient Orientation: Person Level of Consciousness: Awake Patient Behavior: Cooperative Mood Description: Calm Affect Description: Labile Patient Cognition Impaired: Yes Ability to Follow Directions: Good Speech Pattern: Clear Hallucinations: None Delusions: Paranoid Ideation and Bizarre Thought Process: Distracted Thought Content: positive for [place] and positive for Circumstantial Judgement: Fair Diagnostics Vital Signs (24Hr): Vital Signs - 24 hr 12/18/21 06:00 Temperature 97.3 F Pulse Rate 80 Respiratory Rate 15 Blood Pressure 193/81 H Pulse Oximetry 98 Oxygen Delivery Method Room Air BMI result Body Mass Index 25.9 Labs Results: 12/14/21 08:02 12/14/21 08:02 Imaging Radiology Impressions: ITS Impressions Extremity Ultrasound 11/21/21 13:55 IMPRESSION: Findings suggestive of isoechoic fatty lesion/lipoma within the intramuscular compartment. Medications Medications Current Medications Benzocaine (Throat Lozenge, Medicated Lozenge) 1 lozenge MUCOUS MEM Q2H PRN PRN Reason: Sore Throat Last Admin: 10/29/21 06:48 Dose: 1 lozenge Docusate Sodium (Docusate Sodium 100 Mg Capsule) 100 mg PO BEDTIME PRN PRN Reason: constipation Last Admin: 11/21/21 20:32 Dose: 100 mg Guaifenesin (Guaifenesin 200 Mg/10 Ml 10 Ml Liquid) 10 ml PO Q4H PRN PRN Reason: Cough Loperamide HCl (Loperamide Hcl 2 Mg Capsule) 2 mg PO Q4H PRN PRN Reason: Diarrhea Last Admin: 12/13/21 11:33 Dose: 2 mg Paliperidone Palmitate (Paliperidone Palmitate 234 Mg/1.5 Ml Syringe) 234 mg IM Q30D [facility] Last Admin: 11/30/21 18:19 Dose: 234 mg Allergies Allergies Allergy/AdvReac Type Severity Reaction Status Date / Time aspirin Allergy Unknown Verified 09/12/21 23:15 Assessment & Plan Assessment & Plan (1) Schizophrenia: Status: Acute Code(s): F20.9 - Schizophrenia, unspecified Plan Elderly Macedonian female, with a were with a history of schizophrenia nearly all his her adult life admitted for exacerbation of psychosis in the context of noncompliance. The patient is on Invega Sustenna and so far she remains pleasantly psychotic and easily redirectable. Plan 1. Waiting for placement. 2. Continue same treatment 3. Invega Sustenna 234 mg a monthly 12/16 continue current medications and plan. 12/17 continue cuurrent tx plan. I spent ___20___ minutes with the patient and/or on the patient floor today, greater than?50% of which was spent counseling/coordinating care. Reason for contiued inpatient stay Substantial Risk for: inability to function, rapid decompensation and med/psych decompensation
[2021-12-19 06:00] VITALS: BP 163/70; PULSE 90; RESP 14; TEMP 36.4; O2SAT 98
--- NOTE | 2021-12-19 16:56 | HO.PSYCHPN ---
Subjective Subjective Date of Service: 12/19/21 Reason For Visit: Psychosis Subjective Notes: Conditional Voluntary Interim History: The nursing staff reported no changes in her mental status. On interview the patient was very upset everybody is getting discharge but I am still stuck here . The social studies teacher reported that probably she will be [facility] to [facility] Mental Status Exam Mental Status Exam Patient Appearance: Well Grooomed Patient Orientation: Person and Situation Level of Consciousness: Awake Patient Behavior: Guarded and Suspicious Mood Description: Withdrawn Affect Description: Labile Patient Cognition Impaired: Yes Ability to Follow Directions: Good Speech Pattern: Clear Hallucinations: None Delusions: Paranoid Ideation and Grandiose Thought Process: Evasive Thought Content: positive for [place] and positive for Poverty of Content Judgement: Fair Diagnostics Vital Signs (24Hr): Vital Signs - 24 hr 12/19/21 06:00 Temperature 97.5 F Pulse Rate 90 Respiratory Rate 14 Blood Pressure 163/70 H Pulse Oximetry 98 Oxygen Delivery Method Room Air BMI result Body Mass Index 25.9 Labs Results: 12/14/21 08:02 12/14/21 08:02 Imaging Radiology Impressions: ITS Impressions Extremity Ultrasound 11/21/21 13:55 IMPRESSION: Findings suggestive of isoechoic fatty lesion/lipoma within the intramuscular compartment. Medications Medications Current Medications Benzocaine (Throat Lozenge, Medicated Lozenge) 1 lozenge MUCOUS MEM Q2H PRN PRN Reason: Sore Throat Last Admin: 10/29/21 06:48 Dose: 1 lozenge Docusate Sodium (Docusate Sodium 100 Mg Capsule) 100 mg PO BEDTIME PRN PRN Reason: constipation Last Admin: 11/21/21 20:32 Dose: 100 mg Guaifenesin (Guaifenesin 200 Mg/10 Ml 10 Ml Liquid) 10 ml PO Q4H PRN PRN Reason: Cough Loperamide HCl (Loperamide Hcl 2 Mg Capsule) 2 mg PO Q4H PRN PRN Reason: Diarrhea Last Admin: 12/13/21 11:33 Dose: 2 mg Paliperidone Palmitate (Paliperidone Palmitate 234 Mg/1.5 Ml Syringe) 234 mg IM Q30D [facility] Last Admin: 11/30/21 18:19 Dose: 234 mg Allergies Allergies Allergy/AdvReac Type Severity Reaction Status Date / Time aspirin Allergy Unknown Verified 09/12/21 23:15 Assessment & Plan Assessment & Plan (1) Schizophrenia: Status: Acute Code(s): F20.9 - Schizophrenia, unspecified Plan Elderly [place] female, with a were with a history of schizophrenia nearly all his her adult life admitted for exacerbation of psychosis in the context of noncompliance. The patient is on Invega Sustenna and so far she remains pleasantly psychotic and easily redirectable. Plan 1. Waiting for placement. 2. Continue same treatment 3. Invega Sustenna 234 mg a monthly I spent ___20___ minutes with the patient and/or on the patient floor today, greater than?50% of which was spent counseling/coordinating care. Reason for contiued inpatient stay Substantial Risk for: inability to function, rapid decompensation and med/psych decompensation
[2021-12-20 06:00] VITALS: BP 140/68; PULSE 83; RESP 17; TEMP 37.3; O2SAT 98
--- NOTE | 2021-12-20 15:24 | HO.PSYCHPN ---
Subjective Subjective Date of Service: 12/20/21 Reason For Visit: Psychosis Subjective Notes: Conditional Voluntary Interim History: The patient remains pleasantly psychotic, delusional but easily redirectable, in good spirits. Today she was visited by her daughter and they aware of the discharge plan. Still the patient wants to go but [place], unable to understand why she is here. Mental Status Exam Mental Status Exam Patient Appearance: Well Grooomed Patient Orientation: Person and Situation Level of Consciousness: Awake Patient Behavior: Cooperative Mood Description: Calm Affect Description: Constricted Patient Cognition Impaired: Yes Ability to Follow Directions: Good Speech Pattern: Clear Hallucinations: None Delusions: Paranoid Ideation Thought Process: Illogical and Distracted Thought Content: positive for [place] and positive for [place] Judgement: Poor Diagnostics Vital Signs (24Hr): Vital Signs - 24 hr 12/20/21 06:00 Temperature 99.2 F Pulse Rate 83 Respiratory Rate 17 Blood Pressure 140/68 H Pulse Oximetry 98 Oxygen Delivery Method Room Air BMI result Body Mass Index 25.9 Labs Results: 12/14/21 08:02 12/14/21 08:02 Imaging Radiology Impressions: ITS Impressions Extremity Ultrasound 11/21/21 13:55 IMPRESSION: Findings suggestive of isoechoic fatty lesion/lipoma within the intramuscular compartment. Medications Medications Current Medications Benzocaine (Throat Lozenge, Medicated Lozenge) 1 lozenge MUCOUS MEM Q2H PRN PRN Reason: Sore Throat Last Admin: 10/29/21 06:48 Dose: 1 lozenge Docusate Sodium (Docusate Sodium 100 Mg Capsule) 100 mg PO BEDTIME PRN PRN Reason: constipation Last Admin: 11/21/21 20:32 Dose: 100 mg Guaifenesin (Guaifenesin 200 Mg/10 Ml 10 Ml Liquid) 10 ml PO Q4H PRN PRN Reason: Cough Loperamide HCl (Loperamide Hcl 2 Mg Capsule) 2 mg PO Q4H PRN PRN Reason: Diarrhea Last Admin: 12/13/21 11:33 Dose: 2 mg Paliperidone Palmitate (Paliperidone Palmitate 234 Mg/1.5 Ml Syringe) 234 mg IM Q30D [facility]SES Last Admin: 11/30/21 18:19 Dose: 234 mg Allergies Allergies Allergy/AdvReac Type Severity Reaction Status Date / Time aspirin Allergy Unknown Verified 09/12/21 23:15 Assessment & Plan Assessment & Plan (1) Schizophrenia: Status: Acute Code(s): F20.9 - Schizophrenia, unspecified Plan Elderly Congolese female, with a were with a history of schizophrenia nearly all his her adult life admitted for exacerbation of psychosis in the context of noncompliance. The patient is on Invega Sustenna and so far she remains pleasantly psychotic and easily redirectable. Plan 1. Waiting for placement. 2. Continue same treatment 3. Invega Sustenna 234 mg a monthly I spent __20____ minutes with the patient and/or on the patient floor today, greater than?50% of which was spent counseling/coordinating care. Reason for contiued inpatient stay Substantial Risk for: inability to function, rapid decompensation and med/psych decompensation
[2021-12-20 20:35] VITALS: PULSE 111; RESP 19; TEMP 36.8; O2SAT 95
[2021-12-21 07:00] VITALS: BMI 26.0
--- NOTE | 2021-12-21 13:37 | HO.PSYCHPN ---
Subjective Subjective Date of Service: 12/21/21 Reason For Visit: Psychosis Subjective Notes: Conditional Voluntary Interim History: The nursing staff reported no changes in her mental status, she remains delusional but easily redirectable. No evidence of safety concerns. On interview the patient was complaining that he had a pair of shoes were not there but later she founded. She has been accepted at [facility] Mental Status Exam Mental Status Exam Patient Appearance: Well Grooomed Patient Orientation: Person and Situation Level of Consciousness: Awake Patient Behavior: Cooperative Mood Description: Calm Affect Description: Constricted Patient Cognition Impaired: Yes Speech Pattern: Clear Hallucinations: None Delusions: Not Present Thought Process: Linear Thought Content: positive for [place] and positive for Poverty of Content Judgement: Fair Diagnostics Vital Signs (24Hr): Vital Signs - 24 hr 12/20/21 20:35 Temperature 98.2 F Pulse Rate 111 H Respiratory Rate 19 Pulse Oximetry 95 BMI result Body Mass Index 26.0 Labs Results: 12/14/21 08:02 12/14/21 08:02 Imaging Radiology Impressions: ITS Impressions Extremity Ultrasound 11/21/21 13:55 IMPRESSION: Findings suggestive of isoechoic fatty lesion/lipoma within the intramuscular compartment. Medications Medications Current Medications Benzocaine (Throat Lozenge, Medicated Lozenge) 1 lozenge MUCOUS MEM Q2H PRN PRN Reason: Sore Throat Last Admin: 10/29/21 06:48 Dose: 1 lozenge Docusate Sodium (Docusate Sodium 100 Mg Capsule) 100 mg PO BEDTIME PRN PRN Reason: constipation Last Admin: 11/21/21 20:32 Dose: 100 mg Guaifenesin (Guaifenesin 200 Mg/10 Ml 10 Ml Liquid) 10 ml PO Q4H PRN PRN Reason: Cough Loperamide HCl (Loperamide Hcl 2 Mg Capsule) 2 mg PO Q4H PRN PRN Reason: Diarrhea Last Admin: 12/13/21 11:33 Dose: 2 mg Paliperidone Palmitate (Paliperidone Palmitate 234 Mg/1.5 Ml Syringe) 234 mg IM Q30D RAMSES Last Admin: 11/30/21 18:19 Dose: 234 mg Allergies Allergies Allergy/AdvReac Type Severity Reaction Status Date / Time aspirin Allergy Unknown Verified 09/12/21 23:15 Assessment & Plan Assessment & Plan (1) Schizophrenia: Status: Acute Code(s): F20.9 - Schizophrenia, unspecified (2) Dementia: Status: Acute Code(s): F03.90 - Unspecified dementia without behavioral disturbance Plan Elderly Niue[place] female, with a were with a history of schizophrenia nearly all his her adult life admitted for exacerbation of psychosis in the context of noncompliance. The patient is on Invega Sustenna and so far she remains pleasantly psychotic and easily redirectable. Plan 1. Waiting for placement. 2. Continue same treatment 3. Invega Sustenna 234 mg a monthly I spent __20____ minutes with the patient and/or on the patient floor today, greater than?50% of which was spent counseling/coordinating care. Reason for contiued inpatient stay Substantial Risk for: inability to function, rapid decompensation and med/psych decompensation
[2021-12-21 18:00] VITALS: BP 204/90; PULSE 72; TEMP 36.2; O2SAT 85
[2021-12-22 06:00] VITALS: BP 176/77; PULSE 85; RESP 18; TEMP 36.4; O2SAT 97
--- NOTE | 2021-12-22 14:06 | HO.PSYCHPN ---
Subjective Subjective Date of Service: 12/22/21 Reason For Visit: Psychosis Subjective Notes: Conditional Voluntary Interim History: The nursing staff reported the patient remains with the same mental status, easily redirectable. On interview the patient denies new symptoms. She remains delusional but redirectable Mental Status Exam Mental Status Exam Patient Appearance: Well Grooomed Patient Orientation: Person and Situation Level of Consciousness: Awake Patient Behavior: Cooperative Mood Description: Appropriate Affect Description: Constricted Patient Cognition Impaired: Yes Ability to Follow Directions: Good Speech Pattern: Clear Hallucinations: None Delusions: Paranoid Ideation, Ideas of Reference and Bizarre Thought Process: Distracted Thought Content: positive for [place] and positive for Poverty of Content Judgement: Fair Diagnostics Vital Signs (24Hr): Vital Signs - 24 hr 12/21/21 18:00 12/22/21 06:00 Temperature 97.1 F 97.5 F Pulse Rate 72 85 Respiratory Rate 18 Blood Pressure 204/90 H 176/77 H Pulse Oximetry 85 L 97 Oxygen Delivery Method Room Air Room Air BMI result Body Mass Index 26.0 Labs Results: 12/14/21 08:02 12/14/21 08:02 Imaging Radiology Impressions: ITS Impressions Extremity Ultrasound 11/21/21 13:55 IMPRESSION: Findings suggestive of isoechoic fatty lesion/lipoma within the intramuscular compartment. Medications Medications Current Medications Benzocaine (Throat Lozenge, Medicated Lozenge) 1 lozenge MUCOUS MEM Q2H PRN PRN Reason: Sore Throat Last Admin: 10/29/21 06:48 Dose: 1 lozenge Docusate Sodium (Docusate Sodium 100 Mg Capsule) 100 mg PO BEDTIME PRN PRN Reason: constipation Last Admin: 11/21/21 20:32 Dose: 100 mg Guaifenesin (Guaifenesin 200 Mg/10 Ml 10 Ml Liquid) 10 ml PO Q4H PRN PRN Reason: Cough Loperamide HCl (Loperamide Hcl 2 Mg Capsule) 2 mg PO Q4H PRN PRN Reason: Diarrhea Last Admin: 12/13/21 11:33 Dose: 2 mg Paliperidone Palmitate (Paliperidone Palmitate 234 Mg/1.5 Ml Syringe) 234 mg IM Q30D RAMSES Last Admin: 11/30/21 18:19 Dose: 234 mg Allergies Allergies Allergy/AdvReac Type Severity Reaction Status Date / Time aspirin Allergy Unknown Verified 09/12/21 23:15 Assessment & Plan Assessment & Plan (1) Schizophrenia: Status: Acute Code(s): F20.9 - Schizophrenia, unspecified (2) Dementia: Status: Acute Code(s): F03.90 - Unspecified dementia without behavioral disturbance Plan Elderly Welsh female, with a were with a history of schizophrenia nearly all his her adult life admitted for exacerbation of psychosis in the context of noncompliance. The patient is on Invega Sustenna and so far she remains pleasantly psychotic and easily redirectable. Plan 1. Waiting for placement. 2. Continue same treatment 3. Invega Sustenna 234 mg a monthly I spent __20____ minutes with the patient and/or on the patient floor today, greater than?50% of which was spent counseling/coordinating care. Reason for contiued inpatient stay Substantial Risk for: inability to function, rapid decompensation and med/psych decompensation
[2021-12-23 06:00] VITALS: BP 167/75; PULSE 81; RESP 16; TEMP 35.9; O2SAT 100
--- NOTE | 2021-12-23 09:58 | HO.PSYCHPN ---
Subjective Subjective Date of Service: 12/23/21 Reason For Visit: Psychosis Subjective Notes: Conditional Voluntary Interim History: The nursing staff reports no changes in her behavior she has been pleasant and cooperative very happy sings she notes that her discharging soon. On interview she remains chronically delusional but easily redirectable, no safety concerns. Mental Status Exam Mental Status Exam Patient Appearance: Well Grooomed Patient Orientation: Person and Situation Level of Consciousness: Awake Patient Behavior: Cooperative Mood Description: Calm Affect Description: Constricted Patient Cognition Impaired: Yes Ability to Follow Directions: Good Speech Pattern: Clear Hallucinations: Auditory Delusions: Paranoid Ideation Thought Process: Distracted Thought Content: positive for [place] and positive for Poverty of Content Judgement: Fair Diagnostics Vital Signs (24Hr): Vital Signs - 24 hr 12/23/21 06:00 Temperature 96.6 F L Pulse Rate 81 Respiratory Rate 16 Blood Pressure 167/75 H Pulse Oximetry 100 Oxygen Delivery Method Room Air BMI result Body Mass Index 26.0 Labs Results: 12/14/21 08:02 12/14/21 08:02 Imaging Radiology Impressions: ITS Impressions Extremity Ultrasound 11/21/21 13:55 IMPRESSION: Findings suggestive of isoechoic fatty lesion/lipoma within the intramuscular compartment. Medications Medications Current Medications Benzocaine (Throat Lozenge, Medicated Lozenge) 1 lozenge MUCOUS MEM Q2H PRN PRN Reason: Sore Throat Last Admin: 10/29/21 06:48 Dose: 1 lozenge Docusate Sodium (Docusate Sodium 100 Mg Capsule) 100 mg PO BEDTIME PRN PRN Reason: constipation Last Admin: 11/21/21 20:32 Dose: 100 mg Guaifenesin (Guaifenesin 200 Mg/10 Ml 10 Ml Liquid) 10 ml PO Q4H PRN PRN Reason: Cough Loperamide HCl (Loperamide Hcl 2 Mg Capsule) 2 mg PO Q4H PRN PRN Reason: Diarrhea Last Admin: 12/13/21 11:33 Dose: 2 mg Paliperidone Palmitate (Paliperidone Palmitate 234 Mg/1.5 Ml Syringe) 234 mg IM Q30D RAMSES Last Admin: 11/30/21 18:19 Dose: 234 mg Allergies Allergies Allergy/AdvReac Type Severity Reaction Status Date / Time aspirin Allergy Unknown Verified 09/12/21 23:15 Assessment & Plan Assessment & Plan (1) Schizophrenia: Status: Acute Code(s): F20.9 - Schizophrenia, unspecified (2) Dementia: Status: Acute Code(s): F03.90 - Unspecified dementia without behavioral disturbance Plan Elderly Sudanese female, with a were with a history of schizophrenia nearly all his her adult life admitted for exacerbation of psychosis in the context of noncompliance. The patient is on Invega Sustenna and so far she remains pleasantly psychotic and easily redirectable. Plan 1. Waiting for placement. 2. Continue same treatment 3. Invega Sustenna 234 mg a monthly I spent __20____ minutes with the patient and/or on the patient floor today, greater than?50% of which was spent counseling/coordinating care. Reason for contiued inpatient stay Substantial Risk for: inability to function, rapid decompensation and med/psych decompensation
[2021-12-24 06:00] VITALS: BP 158/74; PULSE 81; RESP 16; TEMP 36.4; O2SAT 96
--- NOTE | 2021-12-24 10:56 | HO.PSYCHPN ---
Subjective Subjective Date of Service: 12/24/21 Reason For Visit: Psychosis Subjective Notes: Conditional Voluntary Interim History: The nursing staff reported the patient has been pleasant and cooperative, chronically delusional. On interview no new symptoms. Mental Status Exam Mental Status Exam Patient Appearance: Well Grooomed Patient Orientation: Person and Situation Level of Consciousness: Awake Patient Behavior: Cooperative Mood Description: Calm Affect Description: Constricted Patient Cognition Impaired: Yes Ability to Follow Directions: Good Speech Pattern: Clear Hallucinations: None Delusions: Paranoid Ideation and Grandiose Thought Process: Illogical Thought Content: positive for [place] Judgement: Fair Diagnostics Vital Signs (24Hr): Vital Signs - 24 hr 12/24/21 06:00 Temperature 97.6 F Pulse Rate 81 Respiratory Rate 16 Blood Pressure 158/74 H Pulse Oximetry 96 Oxygen Delivery Method Room Air BMI result Body Mass Index 26.0 Labs Results: 12/14/21 08:02 12/14/21 08:02 Imaging Radiology Impressions: ITS Impressions Extremity Ultrasound 11/21/21 13:55 IMPRESSION: Findings suggestive of isoechoic fatty lesion/lipoma within the intramuscular compartment. Medications Medications Current Medications Benzocaine (Throat Lozenge, Medicated Lozenge) 1 lozenge MUCOUS MEM Q2H PRN PRN Reason: Sore Throat Last Admin: 10/29/21 06:48 Dose: 1 lozenge Docusate Sodium (Docusate Sodium 100 Mg Capsule) 100 mg PO BEDTIME PRN PRN Reason: constipation Last Admin: 11/21/21 20:32 Dose: 100 mg Guaifenesin (Guaifenesin 200 Mg/10 Ml 10 Ml Liquid) 10 ml PO Q4H PRN PRN Reason: Cough Loperamide HCl (Loperamide Hcl 2 Mg Capsule) 2 mg PO Q4H PRN PRN Reason: Diarrhea Last Admin: 12/13/21 11:33 Dose: 2 mg Paliperidone Palmitate (Paliperidone Palmitate 234 Mg/1.5 Ml Syringe) 234 mg IM Q30D RAMSES Last Admin: 11/30/21 18:19 Dose: 234 mg Allergies Allergies Allergy/AdvReac Type Severity Reaction Status Date / Time aspirin Allergy Unknown Verified 09/12/21 23:15 Assessment & Plan Assessment & Plan (1) Schizophrenia: Status: Acute Code(s): F20.9 - Schizophrenia, unspecified (2) Dementia: Status: Acute Code(s): F03.90 - Unspecified dementia without behavioral disturbance Plan Elderly [place] female, with a were with a history of schizophrenia nearly all his her adult life admitted for exacerbation of psychosis in the context of noncompliance. The patient is on Invega Sustenna and so far she remains pleasantly psychotic and easily redirectable. Plan 1. Waiting for placement. 2. Continue same treatment 3. Invega Sustenna 234 mg a monthly I spent __20____ minutes with the patient and/or on the patient floor today, greater than?50% of which was spent counseling/coordinating care. Reason for contiued inpatient stay Substantial Risk for: inability to function, rapid decompensation and med/psych decompensation
[2021-12-25 08:30] VITALS: BP 172/77; PULSE 87; RESP 17; TEMP 36.6
--- NOTE | 2021-12-25 10:54 | PM.PSYDC ---
DS: Providers Provider Date of Service: 12/25/21 Date of admission: 09/12/21 21:35 Date of discharge: 12/25/21 Primary care physician: Unknown Physician Admitting clinician: Corey العلي Consults: 11/20/21 08:27 Consult to Hospitalist Routine Consulting Provider: Hospitalist Reason For Exam: L forearm mass soft palpable diffuse no fever/pain DS: Diagnosis Discharge Diagnosis (1) Schizophrenia: Status: Acute (2) Dementia: Status: Acute DS: Medications Discharge Medications Home Medications: Home Medications Medication Instructions Recorded Confirmed amlodipine 10 mg tablet 1 tab PO DAILY 09/11/21 09/11/21 diclofenac sodium 1 % topical gel 1 ea topical QID PRN pain 09/11/21 09/11/21 divalproex 500 mg tablet,extended 1 tab PO BID 09/11/21 09/11/21 release 24 hr doxepin 50 mg capsule 1 cap PO BEDTIME 09/11/21 09/11/21 famotidine 20 mg tablet 1 tab PO BID PRN heartburn 09/11/21 09/11/21 lisinopril 40 mg tablet 1 tab PO DAILY 09/11/21 09/11/21 lorazepam 1 mg tablet 1 tab PO BEDTIME PRN Anxiety 09/11/21 09/11/21 lorazepam 2 mg tablet 1 tab PO BID PRN anxiety 09/11/21 09/11/21 olanzapine 20 mg tablet 1 tab PO BEDTIME 09/11/21 09/11/21 Mental Status Exam Mental Status Exam Patient Appearance: Well Grooomed and Appropriate Patient Orientation: Person and Situation Level of Consciousness: Awake Patient Behavior: Cooperative Mood Description: Calm and Appropriate Affect Description: Labile Patient Cognition Impaired: Yes Ability to Follow Directions: Fair Speech Pattern: Clear Hallucinations: None Delusions: Paranoid Ideation, Grandiose and Bizarre Thought Process: Distracted and Evasive Thought Content: positive for [place] and positive for Poverty of Content Judgement: Fair Data Data Completed and Pending Completed studies during hospitalization [Text1]: 11/12/21 08:45 Urine clean catch - Urine scales top Urine Culture - Final 10/06/21 21:15 Stool Stool Culture - Final 09/11/21 Unknown Urine clean catch - Urine scales top Urine Culture - Final Imaging Diagnostic Imaging Impressions Extremity Ultrasound 11/21/21 13:55 IMPRESSION: Findings suggestive of isoechoic fatty lesion/lipoma within the intramuscular compartment. DS: Summary Hospital Course Hospital Course: The patient was admitted for exacerbation of psychotic symptoms. The patient is over from schizophrenia and there were history of noncompliance of treatment. Please see HPI note of the admission for further details. The patient used to live in [place] with her and she was moved to the [facility] after her was diagnosed with cancer. Eventually, her a few weeks after she was admitted into this facility. According to her daughters who are the primary caregivers, the patient has always been psychotic but functional in the society. Since she was brought to the [facility] she spends most of the time admitted into the hospital due to noncompliance. The patient a was not compliant treatment. She had also several admissions for several months and different facilities in the state. We had several family meetings and it was clear that her daughter is could not take care of her. We also found out that the patient refused to take any medications. Legally, we affirmed healthcare proxy and we decided to change to Invega Sustenna once a month as an antipsychotic. Defect DVT of Invega Sustenna was marginal, the patient was still chronically delusional but easily redirectable with no evidence of violence. We have tried for several months to try to place her in the suitable environment and finally she was accepted at the assisting living facility. She was engaged in [facility] case managing several months ago when she was admitted into 1 of these psychiatric admissions. At baseline, the patient is delusional, grandiose and disorganized but easily redirectable with no evidence of safety concerns. Time spent discussing smoking cessation with patient: 3 to 10 minutes Status at Discharge Cognitive/behavioral status at discharge: [place] test , currently at baseline Functional status at discharge: independent ambulation Overall status at discharge: patient is back to baseline Time Spent with Patient Time attestation: Total time spent providing and/or coordinating discharge services: Time spent: Less than 30 minutes Discharge Plan Discharge Patient Disposition: Xfer SNF Discharge Diagnosis: Schizophrenia Dementia Referrals: Physician,Unknown J [Primary Care Provider] - 1 Week Discharge Medications: New Invega Sustenna 234 mg/1.5 mL Syringe 234 mg IM Q30D 30 Days Qty: 1.5 0RF Rx Instructions: next dose 12/31/2021 docusate sodium 100 mg Capsule 100 mg PO BEDTIME PRN (Reason: constipation) 30 Days Qty: 60 0RF Continued famotidine 20 mg tablet 1 tab PO BID PRN (Reason: heartburn) 30 Days Qty: 60 0RF diclofenac sodium 1 % gel 1 ea topical QID PRN (Reason: pain) 30 Days Qty: 1 0RF Discontinued doxepin 50 mg capsule 1 cap PO BEDTIME lorazepam 2 mg tablet 1 tab PO BID PRN (Reason: anxiety) amlodipine 10 mg tablet 1 tab PO DAILY divalproex 500 mg tablet extended release 24 hr 1 tab PO BID lorazepam 1 mg tablet 1 tab PO BEDTIME PRN (Reason: Anxiety) lisinopril 40 mg tablet 1 tab PO DAILY olanzapine 20 mg tablet 1 tab PO BEDTIME Discharge Orders: Discharge Order (Routine); Ordered 12/25/21 Ordered By: Corey العلي Diet: Advance to usual diet Activity on Discharge: As tolerated Stand Alone Forms: Patient Portal Discharge page Care Plan Goals: Care plan goals achieved Health Concerns: The patient is noncompliant with all the medications but she is stable medically, continue treatment by primary care physician Plan of Treatment: Continue outpatient services Assessment: Elderly Argentine female with a long history of schizophrenia admitted for exacerbation of symptoms in the context of noncompliance. At this moment on Invega Sustenna as per affirmed healthcare proxy with no evidence of safety concerns besides a sporadic delusional behavior but easily redirectable.
[2021-12-25 14:40] LABS: COVID-19 Test Negative (Negative); IDNOW Serial# 16C4AD1C
== END 2021-12-25 16:05 | disposition skilled nursing facility (03) | DRG 885 ==
LOC: HO.ED 09-12 12:28 → HO.PGERI 09-12 21:43
PROVIDERS: Physician Assistant; Psychiatry & Neurology Psychiatry; Admitting Provider Psychiatry & Neurology Psychiatry; Emergency Provider Emergency Medicine Emergency Medical Services; Visit Provider Psychiatry & Neurology Psychiatry
DX: F20.9 Schizophrenia, unspecified (principal); U07.1 COVID-19; F17.210 Nicotine dependence, cigarettes, uncomplicated; F03.90 Unspecified dementia, unspecified severity, without behavioral disturbance, psychotic disturbance, mood disturbance, and anxiety; Z71.6 Tobacco abuse counseling; Z75.1 Person awaiting admission to adequate facility elsewhere; Z91.14 Patient's other noncompliance with medication regimen; Z88.6 Allergy status to analgesic agent; Z79.899 Other long term (current) drug therapy
CPT/HCPCS: 36415; 76882; 80048; 80051; 80053; 80076; 80143; 80307; 81001; 82077; 82140; 82565; 83690; 84520; 85025; 87045; 87046; 87086; 87493; 87502; 87635; 92950; 93005; 99284; J2426

== ENCOUNTER 2024-06-24 02:41 | Emergency (ER) | payer MEDICARE, MEDICAID, SELFPAY ==
--- NOTE | 2024-06-24 | ECG_ITS ---
Test Reason : abd pain Blood Pressure : */* mmHG Vent. Rate : 85 BPM Atrial Rate : 85 BPM P-R Int : 162 ms QRS Dur : 82 ms QT Int : 358 ms P-R-T Axes : 77 24 61 degrees QTcB Int : 426 ms Normal sinus rhythm Normal ECG When compared with ECG of 12-Nov-2021 14:54, No significant changes seen Referred By: Generic ED Physician Electronically Signed By: BREANNE POLANCO
--- NOTE | ~2024-06-24 | CT_ITS ---
CLINICAL HISTORY: abdominal pain annd distention CT abdomen and pelvis with contrast Comparison: None Findings: Minor atelectasis at the lower lungs. Small hiatal hernia. Cardiomegaly. Hypodense liver. Cholecystectomy. Small calcifications in the uncinate process of the pancreatic head. This may be due to prior episodes of pancreatitis. Pancreatic body cyst 6 mm image 27 series 3. Small left superior renal cyst. Abdominal solid organs otherwise unremarkable. No urolithiasis. Fluid throughout the large and small bowel. Right hemicolectomy. The colon is distended and fluid-filled proximal to a potential 5 cm length malignancy in the distal descending colon, coronal image 42. There are descending colonic diverticula including a posterior thick-walled diverticulum with fat stranding and thickening of the lateral conal fascia on image 47, as well as an additional larger posterior diverticulum with fat stranding, lateral conal fascial thickening and enhancement on image 53. Moderately distended small bowel loops with air-fluid levels. Mesenteric vessels patent. Hysterectomy. Ovaries not identified. No ascites or hernia. No acute fracture. IMPRESSION: 1. Fatty liver. 2. Findings of developing bowel obstruction secondary to potential descending colonic malignancy. Recommend follow-up. 3. Suspect 2 foci of descending colonic diverticulitis. 4. 6 mm indeterminate pancreatic cyst. Recommend nonemergent MRI if clinically relevant. This document has been electronically signed by: Valdemar Alicea MD on 06/25/2024 01:33:52
[2024-06-24 02:45] VITALS: BP 193/61; PULSE 71; RESP 17; TEMP 36.9; O2SAT 99; BMI 28.2
--- NOTE | 2024-06-24 03:02 | MHC.EDTECH ---
Patient brought into triage area,EKG completed per order,signed by provider,labs and urine obtained and sent to lab.
[2024-06-24 03:14] LABS: Basophils Percent Auto 0.4 % (0-2); Eosinophils Absolute Auto 0.1 X10*3/uL (0.0-0.4); Eosinophils Percent Auto 1.2 % (0-4); Hematocrit 38.5 % (37.0-47.0); Hemoglobin 12.3 g/dl (12.0-16.0); Imm Gran Abs Auto 0.03 X10*3/uL (0.00-0.03); Imm Gran Pct Auto 0.3 % (0.0-0.4); Lymphocytes Absolute Auto 3.6 X10*3/uL (1.2-4.9); Lymphocytes Percent Auto 32.5 % (20-40); MANUAL DIFF FLAG NO; Mean Corpuscular HGB Conc 31.9 g/dl (31.0-35.0); Mean Corpuscular Hemoglobin 27.9 pg (27.0-33.0); Mean Corpuscular Volume 87.3 fL (80.0-98.0); Mean Platelet Volume 9.9 fL (9.4-12.3); Monocytes Absolute Auto 0.9 X10*3/uL (0.1-1.2); Neutrophils Absolute Auto 6.4 x10*3/uL (2.0-8.3); Neutrophils Percent Auto 57.6 % (45-73); Platelet Count 288 X10*3/uL (160-400); Red Blood Count 4.41 X10*6/uL (4.20-5.50); Red Cell Distribution Width 13.7 % (11.0-16.0); White Blood Count 11.1 X10*3/uL (4.8-10.8)
[2024-06-24 03:15] LABS: Appearance Urine Clear; Color Urine Yellow; Glucose Urine UA Negative (Negative); Leukocyte Esterase Urine Moderate (2+) (Negative); Nitrite Urine Negative (Negative); PH 5.5 (5.0-9.0); UMIC TRIGGER UACC YES; Urine Blood Negative (Negative); Urine Ketones Negative (Negative); Urine Protein Negative (Neg-Trace)
[2024-06-24 03:26] LABS: Bacteria Urine Trace (None Seen); Hyaline Casts Urine 0-2 /LPF (0-2); RBC Urine 0-2 /HPF (0-2); UACC Culture Trigger YES
[2024-06-24 03:45] LABS: Alanine Aminotransferase 14 U/L (0-31); Albumin Level 3.9 g/dL (3.5-5.0); Anion Gap 14 (12-20); Aspartate Amino Transferase 19 U/L (5-31); Bilirubin Total 0.4 mg/dL (0.0-1.0); Blood Urea Nitrogen 17 mg/dL (9-16); Carbon Dioxide 22 mmol/L (22-29); Chloride 106 mmol/L (96-108); Creatinine Clr Calc Pharmacy 64.4; Estimated Glomerular Filt Rate > 60; Glucose Random 114 mg/dL (60-115); Lipase 13 U/L (8-78); Potassium 4.1 mmol/L (3.3-5.1); Sodium 138 mmol/L (135-145); Total Protein 8.6 g/dL (6.5-8.0)
[2024-06-24 04:09] LABS: Alkaline Phosphatase 100 U/L (39-117)
--- NOTE | 2024-06-24 04:09 | ED.GENADULT ---
HPI - General Adult General Chief complaint: Abdominal Pain Stated complaint: abd pain Time Seen by Provider: 06/24/24 04:09 History of Present Illness ED Provider: Keenan SHANE narrative: The patient is a 74-year-old woman with a history of schizophrenia. She apparently has spent much of the last 4 months at an inpatient psychiatric hospital in [place]. This was the hospital for behavioral medicine. Patient was apparently discharged 5 days ago on Saturday. When she left the facility she went to her daughter's apartment here in [place]. She presented today with a complaint of abdominal distention and abdominal pain. She says that she has been having problems with the abdominal pain and distention for 7 months. She is not really able to tell me if this pain or distention was evaluated in the last few months however. No fever, sweats, chills. No vomiting. The patient's daughter says that things have not been working out well with the patient's staying at her house for care. Related Data Previous Rx's ?Medication ?Instructions ?Recorded diclofenac sodium 1 % topical gel 1 ea topical QID PRN pain 30 days 12/25/21 #1 g docusate sodium 100 mg capsule 100 mg PO BEDTIME PRN constipation 12/25/21 30 days #60 caps famotidine 20 mg tablet 1 tab PO BID PRN heartburn 30 days 12/25/21 #60 tabs paliperidone palmitate 234 mg/1.5 234 mg (1.5 mL) IM Q30D 30 days 12/25/21 mL intramuscular syringe (Invega #1.5 mL Sustenna) Allergies Allergy/AdvReac Type Severity Reaction Status Date / Time aspirin Allergy Unknown Verified 06/24/24 02:48 Review of Systems Review of Systems: Yes all other systems are reviewed and are negative [facility] Past Medical History Medical History HTN (hypertension) Social History Social History Unable to assess alcohol history related to: Refusing to respond Alcohol intake: never Patient Tobacco Use Status: Former Tobacco user Tobacco use type: Cigarette Years Smoked: 1 day when I was 8 Smoked in Last 30 Days: No e-Cigarette/Vaping Use: Never Used Second Hand Smoke Exposure: No Use of substances other than those prescribed or required for medical reasons: No Substance Use Type: Heroin Advance Directives: Yes Advance Directives on File: Yes Advance Directives Date on File: 12/27/21 Do you have a plan to hurt others: No Plan service: No Sexual orientation: Straight/Heterosexual Physical Exam ED Vital Signs: Vital Signs - 24 hr 06/24/24 02:45 06/24/24 04:38 Temperature 98.5 F 98.4 F Pulse Rate 71 74 Respiratory Rate 17 18 Blood Pressure 193/61 H 188/77 H Pulse Oximetry 99 97 Oxygen Delivery Method Room Air Room Air BMI result Body Mass Index 28.2 Const Other: The patient is a 74-year-old woman who was awake and alert. She does not appear in obvious distress or toxic. She had a protuberant lower abdomen. She did not seem obviously acutely ill. HENMT Other: Face is symmetrical. Mucous membranes moist. The posterior pharynx is normal. Mouth: Normal oral and palatal mucosa present Throat: Yes posterior oropharynx normal Eyes General: appearance normal, both eyes and all related structures Eyelids: Yes eyelids normal Conjunctivae: conjunctivae normal EOM: EOMs intact bilaterally Neck Neck: Yes full ROM and Yes no JVD Resp Effort & Inspection: normal respiratory effort Auscultation: clear to auscultation bilaterally Cardio Rate: regular rate Rhythm: regular rhythm Heart sounds: S1 normal heart sound present and S2 normal heart sound present GI Other: The patient has a protuberant abdomen. This is primarily in the lower abdomen. The protuberant abdomen does not feel firm or rigid in any way. It is not significantly tympanitic. Skin Other: The skin is dry and unremarkable Neuro Other: The patient is awake and alert. Initially she seemed pleasant and calm and rational. Face was symmetrical. Eye movements intact. Speech clear. She moves her extremities symmetrically. Later however the patient became quite upset and talked about God telling her that she was . Extrem Other: No peripheral edema. No clubbing or cyanosis Medications Administered Discontinued Medications Generic Name Dose Route Start Last Admin Trade Name Freq PRN Reason Stop Dose Admin Sodium Chloride 1,000 mls @ 999 mls/hr 06/24/24 04:30 06/24/24 06:29 Ns IV 06/24/24 05:30 Infused .Q1H1M RAMSES Infusion Medical Decision Making Medical Decision Making MDM Narrative: The patient is a 74-year-old woman who presents to the emergency room complaining of 7 or 8 months of abdominal pain and protuberance. Seems the patient recently had a prolonged stay at a [facility] in the [facility]. She was discharged 5 days ago on Saturday. The patient has moved into her daughter's apartment where she apparently sleeps on the daughter's bed. The patient does not get along with the daughter's . Here the patient does not seem to have an acute abdomen. There is a protuberant abdomen but no definite masses are appreciable on exam. It has been my intention to get a CT of the abdomen and pelvis to help clarify the state of the patient's abdomen. I do not have a very high suspicion that the CT of the abdomen and pelvis would reveal any significant deficit. Unfortunately after the patient was brought to the CT scanner she refused to have the CT. At that point she started talking about being and claiming that God told her that she was . I attempted to persuade the patient that she was not and that it would be appropriate to continue with the plan for a CT scan but the patient would not agree to this. The patient was then brought back to her room. I spoke to the patient and the patient's daughter with a snuff drier. Overall my suspicion for an acutely dangerous process in the patient's abdomen is low. She reports a history of colon cancer in the past and it is not inconceivable she could have some recurrence of her colon cancer. However I doubt that she has any kind of acute vascular or infectious process however. The patient apparently had a fairly large bowel movement in the emergency department and felt somewhat better. I proposed to the patient and to the daughter that the patient be discharged. The patient's daughter says that the patient lives with her and her family and that this is not working out very well. Ultimately the patient's daughter did not feel that she could safely bring the patient home. I will therefore had the patient stay in the emergency room with a care team consult Lab Data 06/24/24 03:09 06/24/24 03:09 Labs: Lab Results 06/24/24 Range/Units 03:09 WBC 11.1 H (4.8-10.8) X10*3/uL RBC 4.41 (4.20-5.50) X10*6/uL Hgb 12.3 (12.0-16.0) g/dl Hct 38.5 (37.0-47.0) % MCV 87.3 (80.0-98.0) fL MCH 27.9 (27.0-33.0) pg MCHC 31.9 (31.0-35.0) g/dl RDW 13.7 (11.0-16.0) % Plt Count 288 (160-400) X10*3/uL MPV 9.9 (9.4-12.3) fL Immature Gran % (Auto) 0.3 (0.0-0.4) % Neut % (Auto) 57.6 (45-73) % Lymph % (Auto) 32.5 (20-40) % [place] % (Auto) 8.0 (2-11) % Eos % (Auto) 1.2 (0-4) % Baso % (Auto) 0.4 (0-2) % Lymph # (Auto) 3.6 (1.2-4.9) X10*3/uL [place] # (Auto) 0.9 (0.1-1.2) X10*3/uL Eos # (Auto) 0.1 (0.0-0.4) X10*3/uL Baso # (Auto) 0.0 (0.0-0.2) X10*3/uL Abs Immat Gran (auto) 0.03 (0.00-0.03) X10*3/uL Absolute Neuts (auto) 6.4 (2.0-8.3) x10*3/uL Absolute Nucleated RBC 0.000 (0.0-0.012) X10*3/uL Nucleated RBC % (auto) 0.0 (0.0-0.2) /100WBC Sodium 138 (135-145) mmol/L Potassium 4.1 (3.3-5.1) mmol/L Chloride 106 (96-108) mmol/L Carbon Dioxide 22 (22-29) mmol/L Anion Gap 14 (12-20) BUN 17 H (9-16) mg/dL Creatinine 0.68 (0.5-1.4) mg/dL Estim Creat Clear Calc 64.4 Estimated GFR > 60 Random Glucose 114 (60-115) mg/dL Calcium 10.0 D (8.4-10.2) mg/dL Total Bilirubin 0.4 (0.0-1.0) mg/dL AST 19 (5-31) U/L ALT 14 (0-31) U/L Alkaline Phosphatase 100 (39-117) U/L Troponin I High Sens 4.0 (<3.5-17.0) ng/L C-Reactive Protein 2.26 H (< or = 0.50) mg/dL Total Protein 8.6 H (6.5-8.0) g/dL Albumin 3.9 (3.5-5.0) g/dL Lipase 13 (8-78) U/L Beta HCG, Quant < 2 mIU/mL Urine Color Yellow Urine Appearance Clear Urine pH 5.5 (5.0-9.0) Ur Specific [place] 1.020 (1.005-1.025) Urine Protein Negative (Neg-Trace) mg/dL Urine Glucose (UA) Negative (Negative) mg/dL Urine Ketones Negative (Negative) mg/dL Urine Blood Negative (Negative) Urine Nitrite Negative (Negative) Ur Leukocyte Esterase Moderate (2+) H (Negative) Urine RBC 0-2 (0-2) /HPF Urine WBC 11-20 (0-5) /HPF Ur Squamous Epith Cells 6-10 (0-2) /HPF Urine Bacteria Trace (None Seen) Hyaline Casts 0-2 (0-2) /LPF Independent Interpretation I performed an independent interpretation of an: EKG Interpretation: EKG at 0256 shows normal sinus rhythm at 85 beats per minute and is a normal EKG. Discharge Plan Discharge Clinical Impression: Abdominal fullness, Schizophrenia Patient Disposition: Still a Patient Prescriptions: No Action Invega Sustenna 234 mg/1.5 mL Syringe 234 mg IM Q30D 30 Days Qty: 1.5 0RF Rx Instructions: next dose 12/31/2021 docusate sodium 100 mg Capsule 100 mg PO BEDTIME PRN (Reason: constipation) 30 Days Qty: 60 0RF famotidine 20 mg tablet 1 tab PO BID PRN (Reason: heartburn) 30 Days Qty: 60 0RF diclofenac sodium 1 % gel 1 ea topical QID PRN (Reason: pain) 30 Days Qty: 1 0RF Print Language: Vietnamese
[2024-06-24 04:38] VITALS: BP 188/77; PULSE 74; RESP 18; TEMP 36.9; O2SAT 97
[2024-06-24] MEDS: 0.9 % Sodium Chloride 1,000 ML 999 ML IV (04:48)
--- OUTSIDE RECORDS SUMMARY | 2024-06-24 04:56 | XMS_ITS | Clinical Summary ---
Author Organization [facility] Address [address] [place] [address] Care Team Providers Care Ski Tow Operator Name Role Phone Jodee Pond SCREEN REPAIRER CRUSHER Primary Care Provider [phone] Source Comments PLEASE NOTE, if this patient is a minor, it may be UNLAWFUL to discuss sensitive information that is contained in these records (such as FAMILY PLANNING, MENTAL HEALTH or SUBSTANCE ABUSE) with the minor patient's parent or other person without the patient's specific authorization.[facility] Allergies Active Allergy Reactions Criticality Noted Date Comments Aspirin Rash,Anaphylaxis High 03/25/2020 Reaction: rash Per daughter (Emily) 03/25/2020 Penicillin Swelling Medium 06/21/2020 Reaction: swelling Medications alcohol swabs use as directed to check blood sugar bid 1 Active blood pressure monitor use to check blood pressure as directed 1 Active lancets use as directed to check blood sugar daily bid 1 Active haloperidol decanoate (HALDOL DECANOATE) 50 mg/mL injection Inject 75 mg into the muscle 1 Active blood pressure test kit-largeIndicati ons:Essential hypertension Use to test blood pressure twice a day 1 Kit 1 Active blood sugar diagnostic stripsIndications :Prediabetes 1 Each daily 100 Each 1 1 Active syringe with needle 3 mL 25 gauge x 1 Indications:Par anoid schizophrenia, chronic condition ([facility]) once a week 25 Each 5 1 Active blood-glucose meter monitoring kitIndications:Pr ediabetes as needed for blood glucose monitoring 1 Each 1 Active LORazepam (ATIVAN) 1 mg tablet TAKE 1 TABLET BY MOUTH EVERY DAY AT BEDTIME NEEDED 2 Active propranoloL (INDERAL LA) 120 mg 24 hr capsule 2 Active doxepin (SINEQUAN) 50 mg capsule 2 Active amantadine HCL (SYMMETREL) 100 mg capsule Take by mouth 2 (two) times daily 2 Active acetaminophen (TYLENOL 8 HOUR) 650 mg CR tablet Take 1 Tablet by mouth every 8 (eight) hours as needed for pain 90 Tablet 2 Active divalproex (DEPAKOTE ER) 500 mg 24 hr tablet TAKE 1 TABLET BY MOUTH DAILY 28 Tablet 2 Active triamcinolone acetonide (KENALOG) 0.1 % creamIndications: Rash Apply topically 2 (two) times daily 15 g 1 2 Active OLANZapine (ZYPREXA) 20 mg tablet Take 20 mg by mouth nightly at bedtime 2 Active lisinopriL 40 mg tabletIndications :Essential hypertension Take 1 Tablet by mouth once daily 90 Tablet 1 2 Active amLODIPine (NORVASC) 10 mg tablet Take 1 Tablet by mouth once daily 30 Tablet 2 2 Active diclofenac sodium (VOLTAREN) 1 % gel Apply topically 4 (four) times daily as needed for pain To the affected area 100 g 11 2 Active famotidine (PEPCID) 20 mg tablet Take 1 Tablet by mouth 2 (two) times daily as needed for heartburn 60 Tablet 1 2 Active Active Problems Problem Noted Date Diagnosed Date Rash 07/27/2021 Assessment & Plan (07/27/2021 5:28 PM EST): Pt with mild rash on hards, will trial low dose steroid cream, encouraged use sparingly. Bilateral low back pain without sciatica 022 Assessment & Plan (07/03/2021 8:25 PM EST): Without records from hospital, need to r/u fracture, films ordered, will trial long acting acdetaminophen, topical NSAIDs, f/u for PEV in person. Chronic gastritis without bleeding 07/03/2021 Assessment & Plan (07/03/2021 8:23 PM EST): With ongoing symptoms, will start pepcid BID, advised pt we will refer to GI as pt with hx of colon cancer, due for f/u. Need for hepatitis C screening test 07/03/2021 Chronic pain of both knees 04/15/2021 Assessment & Plan (04/15/2021 6:17 PM EST): Not discussed at length, will order Diclofinac today, f/u at time of PEV to review history. Need for follow-up by home health service 2020 Need for home health care 08/23/2020 Overview (08/23/2020): Home with only dtr Emily who has chr back issue s/p surgery w/ hardware [facility] 08/23/20 Has shower chair (doesn't fit in tub; is smallest), has grab bar on the way, will purchase nonslip mat. 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 Needs 1.5h BID for dressing/ENVIRONMENTAL PROGRAMS MANAGER grooming etc to avoid Emily lifting. Letter prepared. Paranoid schizophrenia, chronic condition (HCC-C [facility]) 03/09/2020 Overview (03/20/2021): Recently discharged from lengthy in patient stay Patient appears to have been stable and controlled on Haldol, Ativan and Depakote Patient to continue these medications Will be having next Haldol injection on 03/31/21 Patient has follow up appointment With psych today 03/20/21 Will follow psych recommendation Assessment & Plan (07/03/2021 8:22 PM EST): With ongoing confusion regarding medication presciptions, advised family they need to speak directly to psych about which meds they have issues with and where to sent scripts, also advised they speak with [facility] who is there daily to deal with these issues. Assessment & Plan (05/01/2021 11:59 AM EST): Pt now with upcoming psych appt, (zoom), daughter strongly encouraged to discuss concerns about increased unintentional tremors (although somewhat improving) anxiety at night. I have spoken briefly with psych nurse who will come today to administer Haldol injection missed last week, I've written for a script for syringes as this was expected from prescriber's supply, not agency and psychiatrist not responding to phone calls. Assessment & Plan (04/15/2021 6:16 PM EST): Continues under care of outside psych, encouraged daughter to speak with that provider about extrapyramidal symptoms, will f/u for PEV. Bipolar disorder Overview (05/01/2021): Long history of biopolar disorder, moved [place] to be taken by daughter here with multiple hospitalizations, the most recent from this summer. Will be covered by outside psychiatrist, see notes below. Currently living with daughter in inadequate housing, has daily psych nurse. Assessment & Plan (09/11/2021 4:54 PM EDT): Pt s/p discharge from hospital, now transferred housing to another area of [place], will refill non psych meds today and then will be transferred to new provider locally. Prediabetes Overview (07/20/2020): Overview Note: fandoms at home 130, 125, 94 - off meds. unlikely needs MF now. plan: a1c at bloodwork next. with ACR/Cr as well. for now - only machine and supplies, monitor at home, reviewed goal bld sugar ranges pre and post meal Assessment & Plan (07/03/2021 8:25 PM EST): Will recheck A1c, review results at next appt. Assessment & Plan (05/01/2021 12:07 PM EST): A1c 6.5, no need for medications, will continue monitoring BS at home, new script sent last time for glucometer, will discuss this with pharmacy were order sent. Essential hypertension Overview (03/20/2021): goal likely <ago649 d/t age - though could change with more info re: PMHx/comorbids plan: continue post d/c supply rx for home cuff 08/23/20 tooday elvevated but at goal at home - continue controlled on lisinopril 40mg 03/20/21 - most recent changes from admission= Propranolol LA 120 mg PO daily and lisinopril 40 mg PO daily. [facility] informed patient that BP was elevated. Will send BP cuff for patient to check BP at home, patient to follow up in person in 4 weeks Assessment & Plan (09/11/2021 4:55 PM EDT): Unknown control, will renew current meds temporarily until seen by new provider. Assessment & Plan (07/27/2021 5:29 PM EST): Pt with elevated BP in clinic, will increase amlodipine to 10 mg today, advised f/u in 6 weeks, encouraged to follow careful diet. Assessment & Plan (07/03/2021 8:26 PM EST): Not at goal, will f/u 4 weeks, meanwhile DASH reviewd, continue current meds. Assessment & Plan (05/01/2021 12:06 PM EST): Improved BP now 140/80 on recheck in office, will leave at current level at this time. Meds renewed, f/u for PEV. Assessment & Plan (04/15/2021 6:13 PM EST): Will start ?restart amlodipine and f/u in 2-3 weeks, visiting nursing advised through paperwork given to daughter of increase in dose. Overlapping malignant neoplasm of colon (HCC-CMS ) Overview (08/23/2020): S/p numerous surgeries Resolved Problems Problem Noted Date Diagnosed Date Resolved Date Vaccination needed Overview (07/20/2020): Overview Note: interested in covid vax had covid 04/2020 while inpt [facility] History of SARS-CoV-2 2020 Overview (07/20/2020): Overview Note: had covid 04/2020 while inpt [facility] plan: defer covid vax until 90d out from illness. Immunizations Name Administration Dates Next Due Flu, High Dose, 65y+, Fluzone High Dose 03/16/20 21 Moderna COVID-19 Vaccine, re d cap blue label, 12+ Primary Series 06/27/2021,08/23/2020,07/26/2020 Social History Tobacco Use Types Packs/Day Years Used Date Smoking Tobacco: Never Smokeless Tobacco: Never Alcohol Use Standard Drinks/Week Comments Never 0 (1 standard drink = 0.6 oz pur e alcohol) Social Connections Answer Date Recorded Connectedness 0 02/05/2024 Financial Resource Strain Answer Date R ecorded Financial Resource Strain 0 2020 Stress Answer Date Recorded Stress 0 07/19/2020 Physical Activity Answer Date Recorded Physical Activity 0 07/19/2020 Food Insecurity Answer Date Recorded Food 0 02/20/2024 Transportation Needs Answer Date Record ed Transportation 0 07/19/2020 Housing Stability Answer Date Recorded Housing 0 07/19/2020 Safety and Environment Answer Date Yony rded Safety 0 07/19/2020 Utilities Answer Date Recorded Utilities 0 07/19/2020 Employment Answer Date Recorded Stress 0 02/05/2024 Comments No Sex and Gender Information Value Date Recorded Sex Assigned at Female 07/03/2021 5:49 AM PST Legal Sex Female 2:59 PM PST Gender Identity Female 07/03/2021 5:49 AM PST Sexual Orientation Straight 07/03/2021 5: 49 AM PST Last Filed Vital Signs Vital Sign Reading Time Taken Comments Blood Pressure 165/90 07/24/2021 3:27 PM EST Pulse 70 07/24/2021 3:27 PM EST Temperature 36.8 ??C (98.2 ??F) 07/24/2021 3:27 PM ES T Respiratory Rate 16 07/24/2021 3:27 PM EST Oxygen Saturation 99% 07/24/2021 3:27 PM EST Inhaled Oxygen Concentration - - Weight 67.6 kg (149 lb) 07/24/2021 3:27 PM EST Height 157 cm (5' 1.81 ) 07/24/2021 3:27 PM EST Body Mass Index 27.42 07/24/2021 3:27 PM EST Plan of Treatment Health Maintenance Due Date Last Done Comments Hepatitis C Screening 1950 Tobacco Screening 1950 Medicare Annual Wellness Visit 1966 Imm-DTaP/Tdap/Td (1 - Tdap) 1967 CT Colonography 1993 Colonoscopy 1993 Colorectal Cancer Screening 1993 FIT/gFOBT 1993 Fecal DNA 1993 Flexible Sigmoidoscopy 1993 Imm-Pneumococcal 65+ (1 of 1 - PCV) 1998 Imm-Zoster, Recombinant (1 of 2) 1998 Bone Density Screening 2013 Lipid Screening 02/16/2022 02/16/2021, 05/28, 03/13/2020 Diabetes Screening 07/03/2022 07/03/2021, 1 07/02/2020, 11/13/2020, Additional history exists Falls Prevention 07/03/2022 07/03/2021, 05/01/2021 [id number] ( season) 2024 06/27/2021, 08/23/2020, 07/26/2020 Imm-Influenza (#1) 2024 03/16/2021 Alcohol and Drug Screen 05/27/2024 07/03/2021, 05/01 Depression Annual Screen 05/27/2024 07/03/2021 Procedures Procedure Name Priority Date/Time Associated Diagnosis Comments COMPREHENSIVE METABOLIC PANEL Routine 07/03/2021 10:01 AM EST Primary hypertension from Last 3 Months or Most Recently Relevant to Health Maintenance Results * (ABNORMAL) COMPREHENSIVE METABOLIC PANEL (07/03/2021 10:01 AM EST) GLUCOSE 139(H) 65 - 99 mg/dL [facility] Comment: ?Fasting reference interval For someone without known diabetes, a glucose value >125 mg/dL indicates that they may have diabetes and this should be confirmed with a follow-up test. UREA NITROGEN (BUN) 18 7 - 25 mg/dL [facility] [employer] [facility] CREATININE (blood) 0.83 0.60 - 0.93 mg/dL [employer] [facility] Comment: For patients >49 years of age, the reference limit for Creatinine is approximately 13% higher for people identified as -[place]. GFR ESTIMATED 70 > OR = 60 mL/min/1 .73m2 [facility] [employer] [facility] EGFR 81 > OR = 60 mL/min/1 .73m2 [facility] [facility] BUN/CREATININE RATIO NOT APPLICABLE 6 - 22 [facility] [employer] [facility] [facility] SODIUM 140 135 - 146 mmol/L [facility] [employer] [facility] POTASSIUM 5.3 3.5 - 5.3 mmol/L [facility] [employer] [facility] CHLORIDE 103 98 - 110 mmol/L [facility] [employer] [facility] CARBON DIOXIDE 31 20 - 32 mmol/L [facility] [employer] [facility] CALCIUM 10.1 8.6 - 10.4 mg/dL [facility] [employer] [facility] PROTEIN, TOTAL 7.6 6.1 - 8.1 g/dL [facility] [employer] [facility] ALBUMIN 4.0 3.6 - 5.1 g/dL [facility] [employer] [facility] GLOBULIN 3.6 1.9 - 3.7 g/dL (calc) [facility] [employer] [facility] ALBUMIN/GLOBULIN RATIO 1.1 1.0 - 2.5 (calc) [facility] [employer] [facility] [facility] BILIRUBIN, TOTAL 0.4 0.2 - 1.2 mg/dL [facility] [employer] [facility] ALKALINE PHOSPHATASE 105 37 - 153 U/L [facility] [employer] [facility] AST 10 10 - 35 U/L [facility] [employer] [facility] ALT 11 6 - 29 U/L [facility] [facility] Blood Blood / Unknown 07/03/2021 1 0:01 AM EST 07/03/2021 10:01 AM EST Jodee HERNANDE[facility] - BLOOD DRAW Final Result [employer] [facility] [address] [address], [employer] [facility] [address],[facility] [place] [address] from Last 3 Months or Most Recently Relevant to Health Maintenance Insurance [facility] Member Subscriber Plan / Payer (Ef fective 2021-Present) Name:Nathaly Price Relation to Subscriber:Self Name:Nathaly Price Payer ID:[id number] Group ID:Not on file Type:Indemnity Address: [address] [place] [address] [place] MEDICAID Care Teams Ski Tow Operator Relationship Specialty Start Date End Date Jodee Pond FNP [address] [place] [phone] PCP - General Family Medicine, [employer] 09/15/21
[2024-06-24 05:42] LABS: HCG Quantitative < 2 mIU/mL
--- NOTE | 2024-06-24 06:10 | PC.NURSE ---
Pt A&Ox2, reports intermittent all over ABD pain x over 8 months. Pt reports last BM yesterday and normal for her. ABD distended. IV line established. Pt was brought to CT scan, Pt refused, states I am with twins, I do not want the CT scan , Pt not able to be redirected or reasured. Daughter at bedside, provider Marco A Alberts aware.
--- NOTE | 2024-06-24 06:29 | PC.NURSE ---
Pt agitated, demanding IV to be removed. Pt refusing any treatment at this time. Daughter at bedside, provider aware.
[2024-06-24 06:50] LABS: C Reactive Protein 2.26 mg/dL (< or = 0.50)
[2024-06-24 07:26] VITALS: BP 174/65; PULSE 86; RESP 18; TEMP 36.6; O2SAT 96
--- NOTE | 2024-06-24 08:17 | MHC.CM.ED ---
Addendum entered by Nahomy Harvey 06/24/24 09:40: Cleared by Care Team. Waiting for psych consult. Original Note: Received case management consult from Dr Hussein. Care Team and psych consult are ordered and pending. CM consult deferred until cleared by Care Team and psych consult. Continue to monitor for d/c needs.
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
[2024-06-24 09:16] LABS: COVID-19 Test Negative (Negative); IDNOW Serial# 55D5AD1C
--- NOTE | 2024-06-24 12:39 | MHC.CM.ED ---
Addendum entered by Nahomy Harvey 06/24/24 14:36: Met with patient's daughter, Shani and [facility] supervisor fruit grading. Explained LTC was attempting to be found but that placement could be over an hour away and could take up to 3 months. Shani verbalizes understanding. Addendum entered by Nahomy Harvey 06/24/24 13:22: Copy of release of information for [facility] obtained from [facility] Care Team. Faxed to [facility] to obtain a copy of discharge summary. Original Note: [facility] and none of the [facility] facilities are able to offer a bed at this time. Referral will be broadcasted. Continue to monitor for d/c needs.
[2024-06-24 18:55] VITALS: BP 151/79; PULSE 88; RESP 16; TEMP 37.4; O2SAT 96
--- NOTE | 2024-06-24 19:18 | PC.NURSE ---
Assumed care of pt at 1900. PT resting quietly in bed. A/Ox2. Endorsing abd pain 03/05. continuing to refusing imaging. Awaiting psych consult. Plan of care ongoing
--- NOTE | 2024-06-24 23:09 | MHC.EDTECH ---
this tech assumed care of the pt @2300, at this time the pt was witnessed laying in her stretcher resting, her daughter is at the bedside and stated that her mom has had vomiting and diarrhea episodes x4 times since 1300, w/ her last episode being around 2100. Pt does not appear to be in any distress at this time.
[2024-06-25] VITALS (7 sets, daily range): BP systolic 129–148; BP diastolic 57–67; PULSE 68–83; RESP 14–18; TEMP 36.6–37.1; O2SAT 94–97
[2024-06-25] MEDS: iohexoL 350 MG/ML 100 ML INFUS..BTL 85 ML IV (00:58)
[2024-06-25 06:41] LABS: MANUAL DIFF FLAG NO
[2024-06-25 06:42] LABS: Basophils Percent Auto 0.5 % (0-2); Eosinophils Absolute Auto 0.1 X10*3/uL (0.0-0.4); Eosinophils Percent Auto 0.6 % (0-4); Hematocrit 35.2 % (37.0-47.0); Hemoglobin 11.5 g/dl (12.0-16.0); Imm Gran Abs Auto 0.04 X10*3/uL (0.00-0.03); Imm Gran Pct Auto 0.5 % (0.0-0.4); Lymphocytes Absolute Auto 2.7 X10*3/uL (1.2-4.9); Lymphocytes Percent Auto 30.7 % (20-40); Mean Corpuscular HGB Conc 32.7 g/dl (31.0-35.0); Mean Corpuscular Hemoglobin 28.2 pg (27.0-33.0); Mean Corpuscular Volume 86.3 fL (80.0-98.0); Mean Platelet Volume 9.8 fL (9.4-12.3); Monocytes Absolute Auto 0.6 X10*3/uL (0.1-1.2); Monocytes Percent Auto 7.1 % (2-11); Neutrophils Absolute Auto 5.3 x10*3/uL (2.0-8.3); Neutrophils Percent Auto 60.6 % (45-73); Platelet Count 276 X10*3/uL (160-400); Red Blood Count 4.08 X10*6/uL (4.20-5.50); Red Cell Distribution Width 13.8 % (11.0-16.0); White Blood Count 8.7 X10*3/uL (4.8-10.8)
[2024-06-25 06:56] LABS: Alanine Aminotransferase 13 U/L (0-31); Albumin Level 3.5 g/dL (3.5-5.0); Alkaline Phosphatase 88 U/L (39-117); Anion Gap 11 (12-20); Aspartate Amino Transferase 21 U/L (5-31); Bilirubin Direct 0.2 mg/dL (0.0-0.5); Bilirubin Total 0.5 mg/dL (0.0-1.0); Blood Urea Nitrogen 15 mg/dL (9-16); C Reactive Protein 3.08 mg/dL (< or = 0.50); Calcium 9.1 mg/dL (8.4-10.2); Carbon Dioxide 20 mmol/L (22-29); Chloride 110 mmol/L (96-108); Creatinine Clr Calc Pharmacy 69.5; Estimated Glomerular Filt Rate > 60; Glucose Random 97 mg/dL (60-115); Magnesium 1.9 mg/dL (1.6-2.6); Potassium 4.4 mmol/L (3.3-5.1); Sodium 137 mmol/L (135-145); Total Protein 7.4 g/dL (6.5-8.0)
--- NOTE | 2024-06-25 08:59 | PHA.MEDREC ---
Addendum entered by Aida Martinez [facility] 06/25/24 09:01: reviewed Original Note: Pharmacy Consult ? Medication Reconciliation Pharmacy has completed the medication reconciliation. Spoke with patient and she had her Rx bottles of medications that I used to confirm the med list with. Patient stated she took them this morning while in here.
--- NOTE | 2024-06-25 11:40 | PC.NURSE ---
pt took her own morning med so lisinipril was not given, pt and family understands that we will give from now on
--- NOTE | 2024-06-25 11:55 | MHC.CM.ED ---
Addendum entered by Nahomy Harvey 06/25/24 13:36: [facility] shows up as Senior Buy-in. This does not cover LTC. Not sure how/why [facility] was converted. Referral to [facility] initiated to look into this. Original Note: Patient remains in ER. No bed offers at this time. Waiting to hear from [facility]. Referral broadcasted within 50 miles. [employer] division chair, will eval patient for medication recommendations. Continue to monitor for d/c needs.
[2024-06-25 13:30] LABS: CDiff Gene PCR NEGATIVE (Negative)
--- NOTE | 2024-06-25 13:55 | PC.NURSE ---
Addendum entered by Alize Campbell 06/25/24 14:15: daughter confirms that patient took 0.5 risperidone this morning. she dispensed the mediation to her mother. They were not aware that this was done by nursing in the hospital but they know now Original Note: pt states that this morning she took her own risperidone 0.5mg Per MANAGER POLICY, hold 1mg risperidone for now and start with tonights dose Pt understands now not to take her own medications and wait for them to be administered by nursing. Daughter will be taking medications home with her
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
[2024-06-25 16:28] LABS: Adenovirus F 40/41 Not Detected (Not Detect.); Astrovirus Not Detected (Not Detect.); Campylobacter Not Detected (Not Detect.); Cryptosporidium Not Detected (Not Detect.); Cyclospora cayetanensis Not Detected (Not Detect.); E. coli EAEC Not Detected (Not Detect.); E. coli EPEC Not Detected (Not Detect.); E. coli ETEC Not Detected (Not Detect.); E. coli STEC Not Detected (Not Detect.); Entamoeba histolytica Not Detected (Not Detect.); Giardia lamblia Not Detected (Not Detect.); Norovirus GI/GII Not Detected (Not Detect.); Plesiomonas shigelloides Not Detected (Not Detect.); Rotavirus A Not Detected (Not Detect.); Salmonella Not Detected (Not Detect.); Sapovirus Not Detected (Not Detect.); Shigella sp./EIEC Not Detected (Not Detect.); Vibrio Not Detected (Not Detect.); Vibrio Cholerae Not Detected (Not Detect.); Yersinia enterocolitica Not Detected (Not Detect.)
--- NOTE | 2024-06-25 23:11 | PC.NURSE ---
Assumed care of patient at 15:00. Patient continues in ED overflow. VSS this evening for hand sign writer. Pt is A&Ox2. Calm and mostly cooperative with the exception of refusing to take her scheduled risperidone this evening. Patient stated It doesn't look like mine, mine is longer and different shaped . Attempts made to educate and show patient the medication packaging, though patient still refused. Patient is resting in bed watching tv at this time. Breathing is even and unlabored without distress. Patient has ambulated to the bathroom with a standby assist many times and is voiding cyu without issue. Safety measures in place. Call altamirano within reach and educated on use, rings appropriately to make needs known. Handoff report given to oncoming ED RN at 23:00.
--- NOTE | 2024-06-25 23:25 | PC.NURSE ---
assumed care of pt at 23:15
--- NOTE | 2024-06-26 06:26 | PC.NURSE ---
pt ambulated to and from bathroom with a steady gait, no apparent distress noted.
[2024-06-26 07:00] VITALS: BP 147/66; PULSE 62; RESP 19; TEMP 36.4; O2SAT 94
[2024-06-26] MEDS: risperiDONE 1 MG TABLET PO (09:20)
[2024-06-26] MEDS: lisinopriL 5 MG TABLET PO (09:20)
--- NOTE | 2024-06-26 12:21 | MHC.CM.ED ---
Addendum entered by Nahomy Harvey 06/26/24 13:40: Met with patient's daughter, Shani, and industrial arts public school teacher. Copy of invoked HCP provided and explained to Shani. Shani aware CM is still trying to find placement. Original Note: Patient remains in ER overflow. [employer] application completed, signed and submitted. Copy of application provided to CM. HCP invoked by Dr Chu. Still trying to find LTC placement. Continue to monitor for d/c needs.
[2024-06-26 13:19] VITALS: BP 136/63; PULSE 71; RESP 18; TEMP 37; O2SAT 94
--- NOTE | 2024-06-26 20:53 | PC.NURSE ---
Patient refusing to take risperidone at this time. Stating she took earlier in the day.
[2024-06-26 20:58] VITALS: BP 137/82; PULSE 78; RESP 16; TEMP 37.1; O2SAT 99
[2024-06-27 06:00] VITALS: BP 144/67; PULSE 75; RESP 18; TEMP 36.2; O2SAT 96
[2024-06-27 08:18] VITALS: BP 145/67; PULSE 76; RESP 19; TEMP 36.6; O2SAT 94
[2024-06-27] MEDS: lisinopriL 5 MG TABLET PO (09:52)
[2024-06-27] MEDS: metFORMIN HCl ER 500 MG TAB.ER.24H PO (09:52)
[2024-06-27] MEDS: risperiDONE 1 MG TABLET PO ×2 (09:52→21:04)
[2024-06-27 14:00] VITALS: BP 149/67; PULSE 67; TEMP 36.6; O2SAT 95
[2024-06-27 18:34] VITALS: BP 152/65; PULSE 74; RESP 16; TEMP 36.9; O2SAT 97
[2024-06-27] MEDS: Melatonin 3 MG TABLET 6 MG PO (21:04)
[2024-06-27 21:18] VITALS: BP 133/60; PULSE 83; RESP 16; TEMP 36.6; O2SAT 96
[2024-06-28 06:00] VITALS: BP 137/63; PULSE 84; RESP 16; TEMP 36.5; O2SAT 98
[2024-06-28 08:42] VITALS: BP 131/60; PULSE 88; RESP 19; TEMP 36.7; O2SAT 95
[2024-06-28] MEDS: lisinopriL 5 MG TABLET PO (09:45)
[2024-06-28] MEDS: risperiDONE 1 MG TABLET PO ×2 (09:45→20:50)
[2024-06-28] MEDS: metFORMIN HCl ER 500 MG TAB.ER.24H PO (09:45)
--- NOTE | 2024-06-28 13:13 | MHC.EDTECH ---
Patient requested to shower I set up patient in shower, while she independently showered I clean patients room changed her bed linen and gave her a clean fresh hospital Nurse aware.
[2024-06-28 16:12] VITALS: BP 152/67; PULSE 77; RESP 18; TEMP 36.6; O2SAT 97
[2024-06-28 21:34] VITALS: BP 148/65; PULSE 86; RESP 16; TEMP 36.9; O2SAT 96
[2024-06-29] MEDS: Acetaminophen 325 MG TABLET 650 MG PO (05:09)
--- NOTE | 2024-06-29 05:22 | PC.NURSE ---
Patient complainging of abdominal cramping 10/10 pain/ Tylenol given. She states i don't like how that little white pill at night makes me feel. I don't sleep and I have stomach pain.
[2024-06-29 06:11] VITALS: BP 154/67; PULSE 87; RESP 16; TEMP 36.6; O2SAT 96
--- NOTE | 2024-06-29 13:23 | MHC.CM.ED ---
Patient remains in ER overflow. Still trying to find LTC under [facility] pending. Continue to monitor for d/c needs.
[2024-06-29 14:00] VITALS: BP 162/73; PULSE 79; RESP 16; TEMP 36.8; O2SAT 97
[2024-06-29 20:32] VITALS: BP 163/72; PULSE 86; RESP 16; TEMP 37.2; O2SAT 97
--- NOTE | 2024-06-29 21:22 | PC.NURSE ---
pt refusing risperidone states I was up all night after I took that last night pt educated on importance of taking medications pt states i don't care this rn asked pt if pt needed anything else at this time pt declined any additional needs at this time
--- NOTE | 2024-06-30 01:37 | PC.NURSE ---
pt ambulates independently to restroom redirected back to room reports no new needs at this time
[2024-06-30 04:21] VITALS: BP 143/65; PULSE 81; RESP 16; TEMP 37.3; O2SAT 93
--- NOTE | 2024-06-30 06:29 | PC.NURSE ---
pt heard speaking in room this rn to bedside pt states doing okay, just started having cramping in lower belly and back pt is requesting tylenol this rn tiger messaged dr abarca regarding pt request. no new orders at this time
[2024-06-30] MEDS: Acetaminophen 325 MG TABLET PO ×2 (09:19→20:30)
[2024-06-30 09:20] VITALS: BP 159/69
[2024-06-30] MEDS: lisinopriL 5 MG TABLET PO (09:20)
[2024-06-30] MEDS: metFORMIN HCl ER 500 MG TAB.ER.24H PO (09:22)
[2024-06-30 10:58] VITALS: TEMP 36.8
[2024-06-30 13:34] VITALS: BP 113/76; PULSE 80; RESP 18; TEMP 36.6; O2SAT 96
--- NOTE | 2024-06-30 19:21 | PC.NURSE ---
Patient seen ambulating around unit throughout the shift. Walking to the bathroom, took shower, needing minimal assistance with dressing post shower only. Patient requested pain medication once for lower abdominal and lower back pain. Medicated with Tylenol with good effect. VSS Patient was compliant with morning medication with exception of Resperidone stating that she does not want to take it because she is unable to sleep when on that medication. Provider notified.
[2024-06-30 21:34] VITALS: BP 130/60; PULSE 76; RESP 16; TEMP 36.8; O2SAT 97
--- NOTE | 2024-06-30 23:08 | PC.NURSE ---
Patient requested to have Tylenol for lower abdominal pain. When brought to her along with her evening Risperidone, the patient responded, I don't take the white pill. When told both medications are white in color, the patient requested to open Risperidone only to say she did not want to take it. She was given some education on what the medication was and what benefit it may have, the patient denied all the facts, saying she took wale when she was in [place] and that this pill (Risperidone) was a different name for wale which made her feel weird and not be able to sleep. She continued to refuse taking Risperidone and asked to just have Tylenol. When asked about her pain level, she replied, I don't have a pain. She was informed that the Tylenol was supposed to be for her abdominal pain she claimed to have, the patient said, It's 8 for her pain level. She was then only given her ordered Tylenol. Later she shared with a AFFILIATE MARKETING MANAGER that the nurse gave a wrong pill. She claimed that she always take Tylenol, but whatever [the nurse] gave made her feel itchy. She stated that, because it gave her a weird reaction, she believed that the nurse deceived her and gave her Risperidone and not Tylenol. She perseverated on her medications multiple times and went back and forth about whether she had an abdominal pain. By the time the nurse went into her room to check on her, she was already asleep - will continue to monitor.
[2024-07-01 05:58] VITALS: BP 127/58; PULSE 83; RESP 16; TEMP 36.6; O2SAT 96
[2024-07-01] MEDS: metFORMIN HCl ER 500 MG TAB.ER.24H PO (08:13)
--- NOTE | 2024-07-01 08:14 | PC.NURSE ---
alert, ate breakfast, refused her lisinopril and rispiradone but took her metformin, states that rispiradone makes her sleep and didn't take the other for unknown reason
[2024-07-01 13:35] VITALS: BP 159/69; PULSE 79; RESP 13; TEMP 37; O2SAT 95
--- NOTE | 2024-07-01 14:03 | PC.NURSE ---
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
--- NOTE | 2024-07-01 14:09 | MHC.CM.ED ---
Patient remains in ER overflow. Per Lorenzo RN, patient has refused risperidal. [facility] psychiatric nurse made aware[facility] but is still pending. [facility] is following but doesn't have a bed available. [facility] has added patient to their waitlist but doesn't have a bed. Continue to monitor for d/c needs.
--- NOTE | 2024-07-01 14:11 | MHC.EDTECH ---
this pct went to check on patient and asked if she needed anything , patient stated she asked the female nurse for a warm blanket and when the nurse put it on her it was the wrong way and she left the room , she states she is going to arcadio her .I grabbed her a new warm blanket put it on her the way she asked and gave her socks . i also checked her vitals , BP was high i informed the RN . patient stated i take pink pills at home for my blood pressure medication and they are giving me the wrong pills here because the pills are white . she is refusing to take her medication because it is not the same color pill compared to the pink pills she has at home.
--- NOTE | 2024-07-01 21:04 | PC.NURSE ---
ambulatory to bathroom, gait steady. calm but non compliant with meds and refusing vitals. mental status/speech at baseline. waiting for placement
--- NOTE | 2024-07-02 05:34 | PC.NURSE ---
pt refused meds/vitals otherwise uneventful night. no nausea or complaints of abdominal pain. gait steady to bathroom. calm/pleasant with staff.
[2024-07-02 06:21] VITALS: BP 130/62; PULSE 71; RESP 18; TEMP 36.7; O2SAT 96
[2024-07-02 07:51] LABS: Creatinine Clr Calc Pharmacy 68.4; Estimated Glomerular Filt Rate > 60
--- NOTE | 2024-07-02 08:49 | PC.NURSE ---
Pt. refused all morning meds. - 09:00 Lisinopril, Risperidal, Metformin.
[2024-07-02 14:28] VITALS: BP 162/68; PULSE 72; RESP 14; TEMP 36.7; O2SAT 94
--- NOTE | 2024-07-02 18:19 | PC.NURSE ---
Patient spent most of the time in bed, refused her dinner, no complaint of pain, vss
--- NOTE | 2024-07-02 19:24 | PC.NURSE ---
Report taken from Suzy SINGH assumed care of pt at 1900. Pt A&O ambulatory to bathroom with steady gait. Offers no complaints. Awaiting CM placement, will continue to monitor.
--- NOTE | 2024-07-02 20:10 | PC.NURSE ---
Pt refused risperidone despite multiple attempts by RN. Pt states That white pill makes me nervous I can't sleep .
[2024-07-02 22:00] VITALS: BP 176/75; PULSE 77; RESP 16; TEMP 36.7; O2SAT 93
--- NOTE | 2024-07-02 23:22 | PC.NURSE ---
Pt resting in bed eyes closed skin pwd respirations even unlabored. Awaiting insurance auth, on waitlist for placement. Will continue to monitor for additional needs.
--- NOTE | 2024-07-03 03:53 | PC.NURSE ---
Pt ambulatory to bathroom steady gait, returned to bed without incident.
[2024-07-03 04:52] VITALS: BP 141/66; PULSE 72; RESP 16; TEMP 36.6; O2SAT 95
--- NOTE | 2024-07-03 05:44 | PC.NURSE ---
Pt up to bathroom to shower. Bedding changed. Pt back to bed with no complaints.
[2024-07-03 08:07] VITALS: BP 171/79; PULSE 90; RESP 12; TEMP 36.4; O2SAT 93
[2024-07-03] MEDS: metFORMIN HCl ER 500 MG TAB.ER.24H PO (08:45)
[2024-07-03] MEDS: risperiDONE 1 MG TABLET PO (08:45)
--- NOTE | 2024-07-03 09:08 | PC.NURSE ---
Addendum entered by Larissa Dee RN 07/03/24 09:13: patient ate all of her breakfast this morning Original Note: assumed care of patient at 0700, patient resting quietly in bed. patient ambulates on own to bathroom, able to make needs known. this RN vitaled patient this morning, patient noted to be hypertensive, patient states that it was not her blood pressure on the screen but someone elses, patient redirected that the numbers showing were her bp. 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 patient tends to her own ADLS, is calm otherwise. linens dry and intact, skin dry and intact.
--- NOTE | 2024-07-03 11:54 | PC.NURSE ---
Addendum entered by Larissa Dee RN 07/03/24 18:08: patient has elopemment band on Original Note: patient sitting on edge of bed, patient eating lunch tray. patient expressed that she was upset that she was not in a private room since she has CCA. patients concern was listened to, educated patient that patients are placed by specific needs and availability by bed board. patient finished eating lunch, is now laying back in bed watching tv
--- NOTE | 2024-07-03 12:22 | MHC.CM.ED ---
Patient remains in ER. No bed offers at this time. [facility] application has been submitted but is still pending. Continue to monitor for d/c needs.
--- NOTE | 2024-07-03 13:45 | PC.NURSE ---
patient remains resting quietly after lunch watching tv, resp even and unlabored.
--- NOTE | 2024-07-03 17:54 | PC.NURSE ---
patient sat up on edge of bed and had dinner, patient has family visiting at bedside. patient is calm, resp even and unlabored. no acute signs of distress
[2024-07-04 00:36] VITALS: BP 126/68; PULSE 78; RESP 18; TEMP 36.8; O2SAT 94
--- NOTE | 2024-07-04 01:18 | PC.NURSE ---
Assumed care of patient at 1900. Patient resting comfortably, confused to situation. VSS , bed alarm on for safety. Will continue to monitor.
[2024-07-04 08:44] VITALS: BP 152/70; PULSE 69; RESP 14; TEMP 37.1; O2SAT 95
--- NOTE | 2024-07-04 12:52 | MHC.EDTECH ---
pt ate 75% of her lunch
[2024-07-04 14:00] VITALS: BP 161/70; PULSE 77; RESP 20; TEMP 36.3; O2SAT 96
--- NOTE | 2024-07-04 19:28 | PC.NURSE ---
assumed care of patient, patient resting comfortably in hospital bed watching tv. no complaints at this time. bed locked in lowest position bed alarm and camera on. call altamirano within reach
--- NOTE | 2024-07-04 20:25 | PC.NURSE ---
patient refusing night meds and blood sugar check, stating she has been here for weeks and has not see a [employer] school social science teacher a doctor nothing this is not right patient stated
[2024-07-04 20:35] VITALS: BP 158/68; PULSE 60; RESP 16; TEMP 36.7; O2SAT 95
[2024-07-05] VITALS (8 sets, daily range): BP systolic 147–198; BP diastolic 69–83; PULSE 73–129; RESP 16–22; TEMP 36.2–36.8; O2SAT 95–97
--- NOTE | 2024-07-05 00:17 | MHC.EDTECH ---
This tech took over care of pt at 2330,patient is resting quietly,call altamirano in reach
[2024-07-05 06:21] LABS: Glucose, Whole Blood 100 mg/dL (60-115)
--- NOTE | 2024-07-05 06:27 | MHC.EDTECH ---
Rounds and vitals completed,POC taken and is 100,RN aware, patient's call altamirano not working, handheld altamirano given to pt ot this time
--- NOTE | 2024-07-05 11:44 | PC.NURSE ---
Assumed care of this patient at 1100, patient singing in bed, demanding to talk to her doctor, unable to provide a reason why she needs to speak to a doctor. Upon chart review, patient has been refusing all her medications for about a week. Covering provider Kimberly made aware.
--- NOTE | 2024-07-05 12:02 | PC.NURSE ---
Psych reconsulted by provider regarding potential need for [facility] order - patient resting quietly in bed at this time.
--- NOTE | 2024-07-05 12:58 | PC.NURSE ---
pt refused meds 07/04 and this AM post education. pt refuses vitals at times. pt requested to speak w/ CM, CM informed.
--- NOTE | 2024-07-05 20:27 | PC.NURSE ---
Patient resting comfortably in hospital bed watching tv, no apparent distress. Patient refused bedtime Respirdal and POC check. ED provider Kimberly is aware. Call altamirano in reach, bed in lowest position. Plan of care ongoing.
--- NOTE | 2024-07-05 22:31 | PC.NURSE ---
BP 198/83,P 129, patient has been refusing her medications, last does of Lisinopril 5 mg PO was taken by patient on 06/30/2024. Patient denies headache/chest pain. Patent is frustrated and stating that she wants to go back to [place]. Patient was educated on risks of not taking her medications, patient continues to refuse her medications or BP to be rechecked. BAYRON Foote notified.
--- NOTE | 2024-07-05 22:34 | MHC.EDTECH ---
pt refused repeat blood pressure and pulse check x3
[2024-07-05] MEDS: OLANZapine 10 MG VIAL IM (22:53)
--- NOTE | 2024-07-05 23:11 | PC.NURSE ---
Patient is agitated and continuing to refuse BP medications. Patient medicated with Zyprexa 10 mg IM per JUL, will reattempt to recheck BP and medicate patient with Lisinopril 5 mg PO.
--- NOTE | 2024-07-06 01:15 | PC.NURSE ---
BAYRON Foote informed that patient is calm, resting with her eyes closed, no agitation at rest, however becoming very agitated, screaming, combative when asked for BP check and states she would not take any medications.
--- NOTE | 2024-07-06 03:08 | PC.NURSE ---
BAYRON Foote at bedside to assess patient. Patient became agitated when offered by BAYRON BP/HR checks and Lisinopril 5 mg PO. Patient was educated on indication for Lisinopril and importance of BP/HR monitoring and risks associated with not managing high BP such as stroke, heart failure, kidney disease. Patient continued to refused to take any medication/BP checks. Plan to monitor patient at this time, report to ED provider any changes in patient's condition.
--- NOTE | 2024-07-06 03:49 | PC.NURSE ---
Patient is calm, resting with her eyes closed, RR 16, respirations even and unlabored, no apparent distress noted, call altamirano in patient's reach.
--- NOTE | 2024-07-06 05:53 | PC.NURSE ---
Patient resting quietly, RR 18, even chest wall rise and fall, no apparent distress, bed alarm is on for safety.
[2024-07-06 08:39] VITALS: BP 139/60; PULSE 90; RESP 18; TEMP 36.5; O2SAT 95
--- NOTE | 2024-07-06 08:40 | PC.NURSE ---
Pt allows for vitals to be taken this morning, overall calm but very adamant that she will not take any meds. Reporting those meds will kill me, I will not take them . VSS and provider updated. Pt agreeable to try and eat some breakfast this morning.
--- NOTE | 2024-07-06 08:59 | PC.NURSE ---
Patient showered this morning 07/06. Linens changed.
--- NOTE | 2024-07-06 13:04 | MHC.CM.ED ---
Patient remains in ER overflow. [facility] application submitted and pending. Received notification that patient is not taking Risperidal. Zhane, court monitor aware. Continue to monitor for d/c needs.
--- NOTE | 2024-07-06 16:33 | PC.NURSE ---
Per psych provider, pt to get subq risperidone shot. Affirmed HCP, HCP at bedside and knows plan.
[2024-07-06] MEDS: risperiDONE ER 50 MG/0.14 ML SUSER.SYR SUBCUT (17:37)
--- NOTE | 2024-07-06 17:39 | PC.NURSE ---
Pt tolerated subq injection well. Pt was upset and agitated but did not get aggressive, laid and bed while injection was given. HCP at bedside.
[2024-07-06 17:41] VITALS: RESP 18
[2024-07-06 20:29] VITALS: BP 169/72; PULSE 83; RESP 16; TEMP 37.1; O2SAT 95
[2024-07-07 06:00] VITALS: BP 145/68; PULSE 73; RESP 16; TEMP 37; O2SAT 97
[2024-07-07 09:56] VITALS: BP 145/68
--- NOTE | 2024-07-07 09:58 | PC.NURSE ---
Pt has been ambulatory, eating well, chatting with staff and patients. Calm. Redirectable from exits when needed. Steady on feet. Refused AM Meds stating I don't have diabetes, my number was 100 and accusing previous staff of giving her an injection that could hurt the baby because they gave it in my stomach .
[2024-07-07 14:30] VITALS: BP 142/72; PULSE 75; RESP 19; TEMP 36.4; O2SAT 97
[2024-07-07 21:01] VITALS: BP 148/65; PULSE 74; RESP 20; TEMP 36.8; O2SAT 94
--- NOTE | 2024-07-07 21:47 | PC.NURSE ---
Pt has refused the med she requested for sleeping and anxiety.
--- NOTE | 2024-07-08 01:35 | MHC.EDTECH ---
This tech took over care of pt at 0115am rounds completed,pt is sleeping resp rate WNL,call altamirano in reach
[2024-07-08 06:20] VITALS: RESP 16
--- NOTE | 2024-07-08 06:21 | MHC.EDTECH ---
Patient refused vitals,RN aware, patient ambulated to the bathroom with a steady gait.
[2024-07-08 08:00] VITALS: BP 155/71; PULSE 75; RESP 18; TEMP 36.1; O2SAT 92
[2024-07-08 14:00] VITALS: TEMP 36.4
[2024-07-08 21:17] VITALS: BP 179/75; PULSE 66; RESP 18; TEMP 36.5; O2SAT 97
--- NOTE | 2024-07-09 06:08 | PC.NURSE ---
Patient awoke for vitals and began screaming at the tech. Stating how unhappy she is, that she hasn't seen a doctor in 3 weeks and her blood pressure is high and she is not going to take a pill from anyone.
[2024-07-09 06:47] VITALS: BP 153/72; PULSE 90; RESP 20; TEMP 36.8; O2SAT 3
[2024-07-09] MEDS: Acetaminophen 325 MG TABLET PO (07:24)
[2024-07-09] MEDS: lisinopriL 5 MG TABLET PO (07:25)
[2024-07-09] MEDS: metFORMIN HCl ER 500 MG TAB.ER.24H PO (07:25)
--- NOTE | 2024-07-09 07:33 | PC.NURSE ---
Pt ambulatory on unit, performing ADLs. linens changed. pt medicated per order, requested Tylenol for abd pain.
--- NOTE | 2024-07-09 09:34 | MHC.CM.ED ---
Addendum entered by Nahomy Harvey 07/09/24 14:18: Patient's daughter, Shani, made aware bedside with the assistance of per diem interpreter. Addendum entered by Nahomy Harvey 07/09/24 13:39: [facility]: Patient remains in ER overflow. [facility] shows [facility]. Patient has a history of schizophrenia and dementia. Was refusing PO anti-psychotic meds. Started on long acting anti-psychotic without issues. Patient has an elopement band on but hasn't been trying to escape. Referral will be re-broadcasted to see if any LTC beds are avaiable. Continue to monitor for d/c needs.
--- NOTE | 2024-07-09 15:48 | MHC.EDTECH ---
pt ambulated to bathroom. daughter remains at bedside
[2024-07-09 18:18] VITALS: O2SAT 98
[2024-07-09 19:15] VITALS: BP 138/58; PULSE 78; RESP 20; O2SAT 98
--- NOTE | 2024-07-09 19:28 | PC.NURSE ---
creatine order not visable to be drawn at 0600 this morning. Lab called and will come to draw. order reads Q7 days.
--- NOTE | 2024-07-09 20:06 | PC.NURSE ---
pt refused labs, pt will not let them draw where a good vein is. pt refused other sites to have her creatine drawn.
--- NOTE | 2024-07-09 20:15 | PC.NURSE ---
pt did not eat any of her diner.
[2024-07-10 05:25] VITALS: BP 123/53; PULSE 79; RESP 19; TEMP 36.6; O2SAT 96
[2024-07-10 08:00] VITALS: BP 135/63; PULSE 101; RESP 18; TEMP 36.3; O2SAT 96
[2024-07-10] MEDS: Loperamide HCl 2 MG CAPSULE PO (08:14)
[2024-07-10 08:15] VITALS: BP 129/72
[2024-07-10 08:49] LABS: Creatinine Clr Calc Pharmacy 40.2; Estimated Glomerular Filt Rate 49
--- NOTE | 2024-07-10 09:57 | MHC.CM.NN ---
Addendum entered by Nahomy Harvey 07/10/24 13:17: Still waiting for return telephone call from Shani. [facility] Level 1 submitted for Level 2. MDS completed and sent to [facility]. Original Note: Patient remains in ER overflow. [facility] does not feel they can safely offer a bed. [facility]. Attempted to reach patient's daughter/HCP, Shani, via telephone at [phone], with the help of the veterinary receptionist. Voicemail left requesting return telephone call. If [facility] accepts bed, it is unlikely patient will be able to transfer to facility before Friday 07/14 due to requiring [facility] Level 2 and [facility] leveling from [facility]. Continue to monitor for d/c needs.
[2024-07-10 20:35] VITALS: BP 170/72; PULSE 88; RESP 20; TEMP 36.8; O2SAT 96
[2024-07-11 06:45] VITALS: BP 129/76; PULSE 83; RESP 14; TEMP 36.9; O2SAT 97
--- NOTE | 2024-07-11 08:37 | MHC.EDTECH ---
Patient ate 25% breakfast. Call altamirano placed within reach. Patient states she is comfortable.
[2024-07-11 14:21] VITALS: BP 157/72; PULSE 80; RESP 18; TEMP 36.2; O2SAT 97
--- NOTE | 2024-07-11 15:15 | PC.NURSE ---
this nurse took over pt care at approx 1230, pt alert to self, rr equal/non labored- speaking in full sentences to staff. denies pain/discomfort at this time. per nurse giving report pt has been refusing meds and vitals- will only allow vitals on occasion. call altamirano within reach, plan of care ongoing.
--- NOTE | 2024-07-11 18:15 | PC.NURSE ---
pt became upset and wanting to leave, put her winter coat on and sat near the nurses station talking about leaving. this nurse spoke with the patient who was redirectable as we looked out the window speaking about how cold it was outdoors as it had began to get windy and snow- the patient could see how windy it was outdoors and decided it would be better if she stayed. pt then requested to take a shower and have her bed linens changed, this nurse set the patient up in the shower and changed her linens for her. pt was thankful after shower and is now comfortable in her room watching tv.
[2024-07-11 21:49] VITALS: BP 171/77; PULSE 90; RESP 14; TEMP 36.8; O2SAT 97
[2024-07-12 06:00] VITALS: RESP 16
--- NOTE | 2024-07-12 14:37 | PC.NURSE ---
Pt remains uncooperative with care, refusing to take meds or have vs checked; messageambika
--- NOTE | 2024-07-12 14:51 | MHC.EDTECH ---
patient refuse Vital signs RN aware
--- NOTE | 2024-07-12 16:58 | PC.NURSE ---
Pt eating/drinking in room; still refusing vs at this time
[2024-07-12 20:46] VITALS: RESP 18
--- NOTE | 2024-07-12 21:37 | PC.NURSE ---
assist with bed change per pt's request. refused vitals
[2024-07-13 06:15] VITALS: BP 178/82; PULSE 101; RESP 19; TEMP 36.6; O2SAT 96
--- NOTE | 2024-07-13 08:38 | PC.NURSE ---
pt refusing lisinopril and metformin to be administered at this time. pt also refusing for this RN to obtain vitals/recheck blood sugar. pt educated on importance of interventions but still refusing at this time. will reattempt. provider notified/aware.
--- NOTE | 2024-07-13 09:31 | MHC.EDTECH ---
Patient refused vitals and phlebotomy.
--- NOTE | 2024-07-13 11:43 | MHC.CM.PN ---
PT IS EXPECTED TO DC TO [facility] TOMORROW PENDING APPROVAL FROM [facility]
--- NOTE | 2024-07-13 12:32 | PC.NURSE ---
pt requesting to take a shower. provided w/ personal hygiene products. pt took a shower independently w/o difficulty.
[2024-07-13 13:32] VITALS: BP 146/65; PULSE 83; RESP 16; TEMP 36.8; O2SAT 96
[2024-07-13 18:49] VITALS: BP 146/67; PULSE 80; RESP 16; TEMP 36.9; O2SAT 94
--- NOTE | 2024-07-13 20:29 | PC.NURSE ---
assumed care of pt at 20:00, pt ambulatory to and from bathroom independently with a steady gait. no apparent distress noted. back into hospital bed, call altamirano within reach - pt within view of nurses station. plan of care continues.
[2024-07-14 00:21] LABS: Glucose, Whole Blood 141 mg/dL (60-115)
--- NOTE | 2024-07-14 08:42 | PC.NURSE ---
Patient showered, denies pain or discomfort. Declined all medications stating her blood pressure is fine and metformin gives her loose stools
--- NOTE | 2024-07-14 11:47 | MHC.CM.ED ---
Addendum entered by Nahomy Harvey 07/14/24 12:45: Received notification from [facility] that they don't have a bed today. Hoping for a bed later this week. [facility] is re-reviewing. Original Note: Patient remains in ER overflow. Per Patricia at [facility], leveling will be available this afternoon. Clinical updates sent to [facility] via [employer]. Spoke with patient's daughter, Shani, via telephone at [phone] with the help of the office cleaner. Shani is agreeable to d/c to [facility]. Continue to monitor for d/c needs.
[2024-07-14 13:38] VITALS: BP 132/76; PULSE 78; RESP 16; TEMP 36.8; O2SAT 98
--- NOTE | 2024-07-14 22:14 | MHC.EDTECH ---
rn aware pt refused vitals
--- NOTE | 2024-07-15 05:03 | PC.NURSE ---
Assumed care of patient. Patient walks independently to the bathroom with steady gait. Purposeful rounding performed to maintain safety. Call altamirano within reach.
[2024-07-15 06:14] VITALS: BP 155/71; PULSE 60; RESP 18; TEMP 37.2; O2SAT 97
[2024-07-15 09:03] VITALS: BP 145/71; PULSE 70; RESP 20; TEMP 36.3; O2SAT 96
[2024-07-15 11:48] LABS: Glucose, Whole Blood 105 mg/dL (60-115)
--- NOTE | 2024-07-15 11:55 | MHC.CM.ED ---
Addendum entered by Nahomy Harvey 07/15/24 12:11: Reached out to [facility] so see if any of their other facilities can offer a bed. None of their facilities are able to offer a bed at any of their facilities. Original Note: Patient remains in ER overflow. [facility] anticipate [facility]
--- NOTE | 2024-07-15 18:37 | MHC.EDTECH ---
Patient refused to have vitals checked this evening.
--- NOTE | 2024-07-15 19:45 | PC.NURSE ---
This RN assumed pt care @ 1910. Pt resting in bed watching TV and on cell phone Pt denies pain at this time but reports 1 episode of diarrhea @ 1800 with incontinence. Pt requested imodium Provider Yg notified and aware of pts request. Plan of care ongoing.
[2024-07-15] MEDS: Acetaminophen 325 MG TABLET PO (22:53)
--- NOTE | 2024-07-15 22:56 | PC.NURSE ---
Pt requested and given tylenol for a headache Plan of care ongoing
[2024-07-16 06:12] VITALS: BP 131/62; PULSE 78; RESP 16; TEMP 36.7; O2SAT 96
--- NOTE | 2024-07-16 08:52 | PC.NURSE ---
Pt alert this morning, reporting she had episode of diarrhea last night and some mild ABD pain/cramping throughout the night. Bed noted to be soiled, bed changed and cleaned and pt assisted and took full shower. Pt refusing her normal morning meds this morning, only requesting immodium for the diarrhea episode.
--- NOTE | 2024-07-16 09:16 | MHC.EDTECH ---
Changed patients linen.
[2024-07-16] MEDS: Loperamide HCl 2 MG CAPSULE PO (09:43)
--- NOTE | 2024-07-16 09:53 | MHC.CM.ED ---
[facility] has a bed today. Patient can leave at 1pm. Nikolas MURRELL booked. [facility] with chart. Patricia of [facility] made aware. Patient, daughter, Joseline Mcleod Rn and Kinjal VERMA aware. Continue to monitor for d/c needs.
--- NOTE | 2024-07-16 12:37 | PC.NURSE ---
Pt refusing vitals.
[2024-07-16 13:59] VITALS: BP 180/80; PULSE 90; RESP 18; TEMP 36.2; O2SAT 96
--- NOTE | 2024-07-16 14:06 | PC.NURSE ---
This RN partha mendoza of [facility], gave nurse to nurse
== END 2024-07-16 14:07 | disposition skilled nursing facility (03) ==
PROVIDERS: Physician Assistant Medical; Emergency Provider Emergency Medicine; PCP Physician Assistant
DX: F20.9 Schizophrenia, unspecified (principal); F03.90 Unspecified dementia, unspecified severity, without behavioral disturbance, psychotic disturbance, mood disturbance, and anxiety; R45.1 Restlessness and agitation; R14.0 Abdominal distension (gaseous); R10.9 Unspecified abdominal pain; R00.0 Tachycardia, unspecified; I10 Essential (primary) hypertension; Z91.148 Patient's other noncompliance with medication regimen for other reason; Z85.038 Personal history of other malignant neoplasm of large intestine; Z87.891 Personal history of nicotine dependence; Z11.52 Encounter for screening for COVID-19
CPT/HCPCS: 36415; 74177; 80048; 80053; 80076; 81001; 82565; 82947; 83690; 83735; 84484; 84702; 85025; 86140; 87086; 87493; 87507; 87635; 93005; 96360; 96361; 96372; 99285; J2359; J2799; Q9967; S9485

== ENCOUNTER → 2024-06-24 02:56 | Outpatient (BNV) | payer MEDICARE, MEDICAID, SELFPAY | PROVIDERS: Emergency Provider Emergency Medicine; Visit Provider Internal Medicine | DX: R10.9 Unspecified abdominal pain (principal) | CPT/HCPCS: 93010 ==

== ENCOUNTER → 2024-06-24 04:52 | Outpatient (BNV) | payer MEDICARE, MEDICAID, SELFPAY | PROVIDERS: Emergency Provider Emergency Medicine; Visit Provider Social Worker | DX: F20.9 Schizophrenia, unspecified (principal); F03.90 Unspecified dementia, unspecified severity, without behavioral disturbance, psychotic disturbance, mood disturbance, and anxiety | CPT/HCPCS: 99285 ==

== ENCOUNTER → 2024-06-25 00:28 | Outpatient (BNV) | payer MEDICARE, MEDICAID, SELFPAY | PROVIDERS: Emergency Provider Emergency Medicine; Visit Provider Radiology Diagnostic Radiology | DX: K86.2 Cyst of pancreas (principal); K76.0 Fatty (change of) liver, not elsewhere classified | CPT/HCPCS: 74177 ==